=== PATIENT | female | born 1980 | race Caucasian/White ===

== ENCOUNTER 2017-02-02 10:42 | Emergency (ER) | payer MEDICAID ==
[~2017-02-02] VITALS: Ht 154.9 cm; Wt 56.7 kg
[2017-02-02 11:03] VITALS: BP 92/57
[2017-02-02] MEDS ORDERED: Bacitracin Oint UD TOPIC ONE (11:15)
[2017-02-02] MEDS ORDERED: Lidocaine 1% 10mg/ml/Epi 0.005mg/ml 30ml vial INJ ONE (11:15)
[2017-02-02 11:58] LABS: APPEARANCE,URINE SLIGHTLY CLOUDY; KETONES,URINE NEGATIVE (NEGATIVE); LEUKOCYTE ESTERASE ,URINE 1+ (NEGATIVE); NITRITE,URINE NEGATIVE (NEGATIVE); PH,URINE 6 (4.5-8.0); PROTEIN,URINE NEGATIVE (NEGATIVE); UROBILINOGEN,URINE NORMAL MG/DL (0.0-1.0)
[2017-02-02 12:03] LABS: BASOPHILS % (AUTO) 0.7 % (0.0-2.0); EOSINOPHILS % (AUTO) 1.2 % (0.0-3.0); LYMPHOCYTES % (AUTO) 9.6 % (20.0-45.0); MEAN CORPUSCULAR HGB CONC 34.1 G/DL (32.0-36.0); MEAN CORPUSCULAR VOLUME 100 FL (80-99); MEAN PLATELET VOLUME 8.2 FL (6.5-10.1); MONOCYTES % (AUTO) 3.7 % (1.0-10.0); NEUTROPHILS % (AUTO) 84.8 % (45.0-75.0); PLATELET COUNT 267 K/UL (150-450); RED CELL DISTRIBUTION WIDTH 11.5 % (11.6-14.8); WHITE BLOOD COUNT 11.5 K/UL (4.8-10.8)
[2017-02-02 12:04] LABS: SQUAMOUS EPITHELIAL CELL,UR MODERATE /LPF (NONE/OCC); WBC,URINE 0-2 /HPF (0 - 2)
--- NOTE | 2017-02-02 12:18 | Diagnostic Imaging Report ---
Indication: Dyspnea Comparison: None A single view chest radiograph was obtained. Findings: Cardiomediastinal appearance is within normal limits for age. There is a tracheostomy. Pulmonary vascularity is appropriate. The diaphragmatic contour is smooth and costophrenic angles are sharp. No pleural effusions are identified. The bones are unremarkable. Impression: No acute findings
[2017-02-02] MEDS ORDERED: Acetaminophen 650mg/20.3ml ONE (12:20)
[2017-02-02] MEDS ORDERED: Acetaminophen 650mg/20.3ml GT ONE (12:30)
[2017-02-02] MEDS ORDERED: DILANTIN-1125 MG/5 M GT (12:55)
[2017-02-02] MEDS ORDERED: ATORVASTATIN CA10 MG GT (12:55)
[2017-02-02] MEDS ORDERED: COLACE100 MG GT (12:55)
[2017-02-02] MEDS ORDERED: GUAIFENESIN AC473 ML GT (12:57)
[2017-02-02] MEDS ORDERED: FOLIC ACID1 MG GT (12:57)
[2017-02-02] MEDS ORDERED: KEPPRA1000 MG GT (12:57)
[2017-02-02] MEDS ORDERED: MULTI-DELYN237 ML GT (12:59)
[2017-02-02] MEDS ORDERED: NORCO 5-325 TA1 EACH GT (12:59)
[2017-02-02] MEDS ORDERED: LORATADINE10 M1 GT (12:59)
[2017-02-02] MEDS ORDERED: PREDNISONE10 MG GT (13:02)
[2017-02-02] MEDS ORDERED: UTI-STAT L3875 MG/31 GT (13:02)
[2017-02-02] MEDS ORDERED: PHENOBARBITAL30 MG GT (13:02)
[2017-02-02] MEDS ORDERED: VITAMIN D400 INTLU GT (13:02)
[2017-02-02] MEDS ORDERED: ACETAMINOPHEN325 M1 GT (13:02)
[2017-02-02 13:11] LABS: ALANINE AMINOTRANSFERASE 13 U/L (3-33); ANION GAP 8 (5-15); ASPARTATE AMINO TRANSFERASE 16 U/L (5-40); CALCIUM 8.7 mg/dL (8.6-10.2); CARBON DIOXIDE 28 mEQ/L (20-30); CHLORIDE 101 mEQ/L (98-107); CREATININE 0.5 mg/dL (0.5-0.9); GLOMERULAR FILTRATION RATE > 60 mL/min (>60); HEMOLYSIS 5; POTASSIUM 4.1 mEQ/L (3.4-4.9); SODIUM 137 mEQ/L (135-145); TOTAL PROTEIN 7.5 g/dL (6.6-8.7)
[2017-02-02 13:25] VITALS: BP 86/55
[2017-02-02] MEDS ORDERED: NS 250 ML IVPB ONE (13:30)
--- NOTE | 2017-02-02 14:40 | Emergency Room Report ---
History of Present Illness General Chief Complaint: Multiple Trauma/Fall Source: Patient, EMS Present Illness HPI Patient reportedly fell in the bathroom. She was unobserved at that time. It' s uncertain whether she had a seizure at that time. She has a laceration of her left eyebrow. She complains about some pain there. Pain according to RNs is 2/10 - poorly characterized. She nods her head yes and no questions - more "yes" with questionable comprehension.. She has a tracheostomy The patient is on Dilantin and Phenobarbital. She is fed through a G tube. There is no report of fever, vomiting, diarrhea, dysuria. Allergies: Coded Allergies: No Known Allergies (Unverified , 02/02/17) Patient History Limited by: medical condition Past Medical History: see triage record Past Surgical History: other - G tube and trach Social History Narrative SNF Reviewed Nursing Documentation: PMH: Agreed, PSxH: Agreed Nursing Documentation-PM Past Medical History: No History, Except For Hx Gastrointestinal Problems: Yes - Dysphagia Hx Seizures: Yes - Epilepsy Review of Systems All Other Systems: limited Physical Exam Vital Signs Date Time Temp Pulse Resp B/P Pulse Ox O2 Delivery O2 Flow Rate FiO2 02/02/17 10:27 98.4 92 14 89/58 99 Trach Collar 2.0 Sp02 EP Interpretation: reviewed, normal General Appearance: thin, Chronically Ill Head: normocephalic, other - eyebrow lac, contusion Eyes: bilateral eye PERRL, bilateral eye normal inspection ENT: moist mucus membranes - hypergnathia Neck: full range of motion, no bony tend Respiratory: lungs clear, normal breath sounds Cardiovascular #1: regular rate, rhythm Cardiovascular #2: 2+ radial (R) Gastrointestinal: normal inspection, normal bowel sounds, non tender, no mass, non-distended Musculoskeletal: back normal, gait/station normal, normal range of motion Neurologic: alert, sensory intact, motor weakness, oriented - unknown if knows date Psychiatric: mood/affect normal Skin: warm/dry, laceration - X2 - L eyebrow = 5 cm and 1 cm above Procedures Laceration/Wound Repair Laceration/Wound Repair : Consent: Verbal Wound Location: face Wound's Depth, Shape: into muscle, linear Wound Length (cm): 6 - 5 cm through eyebrow and 1 cm above on forehead Wound Explored: removed some hair Anesthesia: Lidocaine w/ Epi Wound Debrided: minimal Wound Repaired With: sutures Suture Size/Type: 6:0, proline Layer Closure?: Yes Deep Layer Suture Size/Type: 6:0, other - vicrly Sterile Dressing Applied?: Yes Progress betadiene, anesthesia. Irrigated 3 layer closure of eyebrow laceration with anatomic/cosmetic alignment of eyebrow (complex laceration repair) Forehead laceration repaired with 6-0 ethilon, no debridement necessary = simple closure 1 cm Medical Decision Making Diagnostic Impression: Primary Impression: Seizure Additional Impressions: Eyebrow laceration Qualified Codes: S01.112A - Laceration without foreign body of left eyelid and periocular area, initial encounter Seizure secondary to subtherapeutic anticonvulsant medication Head contusion Qualified Codes: S00.83XA - Contusion of other part of head, initial encounter ER Course Patient with unwitnessed fall in bathroom, with possible seizure. Eval needs to be for possible seizure. DDx: bleed, lac, contusion, subtherapeutic meds, syncope amongst others. No neck pain. Evaluation with CT, labs, CXR. Denies pain, but tylenol given. Needs lacs closure. Exam is non-focal and The patient was given a dose of phenobarbital IV. She had no more seizure activity here. Her blood pressure was slightly low. She is given a small bolus of saline and also burning with IV hydration. The laceration was repaired with a 3 layer closure, second lac simple repair. See procedure note. The patient is improved and stable for outpatient treatment. Laboratory Tests Test 02/02/17 11:25 02/02/17 11:43 02/02/17 12:33 Urine Color Pale yellow Urine Appearance Slightly cloudy Urine pH 6 (4.5-8.0) Urine Specific [place] 1.015 (1.005-1.035) Urine Protein Negative (NEGATIVE) Urine Glucose (UA) Negative (NEGATIVE) Urine Ketones Negative (NEGATIVE) Urine Occult Blood 5+ (NEGATIVE) H Urine Nitrite Negative (NEGATIVE) Urine Bilirubin Negative (NEGATIVE) Urine Urobilinogen Normal MG/DL (0.0-1.0) Urine Leukocyte Esterase 1+ (NEGATIVE) H Urine RBC 5-10 /HPF (0 - 2) H Urine WBC 0-2 /HPF (0 - 2) Urine Squamous Epithelial Cells Moderate /LPF (NONE/OCC) H Urine Bacteria None /HPF (NONE) White Blood Count 11.5 K/UL (4.8-10.8) H Red Blood Count 4.30 M/UL (4.20-5.40) Hemoglobin 14.6 G/DL (12.0-16.0) Hematocrit 42.9 % (37.0-47.0) Mean Corpuscular Volume 100 FL (80-99) H Mean Corpuscular Hemoglobin 34.0 PG (27.0-31.0) H Mean Corpuscular Hemoglobin Concent 34.1 G/DL (32.0-36.0) Red Cell Distribution Width 11.5 % (11.6-14.8) L Platelet Count 267 K/UL (150-450) Mean Platelet Volume 8.2 FL (6.5-10.1) Neutrophils (%) (Auto) 84.8 % (45.0-75.0) H Lymphocytes (%) (Auto) 9.6 % (20.0-45.0) L Monocytes (%) (Auto) 3.7 % (1.0-10.0) Eosinophils (%) (Auto) 1.2 % (0.0-3.0) Basophils (%) (Auto) 0.7 % (0.0-2.0) Sodium Level 137 mEQ/L (135-145) Potassium Level 4.1 mEQ/L (3.4-4.9) Chloride Level 101 mEQ/L (98-107) Carbon Dioxide Level 28 mEQ/L (20-30) Anion Gap 8 (5-15) Blood Urea Nitrogen 9 mg/dL (7-23) Creatinine 0.5 mg/dL (0.5-0.9) Estimate Glomerular Filtration Rate > 60 mL/min (>60) Glucose Level 104 mg/dL (74-106) Calcium Level 8.7 mg/dL (8.6-10.2) Total Bilirubin 0.2 mg/dL (0.0-1.2) Aspartate Amino Transferase (AST) 16 U/L (5-40) Alanine Aminotransferase (ALT) 13 U/L (3-33) Alkaline Phosphatase 116 U/L (35-104) H Total Creatine Kinase 65 U/L (26-140) Total Protein 7.5 g/dL (6.6-8.7) Albumin 3.8 g/dL (3.5-5.2) Globulin 3.7 g/dL Albumin/Globulin Ratio 1.0 (1.0-2.7) Phenytoin (Dilantin) Level 18.4 ug/mL (10-20) Phenobarbital Level 16.2 ug/mL (20.0-40.0) L EKG Diagnostic Results Rate: normal Rhythm: NSR ST Segments: no acute changes Rhythm Strip Diag. Results EP Interpretation: yes Rhythm: NSR, no PVC's, no ectopy Chest X-Ray Diagnostic Results Chest X-Ray Diagnostic Results : Chest X-Ray Ordered: Yes # of Views/Limited/Complete: 1 View Indication: Other EP Interpretation: Yes Interpretation: no consolidation, no effusion, no pneumothorax, other - trach Impression: No acute disease Interpreting ER Provider: Electronic signature Ousmane Delgado MD CT/MRI/US Diagnostic Results CT/MRI/US Diagnostic Results : Imaging Test Ordered: head Impression no bleed, fx, some chronic changes Last Vital Signs Date Time Temp Pulse Resp B/P Pulse Ox O2 Delivery O2 Flow Rate FiO2 02/02/17 15:30 74 17 95/66 100 Trach Collar 2.0 02/02/17 15:27 97.9 Status: improved Disposition: XFER SNF Condition: Improved Scripts Bacitracin (Bacitracin) 28.4 Gm Oint...g. 1 APPLIC TOPIC BID, #10 GM Prov: Ousmane Delgado M.D. 02/02/17 Referrals: BRYANT LINDA,REFERRING (PCP) Ousmane Delgado M.D. Feb 02, 2017 14:40
[2017-02-02] MEDS ORDERED: BACITRACIN15 GM TOPIC (14:48)
[2017-02-02 15:27] VITALS: BP 95/66
[2017-02-02 15:30] VITALS: BP 95/66
--- NOTE | 2017-02-05 09:13 | Diagnostic Imaging Report ---
Indication: Seizure Technique: Contiguous 5 mm thick transaxial imaging of the head obtained in a Siemens Sensation [address] scanner. Soft tissue and bone windows generated. Total Dose length Product (DLP): [address] Dose Index Volume (CTDIvol): 70.38 mGy Comparison: none Findings: There is moderate cerebellar atrophy present. The cerebrum is relatively normal volume. There is no mass effect or edema or evidence of acute hemorrhage. No midline shift is seen. There is a focus of calcification measuring 6 mm at the posterior margin of the anterior horn of the right lateral ventricle. This could represent an unusual distribution of choroid more anterior than expected with calcification, as choroid normally calcifies. Usually calcification is confined to the posterior aspects of both lateral ventricles. The possibility of a small calcified mass such as a subependymoma is not excluded. No other lesions are seen within the lateral ventricles. There is swelling of the scalp posteriorly slightly left of midline. Please correlate clinically. This may be scalp contusion. Impression: No mass effect, acute intracranial hemorrhage or edema. 6 mm densely calcified mass within the anterior horn of the right lateral ventricle. 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 If this is a mass, not certain whether this is associated with the patient's given history of seizure. Moderate cerebellar atrophy. This could be related to chronic phenytoin use as there is a seizure history. Please correlate clinically. The CT scanner at [facility] is accredited by the [employer] and the scans are performed using dose optimization techniques as appropriate to a performed exam including Automatic Exposure control.
== END 2017-02-02 15:30 ==
LOC: EDBD 10:42 → EMR 11:25
DX: S01.112A Laceration without foreign body of left eyelid and periocular area, initial encounter (principal); S00.93XA Contusion of unspecified part of head, initial encounter; G40.909 Epilepsy, unspecified, not intractable, without status epilepticus; W19.XXXA Unspecified fall, initial encounter; Y92.121 Bathroom in nursing home as the place of occurrence of the external cause; Z79.899 Other long term (current) drug therapy; Z93.1 Gastrostomy status; Z93.0 Tracheostomy status
CPT/HCPCS: 12053; 36415; 70450; 71010; 80053; 80184; 80185; 81003; 82550; 82962; 85025; 93005; 96374; 96375; 99284; J2560; J7050; Z7502

== ENCOUNTER 2017-05-19 19:05 | Emergency (ER) | payer MEDICAID ==
[~2017-05-19] VITALS: Ht 152.4 cm; Wt 54.4 kg
[~2017-05-19 19:05] MED LIST: ACETAMINOPHEN325 M1 GT; ATORVASTATIN CA10 MG GT; BACITRACIN15 GM TOPIC; COLACE100 MG GT; DILANTIN-1125 MG/5 M GT; FOLIC ACID1 MG GT; GUAIFENESIN AC473 ML GT; KEPPRA1000 MG GT; LORATADINE10 M1 GT; MULTI-DELYN237 ML GT; NORCO 5-325 TA1 EACH GT; PHENOBARBITAL30 MG GT; PREDNISONE10 MG GT; UTI-STAT L3875 MG/31 GT; VITAMIN D400 INTLU GT
[2017-05-19 19:15] VITALS: BP 103/67
[2017-05-19] MEDS ORDERED: levETIRAcetam 500 MG in D5W 110 ML IV ONE (19:30)
[2017-05-19] MEDS ORDERED: LORazepam Inj 2mg/ml 1ml IV ONE (19:30)
[2017-05-19] MEDS ORDERED: levETIRAcetam 500mg vial IV ONE (19:44)
[2017-05-19 19:50] LABS: BASOPHILS % (AUTO) 0.7 % (0.0-2.0); EOSINOPHILS % (AUTO) 3.1 % (0.0-3.0); HEMATOCRIT 44.9 % (37.0-47.0); HEMOGLOBIN 15.1 G/DL (12.0-16.0); LYMPHOCYTES % (AUTO) 16.3 % (20.0-45.0); MEAN CORPUSCULAR VOLUME 99 FL (80-99); MONOCYTES % (AUTO) 6.4 % (1.0-10.0); NEUTROPHILS % (AUTO) 73.6 % (45.0-75.0); PLATELET COUNT 258 K/UL (150-450); RED BLOOD COUNT 4.56 M/UL (4.20-5.40); RED CELL DISTRIBUTION WIDTH 11.2 % (11.6-14.8); WHITE BLOOD COUNT 7.6 K/UL (4.8-10.8)
[2017-05-19 20:29] LABS: ALANINE AMINOTRANSFERASE 29 U/L (12-78); ALBUMIN 3.8 G/DL (3.4-5.0); ALBUMIN/GLOBULIN RATIO 0.8 (1.0-2.7); ALKALINE PHOSPHATASE 130 U/L (46-116); ANION GAP 8 mmol/L (5-15); ASPARTATE AMINO TRANSFERASE 23 U/L (15-37); BILIRUBIN,TOTAL 0.1 MG/DL (0.2-1.0); BLOOD UREA NITROGEN 10 mg/dL (7-18); CALCIUM 9.2 MG/DL (8.5-10.1); CARBON DIOXIDE 28 MMOL/L (21-32); CHLORIDE 103 MMOL/L (98-107); CREATININE 0.7 MG/DL (0.55-1.30); POTASSIUM 3.3 MMOL/L (3.5-5.1); SODIUM 139 MMOL/L (136-145)
[2017-05-19 20:33] LABS: CREATINE KINASE 77 U/L (26-308)
[2017-05-19] MEDS ORDERED: DILANTIN100 MG ORAL (20:44)
[2017-05-19] MEDS ORDERED: DUONEB 0.5-3(2.53 ML HHN (20:44)
[2017-05-19] MEDS ORDERED: DOCUSATE SODIU100 MG GT (20:44)
[2017-05-19] MEDS ORDERED: DILANTIN-1125 MG/5 M GT (20:44)
[2017-05-19] MEDS ORDERED: FOLIC ACID1 MG GT (20:50)
[2017-05-19] MEDS ORDERED: NORCO 5-325 TA1 EAC1 ORAL (20:50)
[2017-05-19] MEDS ORDERED: MULTIVITAM9 MG/15 M1 GT (20:50)
[2017-05-19] MEDS ORDERED: TOPIRAMATE50 MG GT ×2 (20:50→20:53)
[2017-05-19] MEDS ORDERED: LORATADINE10 M3 GT (20:50)
[2017-05-19] MEDS ORDERED: LEVETIRACE100 MG/1 M GT (20:50)
[2017-05-19] MEDS ORDERED: ACETAMINOPHEN325 M1 ORAL (20:53)
[2017-05-19] MEDS ORDERED: UTI-STAT L3875 MG/31 GT (20:53)
[2017-05-19 21:15] VITALS: BP 90/52
[2017-05-19] MEDS ORDERED: Phenytoin 500 MG in NS 110 ML IVPB STA (22:29)
--- NOTE | 2017-05-19 22:33 | Emergency Room Report ---
History of Present Illness General Chief Complaint: Seizure Source: EMS Present Illness HPI The patient was found postictal. She has a history of seizures. The seizure was not observed however when she is postictal in this fashion the staff knows she's had a seizure. According to records she supposed to be on Keppra, phenobarbital and Dilantin. She is fed and her meds are delivered through a G tube. She was last seen here in January. At that time her medication levels were normal. She had sustained a laceration falling in the bathroom and again, it was presumed that she had a seizure precipitating the fall and laceration. The patient has a tracheostomy. There's been no fever stated. Patient is unable to give history. Usually she is able to nod yes and no. She suffers from encephalopathy, DM, angioneurotic edema. Allergies: Coded Allergies: No Known Allergies (Unverified , 02/02/17) Patient History Limited by: medical condition Past Medical History: see triage record, old chart reviewed Past Surgical History: other - trach, G tube Social History: Denies: smoking, alcohol use, drug use Social History Narrative in SNF Reviewed Nursing Documentation: PMH: Agreed, PSxH: Agreed Nursing Documentation-PMH Past Medical History: No History, Except For Hx Asthma: Yes - Attention to tracheostomy, Respiratory failure Hx Diabetes: Yes Hx Gastrointestinal Problems: Yes - G-tube, dysphagia History Of Psychiatric Problem: Yes - Schizophrenia Hx Seizures: Yes Review of Systems All Other Systems: limited Physical Exam Vital Signs Date Time Temp Pulse Resp B/P (MAP) Pulse Ox O2 Delivery O2 Flow Rate FiO2 05/19/17 18:54 97.3 116 18 118/77 97 Trach Collar Sp02 EP Interpretation: reviewed, normal General Appearance: well appearing, no apparent distress, other - GCS 14 - eyes closed, Chronically Ill Head: normocephalic Eyes: bilateral eye normal inspection, bilateral eye PERRL ENT: moist mucus membranes - no tongue macerations Neck: supple, tracheotomy Respiratory: lungs clear, normal breath sounds Cardiovascular #1: regular rate, rhythm Cardiovascular #2: 2+ radial (R) Gastrointestinal: normal inspection, normal bowel sounds, non tender, no mass, non-distended, other - G tube Musculoskeletal: back normal, normal range of motion Neurologic: alert, cardiology physician assistant III-XII nml as tested, motor strength/tone normal, DTRs symmetric, sensory intact, cerebellar normal, other - not speak due to trach - eyes closed Psychiatric: depressed affect Skin: normal inspection, warm/dry, other - facial nodularity Medical Decision Making Diagnostic Impression: Primary Impression: Seizure secondary to subtherapeutic anticonvulsant medication ER Course Patient presents with presumptive seizure. DDx: subtherapeutic medications, breakthrough seizures, electrolyte abnormalities amongst others. Emergent evaluation with labs including medication levels, CXR, EKG. Will treat presumtively with ativan and dose of keppra. Need to exclude aspiration. EKG NSR. CXR without infiltrates. Both dilantin and phenobarbital levels are low. Both are given IV. Patient with eyes closed, but denies pain. Discussed medical non-compliance with Lynn Gusman. If continued presentations, consider APS notification. Patient improved and stable for outpatient observation and treatment. Laboratory Tests Test 05/19/17 19:37 White Blood Count 7.6 K/UL (4.8-10.8) Red Blood Count 4.56 M/UL (4.20-5.40) Hemoglobin 15.1 G/DL (12.0-16.0) Hematocrit 44.9 % (37.0-47.0) Mean Corpuscular Volume 99 FL (80-99) Mean Corpuscular Hemoglobin 33.2 PG (27.0-31.0) H Mean Corpuscular Hemoglobin Concent 33.7 G/DL (32.0-36.0) Red Cell Distribution Width 11.2 % (11.6-14.8) L Platelet Count 258 K/UL (150-450) Mean Platelet Volume 8.7 FL (6.5-10.1) Neutrophils (%) (Auto) 73.6 % (45.0-75.0) Lymphocytes (%) (Auto) 16.3 % (20.0-45.0) L Monocytes (%) (Auto) 6.4 % (1.0-10.0) Eosinophils (%) (Auto) 3.1 % (0.0-3.0) H Basophils (%) (Auto) 0.7 % (0.0-2.0) Prothrombin Time 10.2 SEC (9.30-11.50) Prothrombin Time INR 1.0 (0.9-1.1) PTT 25 SEC (23-33) Sodium Level 139 MMOL/L (136-145) Potassium Level 3.3 MMOL/L (3.5-5.1) L Chloride Level 103 MMOL/L (98-107) Carbon Dioxide Level 28 MMOL/L (21-32) Anion Gap 8 mmol/L (5-15) Blood Urea Nitrogen 10 mg/dL (7-18) Creatinine 0.7 MG/DL (0.55-1.30) Estimate Glomerular Filtration Rate > 60 mL/min (>60) Glucose Level 135 MG/DL (74-106) H Calcium Level 9.2 MG/DL (8.5-10.1) Total Bilirubin 0.1 MG/DL (0.2-1.0) L Aspartate Amino Transferase (AST) 23 U/L (15-37) Alanine Aminotransferase (ALT) 29 U/L (12-78) Alkaline Phosphatase 130 U/L (46-116) H Total Creatine Kinase 77 U/L (26-308) Pro-B-Type Natriuretic Peptide 29 pg/mL (0-125) Total Protein 8.3 G/DL (6.4-8.2) H Albumin 3.8 G/DL (3.4-5.0) Globulin 4.5 g/dL Albumin/Globulin Ratio 0.8 (1.0-2.7) L Acetaminophen Level < 10 MCG/ML (10-30) L Phenytoin (Dilantin) Level 3.9 ug/mL (10-20) L Phenobarbital Level < 1.0 ug/mL (15-40) L Serum Alcohol < 3 mg/dL EKG Diagnostic Results Rate: normal Rhythm: NSR ST Segments: no acute changes Rhythm Strip Diag. Results EP Interpretation: yes Rhythm: NSR, no PVC's, no ectopy Chest X-Ray Diagnostic Results Chest X-Ray Diagnostic Results : Chest X-Ray Ordered: Yes # of Views/Limited/Complete: 1 View Indication: Other Interpretation: no consolidation, no effusion, no pneumothorax, other - trach Impression: No acute disease Electronically Signed by: Electronically signed by Ousmane Delgado MD Last Vital Signs Date Time Temp Pulse Resp B/P (MAP) Pulse Ox O2 Delivery O2 Flow Rate FiO2 05/20/17 00:08 98.0 92 22 95/74 98 Room Air Status: improved Disposition: XFER SNF Condition: Improved Referrals: NON PHYSICIAN (PCP) Ousmane Delgado M.D. May 19, 2017 22:33
[2017-05-19] MEDS ORDERED: Phenytoin 250mg/5ml vial ONE (22:38)
[2017-05-19 23:15] VITALS: BP 117/78
[2017-05-20 00:08] VITALS: BP 95/74
--- NOTE | 2017-05-20 11:09 | Diagnostic Imaging Report ---
Indication: Cough Technique: CHEST 1 VIEW. Comparison: 02/02/17 Findings: The cardiomediastinal silhouette is stable. There are no acute infiltrates. Tracheostomy remains in place. No pleural fluid. There is scarring in the right lower lung. Impression: No acute abnormality. .
--- NOTE | 2017-05-21 20:20 | Cardiology Report ---
APPROVED REPORT EKG Measurement Heart [id number] [place] [id number] Normal sinus rhythm Normal ECG
--- NOTE | 2017-05-21 20:20 | Cardiology Report ---
APPROVED REPORT EKG Measurement Heart [id number] [place] 132P75 [id number] Normal sinus rhythm Normal ECG
--- NOTE | 2017-05-21 20:20 | Cardiology Report ---
APPROVED REPORT EKG Measurement Heart [id number] [place] 132P75 [id number] Normal sinus rhythm Normal ECG
== END 2017-05-20 00:08 ==
LOC: EDBD 19:05 → EMR 20:58
DX: G40.909 Epilepsy, unspecified, not intractable, without status epilepticus (principal); Z79.899 Other long term (current) drug therapy; E11.9 Type 2 diabetes mellitus without complications; J45.909 Unspecified asthma, uncomplicated; Z93.1 Gastrostomy status; F20.9 Schizophrenia, unspecified
CPT/HCPCS: 36415; 71010; 80053; 80184; 80185; 80329; 82550; 83880; 85025; 85610; 85730; 93005; 96361; 96374; 96375; 99284; J1165; J1953; J2560

== ENCOUNTER → 2018-02-08 | Emergency (ER) | payer MEDICAID ==
[~2018-02-08] VITALS: Ht 134.6 cm; Wt 40.4 kg
[~2018-02-08] MED LIST changes: +ACETAMINOPHEN325 M1 ORAL; +ALBUTEROL2.5 MG/3 M INH; +DILANTIN100 MG ORAL; +DOCUSATE SODIU100 MG GT; +DUONEB 0.5-3(2.53 ML HHN; +HIBICLENS118 ML ORAL; +LEVETIRACE100 MG/1 M GT; +LORATADINE10 M3 GT; +MULTIVITAM9 MG/15 M1 GT; +NORCO 5-325 TA1 EAC1 ORAL; +Phenytoin 1,000 MG in NS 275 ML IVPB ONE; +TOPIRAMATE50 MG GT; +TRILEPTAL600 MG GT
--- NOTE | 2018-02-08 10:44 | Emergency Room Report ---
History of Present Illness General Chief Complaint: Seizure Source: Patient, EMS Present Illness HPI 37-year-old female with history of encephalopathy and seizure disorder, presents with witnessed seizure at [facility], duration 2-3 minutes, no obvious injuries as patient in the bed. There is no much history in terms of bowel bladder incontinence or tongue biting.. Patient now denies any complaints of chest pain fevers or any problems at all. She does not speak much, but she nods her head yes and no. Allergies: Coded Allergies: No Known Allergies (Unverified , 02/02/17) Patient History Past Medical History: see triage record Reviewed Nursing Documentation: PMH: Agreed; PSxH: Agreed Nursing Documentation-PMH Hx Cardiac Problems: No - ANEMIA PNA ENCEPHALOPATHY TYPE 2 DIABETIC Hx Asthma: Yes - Attention to tracheostomy, Respiratory failure Hx Diabetes: Yes Hx Gastrointestinal Problems: Yes - Dysphagia History Of Psychiatric Problem: Yes - SCHITZOPRENIA Hx Seizures: Yes - Epilepsy Review of Systems All Other Systems: limited - Patient not speaking, but is cooperative and answering yes or no questions Physical Exam Vital Signs Date Time Temp Pulse Resp B/P (MAP) Pulse Ox O2 Delivery O2 Flow Rate FiO2 02/08/18 09:50 98.6 96 18 93/59 97 Room Air 98.6 Sp02 EP Interpretation: reviewed, normal General Appearance: no apparent distress, alert, non-toxic Head: normocephalic, other - Patient with helmet on Eyes: bilateral eye normal inspection, bilateral eye PERRL, bilateral eye EOMI ENT: normal ENT inspection, hearing grossly normal, normal pharynx, no angioedema, normal voice, moist mucus membranes Neck: normal inspection, full range of motion, supple, supple/symm/no masses Respiratory: chest non-tender, lungs clear, normal breath sounds, chest symmetrical, palpation of chest normal Cardiovascular #1: normal peripheral pulses, regular rate, rhythm Cardiovascular #2: 2+ radial (R), 2+ radial (L) Gastrointestinal: normal inspection, non tender, soft, no mass, no guarding, no rebound, other - Left upper quadrant feeding tube site, clean dry and intact Rectal: deferred Genitourinary: normal inspection, no CVA tenderness Musculoskeletal: back normal, gait/station normal, normal range of motion, non- tender, no calf tenderness Neurologic: alert, responsive, radio rigger III-XII nml as tested, motor strength/tone normal, sensory intact Skin: normal color, no rash, warm/dry, normal turgor Lymphatic: no adenopathy Medical Decision Making Diagnostic Impression: Primary Impression: Seizure ER Course Patient with white count of 15,000, but normal head CT with no acute pathology, normal chest x-ray, normal urinalysis, I suspect this was secondary to seizure, she seems to be back to baseline and she was discharged back to her skilled facility.. According to the med rec on [facility] currently, patient is on multiple antiseizure meds including phenytoin, and her phenytoin level is subtherapeutic , so she was given IV Keppra as well as Phenytoin and discharged back EKG Diagnostic Results EKG Time: 10:16 EP Interpretation: No ST-T segment changes no tumors, rate 80, normal QTC 408 Rate: normal Rhythm: NSR ST Segments: no acute changes ASA given to the pt in ED: No Rhythm Strip Diag. Results Rhythm Strip Time: 10:43 EP Interpretation: yes Rate: 86 Rhythm: NSR, no PVC's, no ectopy Chest X-Ray Diagnostic Results Chest X-Ray Diagnostic Results : Chest X-Ray Ordered: Yes # of Views/Limited/Complete: 1 View Indication: Other - sz EP Interpretation: Yes Interpretation: no consolidation, no effusion, no pneumothorax, no acute cardiopulmonary disease Impression: No acute disease Electronically Signed by: Himanshu Hernandez MD CT/MRI/US Diagnostic Results CT/MRI/US Diagnostic Results : Imaging Test Ordered: ct head Impression no acute dz Last Vital Signs Date Time Temp Pulse Resp B/P (MAP) Pulse Ox O2 Delivery O2 Flow Rate FiO2 02/08/18 09:50 98.6 96 18 93/59 97 Room Air 98.6 Disposition: XFER SNF Condition: Stable HIMANSHU HERNANDEZ M.D Feb 08, 2018 10:43
[2018-02-08 11:03] LABS: HEMATOCRIT 41.7 % (37.0-47.0); HEMOGLOBIN 13.4 G/DL (12.0-16.0); MEAN CORPUSCULAR VOLUME 94 FL (80-99); PLATELET COUNT 281 K/UL (150-450); RED BLOOD COUNT 4.42 M/UL (4.20-5.40)
[2018-02-08 11:05] LABS: APPEARANCE,URINE SLIGHTLY CLOUDY; BILIRUBIN, URINE NEGATIVE (NEGATIVE); COLOR,URINE YELLOW; GLUCOSE, URINE (UA) NEGATIVE (NEGATIVE); KETONES,URINE NEGATIVE (NEGATIVE); LEUKOCYTE ESTERASE ,URINE NEGATIVE (NEGATIVE); NITRITE,URINE NEGATIVE (NEGATIVE); PH,URINE 7 (4.5-8.0); PROTEIN,URINE NEGATIVE (NEGATIVE); UROBILINOGEN,URINE NORMAL MG/DL (0.0-1.0)
[2018-02-08 11:16] LABS: ANION GAP 10 mmol/L (5-15); BLOOD UREA NITROGEN 13 mg/dL (7-18); CALCIUM 8.7 MG/DL (8.5-10.1); CARBON DIOXIDE 21 MMOL/L (21-32); CHLORIDE 109 MMOL/L (98-107); CREATININE 0.6 MG/DL (0.55-1.30); SODIUM 140 MMOL/L (136-145)
[2018-02-08 11:20] LABS: ALANINE AMINOTRANSFERASE 21 U/L (12-78); ALBUMIN 3.5 G/DL (3.4-5.0); ALBUMIN/GLOBULIN RATIO 0.7 (1.0-2.7); ALKALINE PHOSPHATASE 96 U/L (46-116); ASPARTATE AMINO TRANSFERASE 31 U/L (15-37); BILIRUBIN,TOTAL 0.3 MG/DL (0.2-1.0)
[2018-02-08 11:29] LABS: POTASSIUM 4.4 MMOL/L (3.5-5.1)
[2018-02-08 11:34] VITALS: BP 92/58
--- NOTE | 2018-02-08 11:36 | Diagnostic Imaging Report ---
Indications: History of encephalopathy and seizure disorder, recent witnessed seizure Technique: Spiral acquisitions obtained through the brain. Angled axial and coronal 5 x 5 mm slices were reconstructed. Total dose length product 1312.75 mGycm. CTDI vol(s) 70.38 mGy. Dose reduction achieved using automated exposure control Comparison: 02/02/2017 Findings: Unusual calcification at the anterior right thalamus or within the floor of the anterior right lateral ventricle is again demonstrated, unchanged. There is a small scalp hematoma in the distribution of the much larger scalp hematoma demonstrated previously. No acute intracranial hemorrhage or edema, mass effect, nor midline shift. Normal leigh-white differentiation. There is isolated cerebellar volume loss again demonstrated, may be slightly more striking than on the prior exam. The supratentorial ventricles and extra axial CSF spaces are normal in caliber. Impression: Negative for acute intracranial bleed or mass effect. Calcification in the anterior right thalamus versus floor of the lateral ventricle, of uncertain significance but unchanged from prior study of 02/02/2017. As previously, differential considerations include calcified subependymoma or ectopic choroid plexus Isolated cerebellar volume loss, also previously described Small scalp hematoma near the vertex, in similar distribution as the prior study but considerably smaller The CT scanner at [facility] is accredited by the [employer] and the scans are performed using protocols designed to limit radiation exposure to as low as reasonably achievable to attain images of sufficient resolution adequate for diagnostic evaluation.
--- NOTE | 2018-02-08 11:41 | Diagnostic Imaging Report ---
Indication: Shortness of breath Technique: One view of the chest Comparison: On 11/02/2016 Findings: Calcified granulomata are again demonstrated left lung base. The lungs and pleural spaces are otherwise clear. Previously demonstrated tracheostomy has been removed. Impression: No acute process
[2018-02-08 13:53] VITALS: BP 119/93
--- NOTE | 2018-02-10 14:53 | Cardiology Report ---
APPROVED REPORT EKG Measurement Heart [id number] [id number] Normal sinus rhythm Possible Left atrial enlargement Borderline ECG
== END ==
LOC: EDBD 09:50 → EDUNIT# 09:50 → EMR 10:40
DX: G40.909 Epilepsy, unspecified, not intractable, without status epilepticus (principal); E11.9 Type 2 diabetes mellitus without complications; J45.909 Unspecified asthma, uncomplicated
CPT/HCPCS: 36415; 70450; 71045; 80053; 80185; 80299; 81003; 81025; 85007; 85025; 93005; 96361; 96365; 99284

== ENCOUNTER 2019-07-25 23:05 | Inpatient (IN) | payer MEDICAID ==
[~2019-07-25] VITALS: Ht 162.6 cm; Wt 57.6 kg
[~2019-07-25 23:05] MED LIST changes: -ATORVASTATIN CA10 MG GT; +ATORVASTATIN CA10 MG PO; +NORCO 5-325 TA1 EACH PO; -Phenytoin 1,000 MG in NS 275 ML IVPB ONE; +UTI-STAT L3875 MG/31 PO; +VITAMIN D400 INTLU PO
--- NOTE | 2019-07-25 23:30 | NUR ---
ED Nurse Note: Patient was BIBA RA 69 from [facility] due to seizure. Seizure was witnessed by staff, duration of the seizure was 2 min. Patient presented calm, cooperative, AAO x1, VSS at this time.
[2019-07-25 23:47] LABS: BASOPHILS % (AUTO) 1.2 % (0.0-2.0); EOSINOPHILS % (AUTO) 3.3 % (0.0-3.0); HEMATOCRIT 38.7 % (37.0-47.0); HEMOGLOBIN 13.7 G/DL (12.0-16.0); LYMPHOCYTES % (AUTO) 29.3 % (20.0-45.0); MEAN CORPUSCULAR VOLUME 95 FL (80-99); MONOCYTES % (AUTO) 8.9 % (1.0-10.0); NEUTROPHILS % (AUTO) 57.3 % (45.0-75.0); PLATELET COUNT 192 K/UL (150-450); RED CELL DISTRIBUTION WIDTH 10.3 % (11.6-14.8); WHITE BLOOD COUNT 6.6 K/UL (4.8-10.8)
[2019-07-25 23:57] LABS: ANION GAP 10 mmol/L (5-15); BLOOD UREA NITROGEN 14 mg/dL (7-18); CALCIUM 8.4 MG/DL (8.5-10.1); CARBON DIOXIDE 23 MMOL/L (21-32); CHLORIDE 110 MMOL/L (98-107); CREATININE 0.7 MG/DL (0.55-1.30); POTASSIUM 3.9 MMOL/L (3.5-5.1); SODIUM 143 MMOL/L (136-145)
[2019-07-26 00:02] LABS: ALANINE AMINOTRANSFERASE 20 U/L (12-78); ALBUMIN 3.5 G/DL (3.4-5.0); ALBUMIN/GLOBULIN RATIO 0.8 (1.0-2.7); ALKALINE PHOSPHATASE 85 U/L (46-116); ASPARTATE AMINO TRANSFERASE 15 U/L (15-37); BILIRUBIN,TOTAL 0.3 MG/DL (0.2-1.0)
[2019-07-26 00:54] LABS: APPEARANCE,URINE CLEAR; BILIRUBIN, URINE NEGATIVE (NEGATIVE); COLOR,URINE PALE YELLOW; GLUCOSE, URINE (UA) NEGATIVE (NEGATIVE); KETONES,URINE NEGATIVE (NEGATIVE); LEUKOCYTE ESTERASE ,URINE NEGATIVE (NEGATIVE); NITRITE,URINE NEGATIVE (NEGATIVE); PH,URINE 6.5 (4.5-8.0); PROTEIN,URINE NEGATIVE (NEGATIVE); UROBILINOGEN,URINE NORMAL MG/DL (0.0-1.0)
--- NOTE | 2019-07-26 01:17 | Diagnostic Imaging Report ---
EXAM: CT Head Without Intravenous Contrast CLINICAL HISTORY: SZ TECHNIQUE: Axial computed tomography images of the head/brain without intravenous contrast. CTDI is 62.7 mGy and DLP is 1457.7 mGy-cm. One or more of the following dose reduction techniques were used: automated exposure control, adjustment of the mA and/or kV according to patient size, use of iterative reconstruction technique. COMPARISON: No relevant prior studies available. FINDINGS: Brain: No hemorrhage, extra-axial fluid collection, mass effect, or edema. No grossly evident acute ischemic infarct. Bones/joints: Unremarkable. No acute fracture. Soft tissues: Unremarkable. Sinuses: Unremarkable as visualized. Mastoid air cells: Unremarkable as visualized. No mastoid effusion. IMPRESSION: 1. No acute intracranial abnormality.
--- NOTE | 2019-07-26 01:42 | Emergency Room Report ---
History of Present Illness General Chief Complaint: Seizure Source: Patient Present Illness HPI 39-year-old female history of epilepsy, currently at [facility] takes her seizure medications every day had a breakthrough seizure prior to arrival, lasting 2 minutes, self resolved, no known aggravating relieving factors severity was mild, patient did not hit her head no trauma, patient is currently asymptomatic and is back to baseline. Allergies: Coded Allergies: No Known Allergies (Unverified , 02/02/17) Patient History Past Medical History: see triage record Last Menstrual Period: na Reviewed Nursing Documentation: PMH: Agreed; PSxH: Agreed Nursing Documentation-PMH Hx Cardiac Problems: No - ANEMIA PNA ENCEPHALOPATHY TYPE 2 DIABETIC Hx Asthma: Yes - Attention to tracheostomy, Respiratory failure Hx Diabetes: Yes Hx Gastrointestinal Problems: Yes - G-tube, dysphagia Hx Seizures: Yes Review of Systems All Other Systems: negative except mentioned in HPI Physical Exam Vital Signs Date Time Temp Pulse Resp B/P (MAP) Pulse Ox O2 Delivery O2 Flow Rate FiO2 07/25/19 23:13 97.7 88 16 97 Room Air Sp02 EP Interpretation: reviewed, normal General Appearance: well appearing, no apparent distress, alert Head: normocephalic, atraumatic Eyes: bilateral eye PERRL, bilateral eye EOMI ENT: uvula midline, moist mucus membranes Neck: supple, thyroid normal, supple/symm/no masses Respiratory: lungs clear, no respiratory distress, no retraction, no accessory muscle use Cardiovascular #1: normal peripheral pulses, regular rate, rhythm, no edema, no gallop, no murmur Gastrointestinal: non tender, soft, no guarding, no rebound Musculoskeletal: normal inspection Neurologic: alert, oriented x3 Psychiatric: mood/affect normal Skin: no rash, warm/dry Medical Decision Making Diagnostic Impression: Primary Impression: Epileptic seizure, generalized ER Course 39-year-old female presents with breakthrough seizure currently back to baseline , patient loaded with 1 g of Keppra patient given some fluid rehydration with electrolytes checked as well as UA, no evidence of infection, no evidence of electrolyte abnormality disposition back to [facility] Laboratory Tests Test 07/25/19 23:35 07/26/19 00:40 White Blood Count 6.6 K/UL (4.8-10.8) Red Blood Count 4.10 M/UL (4.20-5.40) L Hemoglobin 13.7 G/DL (12.0-16.0) Hematocrit 38.7 % (37.0-47.0) Mean Corpuscular Volume 95 FL (80-99) Mean Corpuscular Hemoglobin 33.3 PG (27.0-31.0) H Mean Corpuscular Hemoglobin Concent 35.2 G/DL (32.0-36.0) Red Cell Distribution Width 10.3 % (11.6-14.8) L Platelet Count 192 K/UL (150-450) Mean Platelet Volume 9.2 FL (6.5-10.1) Neutrophils (%) (Auto) 57.3 % (45.0-75.0) Lymphocytes (%) (Auto) 29.3 % (20.0-45.0) Monocytes (%) (Auto) 8.9 % (1.0-10.0) Eosinophils (%) (Auto) 3.3 % (0.0-3.0) H Basophils (%) (Auto) 1.2 % (0.0-2.0) Sodium Level 143 MMOL/L (136-145) Potassium Level 3.9 MMOL/L (3.5-5.1) Chloride Level 110 MMOL/L (98-107) H Carbon Dioxide Level 23 MMOL/L (21-32) Anion Gap 10 mmol/L (5-15) Blood Urea Nitrogen 14 mg/dL (7-18) Creatinine 0.7 MG/DL (0.55-1.30) Estimate Glomerular Filtration Rate > 60 mL/min (>60) Glucose Level 98 MG/DL (74-106) Calcium Level 8.4 MG/DL (8.5-10.1) L Total Bilirubin 0.3 MG/DL (0.2-1.0) Aspartate Amino Transferase (AST) 15 U/L (15-37) Alanine Aminotransferase (ALT) 20 U/L (12-78) Alkaline Phosphatase 85 U/L (46-116) Total Protein 7.8 G/DL (6.4-8.2) Albumin 3.5 G/DL (3.4-5.0) Globulin 4.3 g/dL Albumin/Globulin Ratio 0.8 (1.0-2.7) L Urine Color Pale yellow Urine Appearance Clear Urine pH 6.5 (4.5-8.0) Urine Specific Blanchard 1.010 (1.005-1.035) Urine Protein Negative (NEGATIVE) Urine Glucose (UA) Negative (NEGATIVE) Urine Ketones Negative (NEGATIVE) Urine Blood Negative (NEGATIVE) Urine Nitrite Negative (NEGATIVE) Urine Bilirubin Negative (NEGATIVE) Urine Urobilinogen Normal MG/DL (0.0-1.0) Urine Leukocyte Esterase Negative (NEGATIVE) Urine HCG, Qualitative Negative (NEGATIVE) CT/MRI/US Diagnostic Results CT/MRI/US Diagnostic Results : Impression Procedure: CT Head no Contrast EXAM: CT Head Without Intravenous Contrast CLINICAL HISTORY: SZ TECHNIQUE: Axial computed tomography images of the head/brain without intravenous contrast. CTDI is 62.7 mGy and DLP is 1457.7 mGy-cm. One or more of the following dose reduction techniques were used: automated exposure control, adjustment of the mA and/or kV according to patient size, use of iterative reconstruction technique. COMPARISON: No relevant prior studies available. FINDINGS: Brain: No hemorrhage, extra-axial fluid collection, mass effect, or edema. No grossly evident acute ischemic infarct. Bones/joints: Unremarkable. No acute fracture. Soft tissues: Unremarkable. Sinuses: Unremarkable as visualized. Mastoid air cells: Unremarkable as visualized. No mastoid effusion. IMPRESSION: 1. No acute intracranial abnormality. Dictated By: Harvey Solo M.D. Electronically Signed By: Harvey Solo M.D. Signed Date/Time 07/26/19116 CC: Emory Magdaleno MD Last Vital Signs Date Time Temp Pulse Resp B/P (MAP) Pulse Ox O2 Delivery O2 Flow Rate FiO2 07/25/19 23:55 97.7 16 97 Room Air 07/25/19 23:55 88 Disposition: ASSISTED LIVING Condition: Stable Referrals: Kennedy Shepherd MD (PCP) Patient Instructions: Seizure, Adult Additional Instructions: The patient was provided with discharge instructions, notified to follow-up with a primary care doctor and or specialist in the next 24-48 hours, and to return to the ED if they have worsening of their symptoms. Please note that this report is being documented using Service Seeking technology. This can lead to erroneous entry secondary to incorrect interpretation by the dictating instrument. Emory Magdaleno MD Jul 26, 2019 01:42
--- NOTE | 2019-07-26 01:50 | NUR ---
Spoke with Nataliia at [facility]-aware of patient going back. Spoke with Guilherme at [facility]- [phone]
--- NOTE | 2019-07-26 02:49 | NUR ---
While patient in ER , ready to be transported- had another seizure. aware, Lynn clinton (Nataliia) notified that patient will be admitted to [facility].
[2019-07-26 02:55] VITALS: BP 132/67
[2019-07-26] MEDS ORDERED: Depakote ER 500mg tab ORAL ONE (04:00)
[2019-07-26] MEDS ORDERED: Phenytoin 250mg/5ml vial IVP ONE ×2 (04:30)
--- NOTE | 2019-07-26 04:43 | NUR ---
ED Nurse Note: Patient is sleeping, VSS at this time, no acute disstress noticed.
[2019-07-26] MEDS ORDERED: Morphine Sulfate 4mg/ml Inj (IV USE ONLY) IVP PRN (06:00)
--- NOTE | 2019-07-26 07:08 | NUR ---
HAND-OFF: Report given to JOANN Hwang.
--- NOTE | 2019-07-26 07:15 | NUR ---
ED Nurse Note: Received pt on bed, awake and alert on stable condition. VSS, on RA. No signs of active seizure as of now. Helmet in placed.
--- NOTE | 2019-07-26 07:50 | NUR ---
TRANSFER TO FLOOR: Patient transferred to Telemetry as ordered, per Dr. Shepherd . Report given to JOANN Maradiaga. Belongings and medication list given to receiving nurse. Family and or S/O informed of transfer.
[2019-07-26 08:00] VITALS: BP 94/62
--- NOTE | 2019-07-26 08:00 | NUR ---
NURSE NOTES: Pt transferred from ED via gurney with mental health tech and ED RN. No c/o pain. Alert and orientedx1 and able to make needs known. Denied SOB. O2 saturating with 99% on room air. Side railsx2 up with padding for safety and seizure precautions. IV site in R wrist 22g sl patent and intact. Bed in lowest position and locked. Call light within easy reach. Will continue to plan of care.
[2019-07-26] MEDS ORDERED: MILK OF MA400 MG/51 ORAL (09:06)
[2019-07-26] MEDS ORDERED: SENNA8.6 M2 PO (09:06)
[2019-07-26] MEDS ORDERED: DEPAKOTE250 MG PO (09:06)
[2019-07-26] MEDS ORDERED: DULCOLAX10 MG RC (09:06)
[2019-07-26] MEDS ORDERED: FLEET ENEMA133 ML RECTAL (09:06)
[2019-07-26] MEDS ORDERED: Fleet's Enema 133ml RECTAL PRN (09:15)
[2019-07-26] MEDS ORDERED: Albuterol/Ipratropium 3ml neb HHN PRN (09:15)
[2019-07-26] MEDS ORDERED: HYDROcodone/Acetamin 5/325 tab ORAL PRN (09:15)
--- NOTE | 2019-07-26 10:28 | NUR ---
NURSE NOTES: RN called by [employer] tech to the patient's room due to episode of abnormal heart beats with 160's. Ran into the patient's room and found the patient in bed with unconsciousness. Small amount of bleeding from her tongue noted. The patient is not responsive to pain. Oxygen 2LPM via N/C applied. Vital signs are BP 134/60, P 134, R 28, O2 sat: 96% on 2LPM via N/C. No seizure activity or abnormal heart beats noted. Notified to Dr. Figueroa and charge nurse and changed the patient's room to closed to nursing station.
[2019-07-26] MEDS ORDERED: LORazepam Inj 2mg/ml 1ml IV PRN (11:45)
[2019-07-26 12:00] VITALS: BP 106/64
[2019-07-26 16:00] VITALS: BP 110/64
[2019-07-26] MEDS: levETIRAcetam 500mg/5ml Liquid GT SCH (17:06)
[2019-07-26] MEDS: Topiramate 100mg tab GT SCH (17:06)
--- NOTE | 2019-07-26 19:29 | NUR ---
HAND-OFF: Report given to Kylie DAVID. Pt remains stable.
[2019-07-26 20:00] VITALS: BP 106/70
--- NOTE | 2019-07-26 20:22 | NUR ---
NURSE NOTES: Received pt from JOANN Maradiaga. Pt awake, alert, and sitting at the edge of the bed. Bed in lowest position. Call light within reach. Will continue to monitor.
[2019-07-26] MEDS: Milk of Magnesia 30ml Ud ORAL SCH (21:00)
[2019-07-26] MEDS: Atorvastatin 20mg tab ORAL SCH (21:00)
[2019-07-26] MEDS: Sennosides 8.6mg tab ORAL SCH (21:00)
[2019-07-27] VITALS: BP 109/72
--- NOTE | 2019-07-27 02:30 | Consultation ---
DATE OF CONSULTATION: NOTE: POOR AUDIO CHIEF COMPLAINT: This is a 39-year-old white female with a previous history of epilepsy, diabetes, schizophrenia, anemia, PND, encephalopathy, asthma with respiratory failure, was admitted with a breakthrough seizure prior to arrival. This patient has a history of epilepsy for an unknown amount of time. She also has a history of schizophrenia, manner. The patient had a history of asthma with a previous tracheostomy for respiratory failure. She also has diabetes. She has had problems with dysphagia. She had a G-tube. She does not have early tracheostomy with G-tube at this time. The patient is on Depakote 250 mg b.i.d., Keppra 1500 mg through G-tube b.i.d., Trileptal 600 mg through G-tube b.i.d., and Topamax 50 mg. She is also on vitamin D, atorvastatin for hyperlipidemia, albuterol, and Senna. She also had been on Dilantin 300 mg through the G-tube. The patient was brought to this hospital. Her Dilantin level was less than 0.5. Valproic acid level was 5. Carbamazepine was less than 0.5. Chemistries reveal a normal sodium, slightly elevated chloride, normal BUN and creatinine. Her glucose was normal. Calcium was normal on admission, was 8.7. Liver function tests were normal. Urinalysis was unremarkable, essentially negative. The patient had a CT scan of the brain today, which was unremarkable. I am not sure if x-ray was done. The patient was given 2 mg of intravenous Ativan today . The patient was seen in the emergency room here on 02/02/2017, 05/19/2017 and 02/08/2018 for seizures. The 05/19/2017 seizure was subtherapeutic. She has had confusion and . PAST MEDICAL HISTORY/PAST MEDICAL ILLNESSES: 1. Respiratory failure with asthma. 2. Tracheostomy, see above. . 3. Dysphagia in the past with a G-tube. 4. Surgery as above. FAMILY HISTORY: Unavailable. REVIEW OF SYSTEMS: Unavailable. PHYSICAL EXAMINATION: GENERAL: She is a well-developed, well-nourished woman lying in bed, lethargic. HEENT: It is difficult to evaluate. Basically intact. NECK: No tenderness. There is a tracheostomy scar noted. Neck was basically supple. Carotids at least +1. No bruits could be appreciated. LUNGS: There are decreased breath sounds. CARDIOVASCULAR SYSTEM: Heart tones are distant. There is no S3, S4, murmurs, or rubs appreciated. ABDOMEN: Obese. Bowel sounds intact. There is a left upper quadrant scar noted. There did not appear to be tenderness. EXTREMITIES: Normal. NEUROLOGICAL EXAMINATION: MENTAL STATUS: The patient is lethargic with stupor. Could awaken to voice. She knew her name. She could do one-step commands such as stick out her tongue, touch my finger and her nose. CRANIAL NERVE EXAMINATION: CRANIAL NERVES II: Visual valera appeared to be intact to palpation. is 3.6. The eyes are in the midline. Pupils were about 6 mm, round, and light reactive. CRANIAL NERVE V: Corneal sensation is intact, bilaterally. CRANIAL NERVE VII: Facial smile was symmetrical, bilaterally. CRANIAL NERVE VIII: The auditory acuity was partially intact. CRANIAL NERVE IX AND X: Gag is decreased. CRANIAL NERVE XI: Could not be tested. CRANIAL NERVE XII: Tongue protrudes in the midline without fasciculations or atrophy. MUSCLE EXAMINATION: Muscle tone is decreased. Muscle bulk was normal. She can move all 4 extremities equally. Reflexes were trace to 0 in the upper and lower extremities with downgoing toes. The patient with withdrawal on testing for Babinski response. COORDINATION: Tichso-eo-dqgw is intact. Eruc-yj-vmwq testing could not be done. GAIT AND STATION: Could not be tested. SENSORY EXAMINATION: Intact. PAIN: Sensation in the extremities. IMPRESSION: This patient has a longstanding seizure disorder, etiology unclear, possibly related to hypoxic encephalopathy in the past, we need more history. Her breakthrough seizures are probably due to subtherapeutic anticonvulsants. She probably only needs 1 anticonvulsant given to her with good levels recorded. The patient has encephalopathy at this time as well related to the Ativan. We will discontinue the Ativan and then order 2 mg intravenous as needed for seizures. As far as her medications are concerned, she can continue her medications and . She will need an EEG, but at some point they have to go with 1 medication. PLAN: 1. EEG. 2. Continue her medications as above. 3. Intravenous Ativan 10 mg for breakthrough seizures. 4. about this case. Thank you for this interesting case. John Figueroa MD DR: Keiry JOB#: [id number] CC:
[2019-07-27 04:00] VITALS: BP 93/53
--- NOTE | 2019-07-27 04:15 | History and Physical Report ---
DATE OF ADMISSION: 07/26/2019 This is the first admission to [facility] of this 39-year-old lady because of recurrent seizure. HISTORY OF PRESENT ILLNESS: The patient is a resident of an extended care facility. The patient has been in relatively stable condition for the last several years. She is known to have medical syndrome, but has been stable on current medication. On the day prior to admission, she had cerebral seizure in the facility, while the patient taking three different anticonvulsants. She was transferred to [facility] ER and was admitted. 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 She underwent craniotomy, developed respiratory failure and had to be intubated and placed on mechanical ventilation. She was unable to be weaned. She underwent tracheostomy and gastrostomy and referred to subacute unit. In the subacute unit, the patient was nearly , she was successfully decannulated and her gastrostomy tube was removed and transferred to the SNF portion of the facility. During this period, she had several seizures and was treated by three anticonvulsants. Since she has been in the SNF portion of the [facility], she had several seizures for which she was admitted to other hospital. She ended up having Depakote, Trileptal, clonazepam, and levetiracetam as a basic treatment for seizure. Since her last visit, that was about six months, during which she did not have any seizure. In addition, the patient had a protective helmet because all the previous seizures that she had, she fell backwards and injured her head. The patient known to have COPD, hyperlipidemia, and chronic psychosis. ALLERGIES: No known drug allergies. MEDICATIONS: The patient is on hydrocodone 5/325 q.12 h. She was on Depakote 500 mg p.o. t.i.d., levetiracetam 1000 mg b.i.d., Trileptal 600 mg p.o. b.i.d. She has been on respiratory therapy with albuterol sulfate and ipratropium bromide on a p.r.n. basis. FAMILY HISTORY: Noncontributory. SOCIAL HISTORY: She is single. She was born in [place]. She has been on SSI for many years. Prior to the appearance of her total disability, she was unemployed as well. HABITS: The patient did smoke 1 pack a day for nearly 20 years. She denies drinking. Denies the use of illicit drugs. REVIEW OF SYSTEMS: CARDIOVASCULAR: The patient denied any chest pain, shortness of breath, palpitations, or dizziness. Patient denied any cough, wheezing, or expectoration. GASTROINTESTINAL: Appetite is moderate. Her weight is stable. She has no dysphagia or dyspepsia. No bowel movement disorder. She did, however, develop constipation since she has been using narcotic analgesic. GENITOURINARY: The patient denies any dysuria, frequency, incontinence, or nocturia. JOINTS: The patient denied any swelling, stiffness, cold extremities, photosensitivity, dry eyes, or alopecia. MANAGER LANGUAGE: Her sleep is of good quality. She has no numbness or tingling. She has seizure disorder as described above. She has no headache. PHYSICAL EXAMINATION: VITAL SIGNS: Blood pressure is 106/70, pulse is 94, respirations are 18, and temperature 95.9. HEENT: Eyes were normal. Pupils were round, equal, and reactive to light. Sclerae were white. Conjunctivae were pink. Extraocular movements are normal. Temporal arteries were palpable bilaterally. There was no bilateral temporal wasting. Visual valera to confrontation were normal and neglect sign was negative. ENT, mucous membranes were not dehydrated. Auditory canals were clear and tympanic membranes could not be visualized. Nasal cavity was not congested. Nasal septum was intact. Soft palate was free of ulcerations. Pharynx was clear from exudate or tonsillar hypertrophy. Uvula ismael to phonation. Tongue was moist, midline, and normally papillated. NECK: Supple. There was no goiter. No mass. No lymphadenopathy. There was no JVD. No bruits. Carotid upstroke was 2+. LUNGS: Clear. HEART: PMI was in fourth left intercostal space in midclavicular line. There was normal S1 and normal S2. There was no murmur. No arrhythmia. No S3. No S4. No pericardial rub. ABDOMEN: Soft and nontender without organomegaly. There were no masses palpable. Normal bowel sounds without bruits. There was no guarding. No rebound tenderness. No ascites. No hernia. No CVA tenderness. Liver span was 8 cm, smooth, and nontender. EXTREMITIES: No cyanosis, no clubbing, and no edema. Extremities were warm. NEUROLOGICAL: Reflexes in biceps, triceps, and brachioradialis were present. Patellar retinaculum were present. Plantars were in flexion on the left, indifferent on the right. Cranial nerves II through XII were symmetric and equal. Cerebellar function, there was no tremor. No nystagmus. No extrapyramidal rigidity. Sensory exam to pinprick, cotton touch, and position was grossly normal. Motor strength was 5/5 against resistance in the left upper extremity and left lower extremity. There was slight tenderness in the right upper extremity and was refused by the patient in the right lower extremity. LABORATORY DATA: Hemoglobin is 7.7, hematocrit 28.7, MCV of 95, WBC of 6.6, and platelets is 192. Her BUN and creatinine is 14 and 0.7 respectively. Sodium is 143, potassium 3.9, chloride 110, and CO2 is 93. Her urinalysis was clean. Dilantin level was undetected. Valproic level was 5. Carbamazepine was undetected. The level of oxcarbazepine was not tested. CT scan of the head showed no acute intracranial hemorrhage. There was evidence of intracerebral hemorrhage or acute ischemic hemorrhage. IMPRESSION AND PLAN: The patient with recurrent seizures in spite of the multiple anticonvulsants that she takes. Neurology independent marketing consultant was called to assist in the management of this case. Repeat laboratory tests will be done in the a.m. Kennedy Shepherd M.D. DR: BRITTANY JOB#: [id number] CC:
--- NOTE | 2019-07-27 07:40 | NUR ---
HAND-OFF: Report given to JOANN Lynn. Pt stable.
--- NOTE | 2019-07-27 07:53 | NUR ---
NURSE NOTES: pt is awake and alert eating breakfast. Pt is wearing a helmet to protect her head incase she starts having a seizures; no seizures at this time. Bed side rails are padded. Pt is on nurse's assistant, no signs of cardiac or respiratory distress at this time. Bed is locked and in lowest position. Call light is within reach. will continue to monitor pt.
[2019-07-27 08:29] LABS: BASOPHILS % (AUTO) 0.7 % (0.0-2.0); EOSINOPHILS % (AUTO) 3.3 % (0.0-3.0); HEMOGLOBIN 13.4 G/DL (12.0-16.0); LYMPHOCYTES % (AUTO) 21.6 % (20.0-45.0); MEAN CORPUSCULAR VOLUME 97 FL (80-99); MONOCYTES % (AUTO) 7.4 % (1.0-10.0); PLATELET COUNT 181 K/UL (150-450); RED BLOOD COUNT 4.03 M/UL (4.20-5.40); RED CELL DISTRIBUTION WIDTH 11.6 % (11.6-14.8); WHITE BLOOD COUNT 7.9 K/UL (4.8-10.8)
[2019-07-27 08:30] VITALS: BP 94/57
[2019-07-27 08:38] LABS: ANION GAP 8 mmol/L (5-15); BLOOD UREA NITROGEN 8 mg/dL (7-18); CARBON DIOXIDE 25 MMOL/L (21-32); CHLORIDE 111 MMOL/L (98-107); CREATININE 0.7 MG/DL (0.55-1.30); POTASSIUM 3.6 MMOL/L (3.5-5.1); SODIUM 143 MMOL/L (136-145)
[2019-07-27 08:42] LABS: AMMONIA 43 umol/L (11-32)
[2019-07-27 08:52] LABS: ALANINE AMINOTRANSFERASE 22 U/L (12-78); ALBUMIN 3.4 G/DL (3.4-5.0); ALKALINE PHOSPHATASE 86 U/L (46-116); ASPARTATE AMINO TRANSFERASE 17 U/L (15-37); BILIRUBIN,DIRECT 0.1 MG/DL (0.0-0.3); BILIRUBIN,TOTAL 0.4 MG/DL (0.2-1.0)
[2019-07-27] MEDS: Topiramate 100mg tab GT SCH ×2 (09:42→18:04)
[2019-07-27] MEDS: Vitamin D 1000 IU Tab ORAL SCH (09:42)
[2019-07-27] MEDS: levETIRAcetam 500mg/5ml Liquid GT SCH ×2 (09:43→18:03)
[2019-07-27] MEDS: Docusate 100mg cap ORAL SCH (09:43)
[2019-07-27 12:00] VITALS: BP 96/55
[2019-07-27 16:00] VITALS: BP 96/57
--- NOTE | 2019-07-27 16:48 | NUR ---
CASE MANAGEMENT: INITIAL REVIEW 39 YO F FREIDA FROM [facility] CC: SZ LASTING 2 MINS PMHx: ANEMIA. PNA. ENCEPHALOPATHY. GTUBE. TRACH. TBI. SI:STATUS EPILEPTICUS T 97.7 HR 88 RR 16 SATS 97% ON RA CL 110 CA 8.4 IS: KEPPRA IV X1 NS BOLUS X1 CT HEAD (-) PATIENT ADMITTED TO TELE 07/26/2019 @ 0256 DCP: PATIENT TO BE DISCHARGED TO SNF ONCE MEDICALLY CLEARED. PLAN OF CARE: NEURO EVAL Addendum: 07/27/19 at 1655 by Annabelle Ta CM 07/27/2019 SI:STATUS EPILEPTICUS T 97 HR 85 RR 18 B/P 96/57 SATS 97% ON RA LABS: CL 111 CA 8 AMMONIA 43 IS: TOPAMAX GT BID KEPPRA GT QHS TRILEPTAL GT BID DEPAKOTE GT TID TELE DCP: PATIENT TO BE DISCHARGED TO SNF ONCE MEDICALLY CLEARED. PLAN OF CARE: NEURO EVAL >>PENDING SZ PRECAUTIONS Addendum: 07/27/19 at 1657 by Annabelle Ta CM INTERQUAL MET
--- NOTE | 2019-07-27 17:59 | NUR ---
NURSE NOTES: per dr Shepherd, pt to be DC back to snf tomorrow with all 4 antiseizure meds.
--- NOTE | 2019-07-27 19:17 | NUR ---
HAND-OFF: Report given to report given to leela/tyrell, pt in stable condition no seizures, per PCP pt to be DC tomorrow with 4 antiseizure meds.
--- NOTE | 2019-07-27 19:43 | NUR ---
NURSE NOTES: Received pt from JOANN Lynn. Pt awake, alert, and talkative. Bed in lowest position. Call light within reach. Will continue to monitor.
[2019-07-27 20:00] VITALS: BP 101/66
[2019-07-27] MEDS: Atorvastatin 20mg tab ORAL SCH (20:43)
[2019-07-27] MEDS: Milk of Magnesia 30ml Ud ORAL SCH (20:47)
[2019-07-27] MEDS: Sennosides 8.6mg tab ORAL SCH (20:47)
--- NOTE | 2019-07-27 22:45 | Progress Note ---
DATE: 07/27/2019 SUBJECTIVE: The patient is awake, alert, afebrile, hemodynamically stable. She did not have seizure now for 76 hours. PHYSICAL EXAMINATION: VITAL SIGNS: Blood pressure 96/57, pulse 85, respirations 18, and temperature 97.0. HEENT: Eyes were normal. ENT, mucous membranes were moist and intact. NECK: Supple with no JVD without lymph nodes. LUNGS: Clear. HEART: Normal sounds with regular beats. ABDOMEN: Soft and nontender with normal bowel sounds. EXTREMITIES: Warm without cyanosis, clubbing, or edema. LABORATORY AND DIAGNOSTIC DATA: Hemoglobin is 13.4, hematocrit 39.0 with MCV of 97, WBC of 7.9, and platelets 181. BUN and creatinine are 8 and 0.7 respectively. Her sodium is 143, potassium 3.6, chloride 111, CO2 25. Other liver function tests are normal except ammonia which is 43. IMPRESSION: The patient has chronic seizure disorder, which now controlled by full anticonvulsant medications that include levetiracetam 1500 mg b.i.d., oxcarbazepine 600 mg b.i.d., topiramate 200 mg b.i.d., Depakote 250 mg t.i.d. The patient is awake alert, oriented, and able to perform all her activity of daily living. Review of Neurology assessment is now controlled, will require only Ativan IV in case of recurrence. The patient will be discharged with her current medication back to the extended care facility in a.m. Kennedy Shepherd M.D. DR: Agustin JOB#: [id number] CC:
[2019-07-28] VITALS (8 sets, daily range): BP systolic 76–109; BP diastolic 39–66
--- NOTE | 2019-07-28 04:09 | NUR ---
Spoke with Dr. Shepherd regarding pts low BP. He gave the following orders: - NS X1000 bolus Will input orders and will continue to monitor.
--- NOTE | 2019-07-28 07:51 | NUR ---
NURSE NOTES: Received report from Kylie/RN, Patient is awake, eating breakfast on bed. On 2L nasal canula, no acute distress/SOB noted. Denies pain at this time. IV on right wrist, patent, saline locked. Bed in low position and locked, Call light within reach, Encouraged to use call light when needed. Will continue plan of care.
--- NOTE | 2019-07-28 07:54 | NUR ---
HAND-OFF: Report given to JOANN Sandoval. Pt stable.
[2019-07-28] MEDS: levETIRAcetam 500mg/5ml Liquid GT SCH ×2 (10:14→17:33)
[2019-07-28] MEDS: Docusate 100mg cap ORAL SCH (10:15)
[2019-07-28] MEDS: Topiramate 100mg tab GT SCH ×2 (10:15→17:34)
[2019-07-28] MEDS: Vitamin D 1000 IU Tab ORAL SCH (10:15)
--- NOTE | 2019-07-28 15:27 | NUR ---
NIB INSPECTORSALES AND SERVICE OFFICER SI: SEIZURES T. 96.8 HR 118 RR 16 B/P 76/45 2L NC O2 SAT @ 98% IS: KEPPRA TRILEPTAL TOPAMAX DEPAKOTE ALB HHN TELE STATUS
--- NOTE | 2019-07-28 19:43 | NUR ---
HAND-OFF: Report given to Kylie/RN, Patient is in stable condition. Endorsed plan of care.
--- NOTE | 2019-07-28 19:50 | NUR ---
NURSE NOTES: Received pt from JOANN Sandoval. Pt awake, alert, and talkative. Bed in lowest position. Call light within reach. Will continue to monitor.
[2019-07-28] MEDS: Milk of Magnesia 30ml Ud ORAL SCH (21:00)
[2019-07-28] MEDS: Sennosides 8.6mg tab ORAL SCH (21:00)
[2019-07-28] MEDS: Atorvastatin 20mg tab ORAL SCH (21:23)
[2019-07-29] VITALS: BP 80/41
[2019-07-29 04:00] VITALS: BP 95/53
--- NOTE | 2019-07-29 07:05 | NUR ---
HAND-OFF: Report given to JOANN Sandoval. Pt stable.
--- NOTE | 2019-07-29 07:19 | NUR ---
NURSE NOTES: Received report from Kylie/RN, Patient is awake, eating breakfast on bed. On room air, no acute distress/SOB noted. Denies pain at this time. IV on left FA, patent, saline locked. Seizure precaution in place. Bed in low position, locked, and padded. Call light within reach, Encouraged to use call light when needed. Will continue plan of care.
[2019-07-29 08:00] VITALS: BP 95/60
--- NOTE | 2019-07-29 09:03 | NUR ---
DISCHARGE PLANNING DISCHARGE ORDER NOTED CLINICALS FAXED TO [facility] T: [phone] F: [phone] AWAIT ASSIGNED ROOM NUMBER
--- NOTE | 2019-07-29 09:53 | NUR ---
DISCHARGE PLANNED PATIENT IS RETURNING TO [facility] ROOM [address] SKILLED T: [phone] FOR NURSE TO NURSE REPORT [facility] HAS BEEN ARRANGED FOR 1100 PICKUP MESSAGE LEFT FOR BROTHER
[2019-07-29] MEDS: Vitamin D 1000 IU Tab ORAL SCH (09:59)
[2019-07-29] MEDS: Topiramate 100mg tab GT SCH (10:00)
[2019-07-29] MEDS: Docusate 100mg cap ORAL SCH (10:00)
[2019-07-29] MEDS: levETIRAcetam 500mg/5ml Liquid GT SCH (10:01)
--- NOTE | 2019-07-29 10:30 | NUR ---
NURSE NOTES: Report given to Zak guevara [facility]
--- NOTE | 2019-07-29 11:40 | NUR ---
NURSE NOTES: Patient discharged to [facility], in stable condition. monitoring and evaluation advisor and IV removed, no acute distress/SOB noted. Belonging check done and signed by patient. Vital signs are within normal limit. Patient left with ambulance personnel via [facility].
--- NOTE | 2019-07-30 03:15 | Electroencephalogram ---
DATE OF PROCEDURE: 07/26/2019 REQUESTING PHYSICIAN: John Figueroa M.D. READING PHYSICIAN: Fernando Maldonado M.D. PROCEDURE PERFORMED: Electroencephalogram. HISTORY: This EEG was performed on a 39-year-old lady with a history of multiple medical problems including a seizure disorder. The purpose of this EEG was to evaluate the patient for ongoing ictal or interictal phenomena. TECHNICAL NOTE: This EEG was performed on a [employer] with electrodes placed on the scalp according to the International 10-20 system. Ooxid-pe-mkgcw and fhcan-vw-iaj montages were used. The EEG was technically satisfactory and was performed while the patient was in a poorly responsive state. OBSERVATIONS: In the poorly responsive state, the background activity consisted of 4-5 Hz theta and 2-2.5 Hz delta activity. Sharp discharges emanating from the FP2, F4, P3, and T5 electrodes were seen from time to time. At times they were widespread discharges emanating from the right or left hemisphere. IMPRESSION: This is an abnormal EEG characterized by: 1. Slowing of the background in the 4-5 Hz theta and 2-2.5 Hz delta range. 2. The presence of sharp discharges emanating from Fp2, F4, P3, and T5. 3. Widespread sharp discharges emanating from the right and left hemispheres independently. COMMENT: This study is consistent with: 1. An encephalopathy of a severe degree. 2. Interspersed multifocal epileptiform discharges. 3. No clinical or electrographic seizures. Clinical correlation is recommended. Fernando Maldonado M.D., M.S.P.H. Clinical Neurophysiologist DR: CLOVER JOB#: [id number] CC: LEON
--- NOTE | 2019-07-30 16:45 | Discharge Summary ---
DATE OF ADMISSION: 07/26/2019 DATE OF DISCHARGE: 07/29/2019 This is a correction to discharge summary that was dictated a few minutes ago on this patient. Medical record number was erroneously dictated as [id number], but really medical record number of this patient is [id number]. Kennedy Shepherd M.D. DR: ELIUD JOB#: [id number] CC:
--- NOTE | 2019-07-30 16:51 | NUR ---
*-* INSURANCE *-* ALL CLINICALS AND REVIEWS HAVE BEEN FAXED TO: Ref#[id number] #[phone] fax#[phone]
--- NOTE | 2019-08-04 14:15 | Discharge Summary ---
DATE OF ADMISSION: 07/26/2019 DATE OF DISCHARGE: 07/29/2019 This is one of several admissions to [facility] of this 59-year-old patient because of intractable seizure. HISTORY OF PRESENT ILLNESS: can be found in the H and P. The patient is a resident of an extended care facility. The patient is in stable condition over the last 2 days. She is known to have several chronic medical syndromes, but has been stable on current medication. The patient is know to have seizure disorder that is controlled with the anticonvulsant medication. The last admission for seizure disorder was more than 6 months ago. She developed recurrent seizure in the extended care facility. She was brought by the clinic assistant to [facility] ER and was admitted. Upon admission, the patient underwent the patient was hemodynamically stable and had 2 seizures, 1 in the emergency room and [address] scan of the brain did not show any acute insult. Neurological consulted to assess the patient. The patient currently is on 4 antiseizure medications that include levetiracetam, Trileptal, Topamax, and clonazepam. the patient was stable. On the day prior to discharge developed hypotension with 88/60. She received 1 liters of normal saline and blood pressure became 98/70, which is normal for this patient. She is discharged today back to the extended care facility where she will be seen in 24 hours after discharge. Kennedy Shepherd M.D. DR: KD JOB#: [id number] CC: LEON
== END 2019-07-29 11:40 | disposition home or self-care (01) | DRG 101 ==
LOC: EDBD 23:05 → EDUNIT# 23:05 → EMR 23:19 → 2E 07-26 02:56 → EDBEDREQ 07-26 05:12 → 2E 07-26 11:50
DX: G40.909 Epilepsy, unspecified, not intractable, without status epilepticus (principal); J96.10 Chronic respiratory failure, unspecified whether with hypoxia or hypercapnia; Z43.1 Encounter for attention to gastrostomy; J44.9 Chronic obstructive pulmonary disease, unspecified; E78.5 Hyperlipidemia, unspecified; Z87.820 Personal history of traumatic brain injury; F29 Unspecified psychosis not due to a substance or known physiological condition; R13.10 Dysphagia, unspecified; J45.909 Unspecified asthma, uncomplicated; E11.9 Type 2 diabetes mellitus without complications; F20.9 Schizophrenia, unspecified
CPT/HCPCS: 36415; 70450; 80048; 80053; 80076; 80156; 80164; 80185; 80299; 81003; 81025; 82140; 85025; 87081; 93005; 94664; 95819; 96360; 99285; J1165; J7030

== ENCOUNTER 2019-08-21 11:37 | Inpatient (IN) | payer MEDICAID ==
[~2019-08-21] VITALS: Ht 160 cm; Wt 57.2 kg
[~2019-08-21 11:37] MED LIST changes: +DEPAKOTE250 MG PO; +DULCOLAX10 MG RC; +FLEET ENEMA133 ML RECTAL; +MILK OF MA400 MG/51 ORAL; +SENNA8.6 M2 PO
--- NOTE | 2019-08-21 11:50 | NUR ---
ED Nurse Note: atient brought into ED by RA Viktoria from [facility] for C/O 5 witnessed tonic clonic seizure since 0300 this morning. Pt has Hx of epilepsy. Ativan was given by RN at nursing prior to arrival per EMS around 1116. PT is nonverbal at this time.
[2019-08-21 11:51] VITALS: BP 110/65
--- NOTE | 2019-08-21 11:53 | NUR ---
ED Nurse Note: side rail padding applied.
[2019-08-21] MEDS ORDERED: LORAZEPAM2 MG/1 M1 IM (11:55)
[2019-08-21] MEDS ORDERED: VALPROATE500 MG/5 M PO (11:55)
--- NOTE | 2019-08-21 12:34 | NUR ---
ED Nurse Note: blood sample sent down to lab
--- NOTE | 2019-08-21 12:40 | Diagnostic Imaging Report ---
Indication: Dyspnea Comparison: 02/08/2018 A single view chest radiograph was obtained. Findings: Cardiomediastinal appearance is within normal limits for age. The lungs are clear. Pulmonary vascularity is appropriate. The diaphragmatic contour is smooth and costophrenic angles are sharp. No pleural effusions are identified. The bones are unremarkable. Impression: No acute findings
[2019-08-21 12:55] LABS: HEMATOCRIT 40.3 % (37.0-47.0); MEAN CORPUSCULAR VOLUME 94 FL (80-99); PLATELET COUNT 188 K/UL (150-450); RED BLOOD COUNT 4.29 M/UL (4.20-5.40); RED CELL DISTRIBUTION WIDTH 11.8 % (11.6-14.8)
[2019-08-21 13:00] LABS: ANION GAP 11 mmol/L (5-15); BLOOD UREA NITROGEN 14 mg/dL (7-18); CALCIUM 8.9 MG/DL (8.5-10.1); CARBON DIOXIDE 23 MMOL/L (21-32); CHLORIDE 107 MMOL/L (98-107); CREATININE 0.8 MG/DL (0.55-1.30); POTASSIUM 3.9 MMOL/L (3.5-5.1); SODIUM 141 MMOL/L (136-145)
--- NOTE | 2019-08-21 13:00 | NUR ---
ED Nurse Note: urine sample sent down to lab
[2019-08-21 13:22] LABS: ALANINE AMINOTRANSFERASE 19 U/L (12-78); ALBUMIN 3.9 G/DL (3.4-5.0); ALBUMIN/GLOBULIN RATIO 0.9 (1.0-2.7); ALKALINE PHOSPHATASE 86 U/L (46-116); ASPARTATE AMINO TRANSFERASE 20 U/L (15-37); BILIRUBIN,TOTAL 0.3 MG/DL (0.2-1.0); CKMB 0.9 NG/ML (0.0-3.6); CREATINE KINASE 194 U/L (26-308)
[2019-08-21 13:52] LABS: APPEARANCE,URINE VERY CLOUDY; BILIRUBIN, URINE NEGATIVE (NEGATIVE); COLOR,URINE PALE YELLOW; GLUCOSE, URINE (UA) NEGATIVE (NEGATIVE); KETONES,URINE 2+ (NEGATIVE); LEUKOCYTE ESTERASE ,URINE NEGATIVE (NEGATIVE); NITRITE,URINE NEGATIVE (NEGATIVE); PH,URINE 8 (4.5-8.0); PROTEIN,URINE NEGATIVE (NEGATIVE); UROBILINOGEN,URINE NORMAL MG/DL (0.0-1.0)
[2019-08-21 14:11] VITALS: BP 106/62
--- NOTE | 2019-08-21 14:13 | NUR ---
ED Nurse Note: pt in bed resting wit eyes closed. appears to be sleeping. No acute distress is noted.
[2019-08-21 16:00] VITALS: BP 103/70
--- NOTE | 2019-08-21 16:08 | Emergency Room Report ---
History of Present Illness General Chief Complaint: Seizure Source: Patient, Medical Record, EMS Present Illness HPI Patient has a history of seizures and presents with recurrent multiple seizures this morning. Allergies: Coded Allergies: No Known Allergies (Unverified , 02/02/17) Patient History Past Medical History: see triage record, DM, HTN, COPD, seizures, psych hx, renal disease Social History: Denies: smoking, alcohol use, drug use Now: No Reviewed Nursing Documentation: PMH: Agreed; PSxH: Agreed Nursing Documentation-PMH Past Medical History: No History, Except For Hx Cardiac Problems: No Hx Hypertension: Yes - aphonia Hx Asthma: Yes - Attention to tracheostomy, Respiratory failure Hx COPD: Yes - h/o Resp failure - h/o Trache, PNA Hx Diabetes: Yes Hx Gastrointestinal Problems: Yes - h/o G-tube, dysphagia Hx Seizures: Yes Hx Epilepsy: Yes Hx Dysphasia: Yes Review of Systems All Other Systems: negative except mentioned in HPI Physical Exam Vital Signs Date Time Temp Pulse Resp B/P (MAP) Pulse Ox O2 Delivery O2 Flow Rate FiO2 08/21/19 11:46 100.0 110 16 105/65 (78) 98 Room Air Sp02 EP Interpretation: reviewed, normal General Appearance: no apparent distress, GCS 15, non-toxic Head: normocephalic, atraumatic, other - Helmet Eyes: bilateral eye normal inspection, bilateral eye PERRL ENT: hearing grossly normal, normal pharynx, no angioedema, normal voice Neck: full range of motion Respiratory: chest non-tender, lungs clear, normal breath sounds, no respiratory distress, no retraction, no accessory muscle use, speaking full sentences Cardiovascular #1: no edema, tachycardia Gastrointestinal: normal bowel sounds, non tender, soft, non-distended, no guarding, no rebound Rectal: deferred Musculoskeletal: back normal, normal range of motion, non-tender Neurologic: alert, motor strength/tone normal, sensory intact, responsive Psychiatric: mood/affect normal, no suicidal/homicidal ideation Skin: other - See RN skin exam Medical Decision Making Diagnostic Impression: Primary Impression: Uncontrolled seizures ER Course This patient presents with uncontrolled seizures. I am unsure of the etiology of this. The nursing home facility is unable to manage the patient's uncontrolled seizures at this time. The patient will be admitted for seizure control. Laboratory Tests Test 08/21/19 12:30 08/21/19 13:12 08/21/19 13:45 White Blood Count 13.0 K/UL (4.8-10.8) H Red Blood Count 4.29 M/UL (4.20-5.40) Hemoglobin 14.0 G/DL (12.0-16.0) Hematocrit 40.3 % (37.0-47.0) Mean Corpuscular Volume 94 FL (80-99) Mean Corpuscular Hemoglobin 32.7 PG (27.0-31.0) H Mean Corpuscular Hemoglobin Concent 34.8 G/DL (32.0-36.0) Red Cell Distribution Width 11.8 % (11.6-14.8) Platelet Count 188 K/UL (150-450) Mean Platelet Volume 9.1 FL (6.5-10.1) Neutrophils (%) (Auto) % (45.0-75.0) Lymphocytes (%) (Auto) % (20.0-45.0) Monocytes (%) (Auto) % (1.0-10.0) Eosinophils (%) (Auto) % (0.0-3.0) Basophils (%) (Auto) % (0.0-2.0) Differential Total Cells Counted 100 Neutrophils % (Manual) 91 % (45-75) H Lymphocytes % (Manual) 7 % (20-45) L Monocytes % (Manual) 2 % (1-10) Eosinophils % (Manual) 0 % (0-3) Basophils % (Manual) 0 % (0-2) Band Neutrophils 0 % (0-8) Platelet Estimate Adequate Platelet Morphology Normal Anisocytosis 1+ Sodium Level 141 MMOL/L (136-145) Potassium Level 3.9 MMOL/L (3.5-5.1) Chloride Level 107 MMOL/L (98-107) Carbon Dioxide Level 23 MMOL/L (21-32) Anion Gap 11 mmol/L (5-15) Blood Urea Nitrogen 14 mg/dL (7-18) Creatinine 0.8 MG/DL (0.55-1.30) Estimate Glomerular Filtration Rate > 60 mL/min (>60) Glucose Level 124 MG/DL (74-106) H Lactic Acid Level 2.80 mmol/L (0.4-2.0) H 1.00 mmol/L (0.66-2.22) Calcium Level 8.9 MG/DL (8.5-10.1) Total Bilirubin 0.3 MG/DL (0.2-1.0) Aspartate Amino Transferase (AST) 20 U/L (15-37) Alanine Aminotransferase (ALT) 19 U/L (12-78) Alkaline Phosphatase 86 U/L (46-116) Total Creatine Kinase 194 U/L (26-308) Creatine Kinase MB 0.9 NG/ML (0.0-3.6) Creatine Kinase MB Relative Index 0.4 Troponin I 0.000 ng/mL (0.000-0.056) Total Protein 8.3 G/DL (6.4-8.2) H Albumin 3.9 G/DL (3.4-5.0) Globulin 4.4 g/dL Albumin/Globulin Ratio 0.9 (1.0-2.7) L Urine Color Pale yellow Urine Appearance Very cloudy Urine pH 8 (4.5-8.0) Urine Specific [place] 1.015 (1.005-1.035) Urine Protein Negative (NEGATIVE) Urine Glucose (UA) Negative (NEGATIVE) Urine Ketones 2+ (NEGATIVE) H Urine Blood Negative (NEGATIVE) Urine Nitrite Negative (NEGATIVE) Urine Bilirubin Negative (NEGATIVE) Urine Urobilinogen Normal MG/DL (0.0-1.0) Urine Leukocyte Esterase Negative (NEGATIVE) Urine RBC 0 /HPF (0 - 2) Urine WBC 0-2 /HPF (0 - 2) Urine Squamous Epithelial Cells Many /LPF (NONE/OCC) H Urine Amorphous Sediment Many /LPF (NONE) H Urine Bacteria Few /HPF (NONE) EKG Diagnostic Results Rate: tachycardiac Rhythm: other - S.tachycardia ST Segments: no acute changes Rhythm Strip Diag. Results EP Interpretation: yes Rate: 100's Rhythm: no PVC's, no ectopy, other - S.tachycardia Chest X-Ray Diagnostic Results Chest X-Ray Diagnostic Results : Chest X-Ray Ordered: Yes # of Views/Limited/Complete: 1 View Indication: Other EP Interpretation: Yes Interpretation: no consolidation, no effusion, no pneumothorax, no acute cardiopulmonary disease Impression: No acute disease Electronically Signed by: Lucy Castellanos DO Last Vital Signs Date Time Temp Pulse Resp B/P (MAP) Pulse Ox O2 Delivery O2 Flow Rate FiO2 2/6/20 14:11 99.8 106 17 106/62 98 Room Air Disposition: ADMITTED INPATIENT Condition: Serious Referrals: Kennedy Shepherd MD (PCP) Lucy Castellanos DO Aug 21, 2019 16:08
[2019-08-21] MEDS ORDERED: LORazepam Inj 2mg/ml 1ml IV ONE (17:30)
--- NOTE | 2019-08-21 17:32 | NUR ---
ED Nurse Note: Report given to JOANN Allen.
--- NOTE | 2019-08-21 18:10 | NUR ---
ED Nurse Note: PT brought up to Tele floor room 216 in stable condition via gurney accompanied by weed science research technician and RN. IB site to right wist is intact. Belonging list signed off.
[2019-08-21 18:31] VITALS: BP 103/58
--- NOTE | 2019-08-21 18:32 | NUR ---
NURSE NOTES: received pt in stable condition, no sob. nonverbal but no signs of distress/discomfort. call light within reach. will monitor. bed in lowest position, locked. cleaned patient, since residual bm still w the patient. paged Dr Shepherd for orders. awaiting call back.
[2019-08-21] MEDS ORDERED: LISPRO SQ (18:47)
--- NOTE | 2019-08-21 19:32 | NUR ---
HAND-OFF: Report given to LEVY DAVID.
--- NOTE | 2019-08-21 19:35 | NUR ---
NURSE NOTES: Received report from Alejandro Painter RN. Pt in stable condition, will continue to monitor.
[2019-08-21 20:00] VITALS: BP 129/65
[2019-08-21] MEDS ORDERED: LORazepam Inj 2mg/ml 1ml IV PRN (20:30)
[2019-08-21] MEDS: D5 1/2NS 1,000 ML IV SCH (23:44)
[2019-08-22] VITALS (8 sets, daily range): BP systolic 90–153; BP diastolic 51–71
[2019-08-22] MEDS: D5 1/2NS 1,000 ML IV SCH (05:10)
[2019-08-22 06:34] LABS: BASOPHILS % (AUTO) 0.6 % (0.0-2.0); HEMATOCRIT 41.6 % (37.0-47.0); HEMOGLOBIN 14.7 G/DL (12.0-16.0); LYMPHOCYTES % (AUTO) 20.6 % (20.0-45.0); MEAN CORPUSCULAR VOLUME 94 FL (80-99); MONOCYTES % (AUTO) 7.4 % (1.0-10.0); NEUTROPHILS % (AUTO) 70.4 % (45.0-75.0); PLATELET COUNT 206 K/UL (150-450); RED BLOOD COUNT 4.43 M/UL (4.20-5.40); RED CELL DISTRIBUTION WIDTH 11.5 % (11.6-14.8); WHITE BLOOD COUNT 9.5 K/UL (4.8-10.8)
[2019-08-22 07:09] LABS: ALANINE AMINOTRANSFERASE 22 U/L (12-78); ALBUMIN 3.7 G/DL (3.4-5.0); ALBUMIN/GLOBULIN RATIO 0.7 (1.0-2.7); ALKALINE PHOSPHATASE 83 U/L (46-116); ANION GAP 12 mmol/L (5-15); ASPARTATE AMINO TRANSFERASE 30 U/L (15-37); BILIRUBIN,TOTAL 0.5 MG/DL (0.2-1.0); BLOOD UREA NITROGEN 15 mg/dL (7-18); CALCIUM 8.9 MG/DL (8.5-10.1); CARBON DIOXIDE 23 MMOL/L (21-32); CHLORIDE 108 MMOL/L (98-107); CREATININE 0.6 MG/DL (0.55-1.30); POTASSIUM 3.8 MMOL/L (3.5-5.1); SODIUM 143 MMOL/L (136-145)
[2019-08-22 07:10] LABS: BILIRUBIN,DIRECT < 0.1 MG/DL (0.0-0.3)
--- NOTE | 2019-08-22 07:28 | NUR ---
HAND-OFF: Report given to Lula Rooney RN. Pt in stable condition, will continue to monitor.
--- NOTE | 2019-08-22 07:31 | NUR ---
NURSE NOTES: Nurse report given by JOANN Will. Patient's awake and sitting in bed, eyes open spontaneously, breathing unlabored and regular, nonverbal, aphasis, AO x1. Bed low and locked, high barrera position for aspiration precaution, call light within reach, side rails x 3 and padded for seizure precaution, bed alarm is armed, manager lan is on, patient's on 2L nasal cannula. Previous nurse reported that patient pulled out her NGT second time and no IV present. Will notify Dr. Shepherd regarding the patient's situation. Will continue to monitor closely.
--- NOTE | 2019-08-22 08:00 | NUR ---
RADIOLOGY:KUB FOR NGT ATTEMPTED, BUT NGT HAD BEEN PULLED OUT BY PATIENT. NURSE IS AWARE, AND WILL CALL IF/WHEN NGT IS REINSERTED. ([id number].) NF
--- NOTE | 2019-08-22 08:27 | NUR ---
NURSE NOTES: Spoke to Dr. Shepherd regarding patient removed IV and NGT. MD aware and said no need get restraint and she doesn't need IV, so no need IV fluid either and no need NGT. Orders acknowledge and carried out.
[2019-08-22] MEDS: Valproic Acid 250mg/5ml Liquid NG SCH ×3 (09:00→18:00)
[2019-08-22] MEDS ORDERED: Pantoprazole Inj IVP SCH (09:00)
[2019-08-22] MEDS ORDERED: Topiramate 100mg tab NG SCH (09:00)
[2019-08-22] MEDS ORDERED: Heparin 5000 units/ml inj SUBQ SCH (09:00)
--- NOTE | 2019-08-22 13:14 | NUR ---
NURSE NOTES: Patient has been NPO per MD order but still has PO medications, tried to assess patient's swallow ability but patient's unable to tolerate and coughed. Asked PT to do swallow evaluation on patient and patient could not tolerate either with nectar thick liquid. Will let MD know.
--- NOTE | 2019-08-22 13:34 | NUR ---
CASE MANAGEMENT:REVIEW 39YR OLD FEMALE BIBA FROM [facility] CC; 5 WITNESSED SEIZURE. SI: UNCONTROLLED SEIZURE 100.0 110 16 105/65 98% ON RA WBC+13.0 IS: 1L NS BOLUS IV ATIVAN BLOOD CX CHEST XRAY : TO TELEMETRY PLAN: NPO ~ SWALLOW EVAL
--- NOTE | 2019-08-22 15:43 | NUR ---
*-* INSURANCE *-* ALL CLINICALS AND REVIEWS HAVE BEEN FAXED TO: Ref# [id number] # [phone] fax# [phone]
--- NOTE | 2019-08-22 18:15 | NUR ---
BEDSIDE SWALLOW EVALUATION COMPLETED POST CHART REVIEW AND INTERVIEW WITH JOANN MO. DYSPHAGIA RISK FACTORS FOR THIS 39 YEAR OLD FEMALE: HX OF RECURRING SEIZURES, DECREASED MENTATION, COPD, HX OF ENCEPHALOATHY, APHONIA/ABSENCE OF AIRWAY PROTECTION?. PATIENT RESIDENT OF SNF. POLST: FULL CODE HX OF G/TUBE PLACEMENT INITIAL IMPRESSION: WHEN PRESENTED WITH 5ML BOLUS OF PUREE VIA SPOON THE PATIENT HELD THE BOLUS IN HER MOUTH...AND WHEN SHE ATTEMPTED TO SWALLOW THIS P.O. TRIAL SHE IMMEDIATELY RESPONDED WITH AN EXPLOSIVE/PROJECTILE COUGH WHICH SPEWED THE ENTIRE BOLUS FORWARD SPILLING ONTO HER CLOTHING/THE BEDDING/THE FLOOR. WITH A SECOND TRIAL, ORAL TRANSIT/ORAL PREPARATION WERE SEVERELY DELAYED, FOLLOWED BY SEVERELY DELAYED TRIGGER OF PHARYNGEAL PHASE OF SWALLOW. CLEARLY, THIS PATIENT IS HIGH RISK FOR ASPIRATION. NO FURTHER TRIALS WERE ATTEMPTED. ORAL CAVITY SUCTIONED POST P.O. TO CLEAR REMAINING RESIDUE. RECOMMENDED: NPO PENDING FINDINGS OF VIDEO SWALLOW STUDY NON/ORAL FEEDING MANAGEMENT FOR INTERIM NUTRITION/HYDRATION SUPPORT.
--- NOTE | 2019-08-22 19:19 | NUR ---
HAND-OFF: Report given to JOANN Espinoza. Patient's stable, plan of care endorsed.
--- NOTE | 2019-08-22 19:45 | NUR ---
NURSE NOTES: Received report from JOANN Cotton. Patient is in bed, awake, able to respond to name. Breathing regular and unlabored with no S/S of SOB noted. Per the morning RN and per MD the patient does not need any IV access. Per morning RN patient has been spitting up all of her morning medications. Patient is wearing a helmet for protective purposes. Currently patient is resting in bed, calm. Bed is in lowest position, breaks engaged, and call light is within reach. Will continue to monitor.
--- NOTE | 2019-08-22 19:45 | NUR ---
NURSE NOTES: Upon shift change, one of the RN's passing by, noted that the patient was having a seizure. Attended to the patient right away, patient had already stopped seizing. Per the RN, the patient's seizure lasted about 10-15 seconds. Turned the patient to the side, suctioned the patient, applied the Oxygen. Obtained IV access on the RFA, 22G, and administered PRN Ativan. Patient is currently stable. Informed CN that the patient's room is too far from the nurses station and requested that the patient be moved closer. Currently no room available, waiting to have one of the rooms cleaned so that the patient can be moved closer to the nurses station. Bed remains in lowest position, breaks engaged, side-rails padded. Will continue to monitor the patient.
--- NOTE | 2019-08-22 21:10 | NUR ---
NURSE NOTES: Contacted Dr. Shepherd at [phone] in regards to the patients condition and left a voicemail for a call back. Have not received any response from the doctor yet. Will await for response.
--- NOTE | 2019-08-22 21:15 | NUR ---
NURSE NOTES: The warehouse distribution associate contacted the doctor at home and left a voicemail for a call back. No response received. Will await for a call.
--- NOTE | 2019-08-22 21:32 | NUR ---
NURSE NOTES: CN contacted ER and one of the nurses was able to obtain the Doctor's cell phone number. Called the Doctor on his cell-phone, he did not answer, left a voicemail. About 10 minutes after, around 2132 Doctor called back and gave orders to transfer patient to ICU.
--- NOTE | 2019-08-22 21:55 | NUR ---
NURSE NOTES: Admitted 39 year old female patient from Telemetry. Endorsement received from JOANN Espinoza. Patient opens eyes, however does not make eye contact, nonverbal, withdraws to pain. On nasal cannula 2LPM. 99% saturation. Sinus tachy, HR 120s. Right forearm g22 heplock. On seizure precautions. Patient wearing helmet. Skin is intact. Noted with abscess at left posterior thigh. Head of bed elevated. Bed locked and in low position. Call light within reach.
[2019-08-22] MEDS ORDERED: LORazepam Inj 2mg/ml 1ml IV PRN (22:00)
[2019-08-22] MEDS: Topiramate 100mg tab NG SCH (22:00)
[2019-08-22] MEDS: Heparin 5000 units/ml inj SUBQ SCH (22:00)
--- NOTE | 2019-08-22 22:00 | NUR ---
NURSE NOTES: Patient was having seizures lasting about 10-15 seconds each time of the seizure. PRN Ativan was given, but it was not effective. Ativan was scheduled Q2 and it was not time to provide another dose. Due to the patient's condition, received orders to transfer patient to ICU per MD orders. Orders noted and carried out. Patient left the unit at 2154. Report given to receiving nurse, JOANN Martin. Patient's belongings list reviewed and signed with the receiving nurse. Patient was placed on ekg monitor tech in ICU, patient currently remains stable.
--- NOTE | 2019-08-22 22:30 | NUR ---
NURSE NOTES: NGT inserted. Patient noted with 100F temperature rectally. Called Dr. Shepherd for orders on his emergency exchange. Left a message. Awaiting for return call.
--- NOTE | 2019-08-22 22:47 | Diagnostic Imaging Report ---
EXAM: XR Abdomen, 2 Views CLINICAL HISTORY: NGT TECHNIQUE: Frontal view of the abdomen/pelvis with upright view of the abdomen. COMPARISON: None. FINDINGS: Lower thorax: Lung bases are clear. Intraperitoneal space: There is nonspecific gas pattern. No free air. Gastrointestinal tract: Unremarkable. No dilation. Bones/joints: Unremarkable. Soft tissues: Visualized visceral outlines and soft tissues are unremarkable. Tubes, lines and devices: There is a nasogastric tube in place with the tip within the gastric body. Other findings: There is sequela of left-sided tubal ligation procedure. IMPRESSION: 1. Nasogastric tube as described above and a normal location. 2. Nonspecific gas pattern.
--- NOTE | 2019-08-22 23:00 | NUR ---
NURSE NOTES: Called Dr. Shepherd for any further orders. Left a message.
[2019-08-22] MEDS ORDERED: Acetaminophen 650mg/20.3ml NG PRN (23:30)
--- NOTE | 2019-08-22 23:30 | NUR ---
NURSE NOTES: Received a return call from Dr. Shepherd. As per him to give Tylenol PRN Q4 for fever and mild pain, CBC, BMP and Echo in AM, Valium 5mg IV Q4 PRN for seizure and Ativan 2mg PRN if Valium is ineffective. Orders read back and verified by .
--- NOTE | 2019-08-22 23:35 | NUR ---
NURSE NOTES: Colin is in back order. Called Dr. Shepherd on his emergency exchange. Left a message. Awaiting for return call.
[2019-08-23] VITALS (24 sets, daily range): BP systolic 92–140; BP diastolic 56–95
--- NOTE | 2019-08-23 00:11 | NUR ---
NURSE NOTES: Dr. Shepherd returned the call. Informed him that Valium is in back order. As per him to give Vimpat 100mg Q12. Orders read back and verified by
--- NOTE | 2019-08-23 00:45 | History and Physical Report ---
DATE OF ADMISSION: 08/21/2019 This is one of several admissions to [facility] of this 39-year-old patient because of multiple recurrent seizures. HISTORY OF PRESENT ILLNESS: The patient was discharged from this institution several weeks ago after admission for multiple seizures . She was in stable condition without any seizure for anticonvulsant medication until day of admission. On the day of admission, she developed tonic-clonic seizure and fell on the floor. While on the floor, she had multiple short-lived seizures of 20 to 30 seconds by few minutes each one. She was transferred to [facility] ER and was admitted. PAST MEDICAL HISTORY: The patient had traumatic brain injury 3 years ago after which she had craniotomy, tracheostomy and gastrostomy and referred to subacute unit. She was in the subacute unit nearly a year and she was successfully weaned from the ventilator and later on she was decannulated and finally her gastrostomy tube was removed and she remained with her main clinical issue of recurrent seizure. Currently, she is on levetiracetam 1500 mg b.i.d. She is on Topamax 200 mg q.12 hours. She is on valproic acid 500 mg t.i.d. She is on oxcarbazepine 600 mg q.12 h. and she is on lorazepam 2 mg IV push q.2 hours as needed for seizures. ALLERGIES: No known drug allergies. FAMILY HISTORY: Noncontributory. SOCIAL HISTORY: She is single. She was born in [place]. She has been in [place] for many years. Prior to the appearance of her total disability, she was unemployed as well. HABITS: The patient did not smoke, drink, or use illicit drugs. REVIEW OF SYSTEMS: The patient is unable to give any information regarding her state of health. PHYSICAL EXAMINATION: VITAL SIGNS: Her blood pressure was 103/75, pulse is 98, respirations 16, and temperature 99.5. HEENT: Eyes were normal. Pupils were round, equal, and reactive to light. Sclerae were white. Conjunctivae were pink. Extraocular movement could not be assessed. Temporal arteries were palpable bilaterally. There was some bilateral temporal wasting. Visual valera to confrontation and neglect sign could not be assessed. The patient will open her eyes, but did not follow and did not respond to audio or verbal stimuli. NECK: Supple. There was no goiter. No mass. No lymphadenopathy. There was no JVD, no bruits. Carotid upstroke was 2+. LUNGS: Clear. HEART: PMI was in the fourth left intercostal space in midclavicular line. There was normal S1 and normal S2. There was no murmur. No arrhythmia. No S3. No S4. No pericardial rub. ABDOMEN: Soft, nontender without organomegaly. There were no masses palpable. Normal bowel sounds without bruits. There was no guarding. No rebound tenderness. No ascites. No hernia. No CVA tenderness. Liver span was 8 cm, smooth and nontender. EXTREMITIES: No cyanosis, no clubbing, and no edema. Extremities were warm. NEUROLOGICAL: Reflexes in biceps, triceps, and brachioradialis were present. Patellar retinaculum . Plantar was indifferent. Cranial nerves II through XII were symmetric and equal. Cerebellar function, there was no tremor, no nystagmus, no extrapyramidal rigidity. Sensory exam to pinprick, cotton touch, and position difficult to assess because of the patient's clinical condition as well as motor strength. LABORATORY AND DIAGNOSTIC DATA: Hemoglobin is , hematocrit was 40.3 with MCV of 94, WBC of 13.0, and platelets 188. Her BUN and creatinine is 14 and 0.8 respectively. Her sodium is 141, potassium 3.9, chloride 107, CO2 is 23, her calcium is 8.9. Her total albumin is 3.9 and total protein is 8.3. Her lactic acid was 2.8 on admission and dropped to 1.0 one hour later. The patient had several imaging studies. Her chest x-ray shows no pleural effusion, no pulmonary infiltrates, normal diaphragm, and normal heart size. IMPRESSION: The patient with recurrent seizures in spite of multiple medications. She might be a candidate for electronic device as antiseizure. She also might be a candidate for lacosamide 400 mg b.i.d. Neurological communications consultant was called to assist in the management of this case. Kennedy Shepherd M.D. DR: ANTHONY JOB#: [id number] CC:
--- NOTE | 2019-08-23 01:00 | NUR ---
NURSE NOTES: Patient has no urine output since admitted to ICU (2205H). Bladder scanner done, 54ml urine in the bladder. Informed the patient that if she has the urge to void that she has Purwick, explained to her that it will catch her urine. patient nodded.
--- NOTE | 2019-08-23 02:00 | NUR ---
NURSE NOTES: Patient awake. Patient attempting to pull out tubings. Reoriented, not effective. Bilateral wrists applied. Skin normal and dry, peripheral pulses present
--- NOTE | 2019-08-23 04:00 | NUR ---
NURSE NOTES: Patient asleep at this time. No seizure episode.
[2019-08-23 05:44] LABS: BASOPHILS % (AUTO) 0.6 % (0.0-2.0); EOSINOPHILS % (AUTO) 0.4 % (0.0-3.0); HEMATOCRIT 42.7 % (37.0-47.0); HEMOGLOBIN 15.1 G/DL (12.0-16.0); MEAN CORPUSCULAR VOLUME 95 FL (80-99); PLATELET COUNT 206 K/UL (150-450); RED BLOOD COUNT 4.49 M/UL (4.20-5.40); RED CELL DISTRIBUTION WIDTH 11.6 % (11.6-14.8); WHITE BLOOD COUNT 11.3 K/UL (4.8-10.8)
--- NOTE | 2019-08-23 06:20 | NUR ---
NURSE NOTES: Patient pulled out her NGT. Reinserted. For KUB for placement confirmation.
[2019-08-23 06:33] LABS: ANION GAP 15 mmol/L (5-15); BLOOD UREA NITROGEN 15 mg/dL (7-18); CALCIUM 9.2 MG/DL (8.5-10.1); CARBON DIOXIDE 21 MMOL/L (21-32); CHLORIDE 108 MMOL/L (98-107); CREATININE 0.6 MG/DL (0.55-1.30); POTASSIUM 3.2 MMOL/L (3.5-5.1); SODIUM 144 MMOL/L (136-145)
--- NOTE | 2019-08-23 07:07 | NUR ---
NURSE NOTES: technical sales manager at bedside for stat KUB.
--- NOTE | 2019-08-23 07:08 | NUR ---
HAND-OFF: Report given to JOANN Hendricks.
--- NOTE | 2019-08-23 07:23 | Diagnostic Imaging Report ---
EXAM: XR Abdomen, 2 Views CLINICAL HISTORY: NGT TECHNIQUE: Frontal view of the abdomen/pelvis with upright view of the abdomen. COMPARISON: 08/22/19 FINDINGS: Intraperitoneal space: No free air. Gastrointestinal tract: Unremarkable. No dilation. Bones/joints: Unremarkable. Tubes, lines and devices: There is an NG tube in good position with its tip in the distal stomach. IMPRESSION: No acute findings in the abdomen or pelvis.
--- NOTE | 2019-08-23 07:40 | NUR ---
NURSE NOTES: Received report from JOANN Simpson. Patient awake and able to follow commands. Patient denies any pain/discomfort at this time. ST 100s on the monitor. No seizure activities reported during last night. Right FA 22G IV intact with TKO. Right NGT intact and clamped. Bilateral soft wrist bands restraints on. Both hands are warm to touch. Kept dry, clean, comfortable and HOB>30. Initiated seizure precaution. Call light placed in easy reach. Will continue plan of care.
[2019-08-23] MEDS: Valproic Acid 250mg/5ml Liquid NG SCH ×3 (08:56→17:27)
[2019-08-23] MEDS: Topiramate 100mg tab NG SCH ×2 (08:57→20:23)
[2019-08-23] MEDS: Lacosamide 50mg tablet ORAL SCH ×2 (08:57→20:23)
[2019-08-23] MEDS: Heparin 5000 units/ml inj SUBQ SCH ×2 (08:58→20:25)
--- NOTE | 2019-08-23 09:05 | NUR ---
NURSE NOTES: All due meds given as ordered.
--- NOTE | 2019-08-23 09:12 | NUR ---
RADIOLOGY DEPT., ABDOMEN X-RAY DONE BY NICOLE AYALA EARLY THIS MORNING.JACLYN
--- NOTE | 2019-08-23 09:20 | NUR ---
NURSE NOTES: Bed bath given.
--- NOTE | 2019-08-23 10:18 | NUR ---
RD ASSESSMENT & RECOMMENDATIONS SEE CARE ACTIVITY FOR COMPLETE ASSESSMENT DAILY ESTIMATED NEEDS: Needs based on General/ 56kg 25-30 kcals/kg 3517-0832 total kcals 1-1.2 g protein/kg 56-67 g total protein 25-30 mL/kg 8954-5750 total fluid mLs NUTRITION DIAGNOSIS: Swallowing difficulty R/T dysphagia, h/o trach + GT as evidenced by TRACTOR MECHANIC HELPER recommends nonoral feeds at this time, s/p NGT insertion. CURRENT TF: NPO PO DIET RECOMMENDATIONS: When safe for oral diet -> Regular/ texture per TRACTOR MECHANIC HELPER ENTERAL NUTRITION RECOMMENDATIONS: Jevity 1.2 @ 50ml/hr x 24 hrs to provide 1200ml, 1440kcal, 66g prot, 968ml free water * Initiate Jevity 1.2 @ 20ml/hr x 6 hrs * Advance 10ml q 4-6 hrs as tolerated to goal rate * HOB over 30 degrees * Without IVF, water flush of 120ml q 6 hrs ADDITIONAL RECOMMENDATIONS: * Calibrated bedscale wt * Monitor lytes closely w/ TF, replete as needed
--- NOTE | 2019-08-23 11:05 | NUR ---
NURSE NOTES: Patient is trying to get out of bed and confused. Educated patient and patient verbalized understanding.
--- NOTE | 2019-08-23 11:20 | NUR ---
NURSE NOTES: Patient still keeps trying to get out of bed. Repositioned patient and reoriented patient. Still confused. Patient said "Amen". Will continue plan of care.
--- NOTE | 2019-08-23 12:25 | NUR ---
NURSE NOTES: Informed Dr. Shepherd that patient keeps trying to get out of bed and confused, also K level today. New orders read back and confirmed. Will continue plan of care.
[2019-08-23] MEDS ORDERED: Sterile Water Irrig 1000ml IRRIG ONE (13:00)
[2019-08-23] MEDS ORDERED: NS 275ml ONE (13:00)
--- NOTE | 2019-08-23 14:02 | NUR ---
NURSE NOTES: Patient is calm. Repositioned patient. Kept dry, clean and comfortable.
--- NOTE | 2019-08-23 15:04 | NUR ---
NURSE NOTES: Seen by Dr. Shepherd and assessed patient.
--- NOTE | 2019-08-23 16:44 | NUR ---
NURSE NOTES: Bed bath given. Bed alarm on.
--- NOTE | 2019-08-23 19:10 | NUR ---
HAND-OFF: Report given to JOANN Martin. Endorsed plan of care.
--- NOTE | 2019-08-23 19:12 | NUR ---
NURSE NOTES: Endorsement received from JOANN Stubbs. Patient asleep. On nasal cannula 2LPM. 99% saturation. Sinus tachy. 99% saturation. Right forearm g22. Right nare NGT. NPO. Bilateral wrists restraints present for attempting to pull out tubings. On seizure precautions. Patient wearing helmet. Padded siderails. Head of bed elevated. Bed locked and in low position. Bed alarm on. Call light within reach.
--- NOTE | 2019-08-23 20:00 | NUR ---
NURSE NOTES: Blood sugar checked: 91mg/dl
--- NOTE | 2019-08-23 21:00 | NUR ---
NURSE NOTES: Patient awake. Able to communicate needs. No seizure activity.
--- NOTE | 2019-08-23 23:30 | Progress Note ---
DATE: 08/23/2019 SUBJECTIVE: The patient was seen yesterday in [facility] unit where she was awake, alert, afebrile and requested to be discharged. Over the night, she developed again feelings of short seizure interval . She was transferred to the intensive care unit and was given 100 mg b.i.d. Since then for the next 12 hours, no seizure has occurred. PHYSICAL EXAMINATION: VITAL SIGNS: Blood pressure 111/63, pulse is 108, respirations are 21, and temperature 99.6. HEENT: Eyes were normal. ENT, mucous membranes were moist and intact. NECK: Supple with no JVD without lymph nodes. The patient is wearing her protective helmet. LUNGS: Clear. HEART: Normal sounds with regular beat. There is tachycardia at rest. Sinus tachycardia on monitor. ABDOMEN: Soft and nontender with normal bowel sounds. Gastrostomy site is clean. EXTREMITIES: Warm without cyanosis, clubbing, or edema. LABORATORY AND DIAGNOSTIC DATA: Hemoglobin is 15.1, hematocrit 42.7 with MCV of 85, WBC of 11.3, and platelets are 206,000. Her WBC was 13.0 on 08/21/2019 and 9.5 on 08/22/2019. Her BUN and creatinine are 15 and 0.6 respectively. Sodium is 144, potassium 3.2, chloride 108, CO2 is 21, and calcium is 9.2. Abdominal x-ray revealed no free air. Gastrointestinal unremarkable. Impression, no acute findings. IMPRESSION AND PLAN: The patient is now in ICU. She is on full anticonvulsant medication. For the time being, her seizure has stopped. We are still waiting for the neurology consult. Repeat laboratory tests will be done in the a.m. KCl 40 milliequivalent has been given. Kennedy Shepherd M.D. DR: MARTY JOB#: [id number] CC:
[2019-08-24] VITALS (15 sets, daily range): BP systolic 53–115; BP diastolic 27–83
--- NOTE | 2019-08-24 | NUR ---
NURSE NOTES: Patient asleep. Vital signs stable.
--- NOTE | 2019-08-24 02:00 | NUR ---
NURSE NOTES: No seizure activity. Afebrile.
--- NOTE | 2019-08-24 05:00 | NUR ---
NURSE NOTES: Complete bed bath and change of linens done.
[2019-08-24 06:16] LABS: BASOPHILS % (AUTO) 0.8 % (0.0-2.0); EOSINOPHILS % (AUTO) 2.3 % (0.0-3.0); HEMATOCRIT 37.8 % (37.0-47.0); HEMOGLOBIN 13.2 G/DL (12.0-16.0); LYMPHOCYTES % (AUTO) 16.6 % (20.0-45.0); MEAN CORPUSCULAR VOLUME 95 FL (80-99); NEUTROPHILS % (AUTO) 72.4 % (45.0-75.0); PLATELET COUNT 198 K/UL (150-450); RED BLOOD COUNT 3.99 M/UL (4.20-5.40); RED CELL DISTRIBUTION WIDTH 11.6 % (11.6-14.8)
[2019-08-24 06:52] LABS: ALANINE AMINOTRANSFERASE 24 U/L (12-78); ALBUMIN 3.2 G/DL (3.4-5.0); ALBUMIN/GLOBULIN RATIO 0.8 (1.0-2.7); ALKALINE PHOSPHATASE 75 U/L (46-116); ANION GAP 13 mmol/L (5-15); ASPARTATE AMINO TRANSFERASE 20 U/L (15-37); BILIRUBIN,TOTAL 0.5 MG/DL (0.2-1.0); BLOOD UREA NITROGEN 15 mg/dL (7-18); CALCIUM 8.3 MG/DL (8.5-10.1); CARBON DIOXIDE 21 MMOL/L (21-32); CHLORIDE 114 MMOL/L (98-107); CREATININE 0.7 MG/DL (0.55-1.30); POTASSIUM 3.8 MMOL/L (3.5-5.1); SODIUM 148 MMOL/L (136-145)
--- NOTE | 2019-08-24 07:28 | NUR ---
HAND-OFF: Report given to JOANN Patel.
--- NOTE | 2019-08-24 07:29 | NUR ---
NURSE NOTES: RECEIVED PATIENT FROM Chantel VELASQUEZ RN. PATIENT IS LYING IN BED, AWAKE AND CONFUSED. TRYING TO GET OUT OF THE BED. HOOKED TO ELECTRIC ARC WELDER. ON ROOM AIR. SATING AT 100%. STILL ON RESTRAINTS. NOTED R NGT. STILL NPO. NOTED NANCYCK. PIV ON R FA G22, SL. CALL LIGHT WITHIN REACH. BED AT LOWEST POSITION. WILL CONTINUE TO [facility].
--- NOTE | 2019-08-24 09:00 | NUR ---
NURSE NOTES: SPOKE WITH DR SCALES FOR NEW ORDER. WILL CONTINUE TO MONITOR.
[2019-08-24] MEDS: Topiramate 100mg tab NG SCH ×2 (09:57→20:15)
[2019-08-24] MEDS: Heparin 5000 units/ml inj SUBQ SCH ×2 (09:58→20:18)
[2019-08-24] MEDS: Lacosamide 50mg tablet ORAL SCH ×2 (09:58→20:16)
[2019-08-24] MEDS ORDERED: D5NS 1,000 ML IV SCH (10:00)
[2019-08-24] MEDS: Valproic Acid 250mg/5ml Liquid NG SCH ×3 (10:02→17:17)
--- NOTE | 2019-08-24 11:35 | NUR ---
TRANSFER TO FLOOR: Patient transferred to [facility]-1, per hospital bed. Report given to Rosio Howard RN. Belongings stayed with the pt. Pt is stable. VSS.
--- NOTE | 2019-08-24 11:40 | NUR ---
NURSE NOTES: Received report from JOANN Patel @ ICU. The patient is being transferred from ICU to [facility] in a safe manner. The patient is resting on the bed without acute distress or shortness of breath. The patient's bed in the lowest position, call light in reach, and fall, aspiration, and seizure precaution reinforced. IV site intact and patent and running IVF per order. NGT in correct place and no residual noted as the patient is NPO. No seizure noted at this time. Will continue plan of care.
[2019-08-24] MEDS ORDERED: LORazepam Inj 2mg/ml 1ml IV PRN (12:00)
[2019-08-24] MEDS: D5NS 1,000 ML IV SCH ×2 (12:32→22:11)
--- NOTE | 2019-08-24 14:30 | NUR ---
NURSE NOTES: The patient is stable without acute distress or shortness of breath. Will continue plan of care.
--- NOTE | 2019-08-24 18:00 | NUR ---
NURSE NOTES: The patient is stable without acute distress or shortness of breath. Will continue plan of care.
--- NOTE | 2019-08-24 19:15 | NUR ---
HAND-OFF: Report given to JOANN Beckman. The patient is resting on the bed without acute distress or shortness of breath. The patient's bed in the lowest position, call light in reach, and fall, aspiration, and seizure precaution reinforced. IV site intact and patent. Seizure padding and precaution completed. The patient has right nare NGT intact and placement confirmed. Endorsed plan of care. Addendum: 08/24/19 at 1927 by Gilles Delgado RN Bilateral soft wrist restraints on per order and circulation and skin is intact.
--- NOTE | 2019-08-24 19:30 | NUR ---
NURSE NOTES: Report received from JOANN Delgado. Observed pt lying in the bed, awake, A/O x1, no signs of pain noted. ST on monitoring tech with HR of 120 noted. On room air with no SOB. No SZ activity noted at this time. NGT on R Nares, intact and patent. Purewick in place. IV on R FA 22G, SL. L FA 20G, running D5 NS at 100ml/hr. Bed in the lowest position. Side rails up x3. Will continue to monitor.
[2019-08-24] MEDS: Acetaminophen 650mg/20.3ml NG PRN (20:25)
[2019-08-25] VITALS: BP 110/71
--- NOTE | 2019-08-25 00:18 | NUR ---
NURSE NOTES: Noted pt appears discomfort. Reposition done. Bed bath will be given. at the bedside and continue to monitor for SZ activity. No seizure activity noted. Will continue to monitor.
--- NOTE | 2019-08-25 03:15 | Progress Note ---
DATE: 08/24/2019 SUBJECTIVE: The patient is awake, alert, afebrile, and hemodynamically stable. She is now more than 18 hours and she did not have any seizure. PHYSICAL EXAMINATION: VITAL SIGNS: Blood pressure 101/67, pulse is 115, respirations are 18, and temperature 98. HEENT: Eyes were normal. ENT, mucous membranes were moist and intact. NECK: Supple with no JVD without lymph nodes. LUNGS: Clear. HEART: Normal sounds with irregular beats. There is tachycardia at rest. Sinus tachycardia on monitor. ABDOMEN: Soft and nontender with normal bowel sounds. EXTREMITIES: Warm without cyanosis, clubbing, or edema. LABORATORY AND DIAGNOSTIC DATA: Hemoglobin is 13.2, hematocrit 37.8 with MCV of 95, WBC of 11.0, and platelets are 198,000. Her BUN and creatinine are 15 and 0.7 respectively. Her sodium is 148, potassium 3.6, chloride 114, CO2 is 21, and calcium is 8.3. SGOT, SGPT, and alkaline phosphatase are normal. Her albumin is 3.2 with total protein is 7.4. IMPRESSION AND PLAN: 1. The patient failed swallowing eval done at bedside and video swallow was ordered what was not done as yet. The patient currently is fed by NG tube. 2. The patient's seizure has stopped after two episodes the patient has four to five seizure episodes, each by seizure episode; however, those episodes have been now controlled by the addition of lacosamide 100 mg b.i.d. This will be increased in four days to 200 mg b.i.d. We will wait for the laboratory test for this following evaluation. If the patient can resume oral feedings, she can be discharged back to the extended care facility. Kennedy Shepherd M.D. DR: MARCY JOB#: [id number] CC:
[2019-08-25] MEDS: Acetaminophen 650mg/20.3ml NG PRN (03:52)
[2019-08-25 04:00] VITALS: BP 112/72
[2019-08-25 04:56] LABS: BASOPHILS % (AUTO) 0.5 % (0.0-2.0); HEMATOCRIT 38.3 % (37.0-47.0); HEMOGLOBIN 13.8 G/DL (12.0-16.0); MEAN CORPUSCULAR VOLUME 94 FL (80-99); MONOCYTES % (AUTO) 6.2 % (1.0-10.0); NEUTROPHILS % (AUTO) 81.2 % (45.0-75.0); PLATELET COUNT 189 K/UL (150-450); RED BLOOD COUNT 4.08 M/UL (4.20-5.40); RED CELL DISTRIBUTION WIDTH 11.5 % (11.6-14.8); WHITE BLOOD COUNT 11.7 K/UL (4.8-10.8)
[2019-08-25 05:12] LABS: ANION GAP 11 mmol/L (5-15); BLOOD UREA NITROGEN 6 mg/dL (7-18); CALCIUM 8.7 MG/DL (8.5-10.1); CARBON DIOXIDE 20 MMOL/L (21-32); CHLORIDE 113 MMOL/L (98-107); CREATININE 0.6 MG/DL (0.55-1.30); POTASSIUM 3.5 MMOL/L (3.5-5.1); SODIUM 144 MMOL/L (136-145)
--- NOTE | 2019-08-25 07:35 | NUR ---
HAND-OFF: Report given to JOANN Mora.
--- NOTE | 2019-08-25 07:36 | NUR ---
NURSE NOTES: Received patient in bed. With bilateral soft wrist restraints. With right NGT. Patient appears confused at this time. Bed in lowest position. Bed alarm on. Will continue plan of care.
[2019-08-25 08:00] VITALS: BP 121/80
[2019-08-25] MEDS: D5NS 1,000 ML IV SCH ×3 (08:10→21:05)
[2019-08-25] MEDS: Valproic Acid 250mg/5ml Liquid NG SCH ×3 (09:40→17:14)
[2019-08-25] MEDS: Lacosamide 50mg tablet ORAL SCH ×2 (09:40→20:59)
[2019-08-25] MEDS: Heparin 5000 units/ml inj SUBQ SCH ×2 (09:50→21:08)
[2019-08-25] MEDS: Topiramate 100mg tab NG SCH ×2 (10:07→20:58)
--- NOTE | 2019-08-25 10:18 | NUR ---
RADIOLOGY DEPT., CHEST X-RAY DONE.-P.DYE
[2019-08-25 12:00] VITALS: BP 118/78
--- NOTE | 2019-08-25 12:07 | NUR ---
NURSE NOTES: Removed bilateral soft wrist restraints. Patient is cooperative with care at this time. Will continue to monitor.
--- NOTE | 2019-08-25 13:36 | NUR ---
ST NOTES: SWALLOW STATUS: ADDITIONAL ACUTE ISSUES: LUNGS CLEAR, NOT ALERT FOR PO TRIALS NOR MOD BARIUM SWALLOW STUDY. PER RN, GETS SEROQUEL AND WHEN AWAKE VERY AGITATED. H/O TBI, CRANIOTOMY, TRACH AND VENT DEPENDENT FOR RESPIRATORY FAILURE 3 YEARS AGO. OROPHARYNGEAL DYSPHAGIA (GT 3 YEARS AGO). BIT TONGUE 08/06/19 DURING AD[place] [facility] [place] [facility] SOFT FINELY CHOPPED AND THIN LIQUIDS. H/O DM (INSULIN DEP) AND SCHIZOPHRENIA. MULTIPLE H/O [facility] [place] FROM [place] TO 2019 FOR SEIZURES. CURRENTLY HAS NGT (MOD LARGE BORE 16 FR) BUT NO FEEDINGS. SPOKE TO RN, ANAYELI, TO START NONORAL FEEDINGS UNTIL PATIENT IS ALERT FOR MODIFIED BARIUM SWALLOW STUDY. PLAN: CONTINUE WITH ORAL CARE AND INITIATE NGT FEEDINGS MOD BARIUM SWALLOW STUDY WHEN READY
--- NOTE | 2019-08-25 14:47 | NUR ---
MAINFRAME CONSULTANTCIRCULAR KNIFE MACHINE CUTTER SI: UNCONTROLLED SEIZURES T. 98.9 HR 122 RR 23 B/P 112/72 RA 98% WBC 11.7 IS: IVF D5NS @ 100ML/HR KEPPRA NGT VIMPAT NGT HEPARIN SUBC TOPAMAX NGT SEIZURE PRECAUTIONS STEP DOWN STATUS
--- NOTE | 2019-08-25 15:30 | Diagnostic Imaging Report ---
Indication: Dyspnea Comparison: 08/21/2019 A single view chest radiograph was obtained. Findings: Pulmonary vascularity is mildly prominent without overt CHF. Heart size is normal. Lung volumes are low. Bones are unremarkable. NG tube is in good position. IMPRESSION: No acute disease
[2019-08-25 16:00] VITALS: BP 113/77
--- NOTE | 2019-08-25 19:14 | NUR ---
HAND-OFF: Report given to JOANN Graham.
--- NOTE | 2019-08-25 19:15 | NUR ---
NURSE NOTES: Received report from Abby DAVID. Patient resting in bed. Awake, alert. No signs of distress. R FA 22g, patent, intact, running D5 NS running at 100cc. L FA heplock patent, intact. Seizure precautions in place. Safety precaution in place. HOB elevated, bed locked and lowest position. Call light within reach. Will continue to monitor patient.
[2019-08-25 20:00] VITALS: BP 122/84
--- NOTE | 2019-08-25 20:20 | NUR ---
TRANSFER TO FLOOR: Patient transferred to Telemetry, per [facility]. Report given to Pete DAVID. Pt remains stable upon transfer.
--- NOTE | 2019-08-25 20:30 | NUR ---
NURSE NOTES: Received patient from [facility]. Patient on room air, no signs of respiratory distress. NGtube intact, no residual. Will start Jevity 1.2 at 10ml/hr with a goal of 50ml/hr. Bed in low position, locked, bed alarm on, call light within reach.
[2019-08-25] MEDS ORDERED: LORazepam Inj 2mg/ml 1ml IV PRN (21:00)
[2019-08-25] MEDS ORDERED: Acetaminophen 650mg/20.3ml NG PRN (21:00)
[2019-08-26] VITALS: BP 103/49
[2019-08-26 04:00] VITALS: BP 102/64
--- NOTE | 2019-08-26 04:30 | Progress Note ---
DATE: 08/25/2019 SUBJECTIVE: The patient is awake, alert, afebrile, bal, and refused to answer questions. PHYSICAL EXAMINATION: VITAL SIGNS: Blood pressure 113/77, her pulse is 118, respirations are 22, and temperature 98.9. HEENT: Eyes were normal. ENT, mucous membranes were moist and intact. NECK: Supple with no JVD without lymph nodes. Tracheostomy site is clean. LUNGS: Clear without rhonchi, rales, or wheezing. HEART: Normal sounds with ____ beats. ABDOMEN: Soft and nontender with normal bowel sounds. EXTREMITIES: Warm without cyanosis, clubbing, or edema. LABORATORY AND DIAGNOSTIC DATA: Hemoglobin is 13.8, hematocrit 38.3 with MCV of 94, WBC 11.7, and platelets are 189,000. BUN and creatinine are 6 and 0.6 respectively. Her sodium 144, potassium 3.5, chloride 114, and CO2 is 20. Chest x-ray taken today revealed pulmonary vascular congestion without evidence of congestive heart failure. IMPRESSION: The patient underwent today swallowing evaluation. She failed the swallowing evaluation, now scheduled to video swallowing evaluation. study, the patient has NG tube inserted 5 o'clock hour. Insecticide Expert was called to assist in the management of this case. Kennedy Shepherd M.D. DR: MARCY JOB#: [id number] CC:
[2019-08-26] MEDS: D5NS 1,000 ML IV SCH ×2 (05:13→17:13)
--- NOTE | 2019-08-26 07:15 | NUR ---
NURSE NOTES: Received report from Pete DAVID. Patient in bed awake and oriented x0, non-verbal. No s/s of pain noted. No SOB. No s/s of acute distress noted, on room air. IV site in Left FA 24G intact, patent and asymptomatic running D5 NS [id number]. geological aide on. Patient is on NG-Tube running Jevity1.2, the goal is 50cc/hr. Patient is on bilateral soft restraint for pulling items, tubes. Bed in lowest position with bedside rails up x3 and brakes engaged for safety. Call light within easy reach. Will continue with the plan of care.
[2019-08-26 07:26] LABS: BASOPHILS % (AUTO) 0.3 % (0.0-2.0); EOSINOPHILS % (AUTO) 0.6 % (0.0-3.0); HEMATOCRIT 41.9 % (37.0-47.0); HEMOGLOBIN 14.7 G/DL (12.0-16.0); LYMPHOCYTES % (AUTO) 8.7 % (20.0-45.0); MEAN CORPUSCULAR VOLUME 95 FL (80-99); MONOCYTES % (AUTO) 6.9 % (1.0-10.0); NEUTROPHILS % (AUTO) 83.5 % (45.0-75.0); PLATELET COUNT 178 K/UL (150-450); RED BLOOD COUNT 4.43 M/UL (4.20-5.40); RED CELL DISTRIBUTION WIDTH 11.8 % (11.6-14.8); WHITE BLOOD COUNT 12.1 K/UL (4.8-10.8)
[2019-08-26 07:47] LABS: ANION GAP 13 mmol/L (5-15); BLOOD UREA NITROGEN 3 mg/dL (7-18); CALCIUM 8.7 MG/DL (8.5-10.1); CARBON DIOXIDE 20 MMOL/L (21-32); CHLORIDE 113 MMOL/L (98-107); CREATININE 0.6 MG/DL (0.55-1.30); POTASSIUM 2.9 MMOL/L (3.5-5.1); SODIUM 145 MMOL/L (136-145)
--- NOTE | 2019-08-26 07:57 | General Progress Note ---
Assessment/Plan Problem List: (1) Dysphagia ICD Codes: R13.10 - Dysphagia, unspecified SNOMED: 65196957, 351274087 (2) G tube feedings ICD Codes: Z93.1 - Gastrostomy status SNOMED: 497767086, 298471832, 341550400 (3) Respiratory failure ICD Codes: J96.90 - Respiratory failure, unspecified, unspecified whether with hypoxia or hypercapnia SNOMED: 935517045 (4) Uncontrolled seizures ICD Codes: R56.9 - Unspecified convulsions SNOMED: 11903322 Assessment/Plan: GTF increase as tolerated GT flush respiratory care fu neurology repeat labs DVT prophylaxis Subjective ROS Limited/Unobtainable: No Allergies: Coded Allergies: No Known Allergies (Unverified , 02/02/17) Objective Last 24 Hour Vital Signs Date Time Temp Pulse Resp B/P (MAP) Pulse Ox O2 Delivery O2 Flow Rate FiO2 08/26/19 04:00 97 08/26/19 04:00 99.0 107 16 102/64 (77) 98 08/26/19 00:15 99.0 08/26/19 00:00 99.0 109 16 103/49 (67) 96 08/26/19 00:00 101 08/25/19 21:00 Room Air 08/25/19 20:00 100.2 115 18 122/84 (97) 96 08/25/19 16:00 99.6 119 22 113/77 (89) 100 08/25/19 15:29 115 08/25/19 12:00 99.1 107 22 118/78 (91) 100 08/25/19 11:32 106 08/25/19 09:00 Room Air 08/25/19 08:00 98.3 105 23 121/80 (94) 96 Intake and Output 08/25/19 08/26/19 19:00 07:00 Intake Total 1058.333 ml Balance 1058.333 ml IV Total 1058.333 ml # Voids 2 1 # Bowel Movements 4 2 Laboratory Tests 08/26/19 04:40: Urine Color [Pending], Urine Appearance [Pending], Urine pH [Pending], Urine Specific Valentine [Pending], Urine Protein [Pending], Urine Glucose (UA) [Pending ], Urine Ketones [Pending], Urine Blood [Pending], Urine Nitrite [Pending], Urine Bilirubin [Pending], Urine Urobilinogen [Pending], Urine Leukocyte Esterase [Pending], Urine RBC [Pending], Urine WBC [Pending], Urine Squamous Epithelial Cells [Pending], Urine Bacteria [Pending] 08/26/19 06:05: White Blood Count 12.1H, Red Blood Count 4.43, Hemoglobin 14.7, Hematocrit 41.9 , Mean Corpuscular Volume 95, Mean Corpuscular Hemoglobin 33.2H, Mean Corpuscular Hemoglobin Concent 35.1, Red Cell Distribution Width 11.8, Platelet Count 178, Mean Platelet Volume 8.9, Neutrophils (%) (Auto) 83.5H, Lymphocytes ( %) (Auto) 8.7L, Monocytes (%) (Auto) 6.9, Eosinophils (%) (Auto) 0.6, Basophils (%) (Auto) 0.3, Sodium Level 145, Potassium Level 2.9L, Chloride Level 113H, Carbon Dioxide Level 20L, Anion Gap 13, Blood Urea Nitrogen 3L, Creatinine 0.6, Estimat Glomerular Filtration Rate > 60, Glucose Level 126H, Calcium Level 8.7 Height (Feet): 5 Height (Inches): 4.00 Weight (Pounds): 132 General Appearance: lethargic EENT: normal ENT inspection Neck: supple Cardiovascular: normal rate Respiratory/Chest: decreased breath sounds Abdomen: normal bowel sounds, non tender, soft Extremities: non-tender Emanuel Trujillo MD Aug 26, 2019 07:57
[2019-08-26 08:00] VITALS: BP 108/74
--- NOTE | 2019-08-26 08:36 | NUR ---
RADIOLOGY: PCXR COMPLETED 0800 HRS. NF
[2019-08-26] MEDS: Topiramate 100mg tab NG SCH (09:20)
[2019-08-26] MEDS: Lacosamide 50mg tablet ORAL SCH (09:21)
[2019-08-26] MEDS: Valproic Acid 250mg/5ml Liquid NG SCH ×3 (09:22→17:39)
[2019-08-26] MEDS: Heparin 5000 units/ml inj SUBQ SCH ×2 (09:23→21:56)
[2019-08-26 09:40] LABS: BILIRUBIN, URINE 1+ (NEGATIVE); GLUCOSE, URINE (UA) NEGATIVE (NEGATIVE); KETONES,URINE 1+ (NEGATIVE); LEUKOCYTE ESTERASE ,URINE 3+ (NEGATIVE); NITRITE,URINE NEGATIVE (NEGATIVE); PH,URINE 7 (4.5-8.0); PROTEIN,URINE 2+ (NEGATIVE); UROBILINOGEN,URINE 8 MG/DL (0.0-1.0)
[2019-08-26 09:43] LABS: APPEARANCE,URINE CLOUDY; COLOR,URINE AMBER
--- NOTE | 2019-08-26 10:08 | NUR ---
CASE MANAGEMENT:REVIEW 08/26/19 SI: UNCONTROLLED SEIZURES. DYSPHAGIA 99.0 107 16 102/64 98% ON RA WBC+12.1 K-2.9 IS: IVF@100/HR VALPROIC ACID NG TID VIMPAT NG Q12 KEPPRA NG Q12 HEPARIN SQ Q12 TRILEPTAL NG Q12 SEROQUEL NG Q12 TOPAMAX NG Q12 IV ATIVAN Q2HRS PRN ; NOW [facility]RY [facility]
--- NOTE | 2019-08-26 11:18 | NUR ---
RD ASSESSMENT & RECOMMENDATIONS SEE CARE ACTIVITY FOR COMPLETE ASSESSMENT DAILY ESTIMATED NEEDS: Needs based on General/ 56kg 25-30 kcals/kg 5569-4022 total kcals 1-1.2 g protein/kg 56-67 g total protein 25-30 mL/kg 1151-4674 total fluid mLs NUTRITION DIAGNOSIS: Swallowing difficulty R/T dysphagia, h/o trach + GT as evidenced by TOBACCO ROLLER recommends nonoral feeds at this time, s/p NGT insertion, on NGT feeds. CURRENT TF:Jevity 1.2 @ 50ml/hr x 24 hrs PO DIET RECOMMENDATIONS: When safe for oral diet -> Regular/ texture per TOBACCO ROLLER ENTERAL NUTRITION RECOMMENDATIONS: Jevity 1.2 @ 50ml/hr x 24 hrs to provide 1200ml, 1440kcal, 66g prot, 968ml free water * Cont to advance 10ml q 4-6 hrs as tolerated to goal rate. * Without IVF, water flush of 120ml q 6 hrs ADDITIONAL RECOMMENDATIONS: * Calibrated bedscale wt * Monitor lytes closely w/ TF, replete as needed (Low K, mag) * Monitor BGs w/ TF * Monitor TOBAC[employer] ROLLER eval, ability for PO diet.
[2019-08-26 12:00] VITALS: BP 108/70
--- NOTE | 2019-08-26 13:16 | Diagnostic Imaging Report ---
Indication: Shortness of breath Technique: One view of the chest Comparison: 08/25/2019 Findings: Bands of atelectasis or scarring are seen in the bilateral lower lungs. Lungs and pleural spaces are otherwise clear. The heart size is normal. Again demonstrated is a nasogastric tube in good position. Findings are unchanged Impression: No acute process
[2019-08-26 16:00] VITALS: BP 121/69
--- NOTE | 2019-08-26 16:20 | NUR ---
*-* INSURANCE *-* ALL CLINICALS AND REVIEWS HAVE BEEN FAXED TO: Ref# [id number] # [phone] fax# [phone]
--- NOTE | 2019-08-26 19:36 | NUR ---
HAND-OFF: Report given to CHASE RN's.ENDORSED PLAN OF CARE. PATIENT IS IN STABLE CONDITION.
--- NOTE | 2019-08-26 19:40 | NUR ---
NURSE NOTES: Received patient from JOANN Zaldivar. Pateint was awake, laying in bed. There were no signs of distress or pain noted. AO x 1. Patient is bedrest and abler to position herself. Cheked IV site patent and flushed with no signs of erythema, bleeding, of infiltration. Patient with NG tube noted on the right nare. Jevity 1.2 tube feeding on holf until abdominal x-ray confirm tube placement in stomach. Bed in lowest position with brakes on and side rails x3, side rails padded following seizure precautions. Call light within reach. Will continue plan of care.
--- NOTE | 2019-08-26 19:57 | Diagnostic Imaging Report ---
Indication: Post nasogastric tube placement Technique: Supine view of the abdomen Comparison: To 03/04/2020 Findings: Again demonstrated is a nasogastric tube, tip this time projecting at the level of the gastric fundus, proximal port just beyond the expected level of the gastroesophageal junction. Bowel gas pattern is unremarkable, demonstrates considerable gas in nondilated large and small bowel. Impression: Borderline high position of nasogastric tube. Consider advancement. This agrees with the preliminary interpretation provided overnight by [facility] teleradiology service.
[2019-08-26 20:00] VITALS: BP 124/87
--- NOTE | 2019-08-26 21:28 | NUR ---
NURSE NOTES: Called Radiology to follow up with abdominal x-ray results. Per result recommendations, NG tube should be advanced a little more.
--- NOTE | 2019-08-26 21:40 | NUR ---
NURSE NOTES: Per Zen, morning shift RN, K-Elma 40 mEq PO ONCE already administered.
--- NOTE | 2019-08-26 21:57 | NUR ---
NURSE NOTES: Advanced NG tube to 60 cm. Abdominal x-ray ordered. Awaiting results.
--- NOTE | 2019-08-26 23:20 | Diagnostic Imaging Report ---
Indication: Post readjustment of nasogastric tube Technique: Supine view of the abdomen Comparison: 08/26/2019 Findings: Nasogastric tube has advanced, tip now projected at the level gastric body, proximal port well beyond the gastroesophageal junction. There is overall decreased bowel gas Impression: Improved and satisfactory position of nasogastric tube This agrees with the preliminary interpretation provided overnight by [facility] teleradiology service.
[2019-08-27] VITALS (7 sets, daily range): BP systolic 114–121; BP diastolic 64–84
--- NOTE | 2019-08-27 00:57 | Diagnostic Imaging Report ---
Indication: Post nasogastric tube placement Technique: Supine view of the abdomen Comparison: 2 hours earlier Findings: Stable satisfactory position of nasogastric tube, tip projected at the level of the gastric body. Again demonstrated are metallic devices in the pelvis, likely tubal occlusion devices Impression: Stable satisfactory position of nasogastric tube
--- NOTE | 2019-08-27 01:09 | NUR ---
NURSE NOTES: Per abdominal x-ray results, NG tube is in the stomach and ready for use.
[2019-08-27] MEDS: Topiramate 100mg tab NG SCH ×3 (01:19→21:42)
[2019-08-27] MEDS: Lacosamide 50mg tablet ORAL SCH ×3 (01:21→21:41)
[2019-08-27] MEDS: D5NS 1,000 ML IV SCH ×2 (01:43→12:32)
--- NOTE | 2019-08-27 04:25 | NUR ---
NURSE NOTES: Patient noted to be having mild tremors. Will continue to monitor.
--- NOTE | 2019-08-27 06:45 | Progress Note ---
DATE: 08/26/2019 HISTORY OF PRESENT ILLNESS: The patient is more alert, more awake, and more responding than yesterday, she is hungry. She responds and as mentioned would like to eat as well. She thinks today, better than previously. PHYSICAL EXAMINATION: VITAL SIGNS: Her blood pressure is 124/87, pulse is 113, respirations are 24, and temperature is 99.3. HEENT: Eyes were normal. ENT, mucous membranes were moist and intact. NECK: Supple with no JVD. LUNGS: Clear. HEART: Normal sounds with regular heartbeat. There is tachycardia at rest. ABDOMEN: Soft and nontender with normal bowel sounds. EXTREMITIES: Warm without cyanosis, clubbing, or edema. The NG tube is inserted. LABORATORY AND DIAGNOSTIC DATA: Hemoglobin is 14.7, hematocrit 41.9 with MCV of 95. WBC of 12.1 and platelets 178,000. Her BUN and creatinine are 3 and 0.6 respectively. Her sodium is 145, potassium 2.9, chloride 113, CO2 is 20. IMPRESSION: The patient had hypokalemia. She will get 40 mEq via NG tube. BMP will be done in the a.m. In addition, swallowing evaluation will be done in the a.m. as well. Kennedy Shepherd M.D. DR: SATURNINO JOB#: [id number] CC:
--- NOTE | 2019-08-27 07:10 | NUR ---
HAND-OFF: Report given to JOANN Zaldivar. Patient is asleep lying semi-barrera's; resting comfortably. Jevity running at 20 mls/hr. In stable condition.
--- NOTE | 2019-08-27 07:15 | NUR ---
NURSE NOTES: Received report from Brooke RN's. Patient in bed resting, oriented x0, non-verbal. No s/s of pain noted. No SOB. No s/s of acute distress noted, on room air. IV site in right hand 22G intact, patent and asymptomatic running D5 NS xe165BS/HR. monitoring and evaluation advisor on. Patient is on NG-Tube running Jevity1.2,at 20cc/hr, the goal is 50cc/hr. Patient is on bilateral soft restraint for pulling items, tubes. Bed in lowest position with bedside rails up x3 and brakes engaged for safety. Call light within easy reach. Will continue with the plan of care.
[2019-08-27 07:51] LABS: BASOPHILS % (AUTO) 0.3 % (0.0-2.0); EOSINOPHILS % (AUTO) 0.9 % (0.0-3.0); HEMATOCRIT 40.1 % (37.0-47.0); HEMOGLOBIN 14.2 G/DL (12.0-16.0); LYMPHOCYTES % (AUTO) 9.6 % (20.0-45.0); MEAN CORPUSCULAR VOLUME 95 FL (80-99); MONOCYTES % (AUTO) 7.7 % (1.0-10.0); NEUTROPHILS % (AUTO) 81.4 % (45.0-75.0); PLATELET COUNT 149 K/UL (150-450); RED BLOOD COUNT 4.23 M/UL (4.20-5.40); RED CELL DISTRIBUTION WIDTH 12.1 % (11.6-14.8); WHITE BLOOD COUNT 12.1 K/UL (4.8-10.8)
[2019-08-27 08:29] LABS: ANION GAP 11 mmol/L (5-15); BLOOD UREA NITROGEN 3 mg/dL (7-18); CALCIUM 8.6 MG/DL (8.5-10.1); CARBON DIOXIDE 18 MMOL/L (21-32); CHLORIDE 114 MMOL/L (98-107); CREATININE 0.3 MG/DL (0.55-1.30); POTASSIUM 4.2 MMOL/L (3.5-5.1); SODIUM 143 MMOL/L (136-145)
[2019-08-27] MEDS: OXcarbazepine 150mg tab GT SCH ×2 (08:57→21:42)
[2019-08-27] MEDS: Valproic Acid 250mg/5ml Liquid NG SCH ×3 (08:58→17:27)
[2019-08-27] MEDS: Heparin 5000 units/ml inj SUBQ SCH ×2 (09:01→21:37)
--- NOTE | 2019-08-27 10:53 | NUR ---
CASE MANAGEMENT:REVIEW 08/27/19 SI: UNCONTROLLED SEIZURES. DYSPHAGIA 97.7 91 18 121/79 98% ON RA WBC+12.1 IS: IVF@100/HR VALPROIC ACID NG TID VIMPAT NG Q12 KEPPRA NG Q12 HEPARIN SQ Q12 TRILEPTAL NG Q12 SEROQUEL NG Q12 TOPAMAX NG Q12 IV ATIVAN Q2HRS PRN ; NOW ON TELEMETRY DCP: FROM KAYLEE GRIER Addendum: 08/27/19 at 1056 by VERONIKA LUCIANON PLAN: GI CONSULT CONTINUE NG TUBE FEEDS FOR NOW REPEAT SWALLOW EVAL.....IF FAILS AGAIN MAY NEED GTUBE
--- NOTE | 2019-08-27 11:00 | GI Progress Note ---
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 Trujillo. Assessment/Plan History of GT placement, s/p removal NGTFs not tolerated, follow up RD recs for change will need video swallow study, PEG if needed respiratory care fu neurology repeat labs DVT prophylaxis The patient was seen and examined at bedside and all new and available data was reviewed in the patients chart. I agree with the above findings, impression and plan. (Patient seen earlier today. Signature stamp does not reflect patient encounter time.). - Emanuel Trujillo MD Subjective Subjective limited Objective Last 24 Hour Vital Signs Date Time Temp Pulse Resp B/P (MAP) Pulse Ox O2 Delivery O2 Flow Rate FiO2 08/27/19 09:00 Room Air 08/27/19 08:00 97.7 91 18 121/79 (93) 98 08/27/19 08:00 91 08/27/19 04:00 100 08/27/19 04:00 98.1 102 24 116/77 (90) 99 08/27/19 00:00 98.7 105 20 118/71 (87) 97 08/27/19 00:00 113 08/26/19 21:00 Room Air 08/26/19 20:00 113 08/26/19 20:00 99.3 126 24 124/87 (99) 96 08/26/19 16:00 98.4 116 20 121/69 (86) 96 08/26/19 16:00 130 08/26/19 12:00 101 08/26/19 12:00 97.8 101 20 108/70 (83) 97 Intake and Output 08/26/19 08/27/19 19:00 07:00 Intake Total 100 ml 1308 ml Output Total 900 ml Balance -800 ml 1308 ml Intake Free Water 100 ml IV Total 100 ml 1128 ml Tube Feeding 80 ml Output Urine Total 900 ml # Voids 4 3 # Bowel Movements 2 Laboratory Tests Test 08/27/19 06:29 White Blood Count 12.1 K/UL (4.8-10.8) H Red Blood Count 4.23 M/UL (4.20-5.40) Hemoglobin 14.2 G/DL (12.0-16.0) Hematocrit 40.1 % (37.0-47.0) Mean Corpuscular Volume 95 FL (80-99) Mean Corpuscular Hemoglobin 33.6 PG (27.0-31.0) H Mean Corpuscular Hemoglobin Concent 35.4 G/DL (32.0-36.0) Red Cell Distribution Width 12.1 % (11.6-14.8) Platelet Count 149 K/UL (150-450) L Mean Platelet Volume 7.8 FL (6.5-10.1) Neutrophils (%) (Auto) 81.4 % (45.0-75.0) H Lymphocytes (%) (Auto) 9.6 % (20.0-45.0) L Monocytes (%) (Auto) 7.7 % (1.0-10.0) Eosinophils (%) (Auto) 0.9 % (0.0-3.0) Basophils (%) (Auto) 0.3 % (0.0-2.0) Sodium Level 143 MMOL/L (136-145) Potassium Level 4.2 MMOL/L (3.5-5.1) Chloride Level 114 MMOL/L (98-107) H Carbon Dioxide Level 18 MMOL/L (21-32) L Anion Gap 11 mmol/L (5-15) Blood Urea Nitrogen 3 mg/dL (7-18) L Creatinine 0.3 MG/DL (0.55-1.30) L Estimat Glomerular Filtration Rate > 60 mL/min (>60) Glucose Level 128 MG/DL (74-106) H Calcium Level 8.6 MG/DL (8.5-10.1) Height (Feet): 5 Height (Inches): 4.00 Weight (Pounds): 130 General Appearance: no apparent distress Cardiovascular: normal rate Respiratory/Chest: normal breath sounds, no respiratory distress Abdominal Exam: normal bowel sounds, non tender, soft, other - NGT Extremities: non-tender Cecy Wen SUPPLY TEACHER Aug 27, 2019 11:00
--- NOTE | 2019-08-27 14:58 | NUR ---
RD ASSESSMENT & RECOMMENDATIONS SEE CARE ACTIVITY FOR COMPLETE ASSESSMENT DAILY ESTIMATED NEEDS: Needs based on General/ 56kg 25-30 kcals/kg 8665-4213 total kcals 1-1.2 g protein/kg 56-67 g total protein 25-30 mL/kg 5488-9892 total fluid mLs Referred from GI AIR ANALYST regarding possible TF change as pt not tolerating TF. Per EMR, TF running @ low rate of 20ml/hr, no residuals. Discussed w/ RN who reported pt w/ an episode of emesis x 1 yesterday, could be r/t pt being anxious, constantly attempting to remove NGT and pull lines. No further episode of emesis and pt without residuals today. Pt calmer today per RN. Rec to monitor TF tolerance for another day. TF running @ 20ml/hr, discussed w/ RN regarding increasing TF slowly, 5ml/hr q 4-6 hrs. Per GI AIR ANALYST, okay to monitor for now. NUTRITION DIAGNOSIS: Swallowing difficulty R/T dysphagia, h/o trach + GT as evidenced by [facility]MER NANNY recommends nonoral feeds at this time, s/p NGT insertion, on NGT feeds. CURRENT TF:Jevity 1.2 @ 50ml/hr x 24 hrs PO DIET RECOMMENDATIONS: When safe for oral diet -> Regular/ texture per SUMMER NANNY ENTERAL NUTRITION RECOMMENDATIONS: Jevity 1.2 @ 50ml/hr x 24 hrs to provide 1200ml, 1440kcal, 66g prot, 968ml free water * Advance 5ml q 4-6 hrs as tolerated to goal rate. * Without IVF, water flush of 120ml q 6 hrs ADDITIONAL RECOMMENDATIONS: * Calibrated bedscale wt * Monitor lytes closely w/ TF, replete as needed * Monitor BGs w/ TF * Monitor SUMMER NANNY eval, ability for PO diet. * Monitor TF tolerance, need to change TF
--- NOTE | 2019-08-27 16:31 | NUR ---
ST NOTES: SWALLOW STATUS: PER THE PATIENT'S BROTHER, HE MAKES DECISIONS, AND SHE IS [place]-SPEAKING ONLY FROM [place]. PATIENT ALERT WITH MAX CUES, WILL FALL ASLEEP IF NOT STIMULATED. SHE DID NOT FOLLOW ANY ORAL COMMANDS AND HER TONGUE IS STICKING OUT SLIGHTLY PAST HER LOWER LIPS. SHE APPEARS TO HAVE DYSPHAGIA WITH ORAL SECRETIONS (VOICE WET AND IS CLEARING HER THROAT) IN THE BACK OF HER THROAT (NEEDS SUCTION). HAD NGT. NOT READY FOR PO TRIALS TO SEE IF SHE IS READY FOR MODIFIED BARIUM SWALLOW STUDY. IRRELEVANT OF ASPIRATION RISK, NOT ALERT FOR 75% OF 3 MEALS. COULD NOT LOCATE POLST REGARDING TUBE FEEDING PREFERENCES. D/W HER BROTHER BRIGIDA, IN [place] ONLY, THAT SHE NEEDED POSSIBLE CORRECTION FEEDING METHODS. HE AGREED TO PEG FOR NOW AND LATER MOD BARIUM SWALLOW STUDY INPATIENT OR OUTPT IF SHE IS NOT READY. D/W GI AUTOMATIC DEVELOPER SADIE REGARDING ABOVE. PLAN: CONTINUE WITH NGT FEEDINGS FOR NOW BUT PLAN FOR PEG PER GI CONTINUE WITH ORAL CARE AND SUCTION D/W JOANN GREEN
--- NOTE | 2019-08-27 19:33 | NUR ---
HAND-OFF: Report given to Brooke. Patient is in stable condition.
--- NOTE | 2019-08-27 19:51 | NUR ---
NURSE NOTES: Received patient from JOANN Zaldivar. Pateint was awake, laying in bed. There were no signs of distress or pain noted. AO x 1. Patient is bedrest and able to position herself. Checked IV site patent and flushed with no signs of erythema, bleeding, of infiltration. Patient with NG tube noted on the right nare. Jevity 1.2 tube feeding on half until feeding running at 25mL/hr. Bed in lowest position with brakes on and side rails x3, side rails padded following seizure precautions. Call light within reach. Awaiting transfer to [facility]. Will continue plan of care.
--- NOTE | 2019-08-27 22:30 | NUR ---
TRANSFER TO FLOOR: Report given to JOANN Anguiano. Patient was transferred to Med-Surg floor from Telemetry unit without incident. No signs of acute distress or pain noted at this time. AOx1; unable to make needs known, but can respond to commands. Primarily Setswana speaking. Patient already taken off Tele box during morning shift. NG tube on right nare still in place. Belongings list checked with receiving RN. Bed at lowest position, brakes on, siderails up x3. Siderails padded following seizure precautions. Suction set up at bedside. Call light within reach.
--- NOTE | 2019-08-27 22:40 | NUR ---
NURSE NOTES: Received patient via hospital bed.A &o X1. with ngt in placed. feeding of jevity 1.2 @ 25 mls/hr was on hold. bilateral soft wrist restraints noted. NPO. incontinent x2. with iv line on the right hand 22 g running [id number] ml @100 ml/hr. seizure precautions. padded side rails. per joy from telemetry, she will have st eval tomorrow and peg placement with consent signed by the brother. bed locked and in lowest position. call light and light button within easy reach. will continue plan of care. vital signs of 119/84mmhg, 116bpm, 98%,20 cpm, 99.5F.
[2019-08-27] MEDS ORDERED: LORazepam Inj 2mg/ml 1ml IV PRN (23:00)
[2019-08-27] MEDS ORDERED: D5NS 1,000 ML IV SCH (23:00)
--- NOTE | 2019-08-28 00:30 | NUR ---
NURSE NOTES: at 12:10 am , patient was congested suctioned as ordered. head of bed elevated. co rn-sangeeta helped out to suctioned pt. with noted a lot feeding solution upon suctioning plus saliva. patient vomited with feeding solution. vital signs checked with 119/76 mmhg, 96% 98.1, 20cpm, 125 cpm. suctioned again still with feeding formula solution. charge nurse made aware. called erasto the RT. erasto suctioned the pt. charge nurse called dr. villalpando and ordered to transfer to [facility] with stat chest xray and abg.
[2019-08-28 00:40] VITALS: BP 107/72
--- NOTE | 2019-08-28 00:40 | NUR ---
NURSE NOTES: Received report from JOANN Anguiano- pt. transferred from - pt. in bed awake- opens eyes spontaneously- non-verbal, appears to be confused- trying to remove devices- bilateral soft restraints removed- skin intact and pulses palpable, side rails padded for seizure precautions- no seizure activity noted upon assessment, youth nutritional monitor placed, full body assessment done- skin appears to be dry but intact- sacral area appears to be dry, pt. appears to be sating well on room- no distress noted, per endorsement- pt. is NPO - for peg placement in am, RT. NGT intact and in place, RT. hand thumb 22G IV intact and patent running D5NS @100cc/hr, pt. oriented to room and pt. teaching done, safety measures continued, will continue with plan of care.
--- NOTE | 2019-08-28 00:40 | NUR ---
NURSE NOTES: Patient was transferred via hospital bed as ordered. with iv line on the right hand(thumb) running d5Ns @100 ml/hr. ngt in placed. NPO. on hold tube feeding of jevity 1.2 .with bilateral soft wrist restraints. endorsed that the patient has order for swall eval and peg placement later today as endorsed by joy (maite). consent for peg was signed by the brother. Addendum: 08/28/19 at 0139 by Jessica Garza RN endorsed that was here to check on the patient and ordered no peg if pass swallowing eval. called brother and left a message regarding the transfer. charge nurse made aware. endorsed.
[2019-08-28] MEDS ORDERED: LORazepam Inj 2mg/ml 1ml IV PRN (01:00)
[2019-08-28] MEDS ORDERED: Acetaminophen 650mg/20.3ml NG PRN ×2 (01:00)
[2019-08-28] MEDS: D5NS 1,000 ML IV SCH ×3 (01:20→20:33)
--- NOTE | 2019-08-28 02:11 | NUR ---
NURSE NOTES: left message for regarding abnormal ABG results- awaiting for call back from doctor.
--- NOTE | 2019-08-28 02:20 | NUR ---
NURSE NOTES: Orders received from DR. Shepherd- made him aware of ABG results- per doctor to start pt. on BIPAP 05/22 Fio2 @80%, Order ABG 1-2 hours after starting BIPAP, to start antibiotics therapy Flagyl 500mg IVPB Q8hrs, Zosyn 3.375 IVPB Q6hrs, and DuoNeb Q4hrs PRN SOB- orders read back and carried out. Notified doctor I will call when I receive chest x-ray results.
--- NOTE | 2019-08-28 03:09 | NUR ---
NURSE NOTES: Called Garrett at radiology- x-ray results still pending- will call SDU when ready.
--- NOTE | 2019-08-28 03:11 | Diagnostic Imaging Report ---
Indication: Shortness of breath Technique: One view of the chest Comparison: To 06/04/2020 Findings: Stable satisfactory position of nasogastric tube. Triangular opacity at the right lung base is new since prior study, likely represents a small area of atelectasis; patchy infiltrate also possible. The remainder of the lungs and pleural spaces are clear. The heart size is normal. Impression: Developing right basilar patchy atelectasis or infiltrate. Otherwise little warp changer 2 days This agrees with the preliminary interpretation provided overnight by [facility] teleradiology service.
--- NOTE | 2019-08-28 03:39 | NUR ---
NURSE NOTES: left message for DR. Shepherd regarding chest x-ray results- and that BIPAP was not placed on patient as she has been aspirating- awaiting for call back from doctor.
[2019-08-28] MEDS: Albuterol/Ipratropium 3ml neb HHN PRN ×2 (03:49→08:53)
--- NOTE | 2019-08-28 03:53 | NUR ---
NURSE NOTES: Made DR. Shepherd aware of chest x-ray results- and that pt. was not put on BIPAP as pt. has been aspirating- also that patients breathing has improved since pt. was administered DuoNeb treatment. Per doctor to continue to monitor patient. No new orders given.
[2019-08-28 04:00] VITALS: BP 123/81
[2019-08-28 05:28] LABS: BASOPHILS % (AUTO) 0.4 % (0.0-2.0); EOSINOPHILS % (AUTO) 0.7 % (0.0-3.0); HEMATOCRIT 37.6 % (37.0-47.0); HEMOGLOBIN 13.3 G/DL (12.0-16.0); LYMPHOCYTES % (AUTO) 13.9 % (20.0-45.0); MEAN CORPUSCULAR VOLUME 93 FL (80-99); MONOCYTES % (AUTO) 5.7 % (1.0-10.0); NEUTROPHILS % (AUTO) 79.3 % (45.0-75.0); PLATELET COUNT 198 K/UL (150-450); RED BLOOD COUNT 4.03 M/UL (4.20-5.40); RED CELL DISTRIBUTION WIDTH 11.9 % (11.6-14.8); WHITE BLOOD COUNT 12.9 K/UL (4.8-10.8)
[2019-08-28 05:45] LABS: ANION GAP 11 mmol/L (5-15); BLOOD UREA NITROGEN 3 mg/dL (7-18); CALCIUM 8.7 MG/DL (8.5-10.1); CARBON DIOXIDE 18 MMOL/L (21-32); CHLORIDE 113 MMOL/L (98-107); CREATININE 0.5 MG/DL (0.55-1.30); PHOSPHORUS 2.4 MG/DL (2.5-4.9); POTASSIUM 3.7 MMOL/L (3.5-5.1); SODIUM 142 MMOL/L (136-145)
[2019-08-28 06:43] LABS: INR 2.6 (0.9-1.1)
[2019-08-28 06:45] LABS: PARTIAL THROMBOPLASTIN TIME > 150 SEC (23-33)
--- NOTE | 2019-08-28 06:55 | NUR ---
HAND-OFF: Report given to Carl RN, pt. remains stable and no signs of distress noted. Aware to f/u on PTT >150.
--- NOTE | 2019-08-28 07:00 | NUR ---
NURSE NOTES: Received report from JOANN Alegria. Patient is resting in stable condition. No s/sx of SOB, breathing is even and unlabored, on 2LNC with SpO2 100%. Pt with right nare NGT in place, kept secured. HOB kept up at 45 degrees for aspiration precaution. Pt noted NPO at this time for pending PEG placement. Observed no presence of pain or discomfort at this time. Bed is in lowest position, brakes engaged. Will continue to monitor patient.
--- NOTE | 2019-08-28 07:10 | NUR ---
NURSE NOTES: Matias called station and spoke with this nurse, informed this nurse that Dr. Trujillo ordered 2 unites of FFP to be administered, Dr. Trujillo aware of PTT > 150. Noted.
--- NOTE | 2019-08-28 07:15 | Progress Note ---
DATE: 08/27/2019 SUBJECTIVE: The patient is afebrile. Hemodynamically stable. Until now 72 hours, the patient did not have any seizure. PHYSICAL EXAMINATION: VITAL SIGNS: Blood pressure 119/71, pulse is 99, respirations 18, and temperature is 98.1. HEENT: Eyes were normal. ENT, mucous membranes were moist and intact. NECK: Supple with no JVD without lymph nodes. LUNGS: Clear. HEART: Normal sounds with regular beat. ABDOMEN: Soft and nontender with normal bowel sounds. EXTREMITIES: Warm without cyanosis, clubbing, or edema. LABORATORY AND DIAGNOSTIC DATA: Hemoglobin is 14.2, hematocrit 40.1 with MCV of 95, WBC of 12.1 and platelets 149,000. Her BUN and creatinine are 3 and 0.3 respectively. Sodium is 143, potassium 4.2, chloride 114, CO2 is 18. done today. position of nasogastric tube. The patient was assessed today by speech therapist, but did not find any and the plan was to get . The patient was not ready for aspiration risk. Therefore, recommendation to continue with NG-tube feeding. Plan for PEG per GI. Vice Admiral was called to assist in the management of this case. Kennedy Shepherd M.D. DR: Rebeka JOB#: [id number] CC:
--- NOTE | 2019-08-28 07:30 | NUR ---
NURSE NOTES: Obtained telephone consent for blood transfusion from patient's brother Janes. Second nurse witness JOANN Garcia. Consent placed in chart.
--- NOTE | 2019-08-28 07:35 | NUR ---
NURSE NOTES: Dr. Shepherd called nurse station regarding PTT > 150. Informed Dr[address] Shepherd that per Dr. Trujillo to administer 2 FFPs and will do PEG placement today. Dr. Shepherd ordered to hold PEG placement and placed Dr. Jaimes for Hematology consult. Dr. Shepherd also made aware of latest ABG results, Dr. Shepherd acknowledged and ordered to place Dr. Thurman for consult. Per Dr. Shepherd patient must have clearance from Dr. Jaimes and Dr. Thurman before proceeding with PEG placement. Noted.
--- NOTE | 2019-08-28 07:40 | NUR ---
NURSE NOTES: This nurse called GI lab and spoke with JOANN Salcedo relayed Dr. Shepherd's orders to hold PEG placement at this time. JOANN Salcedo acknowledged and will inform Dr. Trujillo.
[2019-08-28 08:00] VITALS: BP 117/77
--- NOTE | 2019-08-28 08:00 | NUR ---
NURSE NOTES: Dr. Jaimes at nurse station and made aware of situation with PTT > [address] Jaimes acknowledged and ordered STAT PT and PTT labs, ordered x 1 Vitamin K 10 mg SQ, hold administering FFP until PT and PTT resulted. Order entered, noted, and carried out. Will continue to monitor patient.
[2019-08-28] MEDS ORDERED: Phytonadione 10 mg/mL 1ml amp SUBQ SCH (08:15)
[2019-08-28] MEDS: Valproic Acid 250mg/5ml Liquid NG SCH ×3 (08:24→17:07)
[2019-08-28] MEDS: Lacosamide 50mg tablet ORAL SCH ×2 (08:25→20:34)
[2019-08-28] MEDS: OXcarbazepine 150mg tab GT SCH ×2 (08:25→20:38)
[2019-08-28] MEDS: Topiramate 100mg tab NG SCH ×2 (08:26→20:35)
--- NOTE | 2019-08-28 08:39 | Consultation ---
History of Present Illness General Chief Complaint: Seizure Present Illness Allergies: Coded Allergies: No Known Allergies (Unverified , 02/02/17) Medication History Scheduled Atorvastatin Calcium* (Lipitor*), 40 MG PO BEDTIME, (Reported) Cran/Vitc/Mannose/Inulin/Brom (Uti-Stat Liquid), 3,875 MG PO BID, (Reported) Divalproex Sodium* (Depakote*), 250 MG PO TID, (Reported) Docusate Sodium* (Docusate Sodium*), 100 MG GT DAILY, (Reported) Levetiracetam* (Levetiracetam*), 1,500 MG GT BID, (Reported) Lorazepam* (Lorazepam*), 1 MG IM Q4H, (Reported) Magnesium Hydroxide* (Milk Of Magnesia*), 30 ML ORAL QHS, (Reported) Oxcarbazepine* (Trileptal*), 600 MG GT BID, (Reported) Sennosides (Senna), 17.2 MG PO QHS, (Reported) Topiramate (Topiramate), 200 MG GT TWICE A DAY, (Reported) Vitamin D (Vitamin D3), 5,000 INTLU PO DAILY, (Reported) [Lispro], 100 UNITS SQ AC+HS, (Reported) Scheduled PRN Acetaminophen* (Acetaminophen 325MG Tablet*), 325 MG ORAL Q4H PRN for MILD PAIN, (Reported) Acetaminophen* (Acetaminophen 325MG Tablet*), 325 MG ORAL Q4H PRN for TEMP > 101F, (Reported) Bisacodyl (Dulcolax), 10 MG RC DAILY PRN for Constipation, (Reported) Hydrocodone Bit/Acetaminophen 5-325* ([place] 5-325*), 1 TAB PO Q8HR PRN for Severe Pain (Pain Scale 7-10), (Reported) Ipratropium/Albuterol Sulfate (DuoNeb 0.5-3(2.5)mg/3ml), 3 ML HHN Q4HR PRN for SOB/WHEEZING, (Reported) Na Phos,M-B/Na Phos,Di-Ba* (Fleet Enema*), 133 ML RECTAL QOD PRN for Constipation, (Reported) Miscellaneous Medications Valproate Sodium (Valproate Sodium), 250 MG PO, (Reported) Patient History Healthcare decision maker Resuscitation status Advanced Directive on File Physical Exam Last 24 Hour Vital Signs Date Time Temp Pulse Resp B/P (MAP) Pulse Ox O2 Delivery O2 Flow Rate FiO2 08/28/19 04:00 Room Air 08/28/19 04:00 98.6 111 24 123/81 (95) 100 08/28/19 03:59 114 20 99 Room Air 21 08/28/19 03:49 101 22 97 Room Air 21 08/28/19 03:49 101 22 97 Room Air 21 08/28/19 03:35 103 08/28/19 01:53 110 08/28/19 00:40 99.0 112 26 107/72 (84) 98 08/28/19 00:40 Room Air 08/27/19 23:45 99.5 116 23 119/84 (96) 98 08/27/19 21:00 Room Air 08/27/19 20:30 97 Room Air 21 08/27/19 20:00 98.6 113 24 119/71 (87) 97 08/27/19 16:00 98.1 99 18 114/64 (81) 99 08/27/19 12:00 97.7 91 18 121/79 (93) 98 08/27/19 12:00 101 08/27/19 12:00 97.3 99 20 120/70 (87) 97 08/27/19 09:00 Room Air Intake and Output 08/27/19 08/28/19 19:00 07:00 Intake Total 125 ml 866 ml Output Total 500 ml Balance -375 ml 866 ml Intake Free Water 50 ml IV Total 100 ml 766 ml Tube Feeding 25 ml 50 ml Output Urine Total 500 ml # Voids 2 Laboratory Tests Test 08/28/19 01:35 08/28/19 03:45 Arterial Blood pH 7.416 (7.350-7.450) Arterial Blood Partial Pressure CO2 22.1 mmHg (35.0-45.0) *L Arterial Blood Partial Pressure O2 78.7 mmHg (75.0-100.0) Arterial Blood HCO3 13.9 mmol/L (22.0-26.0) *L Arterial Blood Oxygen Saturation 95.0 % (95-100) Arterial Blood Base Excess -8.5 (-2-2) L Maynor Test Positive White Blood Count 12.9 K/UL (4.8-10.8) H Red Blood Count 4.03 M/UL (4.20-5.40) L Hemoglobin 13.3 G/DL (12.0-16.0) Hematocrit 37.6 % (37.0-47.0) Mean Corpuscular Volume 93 FL (80-99) Mean Corpuscular Hemoglobin 32.9 PG (27.0-31.0) H Mean Corpuscular Hemoglobin Concent 35.2 G/DL (32.0-36.0) Red Cell Distribution Width 11.9 % (11.6-14.8) Platelet Count 198 K/UL (150-450) Mean Platelet Volume 7.9 FL (6.5-10.1) Neutrophils (%) (Auto) 79.3 % (45.0-75.0) H Lymphocytes (%) (Auto) 13.9 % (20.0-45.0) L Monocytes (%) (Auto) 5.7 % (1.0-10.0) Eosinophils (%) (Auto) 0.7 % (0.0-3.0) Basophils (%) (Auto) 0.4 % (0.0-2.0) Prothrombin Time 26.7 SEC (9.30-11.50) H Prothromb Time International Ratio 2.6 (0.9-1.1) H Activated Partial Thromboplast Time > 150 SEC (23-33) *H Sodium Level 142 MMOL/L (136-145) Potassium Level 3.7 MMOL/L (3.5-5.1) Chloride Level 113 MMOL/L (98-107) H Carbon Dioxide Level 18 MMOL/L (21-32) L Anion Gap 11 mmol/L (5-15) Blood Urea Nitrogen 3 mg/dL (7-18) L Creatinine 0.5 MG/DL (0.55-1.30) #L Estimat Glomerular Filtration Rate > 60 mL/min (>60) Glucose Level 129 MG/DL (74-106) H Calcium Level 8.7 MG/DL (8.5-10.1) Phosphorus Level 2.4 MG/DL (2.5-4.9) L Magnesium Level 2.0 MG/DL (1.8-2.4) Height (Feet): 5 Height (Inches): 3.00 Weight (Pounds): 130 Medications Current Medications Medications (Trade) Dose Ordered Sig/Laurita Route PRN Reason Start Time Stop Time Status Last Admin Dose Admin Acetaminophen (Tylenol) 650 mg Q4H PRN NG Mild Pain/Temp > 100.5 08/28/19 01:00 09/21/19 20:59 Albuterol/ Ipratropium (Albuterol/ Ipratropium) 3 ml Q4HRT PRN HHN Shortness of Breath 08/28/19 02:30 09/02/19 02:29 08/28/19 03:49 Dextrose/Sodium Chloride 1,000 ml @ 100 mls/hr Q10H IV 08/28/19 01:00 09/23/19 11:59 08/28/19 01:20 Heparin Sodium (Porcine) (Heparin 5000 units/ml) 5,000 units EVERY 12 HOURS SUBQ 08/28/19 09:00 09/21/19 21:59 UNV Lacosamide (Vimpat) 100 mg Q12HR ORAL 08/28/19 09:00 09/22/19 08:59 08/28/19 08:25 Lansoprazole (Prevacid) 30 mg Q12HR GT 08/28/19 09:00 09/21/19 22:59 Levetiracetam (Keppra) 1,500 mg Q12HR NG 08/28/19 09:00 09/21/19 21:59 08/28/19 08:26 Lorazepam (Ativan 2mg/ml 1ml) 2 mg Q2H PRN IV For Seizures 08/28/19 01:00 08/28/19 20:59 Metronidazole 100 ml @ 100 mls/hr Q8H IVPB 08/28/19 07:30 09/04/19 07:29 08/28/19 08:24 Oxcarbazepine (Trileptal) 600 mg EVERY 12 HOURS GT 08/28/19 09:00 09/26/19 08:59 08/28/19 08:25 Phytonadione (Vitamin K) 10 mg ONCE SUBQ 08/28/19 08:15 08/28/19 09:30 Piperacillin Sod/ Tazobactam Sod 3.375 gm/Sodium Chloride 110 ml @ 27.5 mls/hr Q8H IVPB 2/13/20 08:00 09/04/19 07:59 Quetiapine Fumarate (SEROqueL) 25 mg Q12HR GT 08/28/19 09:00 09/22/19 13:59 08/28/19 08:25 Topiramate (Topamax) 200 mg EVERY 12 HOURS NG 08/28/19 09:00 09/21/19 21:59 08/28/19 08:26 Valproic Acid (Depakene) 500 mg THREE TIMES A DAY NG 08/28/19 09:00 09/21/19 08:59 08/28/19 08:24 Assessment/Plan Assessment/Plan: Hematology Consultation REQ MD: Kennedy Shepherd RFC: coagulopathy DOS: 08/28/19 HPI 39y old female, has a history of seizures and presents with recurrent multiple seizures before admission which was 5 days ago, since that time peg tube dislodged and needs to be replaced currently, has been seen by Gi and further recs to follow. Labs Noted with a high ptt/pt, inr. Allergies: No Known Allergies (Unverified , 02/02/17) Patient History Past Medical History: see triage record, DM, HTN, COPD, seizures, psych hx, renal disease Social History: Denies: smoking, alcohol use, drug use Now: No Reviewed Nursing Documentation: PMH: Agreed; PSxH: Agreed Nursing Documentation-PMH Past Medical History: No History, Except For Hx Cardiac Problems: No Hx Hypertension: Yes - aphonia Hx Asthma: Yes - Attention to tracheostomy, Respiratory failure Hx COPD: Yes - h/o Resp failure - h/o Trache, PNA Hx Diabetes: Yes Hx Gastrointestinal Problems: Yes - h/o G-tube, dysphagia Hx Seizures: Yes Hx Epilepsy: Yes Hx Dysphasia: Yes Review of Systems All Other Systems: negative except mentioned in HPI Physical Exam General Appearance: no apparent distress, GCS 15 Head: normocephalic, atraumatic, other - Helmet Respiratory: chest non-tender, lungs clear, normal breath sounds ++ trach Cardiovascular: no edema, tachycardia Gastrointestinal: normal bowel sounds, non tender, soft, + peg tube site Musculoskeletal: back normal, normal range of motion, non-tender Neurologic: alert, motor strength/tone normal, sensory intact, responsive Psychiatric: mood/affect normal Skin: other - See RN skin exam Labs: noted Imaging: reviewed Assessment and Recs: # Coagulopathy is likely related to either contaminant / heparin from line v from other source, meds noted --> given vit K at this time and ffp, will improve patient's ptt/inr --> inr is 2.6, ptt 150 --> have judy Rn to first check coags from different line # Leukocytosis is likely due to pna RLL --> on abx, has been started by pcp --> smear has been reviewed --> meds noted # FTT - dysphagia s/p peg --> since dislodged, requires replacement --> vit k and ffp required --> peg to be replaced by Dr. Trujillo # Uncontrolled seizures --> started on meds, keppra/vimpat # SNF resident # Dvt ppx heparin sq Appreciate consultation and Vlad Garza RN, MD Aug 28, 2019 08:39
--- NOTE | 2019-08-28 08:45 | NUR ---
NURSE NOTES: Called and spoke with Dr. Jaimes and made aware of new PT and PTT values, PT 10.3, INR 1.0, PTT 28. Dr. Jaimes acknowledged and ordered to cancel FFP transfusion and cleared patient for PEG placement. Order entered, noted, and carried out. Will continue to monitor patient.
[2019-08-28] MEDS ORDERED: Lacosamide 50mg tablet ORAL SCH (09:00)
[2019-08-28] MEDS ORDERED: Heparin 5000 units/ml inj SUBQ SCH (09:00)
[2019-08-28] MEDS ORDERED: Topiramate 100mg tab NG SCH (09:00)
[2019-08-28] MEDS ORDERED: OXcarbazepine 150mg tab GT SCH (09:00)
[2019-08-28] MEDS ORDERED: Valproic Acid 250mg/5ml Liquid NG SCH (09:00)
[2019-08-28] MEDS: Piperacillin/Tazobactam 3.375 GM in NS 110 ML IVPB SCH ×3 (10:31→23:37)
[2019-08-28 11:47] VITALS: BP 102/80
--- NOTE | 2019-08-28 12:16 | GI Progress Note ---
Assessment/Plan Problems: (1) G tube feedings ICD Codes: Z93.1 - Gastrostomy status SNOMED: 268136010, 012159558, 966716059 (2) Dysphagia ICD Codes: R13.10 - Dysphagia, unspecified SNOMED: 13497657, 266362833 (3) Dilantin level too low ICD Codes: R78.89 - Finding of other specified substances, not normally found in blood SNOMED: 942898189 (4) Seizure secondary to subtherapeutic anticonvulsant medication ICD Codes: R56.9 - Unspecified convulsions; Z79.899 - Other senior care (current ) drug therapy SNOMED: 09476855 Status: unchanged Status Narrative Discussed with Dr. Trujillo. Assessment/Plan History of GT placement, s/p removal PEG cancelled due to hypercoagulation, FFP and Vit K ordered will reschedule for tomorrow. f/u pulmonary recs fu neurology ok to restart TFs, NPO @ [facility]. repeat labs DVT prophylaxis will follow with additional recs post procedure The patient was seen and examined at bedside and all new and available data was reviewed in the patients chart. I agree with the above findings, impression and plan. (Patient seen earlier today. Signature stamp does not reflect patient encounter time.). - Emanuel Trujillo MD Subjective Subjective limited Objective Last 24 Hour Vital Signs Date Time Temp Pulse Resp B/P (MAP) Pulse Ox O2 Delivery O2 Flow Rate FiO2 08/28/19 11:47 98.1 110 21 102/80 (87) 99 08/28/19 09:03 135 24 100 Room Air 21 112 24 100 08/28/19 09:00 Room Air 08/28/19 08:53 112 24 100 Room Air 21 08/28/19 08:53 100 Room Air 21 08/28/19 08:00 98.2 105 24 117/77 (90) 99 08/28/19 07:50 100 08/28/19 04:00 Room Air 08/28/19 04:00 98.6 111 24 123/81 (95) 100 08/28/19 03:59 114 20 99 Room Air 21 08/28/19 03:49 101 22 97 Room Air 21 08/28/19 03:49 101 22 97 Room Air 21 08/28/19 03:35 103 08/28/19 01:53 110 08/28/19 00:40 99.0 112 26 107/72 (84) 98 08/28/19 00:40 Room Air 08/27/19 23:45 99.5 116 23 119/84 (96) 98 08/27/19 21:00 Room Air 08/27/19 20:30 97 Room Air 21 08/27/19 20:00 98.6 113 24 119/71 (87) 97 08/27/19 16:00 98.1 99 18 114/64 (81) 99 Intake and Output 08/27/19 08/28/19 19:00 07:00 Intake Total 125 ml 866 ml Output Total 500 ml Balance -375 ml 866 ml Intake Free Water 50 ml IV Total 100 ml 766 ml Tube Feeding 25 ml 50 ml Output Urine Total 500 ml # Voids 2 Laboratory Tests Test 08/28/19 01:35 08/28/19 03:45 08/28/19 08:35 08/28/19 09:35 Arterial Blood pH 7.416 (7.350-7.450) 7.413 (7.350-7.450) Arterial Blood Partial Pressure CO2 22.1 mmHg (35.0-45.0) *L 27.0 mmHg (35.0-45.0) L Arterial Blood Partial Pressure O2 78.7 mmHg (75.0-100.0) 78.0 mmHg (75.0-100.0) Arterial Blood HCO3 13.9 mmol/L (22.0-26.0) *L 16.8 mmol/L (22.0-26.0) *L Arterial Blood Oxygen Saturation 95.0 % (95-100) 96.0 % (95-100) Arterial Blood Base Excess -8.5 (-2-2) L -6.1 (-2-2) L Maynor Test Positive Positive White Blood Count 12.9 K/UL (4.8-10.8) H Red Blood Count 4.03 M/UL (4.20-5.40) L Hemoglobin 13.3 G/DL (12.0-16.0) Hematocrit 37.6 % (37.0-47.0) Mean Corpuscular Volume 93 FL (80-99) Mean Corpuscular Hemoglobin 32.9 PG (27.0-31.0) H Mean Corpuscular Hemoglobin Concent 35.2 G/DL (32.0-36.0) Red Cell Distribution Width 11.9 % (11.6-14.8) Platelet Count 198 K/UL (150-450) Mean Platelet Volume 7.9 FL (6.5-10.1) Neutrophils (%) (Auto) 79.3 % (45.0-75.0) H Lymphocytes (%) (Auto) 13.9 % (20.0-45.0) L Monocytes (%) (Auto) 5.7 % (1.0-10.0) Eosinophils (%) (Auto) 0.7 % (0.0-3.0) Basophils (%) (Auto) 0.4 % (0.0-2.0) Prothrombin Time 26.7 SEC (9.30-11.50) H 10.3 SEC (9.30-11.50) Prothromb Time International Ratio 2.6 (0.9-1.1) H 1.0 (0.9-1.1) Activated Partial Thromboplast Time > 150 SEC (23-33) *H 28 SEC (23-33) Sodium Level 142 MMOL/L (136-145) Potassium Level 3.7 MMOL/L (3.5-5.1) Chloride Level 113 MMOL/L (98-107) H Carbon Dioxide Level 18 MMOL/L (21-32) L Anion Gap 11 mmol/L (5-15) Blood Urea Nitrogen 3 mg/dL (7-18) L Creatinine 0.5 MG/DL (0.55-1.30) #L Estimat Glomerular Filtration Rate > 60 mL/min (>60) Glucose Level 129 MG/DL (74-106) H Calcium Level 8.7 MG/DL (8.5-10.1) Phosphorus Level 2.4 MG/DL (2.5-4.9) L Magnesium Level 2.0 MG/DL (1.8-2.4) Height (Feet): 5 Height (Inches): 3.00 Weight (Pounds): 130 General Appearance: no apparent distress, alert Cardiovascular: normal rate Respiratory/Chest: normal breath sounds, no respiratory distress Abdominal Exam: soft, other - NGT Cecy Wen [employer] Aug 28, 2019 12:16
--- NOTE | 2019-08-28 12:46 | Consultation ---
History of Present Illness General Date patient seen: Aug 28, 2019 Chief Complaint: Seizure Present Illness HPI 39 year old female with hx of brain injury, requiring craniotomy, PEG, Trach. eventually she was weaned from the vent/trach and PEG. She was brought in b/o intractable seizures. She failed swallow studies and needs a Peg feeding tube. Her most recent CXR showed RLL infiltrate. Allergies: Coded Allergies: No Known Allergies (Unverified , 02/02/17) Medication History Scheduled Atorvastatin Calcium* (Lipitor*), 40 MG PO BEDTIME, (Reported) Cran/Vitc/Mannose/Inulin/Brom (Uti-Stat Liquid), 3,875 MG PO BID, (Reported) Divalproex Sodium* (Depakote*), 250 MG PO TID, (Reported) Docusate Sodium* (Docusate Sodium*), 100 MG GT DAILY, (Reported) Levetiracetam* (Levetiracetam*), 1,500 MG GT BID, (Reported) Lorazepam* (Lorazepam*), 1 MG IM Q4H, (Reported) Magnesium Hydroxide* (Milk Of Magnesia*), 30 ML ORAL QHS, (Reported) Oxcarbazepine* (Trileptal*), 600 MG GT BID, (Reported) Sennosides (Senna), 17.2 MG PO QHS, (Reported) Topiramate (Topiramate), 200 MG GT TWICE A DAY, (Reported) Vitamin D (Vitamin D3), 5,000 INTLU PO DAILY, (Reported) [Lispro], 100 UNITS SQ AC+HS, (Reported) Scheduled PRN Acetaminophen* (Acetaminophen 325MG Tablet*), 325 MG ORAL Q4H PRN for MILD PAIN, (Reported) Acetaminophen* (Acetaminophen 325MG Tablet*), 325 MG ORAL Q4H PRN for TEMP > 101F, (Reported) Bisacodyl (Dulcolax), 10 MG RC DAILY PRN for Constipation, (Reported) Hydrocodone Bit/Acetaminophen 5-325* ([place] 5-325*), 1 TAB PO Q8HR PRN for Severe Pain (Pain Scale 7-10), (Reported) Ipratropium/Albuterol Sulfate (DuoNeb 0.5-3(2.5)mg/3ml), 3 ML HHN Q4HR PRN for SOB/WHEEZING, (Reported) Na Phos,M-B/Na Phos,Di-Ba* (Fleet Enema*), 133 ML RECTAL QOD PRN for Constipation, (Reported) Miscellaneous Medications Valproate Sodium (Valproate Sodium), 250 MG PO, (Reported) Patient History Healthcare decision maker Resuscitation status Advanced Directive on File Past Medical/Surgical History Past Medical/Surgical History: (1) Organic brain syndrome (chronic) (2) History of craniotomy (3) At high risk for aspiration Review of Systems All Other Systems: negative except mentioned in HPI Physical Exam General Appearance: WD/WN Lines, tubes and drains: peripheral, central line HEENT: status post trach Neck: non-tender, normal alignment Respiratory/Chest: chest wall non-tender, rhonchi - left, rhonchi - right Cardiovascular/Chest: normal peripheral pulses, normal rate Genitourinary/Rectal: normal genital exam Extremities: normal range of motion Last 24 Hour Vital Signs Date Time Temp Pulse Resp B/P (MAP) Pulse Ox O2 Delivery O2 Flow Rate FiO2 08/28/19 11:47 98.1 110 21 102/80 (87) 99 08/28/19 09:03 135 24 100 Room Air 21 112 24 100 08/28/19 09:00 Room Air 08/28/19 08:53 112 24 100 Room Air 21 08/28/19 08:53 100 Room Air 21 08/28/19 08:00 98.2 105 24 117/77 (90) 99 08/28/19 07:50 100 08/28/19 04:00 Room Air 08/28/19 04:00 98.6 111 24 123/81 (95) 100 08/28/19 03:59 114 20 99 Room Air 21 08/28/19 03:49 101 22 97 Room Air 21 08/28/19 03:49 101 22 97 Room Air 21 08/28/19 03:35 103 08/28/19 01:53 110 08/28/19 00:40 99.0 112 26 107/72 (84) 98 08/28/19 00:40 Room Air 08/27/19 23:45 99.5 116 23 119/84 (96) 98 08/27/19 21:00 Room Air 08/27/19 20:30 97 Room Air 21 08/27/19 20:00 98.6 113 24 119/71 (87) 97 08/27/19 16:00 98.1 99 18 114/64 (81) 99 Intake and Output 08/27/19 08/28/19 19:00 07:00 Intake Total 125 ml 866 ml Output Total 500 ml Balance -375 ml 866 ml Intake Free Water 50 ml IV Total 100 ml 766 ml Tube Feeding 25 ml 50 ml Output Urine Total 500 ml # Voids 2 Laboratory Tests Test 08/28/19 01:35 08/28/19 03:45 08/28/19 08:35 08/28/19 09:35 Arterial Blood pH 7.416 (7.350-7.450) 7.413 (7.350-7.450) Arterial Blood Partial Pressure CO2 22.1 mmHg (35.0-45.0) *L 27.0 mmHg (35.0-45.0) L Arterial Blood Partial Pressure O2 78.7 mmHg (75.0-100.0) 78.0 mmHg (75.0-100.0) Arterial Blood HCO3 13.9 mmol/L (22.0-26.0) *L 16.8 mmol/L (22.0-26.0) *L Arterial Blood Oxygen Saturation 95.0 % (95-100) 96.0 % (95-100) Arterial Blood Base Excess -8.5 (-2-2) L -6.1 (-2-2) L Maynor Test Positive Positive White Blood Count 12.9 K/UL (4.8-10.8) H Red Blood Count 4.03 M/UL (4.20-5.40) L Hemoglobin 13.3 G/DL (12.0-16.0) Hematocrit 37.6 % (37.0-47.0) Mean Corpuscular Volume 93 FL (80-99) Mean Corpuscular Hemoglobin 32.9 PG (27.0-31.0) H Mean Corpuscular Hemoglobin Concent 35.2 G/DL (32.0-36.0) Red Cell Distribution Width 11.9 % (11.6-14.8) Platelet Count 198 K/UL (150-450) Mean Platelet Volume 7.9 FL (6.5-10.1) Neutrophils (%) (Auto) 79.3 % (45.0-75.0) H Lymphocytes (%) (Auto) 13.9 % (20.0-45.0) L Monocytes (%) (Auto) 5.7 % (1.0-10.0) Eosinophils (%) (Auto) 0.7 % (0.0-3.0) Basophils (%) (Auto) 0.4 % (0.0-2.0) Prothrombin Time 26.7 SEC (9.30-11.50) H 10.3 SEC (9.30-11.50) Prothromb Time International Ratio 2.6 (0.9-1.1) H 1.0 (0.9-1.1) Activated Partial Thromboplast Time > 150 SEC (23-33) *H 28 SEC (23-33) Sodium Level 142 MMOL/L (136-145) Potassium Level 3.7 MMOL/L (3.5-5.1) Chloride Level 113 MMOL/L (98-107) H Carbon Dioxide Level 18 MMOL/L (21-32) L Anion Gap 11 mmol/L (5-15) Blood Urea Nitrogen 3 mg/dL (7-18) L Creatinine 0.5 MG/DL (0.55-1.30) #L Estimat Glomerular Filtration Rate > 60 mL/min (>60) Glucose Level 129 MG/DL (74-106) H Calcium Level 8.7 MG/DL (8.5-10.1) Phosphorus Level 2.4 MG/DL (2.5-4.9) L Magnesium Level 2.0 MG/DL (1.8-2.4) Height (Feet): 5 Height (Inches): 3.00 Weight (Pounds): 130 Medications Current Medications Medications (Trade) Dose Ordered Sig/Laurita Route PRN Reason Start Time Stop Time Status Last Admin Dose Admin Acetaminophen (Tylenol) 650 mg Q4H PRN NG Mild Pain/Temp > 100.5 08/28/19 01:00 09/21/19 20:59 Albuterol/ Ipratropium (Albuterol/ Ipratropium) 3 ml Q4HRT PRN HHN Shortness of Breath 08/28/19 02:30 09/02/19 02:29 08/28/19 08:53 Dextrose/Sodium Chloride 1,000 ml @ 100 mls/hr Q10H IV 08/28/19 01:00 09/23/19 11:59 08/28/19 12:00 Heparin Sodium (Porcine) (Heparin 5000 units/ml) 5,000 units EVERY 12 HOURS SUBQ 08/28/19 21:00 09/27/19 20:59 Lacosamide (Vimpat) 100 mg Q12HR ORAL 08/28/19 09:00 09/22/19 08:59 08/28/19 08:25 Lansoprazole (Prevacid) 30 mg Q12HR GT 08/28/19 09:00 09/21/19 22:59 08/28/19 08:33 Levetiracetam (Keppra) 1,500 mg Q12HR NG 08/28/19 09:00 09/21/19 21:59 08/28/19 08:26 Lorazepam (Ativan 2mg/ml 1ml) 2 mg Q2H PRN IV For Seizures 08/28/19 01:00 08/28/19 20:59 Metronidazole 100 ml @ 100 mls/hr Q8H IVPB 08/28/19 07:30 09/04/19 07:29 08/28/19 08:24 Oxcarbazepine (Trileptal) 600 mg EVERY 12 HOURS GT 08/28/19 09:00 09/26/19 08:59 08/28/19 08:25 Piperacillin Sod/ Tazobactam Sod 3.375 gm/Sodium Chloride 110 ml @ 27.5 mls/hr Q8H IVPB 08/28/19 08:00 09/04/19 07:59 08/28/19 10:31 Quetiapine Fumarate (SEROqueL) 25 mg Q12HR GT 08/28/19 09:00 09/22/19 13:59 08/28/19 08:25 Topiramate (Topamax) 200 mg EVERY 12 HOURS NG 08/28/19 09:00 09/21/19 21:59 08/28/19 08:26 Valproic Acid (Depakene) 500 mg THREE TIMES A DAY NG 08/28/19 09:00 09/21/19 08:59 08/28/19 08:24 Assessment/Plan Problem List: (1) Nosocomial pneumonia ICD Codes: J18.9 - Pneumonia, unspecified organism; Y95 - Nosocomial condition SNOMED: 801813721 (2) At high risk for aspiration ICD Codes: Z91.89 - Other specified personal risk factors, not elsewhere classified SNOMED: 196953326 (3) Uncontrolled seizures ICD Codes: R56.9 - Unspecified convulsions SNOMED: 84866603 (4) Organic brain syndrome (chronic) ICD Codes: F09 - Unspecified mental disorder due to known physiological condition SNOMED: 931869696 (5) History of craniotomy ICD Codes: Z98.890 - Other specified postprocedural states SNOMED: 41431548, 554666083 Assessment/Plan: check sputum iv abx f/u wbc aspiration precaution I would rather wait for a few days until the new infiltrate on CXR is better to put a PEG. Juancarlos Thurman MD Aug 28, 2019 12:46
--- NOTE | 2019-08-28 12:59 | NUR ---
NURSE NOTES: Dr. Thurman at nurse station, made aware of Dr. Shepherd's instructions and latest ABG results. Dr. Thurman acknowledged. No new orders given at this time. Will continue to monitor patient.
--- NOTE | 2019-08-28 13:04 | NUR ---
NURSE NOTES: Per Dr. Thurman, not cleared from pulmonology perspective for PEG placement at this time. Called and informed ANITA Avila to Dr. Trujillo regarding information. ANITA Avila acknowledged and ordered to place patient back on tube feeding at this time and ANITA Avila will notify Dr. Trujillo of information. Noted. Will continue to monitor patient.
--- NOTE | 2019-08-28 14:49 | NUR ---
CASE MANAGEMENT:REVIEW 08/28/19 SI: UNCONTROLLED SEIZURES. DYSPHAGIA T 98.1 HR 110 RR 21 B/P 102/80 SATS 99% ON RA LABS: WBC 12.9 CL 113 CO2 18 BUN 3 CR 0.5 GLU 129 ABGs PCO2 27 HCO3 16.8 BE -6.1 IS: IVF@100/HR VALPROIC ACID NG TID VIMPAT NG Q12 KEPPRA NG Q12 HEPARIN SQ Q12 TRILEPTAL NG Q12 SEROQUEL NG Q12 TOPAMAX NG Q12 IV ATIVAN Q2HRS PRN TELEMETRY DCP: FROM [facility]: PEG cancelled due to hypercoagulation, FFP and Vit K ordered
--- NOTE | 2019-08-28 14:54 | NUR ---
INSURANCE REVIEW FAXED TO # [phone] FAX# [phone] REVIEWS/CLINICALS
--- NOTE | 2019-08-28 14:57 | Diagnostic Imaging Report ---
Indication: Evaluation of nasogastric tube placement Technique: Supine view of the upper abdomen Comparison: none Findings: Again demonstrated is a nasogastric tube, appearing advanced from the prior study, tip now projected at the level gastric antrum, in good position. Considerable gas is seen in nondilated large and small bowel. Vascular coils or tubal occlusion coils are seen in the left pelvis. Impression: Satisfactory nasogastric intubation No acute process
[2019-08-28 16:00] VITALS: BP 106/60
--- NOTE | 2019-08-28 16:28 | NUR ---
ST NOTES: SWALLOW STATUS: PATIENT MORE ALERT BUT STILL NOT ABLE TO MOVE TONGUE WELL. ONLY PROTRUDES SLIGHTLY PAST HER LOWER LIP BUT CANNOT ELEVATE/DEPRESS/LATERALIZE. DID NOT RETRACT/PROTRUDE LIPS TO COMMAND IN [place]. NEEDS SUCTION FOR OROPHARYNGEAL SECRETIONS. PEG POSTPONED DUE TO PNA DX AND CLEARANCE BY DR SINGH. EDUCATED/TRAINED RN CLAUDETTE IN POSTED PRECAUTIONS/ORAL CARE/SUCTION NEEDS. PLAN: CONTINUE WITH ORAL CARE/SUCTION AND ASPIRATION PRECAUATIONS WITH NGT FEEDINGS WHEN RUNNING. MOD BARIUM SWALLOW STUDY WHEN READY IP OR OP IF DC (DO NOT HOLD UP DC FOR THIS STUDY)
--- NOTE | 2019-08-28 19:30 | NUR ---
HAND-OFF: Report given to JOANN Alegria.
[2019-08-28 20:00] VITALS: BP 113/58
--- NOTE | 2019-08-28 20:01 | NUR ---
NURSE NOTES: Received report from JOANN Henry- pt. in bed awake- opens eyes spontaneously- non-verbal, appears to be confused-but alert to name, pt. 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 appears to be sating well on room- no distress noted, per endorsement- pt. can resume feeding Jevity 1.2- no residuals noted- RT. NGT intact and in place, RT. hand thumb 22G IV intact and patent running D5NS @100cc/hr, pt. oriented to room and pt. teaching done, safety measures continued, will continue with plan of care.
[2019-08-28] MEDS: Heparin 5000 units/ml inj SUBQ SCH (20:36)
[2019-08-29] VITALS: BP 106/57
--- NOTE | 2019-08-29 01:45 | Progress Note ---
DATE: 08/28/2019 SUBJECTIVE: The patient is awake, alert, afebrile, hemodynamically stable with persistent tachycardia. PHYSICAL EXAMINATION: VITAL SIGNS: Blood pressure is 106/60, her pulse is 105, respirations were 21, temperature 97.5. HEENT: Eyes were normal. ENT, mucous membranes were moist and intact. NECK: Supple with no JVD without lymph nodes. LUNGS: There is bilateral rhonchi at both bases. HEART: Normal sounds with regular beats. There is tachycardia at rest. Sinus tachycardia on monitor. ABDOMEN: Soft and nontender with normal bowel sounds. EXTREMITIES: Warm without cyanosis, clubbing, or edema. LABORATORY AND DIAGNOSTIC DATA: Chest x-ray today revealed the appearance of the new right lower lobe infiltrate, which is new as compared to previous x-ray. KUB revealed that the NG tube was in satisfactory condition. Her hemoglobin was 13.3, hematocrit 37.6, MCV of 93, WBC of 12.9, and platelets 198. Her BUN and creatinine were 3 and respectively. Her sodium is 142, potassium 3.7, chloride 113, CO2 is 18. The patient was scheduled to undergo percutaneous gastrostomy insertion and this morning was found to have a PTT of 150 with an INR of 2.6. Procedure was aborted. Hematology instructional systems design consultant was called to assist in the management of this case. Repeat PT and PTT revealed that the INR was 1.0 and PTT was 28. However, because of the patient's metabolic acidosis, Pulmonary instructional systems design consultant was called to assist in the management of this case. An ABG was taken and the pH was 7.4; however, bicarb was obtained after respiratory therapy and bicarb increased to 16. IMPRESSION: The patient developed aspiration pneumonia during vomiting. Previously, the gastrostomy tube procedure was delayed. The patient is currently on multiple anticonvulsants that include lacosamide, levetiracetam, oxcarbazepine, Topamax, and valproic acid. She is on piperacillin/tazobactam 3.375 g IV piggyback q.6 h. so she has been on respiratory therapy. Her metronidazole has been discontinued, 500 mg IV piggyback q.8 h. Repeat laboratory tests will be done in the a.m. Kennedy Shepherd M.D. DR: ANTHONY JOB#: [id number] CC:
[2019-08-29 04:00] VITALS: BP 112/72
[2019-08-29] MEDS: D5NS 1,000 ML IV SCH ×2 (04:40→17:07)
[2019-08-29 05:41] LABS: BASOPHILS % (AUTO) 0.7 % (0.0-2.0); EOSINOPHILS % (AUTO) 3.9 % (0.0-3.0); HEMATOCRIT 36.6 % (37.0-47.0); HEMOGLOBIN 12.8 G/DL (12.0-16.0); LYMPHOCYTES % (AUTO) 21.5 % (20.0-45.0); MEAN CORPUSCULAR VOLUME 93 FL (80-99); MONOCYTES % (AUTO) 9.9 % (1.0-10.0); PLATELET COUNT 209 K/UL (150-450); RED BLOOD COUNT 3.91 M/UL (4.20-5.40); RED CELL DISTRIBUTION WIDTH 11.6 % (11.6-14.8); WHITE BLOOD COUNT 8.4 K/UL (4.8-10.8)
[2019-08-29 05:46] LABS: INR 0.9 (0.9-1.1)
[2019-08-29 06:43] LABS: ALANINE AMINOTRANSFERASE 76 U/L (12-78); ALBUMIN 2.7 G/DL (3.4-5.0); ALBUMIN/GLOBULIN RATIO 0.6 (1.0-2.7); ALKALINE PHOSPHATASE 68 U/L (46-116); ANION GAP 12 mmol/L (5-15); ASPARTATE AMINO TRANSFERASE 43 U/L (15-37); BILIRUBIN,TOTAL 0.6 MG/DL (0.2-1.0); BLOOD UREA NITROGEN 7 mg/dL (7-18); CALCIUM 8.6 MG/DL (8.5-10.1); CARBON DIOXIDE 19 MMOL/L (21-32); CHLORIDE 114 MMOL/L (98-107); CREATININE 0.6 MG/DL (0.55-1.30); PHOSPHORUS 3.2 MG/DL (2.5-4.9); POTASSIUM 3.1 MMOL/L (3.5-5.1); SODIUM 144 MMOL/L (136-145)
--- NOTE | 2019-08-29 06:59 | NUR ---
HAND-OFF: Report given to Elke RN, pt. remains stable and no signs or symptoms of acute distress noted- aware to f/u on abnormal labs.
--- NOTE | 2019-08-29 07:00 | NUR ---
NURSE NOTES: Received patient in bed. Awake, restless, with bilateral soft wrist restraints. With right nare NGT, on continuous TF. Bed alarm on, bed in lowest position. On nasal cannula at 2LPM. Will continue plan of care.
[2019-08-29 08:00] VITALS: BP 115/78
[2019-08-29] MEDS: Heparin 5000 units/ml inj SUBQ SCH ×2 (09:00→21:05)
--- NOTE | 2019-08-29 10:05 | General Progress Note ---
Assessment/Plan Problem List: (1) Dysphagia ICD Codes: R13.10 - Dysphagia, unspecified SNOMED: 21583273, 689225164 (2) G tube feedings ICD Codes: Z93.1 - Gastrostomy status SNOMED: 858226810, 750134368, 010911978 (3) Respiratory failure ICD Codes: J96.90 - Respiratory failure, unspecified, unspecified whether with hypoxia or hypercapnia SNOMED: 591263595 (4) Uncontrolled seizures ICD Codes: R56.9 - Unspecified convulsions SNOMED: 81460733 Status: unchanged Assessment/Plan: (1) G tube feedings ICD Codes: Z93.1 - Gastrostomy status SNOMED: 031061495, 244766031, 676876179 (2) Dysphagia ICD Codes: R13.10 - Dysphagia, unspecified SNOMED: 74232285, 605295171 (3) Dilantin level too low ICD Codes: R78.89 - Finding of other specified substances, not normally found in blood SNOMED: 365633382 (4) Seizure secondary to subtherapeutic anticonvulsant medication Assessment/Plan History of GT placement, s/p removal PEG cancelled due to hypoxemia and pNA will reschedule for next week f/u pulmonary recs fu neurology ok to restart TFs, repeat labs DVT prophylaxis will follow with additional recs post procedure Subjective ROS Limited/Unobtainable: No Allergies: Coded Allergies: No Known Allergies (Unverified , 02/02/17) Objective Last 24 Hour Vital Signs Date Time Temp Pulse Resp B/P (MAP) Pulse Ox O2 Delivery O2 Flow Rate FiO2 08/29/19 09:00 Room Air 08/29/19 08:00 98.2 106 21 115/78 (90) 99 08/29/19 07:11 100 Nasal Cannula 2.0 28 08/29/19 07:11 104 20 100 Nasal Cannula 2.0 28 08/29/19 04:00 98.2 97 24 112/72 (85) 100 08/29/19 04:00 Room Air 08/29/19 03:43 93 08/29/19 00:00 98.8 89 24 106/57 (73) 98 08/29/19 00:00 Room Air 08/28/19 23:27 93 08/28/19 21:03 99.0 08/28/19 21:03 99.0 08/28/19 21:00 Room Air 08/28/19 20:00 100.3 103 20 113/58 (76) 100 08/28/19 20:00 Room Air 08/28/19 19:19 98 Nasal Cannula 2.0 28 08/28/19 19:18 108 22 98 Nasal Cannula 2.0 28 08/28/19 19:09 101 08/28/19 16:00 97.5 105 21 106/60 (75) 100 08/28/19 11:47 98.1 110 21 102/80 (87) 99 Intake and Output 08/28/19 08/29/19 19:00 07:00 Intake Total 100 ml 1446.0 ml Balance 100 ml 1446.0 ml Intake Free Water 50 ml IV Total 100 ml 1196.0 ml Tube Feeding 200 ml # Voids 4 3 # Bowel Movements 1 Laboratory Tests 08/29/19 03:20: White Blood Count 8.4, Red Blood Count 3.91L, Hemoglobin 12.8, Hematocrit 36.6L , Mean Corpuscular Volume 93, Mean Corpuscular Hemoglobin 32.6H, Mean Corpuscular Hemoglobin Concent 34.9, Red Cell Distribution Width 11.6, Platelet Count 209, Mean Platelet Volume 7.6, Neutrophils (%) (Auto) 64.0, Lymphocytes (% ) (Auto) 21.5, Monocytes (%) (Auto) 9.9, Eosinophils (%) (Auto) 3.9H, Basophils (%) (Auto) 0.7, Erythrocyte Sedimentation Rate 65H, Prothrombin Time 10.1, Prothromb Time International Ratio 0.9, Activated Partial Thromboplast Time 29, Sodium Level 144, Potassium Level 3.1L, Chloride Level 114H, Carbon Dioxide Level 19L, Anion Gap 12, Blood Urea Nitrogen 7, Creatinine 0.6, Estimat Glomerular Filtration Rate > 60, Glucose Level 105, Calcium Level 8.6, Phosphorus Level 3.2, Magnesium Level 1.9, Total Bilirubin 0.6, Aspartate Amino Transf (AST/SGOT) 43H, Alanine Aminotransferase (ALT/SGPT) 76, Alkaline Phosphatase 68, C-Reactive Protein, Quantitative 7.6H, Total Protein 7.1, Albumin 2.7L, Globulin 4.4, Albumin/Globulin Ratio 0.6L Height (Feet): 5 Height (Inches): 3.00 Weight (Pounds): 130 General Appearance: lethargic EENT: normal ENT inspection Neck: supple Cardiovascular: normal rate Respiratory/Chest: decreased breath sounds Abdomen: normal bowel sounds, non tender, soft Extremities: non-tender Emanuel Trujillo MD Aug 29, 2019 10:05
--- NOTE | 2019-08-29 10:15 | Pulmonology Progress Note ---
Assessment/Plan Problems: (1) Nosocomial pneumonia (2) At high risk for aspiration (3) Uncontrolled seizures (4) Organic brain syndrome (chronic) (5) History of craniotomy Assessment/Plan wbc lower, afebrile CXR better check sputum iv abx f/u wbc aspiration precaution Subjective ROS Limited/Unobtainable: Yes Allergies: Coded Allergies: No Known Allergies (Unverified , 02/02/17) Objective Last 24 Hour Vital Signs Date Time Temp Pulse Resp B/P (MAP) Pulse Ox O2 Delivery O2 Flow Rate FiO2 08/29/19 09:00 Room Air 08/29/19 08:00 98.2 106 21 115/78 (90) 99 08/29/19 07:11 100 Nasal Cannula 2.0 28 08/29/19 07:11 104 20 100 Nasal Cannula 2.0 28 08/29/19 04:00 98.2 97 24 112/72 (85) 100 08/29/19 04:00 Room Air 08/29/19 03:43 93 08/29/19 00:00 98.8 89 24 106/57 (73) 98 08/29/19 00:00 Room Air 08/28/19 23:27 93 08/28/19 21:03 99.0 08/28/19 21:03 99.0 08/28/19 21:00 Room Air 08/28/19 20:00 100.3 103 20 113/58 (76) 100 08/28/19 20:00 Room Air 08/28/19 19:19 98 Nasal Cannula 2.0 28 08/28/19 19:18 108 22 98 Nasal Cannula 2.0 28 08/28/19 19:09 101 08/28/19 16:00 97.5 105 21 106/60 (75) 100 08/28/19 11:47 98.1 110 21 102/80 (87) 99 Intake and Output 08/28/19 08/29/19 19:00 07:00 Intake Total 100 ml 1446.0 ml Balance 100 ml 1446.0 ml Intake Free Water 50 ml IV Total 100 ml 1196.0 ml Tube Feeding 200 ml # Voids 4 3 # Bowel Movements 1 General Appearance: WD/WN HEENT: normocephalic Respiratory/Chest: chest wall non-tender, lungs clear Cardiovascular: normal rate Abdomen: normal bowel sounds, soft, non tender Genitourinary: normal external genitalia Skin: no lesions Microbiology Date/Time Source Procedure Growth Status 08/28/19 21:00 Sputum Induced Gram Stain - Final Resulted 08/28/19 21:00 Sputum Induced Sputum Culture Pending Resulted Laboratory Tests 08/29/19 03:20: White Blood Count 8.4, Red Blood Count 3.91L, Hemoglobin 12.8, Hematocrit 36.6L , Mean Corpuscular Volume 93, Mean Corpuscular Hemoglobin 32.6H, Mean Corpuscular Hemoglobin Concent 34.9, Red Cell Distribution Width 11.6, Platelet Count 209, Mean Platelet Volume 7.6, Neutrophils (%) (Auto) 64.0, Lymphocytes (% ) (Auto) 21.5, Monocytes (%) (Auto) 9.9, Eosinophils (%) (Auto) 3.9H, Basophils (%) (Auto) 0.7, Erythrocyte Sedimentation Rate 65H, Prothrombin Time 10.1, Prothromb Time International Ratio 0.9, Activated Partial Thromboplast Time 29, Sodium Level 144, Potassium Level 3.1L, Chloride Level 114H, Carbon Dioxide Level 19L, Anion Gap 12, Blood Urea Nitrogen 7, Creatinine 0.6, Estimat Glomerular Filtration Rate > 60, Glucose Level 105, Calcium Level 8.6, Phosphorus Level 3.2, Magnesium Level 1.9, Total Bilirubin 0.6, Aspartate Amino Transf (AST/SGOT) 43H, Alanine Aminotransferase (ALT/SGPT) 76, Alkaline Phosphatase 68, C-Reactive Protein, Quantitative 7.6H, Total Protein 7.1, Albumin 2.7L, Globulin 4.4, Albumin/Globulin Ratio 0.6L Current Medications Medications (Trade) Dose Ordered Sig/Laurita Route PRN Reason Start Time Stop Time Status Last Admin Dose Admin Acetaminophen (Tylenol) 650 mg Q4H PRN NG Mild Pain/Temp > 100.5 08/28/19 01:00 09/21/19 20:59 08/28/19 20:33 Albuterol/ Ipratropium (Albuterol/ Ipratropium) 3 ml Q4HRT PRN HHN Shortness of Breath 08/28/19 02:30 09/02/19 02:29 08/28/19 08:53 Dextrose/Sodium Chloride 1,000 ml @ 100 mls/hr Q10H IV 08/28/19 01:00 09/23/19 11:59 08/29/19 04:40 Heparin Sodium (Porcine) (Heparin 5000 units/ml) 5,000 units EVERY 12 HOURS SUBQ 08/28/19 21:00 09/27/19 20:59 08/28/19 20:36 Lacosamide (Vimpat) 100 mg Q12HR ORAL 08/28/19 09:00 09/22/19 08:59 08/28/19 20:34 Lansoprazole (Prevacid) 30 mg Q12HR GT 08/28/19 09:00 09/21/19 22:59 08/28/19 20:34 Levetiracetam (Keppra) 1,500 mg Q12HR NG 08/28/19 09:00 09/21/19 21:59 08/28/19 20:35 Metronidazole 100 ml @ 100 mls/hr Q8H IVPB 08/28/19 07:30 09/04/19 07:29 08/29/19 08:03 Oxcarbazepine (Trileptal) 600 mg EVERY 12 HOURS GT 08/28/19 09:00 09/26/19 08:59 08/28/19 20:38 Piperacillin Sod/ Tazobactam Sod 3.375 gm/Sodium Chloride 110 ml @ 27.5 mls/hr Q8H IVPB 08/28/19 08:00 09/04/19 07:59 08/28/19 23:37 Quetiapine Fumarate (SEROqueL) 25 mg Q12HR GT 08/28/19 09:00 09/22/19 13:59 08/28/19 20:37 Topiramate (Topamax) 200 mg EVERY 12 HOURS NG 08/28/19 09:00 09/21/19 21:59 08/28/19 20:35 Valproic Acid (Depakene) 500 mg THREE TIMES A DAY NG 08/28/19 09:00 09/21/19 08:59 08/28/19 17:07 Juancarlos Thurman MD Aug 29, 2019 10:15
[2019-08-29] MEDS: Lacosamide 50mg tablet ORAL SCH ×2 (10:18→21:02)
[2019-08-29] MEDS: Valproic Acid 250mg/5ml Liquid NG SCH ×3 (10:18→17:17)
[2019-08-29] MEDS: Topiramate 100mg tab NG SCH ×2 (10:19→21:02)
[2019-08-29] MEDS: OXcarbazepine 150mg tab GT SCH ×2 (11:03→21:01)
[2019-08-29] MEDS: Piperacillin/Tazobactam 3.375 GM in NS 110 ML IVPB SCH ×2 (11:04→17:02)
--- NOTE | 2019-08-29 11:07 | NUR ---
RADIOLOGY DEPT., CHEST X-RAY DONE.-P.DYE
--- NOTE | 2019-08-29 11:17 | NUR ---
RD ASSESSMENT & RECOMMENDATIONS SEE CARE ACTIVITY FOR COMPLETE ASSESSMENT DAILY ESTIMATED NEEDS: Needs based on General/ 56kg 25-30 kcals/kg 8796-2717 total kcals 1-1.2 g protein/kg 56-67 g total protein 25-30 mL/kg 3282-0661 total fluid mLs NUTRITION DIAGNOSIS: Swallowing difficulty R/T dysphagia, h/o trach + GT as evidenced by MISSION ASSESSMENT SPECIALIST recommends nonoral feeds at this time, s/p NGT insertion, on NGT feeds. CURRENT TF:HELD -> Jevity 1.2 @ 50ml/hr x 24 hrs PO DIET RECOMMENDATIONS: When safe for oral diet -> Regular/ texture per MISSION ASSESSMENT SPECIALIST ENTERAL NUTRITION RECOMMENDATIONS: Osmolite 1.2 @ 50ml/hr x 24 hrs to provide 1200ml, 1440kcal, 66g prot, 984ml free water * Rec TF change to Osmolite 1.2 for possible improved TF tolerance * Initiate Osmolite 1.2 @ 10ml/hr x 6 hrs, advance 10ml q 4-6 hrs as tolerated to goal rate. * Without IVF, water flush of 120ml q 6 hrs ADDITIONAL RECOMMENDATIONS: * Calibrated bedscale wt * Monitor lytes closely w/ TF, replete as needed (low K) * Monitor BGs w/ TF * Monitor MISSION ASSESSMENT SPECIALIST eval, ability for PO diet. * Monitor TF tolerance: rec TF change as above
[2019-08-29 12:00] VITALS: BP 109/73
--- NOTE | 2019-08-29 12:24 | Consultation ---
History of Present Illness General Date patient seen: Aug 29, 2019 Chief Complaint: Seizure Present Illness HPI 39 y/o F with hx of Dm2, HTN, COPD, psychiatric disease, CKD, tramautic brain injury s/p craniotomy 3 yrs ago, dysphagia s/p PEG, seizure disorder, chronic resp failure s/p trach/vent dependent was brought to ED on 08/21 with intractable seizures. She had tonic-clonic seizure and fell on the floor. While on the floor , patient had multiple short-live seizures of 20-30 seconds. Allergies: Coded Allergies: No Known Allergies (Unverified , 02/02/17) Medication History Scheduled Atorvastatin Calcium* (Lipitor*), 40 MG PO BEDTIME, (Reported) Cran/Vitc/Mannose/Inulin/Brom (Uti-Stat Liquid), 3,875 MG PO BID, (Reported) Divalproex Sodium* (Depakote*), 250 MG PO TID, (Reported) Docusate Sodium* (Docusate Sodium*), 100 MG GT DAILY, (Reported) Levetiracetam* (Levetiracetam*), 1,500 MG GT BID, (Reported) Lorazepam* (Lorazepam*), 1 MG IM Q4H, (Reported) Magnesium Hydroxide* (Milk Of Magnesia*), 30 ML ORAL QHS, (Reported) Oxcarbazepine* (Trileptal*), 600 MG GT BID, (Reported) Sennosides (Senna), 17.2 MG PO QHS, (Reported) Topiramate (Topiramate), 200 MG GT TWICE A DAY, (Reported) Vitamin D (Vitamin D3), 5,000 INTLU PO DAILY, (Reported) [Lispro], 100 UNITS SQ AC+HS, (Reported) Scheduled PRN Acetaminophen* (Acetaminophen 325MG Tablet*), 325 MG ORAL Q4H PRN for MILD PAIN, (Reported) Acetaminophen* (Acetaminophen 325MG Tablet*), 325 MG ORAL Q4H PRN for TEMP > 101F, (Reported) Bisacodyl (Dulcolax), 10 MG RC DAILY PRN for Constipation, (Reported) Hydrocodone Bit/Acetaminophen 5-325* (Alpine 5-325*), 1 TAB PO Q8HR PRN for Severe Pain (Pain Scale 7-10), (Reported) Ipratropium/Albuterol Sulfate (DuoNeb 0.5-3(2.5)mg/3ml), 3 ML HHN Q4HR PRN for SOB/WHEEZING, (Reported) Na Phos,M-B/Na Phos,Di-Ba* (Fleet Enema*), 133 ML RECTAL QOD PRN for Constipation, (Reported) Miscellaneous Medications Valproate Sodium (Valproate Sodium), 250 MG PO, (Reported) Patient History Healthcare decision maker Resuscitation status Advanced Directive on File Patient History Narrative Pmhx: as above Shx: Denies: smoking, alcohol use, drug use She is single. She was born in [place]. She has been in [place] for many years. Prior to the appearance of her total disability, she was unemployed as well. Fhx: non contributory Review of Systems All Other Systems: negative except mentioned in HPI Physical Exam Physical Exam Narrative HEENT: Eyes were normal. . Conjunctivae were pink. Extraocular movement could not be assessed. NECK: Supple. There was no goiter. No mass. No lymphadenopathy. There was no JVD, no bruits. Carotid upstroke was 2+. LUNGS: Clear. HEART: There was normal S1 and normal S2. There was no murmur. No arrhythmia. No S3. No S4. No pericardial rub. ABDOMEN: Soft, nontender without organomegaly. There were no masses palpable. Normal bowel sounds without bruits. There was no guarding. No rebound tenderness. No ascites. No hernia. No CVA tenderness. EXTREMITIES: No cyanosis, no clubbing, and no edema. Extremities were warm. Last 24 Hour Vital Signs Date Time Temp Pulse Resp B/P (MAP) Pulse Ox O2 Delivery O2 Flow Rate FiO2 08/29/19 09:00 Room Air 08/29/19 08:00 98.2 106 21 115/78 (90) 99 08/29/19 07:43 99 08/29/19 07:11 100 Nasal Cannula 2.0 28 08/29/19 07:11 104 20 100 Nasal Cannula 2.0 28 08/29/19 04:00 98.2 97 24 112/72 (85) 100 08/29/19 04:00 Room Air 08/29/19 03:43 93 08/29/19 00:00 98.8 89 24 106/57 (73) 98 2/14/20 00:00 Room Air 08/28/19 23:27 93 08/28/19 21:03 99.0 08/28/19 21:03 99.0 08/28/19 21:00 Room Air 08/28/19 20:00 100.3 103 20 113/58 (76) 100 08/28/19 20:00 Room Air 08/28/19 19:19 98 Nasal Cannula 2.0 28 08/28/19 19:18 108 22 98 Nasal Cannula 2.0 28 08/28/19 19:09 101 08/28/19 16:00 97.5 105 21 106/60 (75) 100 Intake and Output 08/28/19 08/29/19 19:00 07:00 Intake Total 100 ml 1446.0 ml Balance 100 ml 1446.0 ml Intake Free Water 50 ml IV Total 100 ml 1196.0 ml Tube Feeding 200 ml # Voids 4 3 # Bowel Movements 1 Laboratory Tests Test 08/29/19 03:20 White Blood Count 8.4 K/UL (4.8-10.8) Red Blood Count 3.91 M/UL (4.20-5.40) L Hemoglobin 12.8 G/DL (12.0-16.0) Hematocrit 36.6 % (37.0-47.0) L Mean Corpuscular Volume 93 FL (80-99) Mean Corpuscular Hemoglobin 32.6 PG (27.0-31.0) H Mean Corpuscular Hemoglobin Concent 34.9 G/DL (32.0-36.0) Red Cell Distribution Width 11.6 % (11.6-14.8) Platelet Count 209 K/UL (150-450) Mean Platelet Volume 7.6 FL (6.5-10.1) Neutrophils (%) (Auto) 64.0 % (45.0-75.0) Lymphocytes (%) (Auto) 21.5 % (20.0-45.0) Monocytes (%) (Auto) 9.9 % (1.0-10.0) Eosinophils (%) (Auto) 3.9 % (0.0-3.0) H Basophils (%) (Auto) 0.7 % (0.0-2.0) Erythrocyte Sedimentation Rate 65 MM/HR (0-20) H Prothrombin Time 10.1 SEC (9.30-11.50) Prothromb Time International Ratio 0.9 (0.9-1.1) Activated Partial Thromboplast Time 29 SEC (23-33) Sodium Level 144 MMOL/L (136-145) Potassium Level 3.1 MMOL/L (3.5-5.1) L Chloride Level 114 MMOL/L (98-107) H Carbon Dioxide Level 19 MMOL/L (21-32) L Anion Gap 12 mmol/L (5-15) Blood Urea Nitrogen 7 mg/dL (7-18) Creatinine 0.6 MG/DL (0.55-1.30) Estimat Glomerular Filtration Rate > 60 mL/min (>60) Glucose Level 105 MG/DL (74-106) Calcium Level 8.6 MG/DL (8.5-10.1) Phosphorus Level 3.2 MG/DL (2.5-4.9) Magnesium Level 1.9 MG/DL (1.8-2.4) Total Bilirubin 0.6 MG/DL (0.2-1.0) Aspartate Amino Transf (AST/SGOT) 43 U/L (15-37) H Alanine Aminotransferase (ALT/SGPT) 76 U/L (12-78) Alkaline Phosphatase 68 U/L (46-116) C-Reactive Protein, Quantitative 7.6 mg/dL (0.00-0.90) H Total Protein 7.1 G/DL (6.4-8.2) Albumin 2.7 G/DL (3.4-5.0) L Globulin 4.4 g/dL Albumin/Globulin Ratio 0.6 (1.0-2.7) L Microbiology Date/Time Source Procedure Growth Status 08/28/19 21:00 Sputum Induced Gram Stain - Final Resulted 08/28/19 21:00 Sputum Induced Sputum Culture Pending Resulted Height (Feet): 5 Height (Inches): 3.00 Weight (Pounds): 130 Medications Current Medications Medications (Trade) Dose Ordered Sig/Laurita Route PRN Reason Start Time Stop Time Status Last Admin Dose Admin Acetaminophen (Tylenol) 650 mg Q4H PRN NG Mild Pain/Temp > 100.5 08/28/19 01:00 09/21/19 20:59 08/28/19 20:33 Albuterol/ Ipratropium (Albuterol/ Ipratropium) 3 ml Q4HRT PRN HHN Shortness of Breath 08/28/19 02:30 09/02/19 02:29 08/28/19 08:53 Dextrose/Sodium Chloride 1,000 ml @ 100 mls/hr Q10H IV 08/28/19 01:00 09/23/19 11:59 08/29/19 04:40 Heparin Sodium (Porcine) (Heparin 5000 units/ml) 5,000 units EVERY 12 HOURS SUBQ 08/28/19 21:00 09/27/19 20:59 08/28/19 20:36 Lacosamide (Vimpat) 100 mg Q12HR ORAL 08/28/19 09:00 09/22/19 08:59 08/29/19 10:18 Lansoprazole (Prevacid) 30 mg Q12HR GT 08/28/19 09:00 09/21/19 22:59 08/29/19 10:19 Levetiracetam (Keppra) 1,500 mg Q12HR NG 08/28/19 09:00 09/21/19 21:59 08/29/19 10:19 Metronidazole 100 ml @ 100 mls/hr Q8H IVPB 08/28/19 07:30 09/04/19 07:29 08/29/19 08:03 Oxcarbazepine (Trileptal) 600 mg EVERY 12 HOURS GT 08/28/19 09:00 09/26/19 08:59 08/29/19 11:03 Piperacillin Sod/ Tazobactam Sod 3.375 gm/Sodium Chloride 110 ml @ 27.5 mls/hr Q8H IVPB 08/28/19 08:00 09/04/19 07:59 08/29/19 11:04 Quetiapine Fumarate (SEROqueL) 25 mg Q12HR GT 08/28/19 09:00 09/22/19 13:59 08/29/19 10:19 Topiramate (Topamax) 200 mg EVERY 12 HOURS NG 08/28/19 09:00 09/21/19 21:59 08/29/19 10:19 Valproic Acid (Depakene) 500 mg THREE TIMES A DAY NG 08/28/19 09:00 09/21/19 08:59 08/29/19 10:18 Assessment/Plan Assessment/Plan: Abx: Zosyn 08/28- Flagyl 08/28- Assessment: Sepsis vs SIRS Aspiration PNA Probable UTI -08/28 sp cx p CXR: Developing right basilar patchy atelectasis or infiltrate. -08/26 u/a wbc 60-80, nit neg, leuk +3; ucx >100k P. mirabilis (isabel S) -08/21 Bcx neg x4 Intermittent low grade fevers Leukocytosis, SP Intractable seizures Dm2 HTN COPD psychiatric disease CKD traumatic brain injury s/p craniotomy 3 yrs ago hx of dysphagia s/p PEG; sp removal PEG seizure disorder hx of chronic resp failure s/p trach/vent- now decanulated Plan: -Continue empiric ZOsyn #2 for aspiration pneumonia -d/c Flagyl #2 -f/u cx -Monitor CBC/CMP, temperatures -f/u sp cx -aspiration precautions -GI, pulm f/u Thank you for this consultation. Will continue to follow along with you. Discussed with Stephania Rashid M.D. Aug 29, 2019 12:24
--- NOTE | 2019-08-29 13:13 | Diagnostic Imaging Report ---
Indication: Dyspnea Comparison: 08/28/2019 A single view chest radiograph was obtained. Findings: Cardiomediastinal appearance is within normal limits for age. There is an NG tube present which appears to be in good position. The lungs are clear. Pulmonary vascularity is appropriate. The diaphragmatic contour is smooth and costophrenic angles are sharp. No pleural effusions are identified. The bones are unremarkable. Impression: No acute findings
[2019-08-29] MEDS ORDERED: D5NS 1000ml IV ONE (13:40)
--- NOTE | 2019-08-29 15:30 | NUR ---
PITCHING COACHMIXING TANK OPERATOR SI: UNCONTROLLED SEIZURES T. 98.2 HR 106 RR 21 B/P 115/78 2L NC ESR 65 K 3.1 IS: ZOSYN IV IVF D5NS @ 100ML/HR HEPARIN SUBC STEP DOWN STATUS
--- NOTE | 2019-08-29 15:40 | NUR ---
HANDLE ROUNDER OPERATORMORTGAGE BANKER CLINICALS REVIEWED AND FAXED TO [phone].
--- NOTE | 2019-08-29 15:42 | NUR ---
SWALLOW STATUS/WEEKLY SUMMARY: S: PATIENT CLEARED FOR ST INTERVENTION BY JOANN QUINN PATIENT ALERT/AWAKE O: DYSPHAGIA FOLLOWUP RE: ORAL CARE AND DYSPHAGIA STATUS A: PATIENT CONTINUES TO PRESENT WITH SEVERE OROPHARYNGEAL DYSPHAGIA CHARACTERIZED BY LACK OF VOLITIONAL CONTROL OVER ORAL MUSCULATURE S/P TBI AND RECURRING SEIZURES LIMIT PATIENTS ABILITY TO RETAIN INFORMATION AND PARTICIPATE IN COMPENSATORY SWALLOW STRATEGIES. S/P PEG PLACEMENT AND SHE IS BEING CONSIDERED FOR RE/INSERTION OF PEG FOR DETENTION NUTRITION/HYDRATION SUPPORT FULLY SUPPORTED ORAL CARE BEING PROVIDED BY STAFF. CONTINUE PER POC.
[2019-08-29 16:00] VITALS: BP 108/78
--- NOTE | 2019-08-29 19:25 | NUR ---
HAND-OFF: Report given to Carl Dangelo RN.
--- NOTE | 2019-08-29 19:30 | NUR ---
NURSE NOTES: Pt report received from kassie DAVID. pt is alert and oriented times 1. pt is on monitoring tech able to show SR, no acute signs symptoms of acute cardiac distress noted. pt is on room air, able to sat at 99% O2, no acute signs symptoms resp distress noted. pt bed is low, locked, armed, bed rails up times 3, call light within reach will follow plan of care.
--- NOTE | 2019-08-29 19:53 | Hematology/Onc Progress Note ---
Assessment/Plan Assessment/Plan Assessment and Recs: # Coagulopathy is likely related to either contaminant / heparin from line v from other source, meds noted now rapidly corrected --> given vit K at this time and ffp, will improve patient's ptt/inr --> inr is 2.6, ptt 150 --> have dw Rn to first check coags from different line --> inr trend: 2.6-->0.9 # Leukocytosis is likely due to pna RLL --> on abx, has been started by pcp --> smear has been reviewed --> meds noted --> abx: zosyn --> 08/29 cxr negative # FTT - dysphagia s/p peg --> since dislodged, requires replacement --> vit k and ffp required --> peg to be replaced by Dr. Trujillo # Uncontrolled seizures --> started on meds, keppra/vimpat # [facility] resident # Dvt ppx heparin sq Appreciate consultation and judy RN Subjective Allergies: Coded Allergies: No Known Allergies (Unverified , 02/02/17) Subjective 08/29: sdu, restless, restraints, no acute distress Objective Objective Current Medications Medications (Trade) Dose Ordered Sig/Laurita Route PRN Reason Start Time Stop Time Status Last Admin Dose Admin Acetaminophen (Tylenol) 650 mg Q4H PRN NG Mild Pain/Temp > 100.5 08/28/19 01:00 09/21/19 20:59 08/28/19 20:33 Albuterol/ Ipratropium (Albuterol/ Ipratropium) 3 ml Q4HRT PRN HHN Shortness of Breath 08/28/19 02:30 09/02/19 02:29 08/28/19 08:53 Dextrose/Sodium Chloride 1,000 ml @ 100 mls/hr Q10H IV 08/28/19 01:00 09/23/19 11:59 08/29/19 17:07 Heparin Sodium (Porcine) (Heparin 5000 units/ml) 5,000 units EVERY 12 HOURS SUBQ 08/28/19 21:00 09/27/19 20:59 08/28/19 20:36 Lacosamide (Vimpat) 100 mg Q12HR ORAL 08/28/19 09:00 09/22/19 08:59 08/29/19 10:18 Lansoprazole (Prevacid) 30 mg Q12HR GT 08/28/19 09:00 09/21/19 22:59 08/29/19 10:19 Levetiracetam (Keppra) 1,500 mg Q12HR NG 08/28/19 09:00 09/21/19 21:59 08/29/19 10:19 Oxcarbazepine (Trileptal) 600 mg EVERY 12 HOURS GT 08/28/19 09:00 09/26/19 08:59 08/29/19 11:03 Piperacillin Sod/ Tazobactam Sod 3.375 gm/Sodium Chloride 110 ml @ 27.5 mls/hr Q8H IVPB 08/28/19 08:00 09/04/19 07:59 08/29/19 17:02 Potassium Chloride 100 ml @ 110 mls/hr Q1H IVPB 08/29/19 21:00 08/29/19 22:55 Quetiapine Fumarate (SEROqueL) 25 mg Q12HR GT 08/28/19 09:00 09/22/19 13:59 08/29/19 10:19 Topiramate (Topamax) 200 mg EVERY 12 HOURS NG 08/28/19 09:00 09/21/19 21:59 08/29/19 10:19 Valproic Acid (Depakene) 500 mg THREE TIMES A DAY NG 08/28/19 09:00 09/21/19 08:59 08/29/19 17:17 Last 24 Hour Vital Signs Date Time Temp Pulse Resp B/P (MAP) Pulse Ox O2 Delivery O2 Flow Rate FiO2 08/29/19 19:04 100 Nasal Cannula 2.0 28 08/29/19 19:03 105 18 100 Nasal Cannula 2.0 28 08/29/19 16:00 Room Air 08/29/19 16:00 101.8 98 20 108/78 (88) 99 08/29/19 12:00 Room Air 08/29/19 12:00 99.1 100 20 109/73 (85) 99 08/29/19 11:46 103 08/29/19 09:00 Room Air 08/29/19 08:00 98.2 106 21 115/78 (90) 99 08/29/19 07:43 99 08/29/19 07:11 100 Nasal Cannula 2.0 28 08/29/19 07:11 104 20 100 Nasal Cannula 2.0 28 08/29/19 04:00 98.2 97 24 112/72 (85) 100 08/29/19 04:00 Room Air 08/29/19 03:43 93 08/29/19 00:00 98.8 89 24 106/57 (73) 98 08/29/19 00:00 Room Air 08/28/19 23:27 93 08/28/19 21:03 99.0 08/28/19 21:03 99.0 08/28/19 21:00 Room Air 08/28/19 20:00 100.3 103 20 113/58 (76) 100 08/28/19 20:00 Room Air 08/28/19 19:19 98 Nasal Cannula 2.0 28 08/28/19 19:18 108 22 98 Nasal Cannula 2.0 28 08/28/19 19:09 101 08/28/19 16:00 97.5 105 21 106/60 (75) 100 08/28/19 11:47 98.1 110 21 102/80 (87) 99 08/28/19 09:03 135 24 100 Room Air 21 112 24 100 08/28/19 09:00 Room Air 08/28/19 08:53 112 24 100 Room Air 21 08/28/19 08:53 100 Room Air 21 08/28/19 08:00 98.2 105 24 117/77 (90) 99 08/28/19 07:50 100 08/28/19 04:00 Room Air 08/28/19 04:00 98.6 111 24 123/81 (95) 100 08/28/19 03:59 114 20 99 Room Air 21 08/28/19 03:49 101 22 97 Room Air 21 08/28/19 03:49 101 22 97 Room Air 21 08/28/19 03:35 103 08/28/19 01:53 110 08/28/19 00:40 99.0 112 26 107/72 (84) 98 08/28/19 00:40 Room Air 08/27/19 23:45 99.5 116 23 119/84 (96) 98 08/27/19 21:00 Room Air 08/27/19 20:30 97 Room Air 21 2/12/20 20:00 98.6 113 24 119/71 (87) 97 Intake and Output 08/28/19 08/29/19 19:00 07:00 Intake Total 100 ml 1446.0 ml Balance 100 ml 1446.0 ml Intake Free Water 50 ml IV Total 100 ml 1196.0 ml Tube Feeding 200 ml # Voids 4 3 # Bowel Movements 1 Labs Test 08/27/19 06:29 08/28/19 01:35 08/28/19 03:45 08/28/19 08:35 White Blood Count 12.1 K/UL (4.8-10.8) 12.9 K/UL (4.8-10.8) Red Blood Count 4.23 M/UL (4.20-5.40) 4.03 M/UL (4.20-5.40) Hemoglobin 14.2 G/DL (12.0-16.0) 13.3 G/DL (12.0-16.0) Hematocrit 40.1 % (37.0-47.0) 37.6 % (37.0-47.0) Mean Corpuscular Volume 95 FL (80-99) 93 FL (80-99) Mean Corpuscular Hemoglobin 33.6 PG (27.0-31.0) 32.9 PG (27.0-31.0) Mean Corpuscular Hemoglobin Concent 35.4 G/DL (32.0-36.0) 35.2 G/DL (32.0-36.0) Red Cell Distribution Width 12.1 % (11.6-14.8) 11.9 % (11.6-14.8) Platelet Count 149 K/UL (150-450) 198 K/UL (150-450) Mean Platelet Volume 7.8 FL (6.5-10.1) 7.9 FL (6.5-10.1) Neutrophils (%) (Auto) 81.4 % (45.0-75.0) 79.3 % (45.0-75.0) Lymphocytes (%) (Auto) 9.6 % (20.0-45.0) 13.9 % (20.0-45.0) Monocytes (%) (Auto) 7.7 % (1.0-10.0) 5.7 % (1.0-10.0) Eosinophils (%) (Auto) 0.9 % (0.0-3.0) 0.7 % (0.0-3.0) Basophils (%) (Auto) 0.3 % (0.0-2.0) 0.4 % (0.0-2.0) Sodium Level 143 MMOL/L (136-145) 142 MMOL/L (136-145) Potassium Level 4.2 MMOL/L (3.5-5.1) 3.7 MMOL/L (3.5-5.1) Chloride Level 114 MMOL/L (98-107) 113 MMOL/L (98-107) Carbon Dioxide Level 18 MMOL/L (21-32) 18 MMOL/L (21-32) Anion Gap 11 mmol/L (5-15) 11 mmol/L (5-15) Blood Urea Nitrogen 3 mg/dL (7-18) 3 mg/dL (7-18) Creatinine 0.3 MG/DL (0.55-1.30) 0.5 MG/DL (0.55-1.30) Estimat Glomerular Filtration Rate > 60 mL/min (>60) > 60 mL/min (>60) Glucose Level 128 MG/DL (74-106) 129 MG/DL (74-106) Calcium Level 8.6 MG/DL (8.5-10.1) 8.7 MG/DL (8.5-10.1) Arterial Blood pH 7.416 (7.350-7.450) Arterial Blood Partial Pressure CO2 22.1 mmHg (35.0-45.0) Arterial Blood Partial Pressure O2 78.7 mmHg (75.0-100.0) Arterial Blood HCO3 13.9 mmol/L (22.0-26.0) Arterial Blood Oxygen Saturation 95.0 % (95-100) Arterial Blood Base Excess -8.5 (-2-2) Maynor Test Positive Prothrombin Time 26.7 SEC (9.30-11.50) 10.3 SEC (9.30-11.50) Prothromb Time International Ratio 2.6 (0.9-1.1) 1.0 (0.9-1.1) Activated Partial Thromboplast Time > 150 SEC (23-33) 28 SEC (23-33) Phosphorus Level 2.4 MG/DL (2.5-4.9) Magnesium Level 2.0 MG/DL (1.8-2.4) Test 08/28/19 09:35 08/29/19 03:20 Arterial Blood pH 7.413 (7.350-7.450) Arterial Blood Partial Pressure CO2 27.0 mmHg (35.0-45.0) Arterial Blood Partial Pressure O2 78.0 mmHg (75.0-100.0) Arterial Blood HCO3 16.8 mmol/L (22.0-26.0) Arterial Blood Oxygen Saturation 96.0 % (95-100) Arterial Blood Base Excess -6.1 (-2-2) Maynor Test Positive White Blood Count 8.4 K/UL (4.8-10.8) Red Blood Count 3.91 M/UL (4.20-5.40) Hemoglobin 12.8 G/DL (12.0-16.0) Hematocrit 36.6 % (37.0-47.0) Mean Corpuscular Volume 93 FL (80-99) Mean Corpuscular Hemoglobin 32.6 PG (27.0-31.0) Mean Corpuscular Hemoglobin Concent 34.9 G/DL (32.0-36.0) Red Cell Distribution Width 11.6 % (11.6-14.8) Platelet Count 209 K/UL (150-450) Mean Platelet Volume 7.6 FL (6.5-10.1) Neutrophils (%) (Auto) 64.0 % (45.0-75.0) Lymphocytes (%) (Auto) 21.5 % (20.0-45.0) Monocytes (%) (Auto) 9.9 % (1.0-10.0) Eosinophils (%) (Auto) 3.9 % (0.0-3.0) Basophils (%) (Auto) 0.7 % (0.0-2.0) Erythrocyte Sedimentation Rate 65 MM/HR (0-20) Prothrombin Time 10.1 SEC (9.30-11.50) Prothromb Time International Ratio 0.9 (0.9-1.1) Activated Partial Thromboplast Time 29 SEC (23-33) Sodium Level 144 MMOL/L (136-145) Potassium Level 3.1 MMOL/L (3.5-5.1) Chloride Level 114 MMOL/L (98-107) Carbon Dioxide Level 19 MMOL/L (21-32) Anion Gap 12 mmol/L (5-15) Blood Urea Nitrogen 7 mg/dL (7-18) Creatinine 0.6 MG/DL (0.55-1.30) Estimat Glomerular Filtration Rate > 60 mL/min (>60) Glucose Level 105 MG/DL (74-106) Calcium Level 8.6 MG/DL (8.5-10.1) Phosphorus Level 3.2 MG/DL (2.5-4.9) Magnesium Level 1.9 MG/DL (1.8-2.4) Total Bilirubin 0.6 MG/DL (0.2-1.0) Aspartate Amino Transf (AST/SGOT) 43 U/L (15-37) Alanine Aminotransferase (ALT/SGPT) 76 U/L (12-78) Alkaline Phosphatase 68 U/L (46-116) C-Reactive Protein, Quantitative 7.6 mg/dL (0.00-0.90) Total Protein 7.1 G/DL (6.4-8.2) Albumin 2.7 G/DL (3.4-5.0) Globulin 4.4 g/dL Albumin/Globulin Ratio 0.6 (1.0-2.7) Micro Microbiology Date/Time Source Procedure Growth Status 08/28/19 21:00 Sputum Induced Gram Stain - Final Resulted 08/28/19 21:00 Sputum Induced Sputum Culture Pending Resulted Height (Feet): 5 Height (Inches): 3.00 Weight (Pounds): 130 Objective Physical Exam General Appearance: no apparent distress, GCS 15 Head: normocephalic, atraumatic, other - Helmet Respiratory: chest non-tender, lungs clear, normal breath sounds ++ trach Cardiovascular: no edema, tachycardia Gastrointestinal: normal bowel sounds, non tender, soft, + peg tube site Musculoskeletal: back normal, normal range of motion, non-tender Neurologic: alert, motor strength/tone normal, sensory intact, responsive Psychiatric: mood/affect normal Skin: other - See RN skin exam Vlad Jaimes MD Aug 29, 2019 19:53
[2019-08-29 20:00] VITALS: BP 128/70
--- NOTE | 2019-08-29 20:54 | NUR ---
NURSE NOTES: Spoke to [place] pharmacist. verified all 2100 meds, with an emphasis on anti seizure Meds. she stated is is ok to give all meds especially all anti seizure meds.
--- NOTE | 2019-08-29 21:15 | Progress Note ---
DATE: 08/29/2019 SUBJECTIVE: The patient is more awake, more alert, afebrile, hemodynamically stable. She is still tachycardic at rest. PHYSICAL EXAMINATION: VITAL SIGNS: Blood pressure 115/78, pulse is 106, respirations of 20, temperature 98.2. HEENT: Eyes were normal. ENT, mucous membranes are moist and intact. NECK: Supple with no JVD without lymph nodes. LUNGS: Clear. HEART: Normal sounds with regular beats. There is tachycardia at rest. Sinus tachycardia on monitor. ABDOMEN: Soft and nontender with normal bowel sounds. EXTREMITIES: Warm without cyanosis, clubbing, or edema. LABORATORY AND DIAGNOSTIC DATA: Hemoglobin is 12.8, hematocrit 36.6 with MCV of 93, WBC 8.4, and platelets 209. Her BUN and creatinine is 7 and 0.6 respectively. Sodium 144, potassium 3.1, chloride 113, CO2 is 19. Calcium is 8.6. Phosphorus is 3.2. Magnesium is 1.9. CRP is 7.6. Albumin is 2.7. Total protein is 7.1. IMPRESSION: Over the last several days, the patient's metabolic acidosis is progressively improving. 48 hours ago, her bicarb on ABG was 13. At the present time, bicarb on venous blood was 16, it is now 19. This is also associated with marked improvement in the mental status and ability to , to concentrate, to focus which might be that in a day or two, she will be able to swallow without difficulty and will not need the G-tube. The case has been discussed with the bowstring maker . In addition, the patient has pneumonia and need to be resolved prior to the G-tube insertion. PLAN: Repeat laboratory tests will be done in the a.m. Kennedy Shepherd M.D. DR: KD JOB#: [id number] CC:
[2019-08-30] VITALS: BP 144/62
[2019-08-30] MEDS: Piperacillin/Tazobactam 3.375 GM in NS 110 ML IVPB SCH ×4 (00:04→23:54)
--- NOTE | 2019-08-30 02:50 | NUR ---
NURSE NOTES: Pt D5NS at 100cc/hr IV continued at this time. unable to scan due to medi- tech down time.
[2019-08-30 04:00] VITALS: BP 140/70
[2019-08-30] MEDS: D5NS 1,000 ML IV SCH ×3 (06:03→22:12)
[2019-08-30 06:42] LABS: BASOPHILS % (AUTO) 0.8 % (0.0-2.0); EOSINOPHILS % (AUTO) 3.1 % (0.0-3.0); HEMATOCRIT 37.5 % (37.0-47.0); HEMOGLOBIN 13.2 G/DL (12.0-16.0); LYMPHOCYTES % (AUTO) 18.3 % (20.0-45.0); MEAN CORPUSCULAR VOLUME 93 FL (80-99); MONOCYTES % (AUTO) 8.8 % (1.0-10.0); NEUTROPHILS % (AUTO) 69.1 % (45.0-75.0); PLATELET COUNT 233 K/UL (150-450); RED BLOOD COUNT 4.03 M/UL (4.20-5.40); RED CELL DISTRIBUTION WIDTH 11.8 % (11.6-14.8); WHITE BLOOD COUNT 9.7 K/UL (4.8-10.8)
[2019-08-30 06:57] LABS: ANION GAP 12 mmol/L (5-15); BLOOD UREA NITROGEN 7 mg/dL (7-18); CARBON DIOXIDE 20 MMOL/L (21-32); CHLORIDE 110 MMOL/L (98-107); CREATININE 0.6 MG/DL (0.55-1.30); POTASSIUM 3.2 MMOL/L (3.5-5.1); SODIUM 142 MMOL/L (136-145)
--- NOTE | 2019-08-30 07:25 | NUR ---
NURSE NOTES: Received bedside report from Carl Dangelo RN. Pt. in bed, awake, non-verbal. No sign of distress. No grimacing noted. NGT in placed patent/intact running Osmolite 1.2 @ 20cc/hr. HOB elevated at all times. Bilateral soft wrist restraints in placed. (+) CMS. IV at left FA #18g. in placed patent/intact running D5NS at 100cc/hr. Padded side rails in placed. Bed in low position, locked. Call light within reach. Will cont. to monitor.
--- NOTE | 2019-08-30 07:30 | NUR ---
HAND-OFF: Report given to CHIP DAVID SDU. PT REMAINS STABLE
--- NOTE | 2019-08-30 07:34 | Pulmonology Progress Note ---
Assessment/Plan Assessment/Plan ASSESSMENT possible sepsis pneumonia , probably aspiration PNA Proteus UTI aspiration risk dysphagia history of craniotomy uncontrolled seizure hypokalemia PLAN OF CARE CARO O2 HHN prn initial CXR - evidence of probable pneumonia fup CXR no acute findings SCX negative; UCX + proteus abx as per ID; aspiration precaution tube feeding formula with goal rate and protein supplement as per registered art therapist recommendation seizure precautions; continue Vimpat ,Keppra, Trileptal , Topamax and Depakote consider neuro eval - per primary team DVT and GI prophylaxis GI on board G-tube placement canceled due to hypoxemia and pneumonia to be rescheduled next week BSSE and VSSE pending K replaced, check K and Mg in am case discussed and evaluated by supervising physician Subjective Allergies: Coded Allergies: No Known Allergies (Unverified , 02/02/17) Subjective leuk resolved, K-3.2 no further seizures Objective Last 24 Hour Vital Signs Date Time Temp Pulse Resp B/P (MAP) Pulse Ox O2 Delivery O2 Flow Rate FiO2 08/30/19 00:00 98.2 115 20 144/62 (89) 98 08/30/19 00:00 Room Air 08/29/19 20:00 97.4 96 20 128/70 (89) 99 08/29/19 20:00 Room Air 08/29/19 19:04 100 Nasal Cannula 2.0 28 08/29/19 19:03 105 18 100 Nasal Cannula 2.0 28 08/29/19 16:00 Room Air 08/29/19 16:00 101.8 98 20 108/78 (88) 99 08/29/19 12:00 Room Air 08/29/19 12:00 99.1 100 20 109/73 (85) 99 08/29/19 11:46 103 08/29/19 09:00 Room Air 08/29/19 08:00 98.2 106 21 115/78 (90) 99 08/29/19 07:43 99 Intake and Output 08/29/19 08/30/19 19:00 07:00 Intake Total 257.5 ml 127.5 ml Balance 257.5 ml 127.5 ml IV Total 237.5 ml 127.5 ml Tube Feeding 20 ml # Voids 5 # Bowel Movements 5 General Appearance: no acute distress, other - awake, responsive, weak female, looking older than her biological age HEENT: normocephalic, atraumatic, anicteric, mucous membranes moist Respiratory/Chest: lungs clear, no respiratory distress, no accessory muscle use Cardiovascular: normal peripheral pulses, normal rate Abdomen: soft, non tender Extremities: no edema, pedal pulses normal Neurologic/Psychiatric: no motor/sensory deficits, alert, responsive Musculoskeletal: normal muscle bulk Microbiology Date/Time Source Procedure Growth Status 08/28/19 21:00 Sputum Induced Gram Stain - Final Resulted 08/28/19 21:00 Sputum Induced Sputum Culture Pending Resulted Laboratory Tests 08/30/19 05:36: White Blood Count 9.7, Red Blood Count 4.03L, Hemoglobin 13.2, Hematocrit 37.5, Mean Corpuscular Volume 93, Mean Corpuscular Hemoglobin 32.8H, Mean Corpuscular Hemoglobin Concent 35.3, Red Cell Distribution Width 11.8, Platelet Count 233, Mean Platelet Volume 7.3, Neutrophils (%) (Auto) 69.1, Lymphocytes (%) (Auto) 18.3L, Monocytes (%) (Auto) 8.8, Eosinophils (%) (Auto) 3.1H, Basophils (%) ( Auto) 0.8, Sodium Level 142, Potassium Level 3.2L, Chloride Level 110H, Carbon Dioxide Level 20L, Anion Gap 12, Blood Urea Nitrogen 7, Creatinine 0.6, Estimat Glomerular Filtration Rate > 60, Glucose Level 118H, Calcium Level 9.0 Current Medications Medications (Trade) Dose Ordered Sig/Laurita Route PRN Reason Start Time Stop Time Status Last Admin Dose Admin Acetaminophen (Tylenol) 650 mg Q4H PRN NG Mild Pain/Temp > 100.5 08/28/19 01:00 09/21/19 20:59 08/28/19 20:33 Albuterol/ Ipratropium (Albuterol/ Ipratropium) 3 ml Q4HRT PRN HHN Shortness of Breath 08/28/19 02:30 09/02/19 02:29 08/28/19 08:53 Dextrose/Sodium Chloride 1,000 ml @ 100 mls/hr Q10H IV 08/28/19 01:00 09/23/19 11:59 08/30/19 06:03 Heparin Sodium (Porcine) (Heparin 5000 units/ml) 5,000 units EVERY 12 HOURS SUBQ 08/28/19 21:00 09/27/19 20:59 08/29/19 21:05 Lacosamide (Vimpat) 100 mg Q12HR ORAL 08/28/19 09:00 09/22/19 08:59 08/29/19 21:02 Lansoprazole (Prevacid) 30 mg Q12HR GT 08/28/19 09:00 09/21/19 22:59 08/29/19 21:01 Levetiracetam (Keppra) 1,500 mg Q12HR NG 08/28/19 09:00 09/21/19 21:59 08/29/19 21:02 Oxcarbazepine (Trileptal) 600 mg EVERY 12 HOURS GT 08/28/19 09:00 09/26/19 08:59 08/29/19 21:01 Piperacillin Sod/ Tazobactam Sod 3.375 gm/Sodium Chloride 110 ml @ 27.5 mls/hr Q8H IVPB 08/28/19 08:00 09/04/19 07:59 08/30/19 00:04 Quetiapine Fumarate (SEROqueL) 25 mg Q12HR GT 08/28/19 09:00 09/22/19 13:59 08/29/19 21:03 Topiramate (Topamax) 200 mg EVERY 12 HOURS NG 08/28/19 09:00 09/21/19 21:59 08/29/19 21:02 Valproic Acid (Depakene) 500 mg THREE TIMES A DAY NG 08/28/19 09:00 09/21/19 08:59 08/29/19 17:17 Aye Gonsalez NP Aug 30, 2019 07:34
[2019-08-30 08:00] VITALS: BP 123/68
--- NOTE | 2019-08-30 08:22 | Infectious Diseases Prog Note ---
Assessment/Plan Assessment/Plan Zosyn 08/28- Flagyl 08/28-08/29 Assessment: Sepsis vs SIRS Aspiration PNA Probable UTI -08/28 sp cx p CXR: Developing right basilar patchy atelectasis or infiltrate. -08/26 u/a wbc 60-80, nit neg, leuk +3; ucx >100k P. mirabilis (isabel S) -08/21 Bcx neg x4 Intermittent low grade fevers Leukocytosis, SP Intractable seizures Dm2 HTN COPD psychiatric disease CKD traumatic brain injury s/p craniotomy 3 yrs ago hx of dysphagia s/p PEG; sp removal PEG seizure disorder hx of chronic resp failure s/p trach/vent- now decanulated Plan: -Continue empiric Zosyn #2 for aspiration pneumonia -08/29 d/c Flagyl #2 -f/u cx -Monitor CBC/CMP, temperatures -f/u sp cx -aspiration precautions -GI, pulm f/u -repeat ua ucx bcx flu swab discussed with RN Thank you for this consultation. Will continue to follow along with you. Subjective Allergies: Coded Allergies: No Known Allergies (Unverified , 02/02/17) Subjective tmax 101.8 No leukocytosis on RA denies chills, sob, abdominal pain excessive head bobbing Objective Vital Signs Last 24 Hour Vital Signs Date Time Temp Pulse Resp B/P (MAP) Pulse Ox O2 Delivery O2 Flow Rate FiO2 08/30/19 00:00 98.2 115 20 144/62 (89) 98 08/30/19 00:00 Room Air 08/29/19 20:00 97.4 96 20 128/70 (89) 99 08/29/19 20:00 Room Air 08/29/19 19:04 100 Nasal Cannula 2.0 28 08/29/19 19:03 105 18 100 Nasal Cannula 2.0 28 08/29/19 16:00 Room Air 08/29/19 16:00 101.8 98 20 108/78 (88) 99 08/29/19 12:00 Room Air 08/29/19 12:00 99.1 100 20 109/73 (85) 99 08/29/19 11:46 103 08/29/19 09:00 Room Air Height (Feet): 5 Height (Inches): 3.00 Weight (Pounds): 130 Objective LUNGS: Clear. HEART: There was normal S1 and normal S2. There was no murmur. No arrhythmia. No S3. No S4. No pericardial rub. ABDOMEN: Soft, nontender without organomegaly. There were no masses palpable. Normal bowel sounds without bruits. There was no guarding. No rebound tenderness. No ascites. No hernia. No CVA tenderness. Microbiology Date/Time Source Procedure Growth Status 08/28/19 21:00 Sputum Induced Gram Stain - Final Resulted 08/28/19 21:00 Sputum Induced Sputum Culture - Preliminary NORMAL UPPER RESPIRATORY JULIEAT AT 24 ... Resulted Laboratory Tests Test 08/30/19 05:36 White Blood Count 9.7 K/UL (4.8-10.8) Red Blood Count 4.03 M/UL (4.20-5.40) L Hemoglobin 13.2 G/DL (12.0-16.0) Hematocrit 37.5 % (37.0-47.0) Mean Corpuscular Volume 93 FL (80-99) Mean Corpuscular Hemoglobin 32.8 PG (27.0-31.0) H Mean Corpuscular Hemoglobin Concent 35.3 G/DL (32.0-36.0) Red Cell Distribution Width 11.8 % (11.6-14.8) Platelet Count 233 K/UL (150-450) Mean Platelet Volume 7.3 FL (6.5-10.1) Neutrophils (%) (Auto) 69.1 % (45.0-75.0) Lymphocytes (%) (Auto) 18.3 % (20.0-45.0) L Monocytes (%) (Auto) 8.8 % (1.0-10.0) Eosinophils (%) (Auto) 3.1 % (0.0-3.0) H Basophils (%) (Auto) 0.8 % (0.0-2.0) Sodium Level 142 MMOL/L (136-145) Potassium Level 3.2 MMOL/L (3.5-5.1) L Chloride Level 110 MMOL/L (98-107) H Carbon Dioxide Level 20 MMOL/L (21-32) L Anion Gap 12 mmol/L (5-15) Blood Urea Nitrogen 7 mg/dL (7-18) Creatinine 0.6 MG/DL (0.55-1.30) Estimat Glomerular Filtration Rate > 60 mL/min (>60) Glucose Level 118 MG/DL (74-106) H Calcium Level 9.0 MG/DL (8.5-10.1) Current Medications Medications (Trade) Dose Ordered Sig/Laurita Route PRN Reason Start Time Stop Time Status Last Admin Dose Admin Acetaminophen (Tylenol) 650 mg Q4H PRN NG Mild Pain/Temp > 100.5 08/28/19 01:00 09/21/19 20:59 08/28/19 20:33 Albuterol/ Ipratropium (Albuterol/ Ipratropium) 3 ml Q4HRT PRN HHN Shortness of Breath 08/28/19 02:30 09/02/19 02:29 08/28/19 08:53 Dextrose/Sodium Chloride 1,000 ml @ 100 mls/hr Q10H IV 08/28/19 01:00 09/23/19 11:59 08/30/19 06:03 Heparin Sodium (Porcine) (Heparin 5000 units/ml) 5,000 units EVERY 12 HOURS SUBQ 08/28/19 21:00 09/27/19 20:59 08/29/19 21:05 Lacosamide (Vimpat) 100 mg Q12HR ORAL 08/28/19 09:00 09/22/19 08:59 08/29/19 21:02 Lansoprazole (Prevacid) 30 mg Q12HR GT 08/28/19 09:00 09/21/19 22:59 08/29/19 21:01 Levetiracetam (Keppra) 1,500 mg Q12HR NG 08/28/19 09:00 09/21/19 21:59 08/29/19 21:02 Oxcarbazepine (Trileptal) 600 mg EVERY 12 HOURS GT 08/28/19 09:00 09/26/19 08:59 08/29/19 21:01 Piperacillin Sod/ Tazobactam Sod 3.375 gm/Sodium Chloride 110 ml @ 27.5 mls/hr Q8H IVPB 08/28/19 08:00 09/04/19 07:59 08/30/19 00:04 Quetiapine Fumarate (SEROqueL) 25 mg Q12HR GT 08/28/19 09:00 09/22/19 13:59 08/29/19 21:03 Topiramate (Topamax) 200 mg EVERY 12 HOURS NG 08/28/19 09:00 09/21/19 21:59 08/29/19 21:02 Valproic Acid (Depakene) 500 mg THREE TIMES A DAY NG 08/28/19 09:00 09/21/19 08:59 08/29/19 17:17 Kailash Rodriguez MD Aug 30, 2019 08:22
[2019-08-30] MEDS: OXcarbazepine 150mg tab GT SCH ×2 (08:59→21:10)
[2019-08-30] MEDS: Topiramate 100mg tab NG SCH ×2 (08:59→21:19)
[2019-08-30] MEDS: Lacosamide 50mg tablet ORAL SCH ×2 (08:59→21:10)
[2019-08-30] MEDS: Heparin 5000 units/ml inj SUBQ SCH ×2 (09:01→21:13)
[2019-08-30] MEDS: Valproic Acid 250mg/5ml Liquid NG SCH ×3 (09:47→18:59)
[2019-08-30 12:00] VITALS: BP 98/63
--- NOTE | 2019-08-30 13:41 | NUR ---
NURSE NOTES: Pt. seen by Dr. Shepherd informed him regarding pt. K+ 3.2 and told RN he will review chart first. No new order at this time.
--- NOTE | 2019-08-30 14:48 | General Progress Note ---
Assessment/Plan Status: unchanged Assessment/Plan: Assessment/Plan Problem List: (1) Dysphagia ICD Codes: R13.10 - Dysphagia, unspecified SNOMED: 92304989, 534343123 (2) G tube feedings ICD Codes: Z93.1 - Gastrostomy status SNOMED: 941304123, 965538369, 539822978 (3) Respiratory failure ICD Codes: J96.90 - Respiratory failure, unspecified, unspecified whether with hypoxia or hypercapnia SNOMED: 654152524 (4) Uncontrolled seizures ICD Codes: R56.9 - Unspecified convulsions SNOMED: 92800615 Status: unchanged Assessment/Plan: (1) G tube feedings ICD Codes: Z93.1 - Gastrostomy status SNOMED: 620551812, 333202660, 552761083 (2) Dysphagia ICD Codes: R13.10 - Dysphagia, unspecified SNOMED: 70430716, 730908617 (3) Dilantin level too low ICD Codes: R78.89 - Finding of other specified substances, not normally found in blood SNOMED: 340360913 (4) Seizure secondary to subtherapeutic anticonvulsant medication Assessment/Plan History of GT placement, s/p removal PEG cancelled due to hypoxemia and pNA will reschedule for next week f/u pulmonary recs fu neurology ok to restart TFs, repeat labs DVT prophylaxis will follow with additional recs post procedure Subjective Allergies: Coded Allergies: No Known Allergies (Unverified , 02/02/17) Subjective Awake on NGT feeds Objective Last 24 Hour Vital Signs Date Time Temp Pulse Resp B/P (MAP) Pulse Ox O2 Delivery O2 Flow Rate FiO2 08/30/19 12:00 Room Air 08/30/19 12:00 98.6 89 19 98/63 (75) 100 89 08/30/19 11:45 93 08/30/19 08:00 98.3 84 20 123/68 (86) 100 84 08/30/19 08:00 Room Air 08/30/19 07:53 89 08/30/19 04:00 98.6 110 21 140/70 (93) 99 08/30/19 04:00 Room Air 08/30/19 00:00 98.2 115 20 144/62 (89) 98 08/30/19 00:00 Room Air 08/29/19 20:00 97.4 96 20 128/70 (89) 99 08/29/19 20:00 Room Air 08/29/19 19:04 100 Nasal Cannula 2.0 28 08/29/19 19:03 105 18 100 Nasal Cannula 2.0 28 08/29/19 16:00 Room Air 08/29/19 16:00 101.8 98 20 108/78 (88) 99 Intake and Output 08/29/19 08/30/19 19:00 07:00 Intake Total 337.5 ml 1617.5 ml Output Total 300 ml Balance 337.5 ml 1317.5 ml Intake Free Water 50 ml 50 ml IV Total 237.5 ml 1237.5 ml Tube Feeding 50 ml 330 ml Output Urine Total 300 ml # Voids 5 # Bowel Movements 5 Laboratory Tests 08/30/19 05:36: White Blood Count 9.7, Red Blood Count 4.03L, Hemoglobin 13.2, Hematocrit 37.5, Mean Corpuscular Volume 93, Mean Corpuscular Hemoglobin 32.8H, Mean Corpuscular Hemoglobin Concent 35.3, Red Cell Distribution Width 11.8, Platelet Count 233, Mean Platelet Volume 7.3, Neutrophils (%) (Auto) 69.1, Lymphocytes (%) (Auto) 18.3L, Monocytes (%) (Auto) 8.8, Eosinophils (%) (Auto) 3.1H, Basophils (%) ( Auto) 0.8, Sodium Level 142, Potassium Level 3.2L, Chloride Level 110H, Carbon Dioxide Level 20L, Anion Gap 12, Blood Urea Nitrogen 7, Creatinine 0.6, Estimat Glomerular Filtration Rate > 60, Glucose Level 118H, Calcium Level 9.0 Height (Feet): 5 Height (Inches): 3.00 Weight (Pounds): 132 Objective Debilitated woman (+) NGT Coarse BS RR Jaime Nelson MD Aug 30, 2019 14:48
[2019-08-30 16:00] VITALS: BP 106/62
--- NOTE | 2019-08-30 19:27 | NUR ---
HAND-OFF: Report given to Carl Dangelo RN. Pt. remain stable.
--- NOTE | 2019-08-30 19:30 | NUR ---
NURSE NOTES: Pt report received from fela DAVID SDU. pt remains stable. pt is alert and oriented times 1. pt is on Room air able to sat at 99%, acute sings symptoms of resp distress noted. pt is on car deliverer showing Sinus tach, no acute signs symptoms of cardiac distress noted. pt bed is low, locked, armed, bed rails up times 3, call light within reach. will follow plan of care.
[2019-08-30 20:00] VITALS: BP 131/97
--- NOTE | 2019-08-30 22:45 | Progress Note ---
DATE: 08/30/2019 SUBJECTIVE: The patient is awake, alert, afebrile, and hemodynamically stable. PHYSICAL EXAMINATION: VITAL SIGNS: Blood pressure is 123/68, her pulse was 84, respirations of 20, and temperature of 98.3 degrees. HEENT: Eyes were normal. ENT, mucous membranes were moist and intact. NECK: Supple with no JVD without lymph nodes. LUNGS: Clear. HEART: Normal sounds with regular beats. ABDOMEN: Soft and nontender with normal bowel sounds. EXTREMITIES: Warm without cyanosis, clubbing, or edema. LABORATORY AND DIAGNOSTIC DATA: Hemoglobin is 13.2, hematocrit 27.5 with MCV of 93, WBC of 9.7, and platelets are 233,000. Her BUN and creatinine are 7 and 0.6 respectively. Her sodium is 142, potassium is 3.2, chloride 110, CO2 is 20, and glucose is 118. Her calcium is 9.0. Her chest x-ray showed no active disease and resolution to normal study. IMPRESSION: The patient is still a candidate for G-tube; however, her metastasis was markedly improved. She answered appropriately different question, therefore a repeat swallowing study will be done on Sunday09/01/2019. Kennedy Shepherd M.D. DR: Rebeka JOB#: [id number] CC:
[2019-08-31] VITALS: BP 124/46
[2019-08-31 04:00] VITALS: BP 125/51
[2019-08-31 04:52] LABS: BASOPHILS % (AUTO) 0.7 % (0.0-2.0); HEMATOCRIT 36.6 % (37.0-47.0); HEMOGLOBIN 13.1 G/DL (12.0-16.0); LYMPHOCYTES % (AUTO) 25.2 % (20.0-45.0); MEAN CORPUSCULAR VOLUME 93 FL (80-99); MONOCYTES % (AUTO) 10.8 % (1.0-10.0); NEUTROPHILS % (AUTO) 59.3 % (45.0-75.0); PLATELET COUNT 251 K/UL (150-450); RED BLOOD COUNT 3.93 M/UL (4.20-5.40); RED CELL DISTRIBUTION WIDTH 11.7 % (11.6-14.8); WHITE BLOOD COUNT 8.6 K/UL (4.8-10.8)
[2019-08-31 05:24] LABS: ANION GAP 11 mmol/L (5-15); BLOOD UREA NITROGEN 6 mg/dL (7-18); CALCIUM 8.8 MG/DL (8.5-10.1); CARBON DIOXIDE 22 MMOL/L (21-32); CHLORIDE 110 MMOL/L (98-107); CREATININE 0.6 MG/DL (0.55-1.30); POTASSIUM 3.2 MMOL/L (3.5-5.1); SODIUM 143 MMOL/L (136-145)
--- NOTE | 2019-08-31 07:20 | NUR ---
HAND-OFF: Report given to CHIP DAVID. Pt remains stable.
--- NOTE | 2019-08-31 07:25 | NUR ---
NURSE NOTES: Received bedside report from Carl Dangelo RN. Pt. in bed, awake, non-verbal, follow command though. No sign of distress. No grimacing noted. NGT in placed patent/intact running Osmolite 1.2 @ 30cc/hr. HOB elevated at all times. Bilateral soft wrist restraints in placed. (+) CMS. IV at left FA #18g. in placed patent/intact running D5NS at 100cc/hr. Padded side rails in placed. Bed in low position, locked. Call light within reach. Will cont. to monitor.
[2019-08-31 08:00] VITALS: BP 102/57
--- NOTE | 2019-08-31 08:19 | Pulmonology Progress Note ---
Assessment/Plan Assessment/Plan ASSESSMENT possible sepsis pneumonia , probably aspiration PNA Proteus UTI aspiration risk dysphagia history of craniotomy uncontrolled seizure hypokalemia PLAN OF CARE CARO O2 HHN prn initial CXR - evidence of probable pneumonia fup CXR no acute findings SCX negative; UCX + proteus abx as per ID; aspiration precaution tube feeding formula with goal rate and protein supplement as per registered associate recommendation seizure precautions; continue Vimpat ,Keppra, Trileptal , Topamax and Depakote consider neuro eval - per primary team DVT and GI prophylaxis GI on board G-tube placement canceled due to hypoxemia and pneumonia to be rescheduled next week BSSE and VSSE pending replace K ; check K and Mg in am case discussed and evaluated by supervising physician Subjective Allergies: Coded Allergies: No Known Allergies (Unverified , 02/02/17) Subjective leuk resolved, K-3.2 no further seizures Objective Last 24 Hour Vital Signs Date Time Temp Pulse Resp B/P (MAP) Pulse Ox O2 Delivery O2 Flow Rate FiO2 08/31/19 04:00 91 08/31/19 04:00 Room Air 08/31/19 04:00 98.0 83 19 125/51 (75) 100 83 08/31/19 00:00 Room Air 08/31/19 00:00 97.8 81 19 124/46 (72) 99 81 08/31/19 00:00 93 08/30/19 20:11 99 18 98 Nasal Cannula 2.0 28 08/30/19 20:11 98 Nasal Cannula 2.0 28 08/30/19 20:00 Room Air 08/30/19 20:00 105 08/30/19 20:00 97.8 94 18 131/97 (108) 99 94 08/30/19 16:00 Room Air 08/30/19 16:00 97.7 94 18 106/62 (77) 100 94 08/30/19 15:32 100 08/30/19 12:00 Room Air 08/30/19 12:00 98.6 89 19 98/63 (75) 100 89 08/30/19 11:45 93 Intake and Output 08/30/19 08/31/19 19:00 07:00 Intake Total 710 ml 1440.0 ml Balance 710 ml 1440.0 ml Intake Free Water 150 ml 100 ml IV Total 200 ml 1010.0 ml Tube Feeding 360 ml 330 ml # Bowel Movements 1 Objective General Appearance: no acute distress, other - awake, responsive, weak female, looking older than her biological age HEENT: normocephalic, atraumatic, anicteric, mucous membranes moist Respiratory/Chest: lungs clear, no respiratory distress, no accessory muscle use Cardiovascular: normal peripheral pulses, normal rate Abdomen: soft, non tender Extremities: no edema, pedal pulses normal Neurologic/Psychiatric: no motor/sensory deficits, alert, responsive Musculoskeletal: normal muscle bulk Microbiology Date/Time Source Procedure Growth Status 08/28/19 21:00 Sputum Induced Gram Stain - Final Complete 08/28/19 21:00 Sputum Induced Sputum Culture - Final NORMAL UPPER RESPIRATORY JULIETA PRESENT Complete Laboratory Tests 08/31/19 03:16: White Blood Count 8.6, Red Blood Count 3.93L, Hemoglobin 13.1, Hematocrit 36.6L , Mean Corpuscular Volume 93, Mean Corpuscular Hemoglobin 33.3H, Mean Corpuscular Hemoglobin Concent 35.7, Red Cell Distribution Width 11.7, Platelet Count 251, Mean Platelet Volume 7.0, Neutrophils (%) (Auto) 59.3, Lymphocytes (% ) (Auto) 25.2, Monocytes (%) (Auto) 10.8H, Eosinophils (%) (Auto) 4.0H, Basophils (%) (Auto) 0.7, Sodium Level 143, Potassium Level 3.2L, Chloride Level 110H, Carbon Dioxide Level 22, Anion Gap 11, Blood Urea Nitrogen 6L, Creatinine 0.6, Estimat Glomerular Filtration Rate > 60, Glucose Level 93, Calcium Level 8.8, Magnesium Level 1.8 Current Medications Medications (Trade) Dose Ordered Sig/Laurita Route PRN Reason Start Time Stop Time Status Last Admin Dose Admin Acetaminophen (Tylenol) 650 mg Q4H PRN NG Mild Pain/Temp > 100.5 08/28/19 01:00 09/21/19 20:59 08/28/19 20:33 Albuterol/ Ipratropium (Albuterol/ Ipratropium) 3 ml Q4HRT PRN HHN Shortness of Breath 08/28/19 02:30 09/02/19 02:29 08/28/19 08:53 Dextrose/Sodium Chloride 1,000 ml @ 100 mls/hr Q10H IV 08/28/19 01:00 09/23/19 11:59 08/30/19 22:12 Heparin Sodium (Porcine) (Heparin 5000 units/ml) 5,000 units EVERY 12 HOURS SUBQ 08/28/19 21:00 09/27/19 20:59 08/30/19 21:13 Lacosamide (Vimpat) 100 mg Q12HR ORAL 08/28/19 09:00 09/22/19 08:59 08/30/19 21:10 Lansoprazole (Prevacid) 30 mg Q12HR GT 08/28/19 09:00 09/21/19 22:59 08/30/19 21:10 Levetiracetam (Keppra) 1,500 mg Q12HR NG 08/28/19 09:00 09/21/19 21:59 08/30/19 21:10 Oxcarbazepine (Trileptal) 600 mg EVERY 12 HOURS GT 08/28/19 09:00 09/26/19 08:59 08/30/19 21:10 Piperacillin Sod/ Tazobactam Sod 3.375 gm/Sodium Chloride 110 ml @ 27.5 mls/hr Q8H IVPB 08/28/19 08:00 09/04/19 07:59 08/30/19 23:54 Quetiapine Fumarate (SEROqueL) 25 mg Q12HR GT 08/28/19 09:00 09/22/19 13:59 08/30/19 21:10 Topiramate (Topamax) 200 mg EVERY 12 HOURS NG 08/28/19 09:00 09/21/19 21:59 08/30/19 21:19 Valproic Acid (Depakene) 500 mg THREE TIMES A DAY NG 08/28/19 09:00 09/21/19 08:59 08/30/19 18:59 Aye Gonsalez SCALE INSTALLER Aug 31, 2019 08:19
[2019-08-31] MEDS: Piperacillin/Tazobactam 3.375 GM in NS 110 ML IVPB SCH ×3 (09:08→23:08)
[2019-08-31] MEDS: Valproic Acid 250mg/5ml Liquid NG SCH ×3 (09:09→18:48)
[2019-08-31] MEDS: D5NS 1,000 ML IV SCH ×2 (09:09→20:24)
[2019-08-31] MEDS: OXcarbazepine 150mg tab GT SCH ×2 (09:10→20:25)
[2019-08-31] MEDS: Lacosamide 50mg tablet ORAL SCH ×2 (09:10→20:26)
[2019-08-31] MEDS: Topiramate 100mg tab NG SCH ×2 (09:11→20:25)
[2019-08-31] MEDS: Heparin 5000 units/ml inj SUBQ SCH ×2 (09:13→20:27)
[2019-08-31] MEDS ORDERED: Tubing IV Secondary IV ONE ×2 (10:26→15:16)
[2019-08-31] MEDS ORDERED: D5NS 1000ml IV ONE ×2 (10:26→11:04)
--- NOTE | 2019-08-31 10:49 | General Progress Note ---
Assessment/Plan Status: unchanged Assessment/Plan: Assessment/Plan Problem List: (1) Dysphagia ICD Codes: R13.10 - Dysphagia, unspecified SNOMED: 56701849, 451776611 (2) G tube feedings ICD Codes: Z93.1 - Gastrostomy status SNOMED: 133909130, 020948895, 636881206 (3) Respiratory failure ICD Codes: J96.90 - Respiratory failure, unspecified, unspecified whether with hypoxia or hypercapnia SNOMED: 085765028 (4) Uncontrolled seizures ICD Codes: R56.9 - Unspecified convulsions SNOMED: 49174565 Status: unchanged Assessment/Plan: (1) G tube feedings ICD Codes: Z93.1 - Gastrostomy status SNOMED: 912568160, 369380494, 254635049 (2) Dysphagia ICD Codes: R13.10 - Dysphagia, unspecified SNOMED: 05825926, 356646086 (3) Dilantin level too low ICD Codes: R78.89 - Finding of other specified substances, not normally found in blood SNOMED: 091089803 (4) Seizure secondary to subtherapeutic anticonvulsant medication Assessment/Plan History of GT placement, s/p removal PEG cancelled due to hypoxemia and PNA will reschedule for next week f/u pulmonary recs fu neurology repeat labs DVT prophylaxis Subjective Allergies: Coded Allergies: No Known Allergies (Unverified , 02/02/17) Subjective Awake on NGT feeds Objective Last 24 Hour Vital Signs Date Time Temp Pulse Resp B/P (MAP) Pulse Ox O2 Delivery O2 Flow Rate FiO2 08/31/19 08:00 97.9 102 20 102/57 (72) 100 102 08/31/19 04:00 91 08/31/19 04:00 Room Air 08/31/19 04:00 98.0 83 19 125/51 (75) 100 83 08/31/19 00:00 Room Air 08/31/19 00:00 97.8 81 19 124/46 (72) 99 81 08/31/19 00:00 93 08/30/19 20:11 99 18 98 Nasal Cannula 2.0 28 08/30/19 20:11 98 Nasal Cannula 2.0 28 08/30/19 20:00 Room Air 08/30/19 20:00 105 08/30/19 20:00 97.8 94 18 131/97 (108) 99 94 08/30/19 16:00 Room Air 08/30/19 16:00 97.7 94 18 106/62 (77) 100 94 08/30/19 15:32 100 08/30/19 12:00 Room Air 08/30/19 12:00 98.6 89 19 98/63 (75) 100 89 08/30/19 11:45 93 Intake and Output 08/30/19 08/31/19 19:00 07:00 Intake Total 710 ml 1440.0 ml Balance 710 ml 1440.0 ml Intake Free Water 150 ml 100 ml IV Total 200 ml 1010.0 ml Tube Feeding 360 ml 330 ml # Bowel Movements 1 Laboratory Tests 08/31/19 03:16: White Blood Count 8.6, Red Blood Count 3.93L, Hemoglobin 13.1, Hematocrit 36.6L , Mean Corpuscular Volume 93, Mean Corpuscular Hemoglobin 33.3H, Mean Corpuscular Hemoglobin Concent 35.7, Red Cell Distribution Width 11.7, Platelet Count 251, Mean Platelet Volume 7.0, Neutrophils (%) (Auto) 59.3, Lymphocytes (% ) (Auto) 25.2, Monocytes (%) (Auto) 10.8H, Eosinophils (%) (Auto) 4.0H, Basophils (%) (Auto) 0.7, Sodium Level 143, Potassium Level 3.2L, Chloride Level 110H, Carbon Dioxide Level 22, Anion Gap 11, Blood Urea Nitrogen 6L, Creatinine 0.6, Estimat Glomerular Filtration Rate > 60, Glucose Level 93, Calcium Level 8.8, Magnesium Level 1.8 Height (Feet): 5 Height (Inches): 3.00 Weight (Pounds): 134 Objective Debilitated woman (+) NGT Coarse BS RR Jaime Nelson MD Aug 31, 2019 10:48
--- NOTE | 2019-08-31 11:46 | Hematology/Onc Progress Note ---
Assessment/Plan Assessment/Plan Assessment and Recs: # Coagulopathy is likely related to either contaminant / heparin from line v from other source, meds noted now rapidly corrected --> given vit K at this time and ffp, will improve patient's ptt/inr --> inr is 2.6, ptt 150 --> have judy Rn to first check coags from different line --> inr trend: 2.6-->0.9 # Leukocytosis is likely due to pna RLL --> currently improved --> on abx, has been started by pcp --> smear has been reviewed --> wbc trend: 8.6 --> abx: zosyn --> 08/29 cxr negative # FTT - dysphagia s/p peg --> since dislodged, requires replacement --> vit k and ffp required --> peg to be replaced by Dr. Trujillo # Uncontrolled seizures --> started on meds, keppra/vimpat --> no recent seizures # SNF resident # Dvt ppx heparin sq Appreciate consultation and judy RN Subjective Allergies: Coded Allergies: No Known Allergies (Unverified , 02/02/17) Subjective 08/29: sdu, restless, restraints, no acute distress 08/31: no acute events, remains on restraints, no leukocytosis Objective Objective Current Medications Medications (Trade) Dose Ordered Sig/Laurita Route PRN Reason Start Time Stop Time Status Last Admin Dose Admin Acetaminophen (Tylenol) 650 mg Q4H PRN NG Mild Pain/Temp > 100.5 08/28/19 01:00 09/21/19 20:59 08/28/19 20:33 Albuterol/ Ipratropium (Albuterol/ Ipratropium) 3 ml Q4HRT PRN HHN Shortness of Breath 08/28/19 02:30 09/02/19 02:29 08/28/19 08:53 Dextrose/Sodium Chloride 1,000 ml @ 100 mls/hr Q10H IV 08/28/19 01:00 09/23/19 11:59 08/31/19 09:09 Heparin Sodium (Porcine) (Heparin 5000 units/ml) 5,000 units EVERY 12 HOURS SUBQ 08/28/19 21:00 09/27/19 20:59 08/31/19 09:13 Lacosamide (Vimpat) 100 mg Q12HR ORAL 08/28/19 09:00 09/22/19 08:59 08/31/19 09:10 Lansoprazole (Prevacid) 30 mg Q12HR GT 08/28/19 09:00 09/21/19 22:59 08/31/19 09:11 Levetiracetam (Keppra) 1,500 mg Q12HR NG 08/28/19 09:00 09/21/19 21:59 08/31/19 09:11 Oxcarbazepine (Trileptal) 600 mg EVERY 12 HOURS GT 08/28/19 09:00 09/26/19 08:59 08/31/19 09:10 Piperacillin Sod/ Tazobactam Sod 3.375 gm/Sodium Chloride 110 ml @ 27.5 mls/hr Q8H IVPB 08/28/19 08:00 09/04/19 07:59 08/31/19 09:08 Quetiapine Fumarate (SEROqueL) 25 mg Q12HR GT 08/28/19 09:00 09/22/19 13:59 08/31/19 09:10 Topiramate (Topamax) 200 mg EVERY 12 HOURS NG 08/28/19 09:00 09/21/19 21:59 08/31/19 09:11 Valproic Acid (Depakene) 500 mg THREE TIMES A DAY NG 08/28/19 09:00 09/21/19 08:59 08/31/19 09:09 Last 24 Hour Vital Signs Date Time Temp Pulse Resp B/P (MAP) Pulse Ox O2 Delivery O2 Flow Rate FiO2 08/31/19 08:00 97.9 102 20 102/57 (72) 100 102 08/31/19 04:00 91 08/31/19 04:00 Room Air 08/31/19 04:00 98.0 83 19 125/51 (75) 100 83 08/31/19 00:00 Room Air 08/31/19 00:00 97.8 81 19 124/46 (72) 99 81 08/31/19 00:00 93 08/30/19 20:11 99 18 98 Nasal Cannula 2.0 28 08/30/19 20:11 98 Nasal Cannula 2.0 28 08/30/19 20:00 Room Air 08/30/19 20:00 105 08/30/19 20:00 97.8 94 18 131/97 (108) 99 94 08/30/19 16:00 Room Air 08/30/19 16:00 97.7 94 18 106/62 (77) 100 94 08/30/19 15:32 100 08/30/19 12:00 Room Air 08/30/19 12:00 98.6 89 19 98/63 (75) 100 89 08/30/19 11:45 93 08/30/19 08:00 98.3 84 20 123/68 (86) 100 84 08/30/19 08:00 Room Air 08/30/19 07:53 89 08/30/19 04:00 100 08/30/19 04:00 98.6 110 21 140/70 (93) 99 08/30/19 04:00 Room Air 08/30/19 00:00 93 08/30/19 00:00 98.2 115 20 144/62 (89) 98 08/30/19 00:00 Room Air 08/29/19 20:00 97.4 96 20 128/70 (89) 99 08/29/19 20:00 Room Air 08/29/19 20:00 106 08/29/19 19:04 100 Nasal Cannula 2.0 28 08/29/19 19:03 105 18 100 Nasal Cannula 2.0 28 08/29/19 16:00 Room Air 08/29/19 16:00 101.8 98 20 108/78 (88) 99 08/29/19 12:00 Room Air 08/29/19 12:00 99.1 100 20 109/73 (85) 99 08/29/19 11:46 103 Intake and Output 08/30/19 08/31/19 19:00 07:00 Intake Total 710 ml 1440.0 ml Balance 710 ml 1440.0 ml Intake Free Water 150 ml 100 ml IV Total 200 ml 1010.0 ml Tube Feeding 360 ml 330 ml # Bowel Movements 1 Labs Test 08/29/19 03:20 08/30/19 05:36 08/31/19 03:16 White Blood Count 8.4 K/UL (4.8-10.8) 9.7 K/UL (4.8-10.8) 8.6 K/UL (4.8-10.8) Red Blood Count 3.91 M/UL (4.20-5.40) 4.03 M/UL (4.20-5.40) 3.93 M/UL (4.20-5.40) Hemoglobin 12.8 G/DL (12.0-16.0) 13.2 G/DL (12.0-16.0) 13.1 G/DL (12.0-16.0) Hematocrit 36.6 % (37.0-47.0) 37.5 % (37.0-47.0) 36.6 % (37.0-47.0) Mean Corpuscular Volume 93 FL (80-99) 93 FL (80-99) 93 FL (80-99) Mean Corpuscular Hemoglobin 32.6 PG (27.0-31.0) 32.8 PG (27.0-31.0) 33.3 PG (27.0-31.0) Mean Corpuscular Hemoglobin Concent 34.9 G/DL (32.0-36.0) 35.3 G/DL (32.0-36.0) 35.7 G/DL (32.0-36.0) Red Cell Distribution Width 11.6 % (11.6-14.8) 11.8 % (11.6-14.8) 11.7 % (11.6-14.8) Platelet Count 209 K/UL (150-450) 233 K/UL (150-450) 251 K/UL (150-450) Mean Platelet Volume 7.6 FL (6.5-10.1) 7.3 FL (6.5-10.1) 7.0 FL (6.5-10.1) Neutrophils (%) (Auto) 64.0 % (45.0-75.0) 69.1 % (45.0-75.0) 59.3 % (45.0-75.0) Lymphocytes (%) (Auto) 21.5 % (20.0-45.0) 18.3 % (20.0-45.0) 25.2 % (20.0-45.0) Monocytes (%) (Auto) 9.9 % (1.0-10.0) 8.8 % (1.0-10.0) 10.8 % (1.0-10.0) Eosinophils (%) (Auto) 3.9 % (0.0-3.0) 3.1 % (0.0-3.0) 4.0 % (0.0-3.0) Basophils (%) (Auto) 0.7 % (0.0-2.0) 0.8 % (0.0-2.0) 0.7 % (0.0-2.0) Erythrocyte Sedimentation Rate 65 MM/HR (0-20) Prothrombin Time 10.1 SEC (9.30-11.50) Prothromb Time International Ratio 0.9 (0.9-1.1) Activated Partial Thromboplast Time 29 SEC (23-33) Sodium Level 144 MMOL/L (136-145) 142 MMOL/L (136-145) 143 MMOL/L (136-145) Potassium Level 3.1 MMOL/L (3.5-5.1) 3.2 MMOL/L (3.5-5.1) 3.2 MMOL/L (3.5-5.1) Chloride Level 114 MMOL/L (98-107) 110 MMOL/L (98-107) 110 MMOL/L (98-107) Carbon Dioxide Level 19 MMOL/L (21-32) 20 MMOL/L (21-32) 22 MMOL/L (21-32) Anion Gap 12 mmol/L (5-15) 12 mmol/L (5-15) 11 mmol/L (5-15) Blood Urea Nitrogen 7 mg/dL (7-18) 7 mg/dL (7-18) 6 mg/dL (7-18) Creatinine 0.6 MG/DL (0.55-1.30) 0.6 MG/DL (0.55-1.30) 0.6 MG/DL (0.55-1.30) Estimat Glomerular Filtration Rate > 60 mL/min (>60) > 60 mL/min (>60) > 60 mL/min (>60) Glucose Level 105 MG/DL (74-106) 118 MG/DL (74-106) 93 MG/DL (74-106) Calcium Level 8.6 MG/DL (8.5-10.1) 9.0 MG/DL (8.5-10.1) 8.8 MG/DL (8.5-10.1) Phosphorus Level 3.2 MG/DL (2.5-4.9) Magnesium Level 1.9 MG/DL (1.8-2.4) 1.8 MG/DL (1.8-2.4) Total Bilirubin 0.6 MG/DL (0.2-1.0) Aspartate Amino Transf (AST/SGOT) 43 U/L (15-37) Alanine Aminotransferase (ALT/SGPT) 76 U/L (12-78) Alkaline Phosphatase 68 U/L (46-116) C-Reactive Protein, Quantitative 7.6 mg/dL (0.00-0.90) Total Protein 7.1 G/DL (6.4-8.2) Albumin 2.7 G/DL (3.4-5.0) Globulin 4.4 g/dL Albumin/Globulin Ratio 0.6 (1.0-2.7) Height (Feet): 5 Height (Inches): 3.00 Weight (Pounds): 134 Objective Physical Exam General Appearance: no apparent distress, GCS 15 Head: normocephalic, atraumatic, other - Helmet Respiratory: chest non-tender, lungs clear, normal breath sounds ++ trach Cardiovascular: no edema, tachycardia Gastrointestinal: normal bowel sounds, non tender, soft, + peg tube site Musculoskeletal: back normal, normal range of motion, non-tender Neurologic: alert, motor strength/tone normal, sensory intact, responsive Psychiatric: mood/affect normal Skin: other - See RN skin exam Vlad Jaimes MD Aug 31, 2019 11:46
[2019-08-31 12:00] VITALS: BP 105/78
[2019-08-31 16:00] VITALS: BP 101/67
--- NOTE | 2019-08-31 19:14 | NUR ---
HAND-OFF: Report given to Airam DAVID. Pt. remain stable.
--- NOTE | 2019-08-31 19:23 | NUR ---
NURSE NOTES: Received report from JOANN John- pt. in bed awake- opens eyes spontaneously- non-verbal, appears to be confused-but alert to name, pt. appears to be trying to remove devices- bilateral soft restraints removed- skin intact and bilateral pulses palpable, side rails padded for seizure precautions- no seizure activity noted upon assessment, mainframe architect on, pt. appears to be sating well on room- no distress noted, Osmolite 1.2 running at 50cc/hr- no residuals noted- RT. NGT intact and in place, HOB elevated, LFA 18G IV intact and patent running D5NS @100cc/hr, pt. oriented to room and pt. teaching done, safety measures continued, will continue with plan of care.
[2019-08-31 20:00] VITALS: BP 107/64
[2019-09-01] VITALS: BP 107/50
--- NOTE | 2019-09-01 03:00 | Progress Note ---
DATE: 08/31/2019 SUBJECTIVE: The patient is awake, alert, afebrile, hemodynamically stable. She answered appropriately and with normal attention span. The patient is scheduled to undergo upper gastrointestinal endoscopy and insertion, however, the patient swallow appropriately, therefore we will repeat a swallowing evaluation in the a.m. If the patient fails this time, we will proceed with gastrostomy. PHYSICAL EXAMINATION: VITAL SIGNS: Blood pressure is 101/67, pulse is 88, respirations of 23, and temperature 99. HEENT: Eyes were normal. ENT, mucous membranes were moist and intact. NECK: Supple with no JVD without lymph nodes. Tracheostomy site is clean. LUNGS: Clear without rhonchi, rales, or wheezing HEART: Normal sounds with regular beats. ABDOMEN: Soft and nontender with normal bowel sounds. EXTREMITIES: Warm without cyanosis, clubbing, or edema. LABORATORY AND DIAGNOSTIC DATA: Hemoglobin is 13.1, hematocrit 36.3 with MCV of 93, WBC of 8.6, and platelets are 251,000. BUN and creatinine of 6 and 0.6 respectively. Her sodium is 143, potassium 3.2, chloride 110, CO2 is 22. The patient will receive 40 mEq of KCl via NG tube. Repeat laboratory tests will be done in the a.m. Swallowing evaluation will be done in the a.m. Kennedy Shepherd M.D. DR: ABRAN JOB#: [id number] CC:
[2019-09-01 04:00] VITALS: BP 100/55
[2019-09-01] MEDS: D5NS 1,000 ML IV SCH ×3 (04:24→22:25)
[2019-09-01 05:22] LABS: BASOPHILS % (AUTO) 1.1 % (0.0-2.0); EOSINOPHILS % (AUTO) 5.7 % (0.0-3.0); HEMATOCRIT 36.1 % (37.0-47.0); HEMOGLOBIN 12.7 G/DL (12.0-16.0); LYMPHOCYTES % (AUTO) 25.7 % (20.0-45.0); MEAN CORPUSCULAR VOLUME 94 FL (80-99); MONOCYTES % (AUTO) 10.2 % (1.0-10.0); NEUTROPHILS % (AUTO) 57.3 % (45.0-75.0); PLATELET COUNT 243 K/UL (150-450); RED BLOOD COUNT 3.85 M/UL (4.20-5.40); RED CELL DISTRIBUTION WIDTH 12.1 % (11.6-14.8); WHITE BLOOD COUNT 6.5 K/UL (4.8-10.8)
[2019-09-01 05:47] LABS: ANION GAP 11 mmol/L (5-15); BLOOD UREA NITROGEN 9 mg/dL (7-18); CALCIUM 8.4 MG/DL (8.5-10.1); CARBON DIOXIDE 21 MMOL/L (21-32); CHLORIDE 113 MMOL/L (98-107); CREATININE 0.4 MG/DL (0.55-1.30); POTASSIUM 3.9 MMOL/L (3.5-5.1); SODIUM 145 MMOL/L (136-145)
--- NOTE | 2019-09-01 06:58 | NUR ---
HAND-OFF: Report given to Osman Escobedo RN, pt. remains stable and no signs of distress noted- aware to f/u on abnormal am labs.
--- NOTE | 2019-09-01 07:45 | NUR ---
NURSE NOTES: received pt in the bed, confused, on soft wrist restrains for safety, vital signs stable, no co pain, no SOB, NGT in place, tolerate feeding well, skin warm and dry to touch, intact, incontinent, bed in low position, call light within reach, HOB elevated.
[2019-09-01 08:00] VITALS: BP 102/63
[2019-09-01] MEDS: Valproic Acid 250mg/5ml Liquid NG SCH ×3 (08:28→18:16)
[2019-09-01] MEDS: Piperacillin/Tazobactam 3.375 GM in NS 110 ML IVPB SCH ×4 (08:29→23:09)
[2019-09-01] MEDS: Topiramate 100mg tab NG SCH ×2 (08:30→21:49)
[2019-09-01] MEDS: Heparin 5000 units/ml inj SUBQ SCH ×2 (08:33→21:47)
--- NOTE | 2019-09-01 08:57 | Pulmonology Progress Note ---
Assessment/Plan Assessment/Plan ASSESSMENT possible sepsis pneumonia , probably aspiration PNA Proteus UTI aspiration risk dysphagia history of craniotomy uncontrolled seizure hypokalemia PLAN OF CARE CARO O2 HHN prn initial CXR - evidence of probable pneumonia fup CXR no acute findings CXR for this am pending SCX negative; UCX + proteus abx as per ID; aspiration precaution tube feeding formula with goal rate and protein supplement as per telemetry registered nurse recommendation seizure precautions; continue Vimpat ,Keppra, Trileptal , Topamax and Depakote consider neuro eval - per primary team DVT and GI prophylaxis GI on board G-tube placement canceled due to hypoxemia and pneumonia to be rescheduled next week BSSE and VSSE pending stable lytes after replacement transfer to [facility] floor case discussed and evaluated by supervising physician Subjective Allergies: Coded Allergies: No Known Allergies (Unverified , 02/02/17) Subjective leuk resolved, no further seizures Objective Last 24 Hour Vital Signs Date Time Temp Pulse Resp B/P (MAP) Pulse Ox O2 Delivery O2 Flow Rate FiO2 09/01/19 08:00 2.0 09/01/19 08:00 Room Air 09/01/19 04:00 98.7 89 20 100/55 (70) 100 09/01/19 04:00 Room Air 09/01/19 04:00 2.0 09/01/19 03:38 88 09/01/19 00:00 Room Air 09/01/19 00:00 2.0 09/01/19 00:00 97.7 85 18 107/50 (69) 99 08/31/19 23:32 95 08/31/19 20:00 2.0 08/31/19 20:00 97.8 88 20 107/64 (78) 98 08/31/19 20:00 Room Air 08/31/19 19:38 90 08/31/19 16:00 99.5 88 23 101/67 (78) 99 08/31/19 16:00 Room Air 08/31/19 15:24 99 08/31/19 12:00 99.0 94 21 105/78 (87) 98 08/31/19 12:00 Room Air 08/31/19 11:49 103 Intake and Output 08/31/19 09/01/19 19:00 07:00 Intake Total 1680 ml 1623.0 ml Balance 1680 ml 1623.0 ml Intake Free Water 200 ml 50 ml IV Total 1100 ml 1023.0 ml Tube Feeding 380 ml 550 ml # Voids 3 # Bowel Movements 4 Objective General Appearance: no acute distress, other - awake, responsive, weak female, looking older than her biological age HEENT: normocephalic, atraumatic, anicteric, mucous membranes moist Respiratory/Chest: lungs clear, no respiratory distress, no accessory muscle use Cardiovascular: normal peripheral pulses, normal rate Abdomen: soft, non tender Extremities: no edema, pedal pulses normal Neurologic/Psychiatric: no motor/sensory deficits, alert, responsive Musculoskeletal: normal muscle bulk Microbiology Date/Time Source Procedure Growth Status 08/30/19 10:10 Blood Blood Culture - Preliminary NO GROWTH AFTER 24 HOURS Resulted 08/30/19 10:00 Blood Blood Culture - Preliminary NO GROWTH AFTER 24 HOURS Resulted 08/31/19 23:00 Nasal Nares - Final Complete 08/31/19 23:00 Nasal Nares - Final Complete Laboratory Tests 09/01/19 04:20: White Blood Count 6.5, Red Blood Count 3.85L, Hemoglobin 12.7, Hematocrit 36.1L , Mean Corpuscular Volume 94, Mean Corpuscular Hemoglobin 33.0H, Mean Corpuscular Hemoglobin Concent 35.2, Red Cell Distribution Width 12.1, Platelet Count 243, Mean Platelet Volume 6.3L, Neutrophils (%) (Auto) 57.3, Lymphocytes ( %) (Auto) 25.7, Monocytes (%) (Auto) 10.2H, Eosinophils (%) (Auto) 5.7H, Basophils (%) (Auto) 1.1, Sodium Level 145, Potassium Level 3.9, Chloride Level 113H, Carbon Dioxide Level 21, Anion Gap 11, Blood Urea Nitrogen 9, Creatinine 0.4L, Estimat Glomerular Filtration Rate > 60, Glucose Level 118H, Calcium Level 8.4L Current Medications Medications (Trade) Dose Ordered Sig/Laurita Route PRN Reason Start Time Stop Time Status Last Admin Dose Admin Acetaminophen (Tylenol) 650 mg Q4H PRN NG Mild Pain/Temp > 100.5 08/28/19 01:00 09/21/19 20:59 08/28/19 20:33 Albuterol/ Ipratropium (Albuterol/ Ipratropium) 3 ml Q4HRT PRN HHN Shortness of Breath 08/28/19 02:30 09/02/19 02:29 08/28/19 08:53 Dextrose/Sodium Chloride 1,000 ml @ 100 mls/hr Q10H IV 08/28/19 01:00 09/23/19 11:59 09/01/19 04:24 Heparin Sodium (Porcine) (Heparin 5000 units/ml) 5,000 units EVERY 12 HOURS SUBQ 08/28/19 21:00 09/27/19 20:59 09/01/19 08:33 Lacosamide (Vimpat) 100 mg Q12HR ORAL 09/01/19 09:00 09/22/19 08:59 09/01/19 08:31 Lansoprazole (Prevacid) 30 mg Q12HR NG 09/01/19 09:00 09/21/19 22:59 09/01/19 08:30 Levetiracetam (Keppra) 1,500 mg Q12HR NG 09/01/19 09:00 10/01/19 08:59 09/01/19 08:29 Oxcarbazepine (Trileptal) 600 mg EVERY 12 HOURS NG 09/01/19 09:00 09/26/19 08:59 09/01/19 08:30 Piperacillin Sod/ Tazobactam Sod 3.375 gm/Sodium Chloride 110 ml @ 27.5 mls/hr Q8H IVPB 08/28/19 08:00 09/04/19 07:59 09/01/19 08:29 Quetiapine Fumarate (SEROqueL) 25 mg Q12HR NG 09/01/19 09:00 09/22/19 13:59 09/01/19 08:31 Topiramate (Topamax) 200 mg EVERY 12 HOURS NG 08/28/19 09:00 09/21/19 21:59 09/01/19 08:30 Valproic Acid (Depakene) 500 mg THREE TIMES A DAY NG 08/28/19 09:00 09/21/19 08:59 09/01/19 08:28 Aye Gonsalez [employer] Sep 01, 2019 08:57
--- NOTE | 2019-09-01 08:59 | General Progress Note ---
Assessment/Plan Problem List: (1) Dysphagia ICD Codes: R13.10 - Dysphagia, unspecified SNOMED: 72331068, 986278968 (2) G tube feedings ICD Codes: Z93.1 - Gastrostomy status SNOMED: 930580608, 412340346, 450803974 (3) Respiratory failure ICD Codes: J96.90 - Respiratory failure, unspecified, unspecified whether with hypoxia or hypercapnia SNOMED: 854372212 (4) Uncontrolled seizures ICD Codes: R56.9 - Unspecified convulsions SNOMED: 92708551 Status: unchanged Assessment/Plan: Assessment/Plan Problem List: (1) Dysphagia ICD Codes: R13.10 - Dysphagia, unspecified SNOMED: 61645670, 093995732 (2) G tube feedings ICD Codes: Z93.1 - Gastrostomy status SNOMED: 161499369, 362088462, 460675044 (3) Respiratory failure ICD Codes: J96.90 - Respiratory failure, unspecified, unspecified whether with hypoxia or hypercapnia SNOMED: 620332684 (4) Uncontrolled seizures ICD Codes: R56.9 - Unspecified convulsions SNOMED: 57559089 Status: unchanged Assessment/Plan: (1) G tube feedings ICD Codes: Z93.1 - Gastrostomy status SNOMED: 798693743, 961343776, 806731673 (2) Dysphagia ICD Codes: R13.10 - Dysphagia, unspecified SNOMED: 25945974, 063256863 (3) Dilantin level too low ICD Codes: R78.89 - Finding of other specified substances, not normally found in blood SNOMED: 130194558 (4) Seizure secondary to subtherapeutic anticonvulsant medication Assessment/Plan History of GT placement, s/p removal PEG cancelled due to hypoxemia and PNA will reschedule for this week if needed pending repeat swallow evaluation for today f/u pulmonary recs fu neurology repeat labs DVT prophylaxis Subjective ROS Limited/Unobtainable: No Allergies: Coded Allergies: No Known Allergies (Unverified , 02/02/17) Objective Last 24 Hour Vital Signs Date Time Temp Pulse Resp B/P (MAP) Pulse Ox O2 Delivery O2 Flow Rate FiO2 09/01/19 08:00 2.0 09/01/19 08:00 Room Air 09/01/19 04:00 98.7 89 20 100/55 (70) 100 09/01/19 04:00 Room Air 09/01/19 04:00 2.0 09/01/19 03:38 88 09/01/19 00:00 Room Air 09/01/19 00:00 2.0 09/01/19 00:00 97.7 85 18 107/50 (69) 99 08/31/19 23:32 95 08/31/19 20:00 2.0 08/31/19 20:00 97.8 88 20 107/64 (78) 98 08/31/19 20:00 Room Air 08/31/19 19:38 90 08/31/19 16:00 99.5 88 23 101/67 (78) 99 08/31/19 16:00 Room Air 08/31/19 15:24 99 08/31/19 12:00 99.0 94 21 105/78 (87) 98 08/31/19 12:00 Room Air 08/31/19 11:49 103 Intake and Output 08/31/19 09/01/19 19:00 07:00 Intake Total 1680 ml 1623.0 ml Balance 1680 ml 1623.0 ml Intake Free Water 200 ml 50 ml IV Total 1100 ml 1023.0 ml Tube Feeding 380 ml 550 ml # Voids 3 # Bowel Movements 4 Laboratory Tests 09/01/19 04:20: White Blood Count 6.5, Red Blood Count 3.85L, Hemoglobin 12.7, Hematocrit 36.1L , Mean Corpuscular Volume 94, Mean Corpuscular Hemoglobin 33.0H, Mean Corpuscular Hemoglobin Concent 35.2, Red Cell Distribution Width 12.1, Platelet Count 243, Mean Platelet Volume 6.3L, Neutrophils (%) (Auto) 57.3, Lymphocytes ( %) (Auto) 25.7, Monocytes (%) (Auto) 10.2H, Eosinophils (%) (Auto) 5.7H, Basophils (%) (Auto) 1.1, Sodium Level 145, Potassium Level 3.9, Chloride Level 113H, Carbon Dioxide Level 21, Anion Gap 11, Blood Urea Nitrogen 9, Creatinine 0.4L, Estimat Glomerular Filtration Rate > 60, Glucose Level 118H, Calcium Level 8.4L Height (Feet): 5 Height (Inches): 3.00 Weight (Pounds): 131 General Appearance: lethargic EENT: normal ENT inspection Neck: normal alignment Cardiovascular: normal rate Respiratory/Chest: decreased breath sounds Abdomen: normal bowel sounds, non tender, soft Extremities: non-tender Emanuel Trujillo MD Sep 01, 2019 08:59
[2019-09-01] MEDS ORDERED: Lacosamide 50mg tablet ORAL SCH (09:00)
[2019-09-01] MEDS ORDERED: OXcarbazepine 150mg tab NG SCH (09:00)
[2019-09-01] MEDS ORDERED: Albuterol/Ipratropium 3ml neb HHN PRN ×2 (09:00→12:36)
[2019-09-01] MEDS ORDERED: levETIRAcetam 500mg/5ml Liquid NG SCH (09:00)
--- NOTE | 2019-09-01 10:13 | NUR ---
RD ASSESSMENT & RECOMMENDATIONS SEE CARE ACTIVITY FOR COMPLETE ASSESSMENT DAILY ESTIMATED NEEDS: Needs based on General/ 56kg 25-30 kcals/kg 6400-3019 total kcals 1-1.2 g protein/kg 56-67 g total protein 25-30 mL/kg 5888-0751 total fluid mLs NUTRITION DIAGNOSIS: Swallowing difficulty R/T dysphagia, h/o trach + GT as evidenced by PERCHER recommends nonoral feeds at this time, s/p NGT insertion, on NGT feeds. CURRENT TF:Osm 1.2 @ 50ml/hr x 24 hrs PO DIET RECOMMENDATIONS: When safe for oral diet -> Regular/ texture per PERCHER ENTERAL NUTRITION RECOMMENDATIONS: Osmolite 1.2 @ 50ml/hr x 24 hrs to provide 1200ml, 1440kcal, 66g prot, 984ml free water * Rec TF change to Osmolite 1.2 for possible improved TF tolerance * Initiate Osmolite 1.2 @ 10ml/hr x 6 hrs, advance 10ml q 4-6 hrs as tolerated to goal rate. * Without IVF, water flush of 120ml q 6 hrs ADDITIONAL RECOMMENDATIONS: * Calibrated bedscale wt * Monitor lytes closely w/ TF, replete as needed (low K) * Monitor BGs w/ TF * Monitor PERCHER eval, ability for PO diet. .
--- NOTE | 2019-09-01 10:41 | Hematology/Onc Progress Note ---
Assessment/Plan Assessment/Plan Assessment and Recs: # Coagulopathy is likely related to either contaminant / heparin from line v from other source, meds noted now rapidly corrected --> given vit K at this time and ffp, will improve patient's ptt/inr --> inr is 2.6, ptt 150 --> have judy Rn to first check coags from different line --> inr trend: 2.6-->0.9 # Leukocytosis is likely due to pna RLL --> currently improved --> on abx, has been started by pcp --> smear has been reviewed --> wbc trend: 8.6 --> abx: zosyn --> 08/29 cxr negative # FTT - dysphagia s/p peg --> since dislodged, requires replacement --> vit k and ffp required --> peg to be replaced by Dr. Trujillo # Uncontrolled seizures --> started on meds, keppra/vimpat --> no recent seizures # SNF resident # Dvt ppx heparin sq Appreciate consultation and judy RN Subjective HEENT: Denies: no symptoms, eye pain, blurred vision, tearing, double vision, ear pain, ear discharge, nose pain, nose congestion, throat pain, throat swelling, mouth pain, mouth swelling, other Cardiovascular: Denies: no symptoms, chest pain, edema, irregular heart rate, lightheadedness, palpitations, syncope, other Respiratory: Denies: no symptoms, cough, shortness of breath, SOB with excertion, SOB at rest, sputum, wheezing, other Gastrointestinal/Abdominal: Denies: no symptoms, abdomen distended, abdominal pain, black stools, tarry stools, blood in stool, constipated, diarrhea, difficulty swallowing, nausea, poor appetite, poor fluid intake, rectal bleeding , vomiting, other Neurologic/Psychiatric: Denies: no symptoms, anxiety, depressed, emotional problems, headache, numbness, paresthesia, pre-existing deficit, seizure, tingling, tremors, weakness, other Endocrine: Denies: no symptoms, excessive sweating, flushing, intolerance to cold, intolerance to heat, increased hunger, increased thirst, increased urine, unexplained weight gain, unexplained weight loss, other Hematologic/Lymphatic: Denies: no symptoms, anemia, easy bleeding, easy bruising, adenopathy, other Allergies: Coded Allergies: No Known Allergies (Unverified , 02/02/17) Subjective 08/29: sdu, restless, restraints, no acute distress 08/31: no acute events, remains on restraints, no leukocytosis 09/01: labs noted, no bleeding, no major changes, swallow eval per gi Objective Objective Current Medications Medications (Trade) Dose Ordered Sig/Laurita Route PRN Reason Start Time Stop Time Status Last Admin Dose Admin Acetaminophen (Tylenol) 650 mg Q4H PRN NG Mild Pain/Temp > 100.5 08/28/19 01:00 09/21/19 20:59 08/28/19 20:33 Albuterol/ Ipratropium (Albuterol/ Ipratropium) 3 ml Q4HRT PRN HHN Shortness of Breath 09/01/19 09:00 09/06/19 08:59 Dextrose/Sodium Chloride 1,000 ml @ 100 mls/hr Q10H IV 08/28/19 01:00 09/23/19 11:59 09/01/19 04:24 Heparin Sodium (Porcine) (Heparin 5000 units/ml) 5,000 units EVERY 12 HOURS SUBQ 08/28/19 21:00 09/27/19 20:59 09/01/19 08:33 Lacosamide (Vimpat) 100 mg Q12HR ORAL 09/01/19 09:00 09/22/19 08:59 09/01/19 08:31 Lansoprazole (Prevacid) 30 mg Q12HR NG 09/01/19 09:00 09/21/19 22:59 09/01/19 08:30 Levetiracetam (Keppra) 1,500 mg Q12HR NG 09/01/19 09:00 10/01/19 08:59 09/01/19 08:29 Oxcarbazepine (Trileptal) 600 mg EVERY 12 HOURS NG 09/01/19 09:00 09/26/19 08:59 09/01/19 08:30 Piperacillin Sod/ Tazobactam Sod 3.375 gm/Sodium Chloride 110 ml @ 27.5 mls/hr Q8H IVPB 08/28/19 08:00 09/04/19 07:59 09/01/19 08:29 Quetiapine Fumarate (SEROqueL) 25 mg Q12HR NG 09/01/19 09:00 09/22/19 13:59 09/01/19 08:31 Topiramate (Topamax) 200 mg EVERY 12 HOURS NG 08/28/19 09:00 09/21/19 21:59 09/01/19 08:30 Valproic Acid (Depakene) 500 mg THREE TIMES A DAY NG 08/28/19 09:00 09/21/19 08:59 09/01/19 08:28 Last 24 Hour Vital Signs Date Time Temp Pulse Resp B/P (MAP) Pulse Ox O2 Delivery O2 Flow Rate FiO2 09/01/19 08:00 97.2 83 16 102/63 (76) 99 09/01/19 08:00 2.0 09/01/19 08:00 82 09/01/19 08:00 Room Air 09/01/19 04:00 98.7 89 20 100/55 (70) 100 09/01/19 04:00 Room Air 09/01/19 04:00 2.0 09/01/19 03:38 88 09/01/19 00:00 Room Air 09/01/19 00:00 2.0 09/01/19 00:00 97.7 85 18 107/50 (69) 99 08/31/19 23:32 95 08/31/19 20:00 2.0 08/31/19 20:00 97.8 88 20 107/64 (78) 98 08/31/19 20:00 Room Air 08/31/19 19:38 90 08/31/19 16:00 99.5 88 23 101/67 (78) 99 08/31/19 16:00 Room Air 08/31/19 15:24 99 08/31/19 12:00 99.0 94 21 105/78 (87) 98 08/31/19 12:00 Room Air 08/31/19 11:49 103 08/31/19 08:00 Room Air 08/31/19 08:00 97.9 102 20 102/57 (72) 100 102 08/31/19 07:44 102 08/31/19 04:00 91 08/31/19 04:00 Room Air 08/31/19 04:00 98.0 83 19 125/51 (75) 100 83 08/31/19 00:00 Room Air 08/31/19 00:00 97.8 81 19 124/46 (72) 99 81 08/31/19 00:00 93 08/30/19 20:11 99 18 98 Nasal Cannula 2.0 28 08/30/19 20:11 98 Nasal Cannula 2.0 28 08/30/19 20:00 Room Air 08/30/19 20:00 105 08/30/19 20:00 97.8 94 18 131/97 (108) 99 94 08/30/19 16:00 Room Air 08/30/19 16:00 97.7 94 18 106/62 (77) 100 94 08/30/19 15:32 100 08/30/19 12:00 Room Air 08/30/19 12:00 98.6 89 19 98/63 (75) 100 89 08/30/19 11:45 93 Intake and Output 08/31/19 09/01/19 19:00 07:00 Intake Total 1680 ml 1623.0 ml Balance 1680 ml 1623.0 ml Intake Free Water 200 ml 50 ml IV Total 1100 ml 1023.0 ml Tube Feeding 380 ml 550 ml # Voids 3 # Bowel Movements 4 Labs Test 08/30/19 05:36 08/31/19 03:16 09/01/19 04:20 White Blood Count 9.7 K/UL (4.8-10.8) 8.6 K/UL (4.8-10.8) 6.5 K/UL (4.8-10.8) Red Blood Count 4.03 M/UL (4.20-5.40) 3.93 M/UL (4.20-5.40) 3.85 M/UL (4.20-5.40) Hemoglobin 13.2 G/DL (12.0-16.0) 13.1 G/DL (12.0-16.0) 12.7 G/DL (12.0-16.0) Hematocrit 37.5 % (37.0-47.0) 36.6 % (37.0-47.0) 36.1 % (37.0-47.0) Mean Corpuscular Volume 93 FL (80-99) 93 FL (80-99) 94 FL (80-99) Mean Corpuscular Hemoglobin 32.8 PG (27.0-31.0) 33.3 PG (27.0-31.0) 33.0 PG (27.0-31.0) Mean Corpuscular Hemoglobin Concent 35.3 G/DL (32.0-36.0) 35.7 G/DL (32.0-36.0) 35.2 G/DL (32.0-36.0) Red Cell Distribution Width 11.8 % (11.6-14.8) 11.7 % (11.6-14.8) 12.1 % (11.6-14.8) Platelet Count 233 K/UL (150-450) 251 K/UL (150-450) 243 K/UL (150-450) Mean Platelet Volume 7.3 FL (6.5-10.1) 7.0 FL (6.5-10.1) 6.3 FL (6.5-10.1) Neutrophils (%) (Auto) 69.1 % (45.0-75.0) 59.3 % (45.0-75.0) 57.3 % (45.0-75.0) Lymphocytes (%) (Auto) 18.3 % (20.0-45.0) 25.2 % (20.0-45.0) 25.7 % (20.0-45.0) Monocytes (%) (Auto) 8.8 % (1.0-10.0) 10.8 % (1.0-10.0) 10.2 % (1.0-10.0) Eosinophils (%) (Auto) 3.1 % (0.0-3.0) 4.0 % (0.0-3.0) 5.7 % (0.0-3.0) Basophils (%) (Auto) 0.8 % (0.0-2.0) 0.7 % (0.0-2.0) 1.1 % (0.0-2.0) Sodium Level 142 MMOL/L (136-145) 143 MMOL/L (136-145) 145 MMOL/L (136-145) Potassium Level 3.2 MMOL/L (3.5-5.1) 3.2 MMOL/L (3.5-5.1) 3.9 MMOL/L (3.5-5.1) Chloride Level 110 MMOL/L (98-107) 110 MMOL/L (98-107) 113 MMOL/L (98-107) Carbon Dioxide Level 20 MMOL/L (21-32) 22 MMOL/L (21-32) 21 MMOL/L (21-32) Anion Gap 12 mmol/L (5-15) 11 mmol/L (5-15) 11 mmol/L (5-15) Blood Urea Nitrogen 7 mg/dL (7-18) 6 mg/dL (7-18) 9 mg/dL (7-18) Creatinine 0.6 MG/DL (0.55-1.30) 0.6 MG/DL (0.55-1.30) 0.4 MG/DL (0.55-1.30) Estimat Glomerular Filtration Rate > 60 mL/min (>60) > 60 mL/min (>60) > 60 mL/min (>60) Glucose Level 118 MG/DL (74-106) 93 MG/DL (74-106) 118 MG/DL (74-106) Calcium Level 9.0 MG/DL (8.5-10.1) 8.8 MG/DL (8.5-10.1) 8.4 MG/DL (8.5-10.1) Magnesium Level 1.8 MG/DL (1.8-2.4) Micro Microbiology Date/Time Source Procedure Growth Status 08/31/19 23:00 Nasal Nares - Final Complete 08/31/19 23:00 Nasal Nares - Final Complete Height (Feet): 5 Height (Inches): 3.00 Weight (Pounds): 131 Objective Physical Exam General Appearance: no apparent distress, GCS 15 Head: normocephalic, atraumatic, other - Helmet Respiratory: chest non-tender, lungs clear, normal breath sounds ++ trach Cardiovascular: no edema, tachycardia Gastrointestinal: normal bowel sounds, non tender, soft, + peg tube site Musculoskeletal: back normal, normal range of motion, non-tender Neurologic: alert, motor strength/tone normal, sensory intact, responsive Psychiatric: mood/affect normal Skin: other - See RN skin exam Vlad Jaimes MD Sep 01, 2019 10:41
--- NOTE | 2019-09-01 11:29 | Diagnostic Imaging Report ---
Indication: Shortness of breath Technique: One view of the chest Comparison: 08/29/2019 Findings: Stable satisfactory position of nasogastric tube. Lungs and pleural spaces remain clear. The heart size is normal. No significant change Impression: No acute process
--- NOTE | 2019-09-01 11:49 | Infectious Diseases Prog Note ---
Assessment/Plan Assessment/Plan Assessment: Sepsis vs SIRS Aspiration PNA Probable UTI -08/31 Influenza sc neg -08/30 Bcx NTD -08/28 sp cx normal resp mayela CXR: Developing right basilar patchy atelectasis or infiltrate. -08/26 u/a wbc 60-80, nit neg, leuk +3; ucx >100k P. mirabilis (isabel S) -08/21 Bcx neg x4 Intermittent low grade fevers; improving Leukocytosis, SP Intractable seizures Dm2 HTN COPD psychiatric disease CKD traumatic brain injury s/p craniotomy 3 yrs ago hx of dysphagia s/p PEG; sp removal PEG seizure disorder hx of chronic resp failure s/p trach/vent- now decanulated Plan: -Continue empiric Zosyn #4/5-7 for aspiration pneumonia -08/29 SP Flagyl #2 -f/u cx -Monitor CBC/CMP, temperatures -f/u sp cx -aspiration precautions -GI, pulm f/u discussed with RN Thank you for this consultation. Will continue to follow along with you. Subjective Allergies: Coded Allergies: No Known Allergies (Unverified , 02/02/17) Subjective afebrile >48hrs no leukocytosis Objective Vital Signs Last 24 Hour Vital Signs Date Time Temp Pulse Resp B/P (MAP) Pulse Ox O2 Delivery O2 Flow Rate FiO2 09/01/19 08:00 97.2 83 16 102/63 (76) 99 09/01/19 08:00 2.0 09/01/19 08:00 82 09/01/19 08:00 Room Air 09/01/19 04:00 98.7 89 20 100/55 (70) 100 09/01/19 04:00 Room Air 09/01/19 04:00 2.0 09/01/19 03:38 88 09/01/19 00:00 Room Air 09/01/19 00:00 2.0 09/01/19 00:00 97.7 85 18 107/50 (69) 99 08/31/19 23:32 95 08/31/19 20:00 2.0 08/31/19 20:00 97.8 88 20 107/64 (78) 98 08/31/19 20:00 Room Air 08/31/19 19:38 90 08/31/19 16:00 99.5 88 23 101/67 (78) 99 08/31/19 16:00 Room Air 08/31/19 15:24 99 08/31/19 12:00 99.0 94 21 105/78 (87) 98 08/31/19 12:00 Room Air 08/31/19 11:49 103 Height (Feet): 5 Height (Inches): 3.00 Weight (Pounds): 131 Objective General Appearance: no apparent distress Head: normocephalic, atraumatic, other - Helmet Respiratory: chest non-tender, lungs clear, normal breath sounds ++ trach Cardiovascular: no edema, tachycardia Gastrointestinal: normal bowel sounds, non tender, soft, + peg tube site Musculoskeletal: back normal, normal range of motion, non-tender Neurologic: alert, motor strength/tone normal, sensory intact, responsive Skin: other - See RN skin exam Microbiology Date/Time Source Procedure Growth Status 08/30/19 10:10 Blood Blood Culture - Preliminary NO GROWTH AFTER 24 HOURS Resulted 08/30/19 10:00 Blood Blood Culture - Preliminary NO GROWTH AFTER 24 HOURS Resulted 08/31/19 23:00 Nasal Nares - Final Complete 08/31/19 23:00 Nasal Nares - Final Complete Laboratory Tests Test 09/01/19 04:20 White Blood Count 6.5 K/UL (4.8-10.8) Red Blood Count 3.85 M/UL (4.20-5.40) L Hemoglobin 12.7 G/DL (12.0-16.0) Hematocrit 36.1 % (37.0-47.0) L Mean Corpuscular Volume 94 FL (80-99) Mean Corpuscular Hemoglobin 33.0 PG (27.0-31.0) H Mean Corpuscular Hemoglobin Concent 35.2 G/DL (32.0-36.0) Red Cell Distribution Width 12.1 % (11.6-14.8) Platelet Count 243 K/UL (150-450) Mean Platelet Volume 6.3 FL (6.5-10.1) L Neutrophils (%) (Auto) 57.3 % (45.0-75.0) Lymphocytes (%) (Auto) 25.7 % (20.0-45.0) Monocytes (%) (Auto) 10.2 % (1.0-10.0) H Eosinophils (%) (Auto) 5.7 % (0.0-3.0) H Basophils (%) (Auto) 1.1 % (0.0-2.0) Sodium Level 145 MMOL/L (136-145) Potassium Level 3.9 MMOL/L (3.5-5.1) Chloride Level 113 MMOL/L (98-107) H Carbon Dioxide Level 21 MMOL/L (21-32) Anion Gap 11 mmol/L (5-15) Blood Urea Nitrogen 9 mg/dL (7-18) Creatinine 0.4 MG/DL (0.55-1.30) L Estimat Glomerular Filtration Rate > 60 mL/min (>60) Glucose Level 118 MG/DL (74-106) H Calcium Level 8.4 MG/DL (8.5-10.1) L Current Medications Medications (Trade) Dose Ordered Sig/Laurita Route PRN Reason Start Time Stop Time Status Last Admin Dose Admin Acetaminophen (Tylenol) 650 mg Q4H PRN NG Mild Pain/Temp > 100.5 08/28/19 01:00 09/21/19 20:59 08/28/19 20:33 Albuterol/ Ipratropium (Albuterol/ Ipratropium) 3 ml Q4HRT PRN HHN Shortness of Breath 09/01/19 09:00 09/06/19 08:59 Dextrose/Sodium Chloride 1,000 ml @ 100 mls/hr Q10H IV 08/28/19 01:00 09/23/19 11:59 09/01/19 04:24 Heparin Sodium (Porcine) (Heparin 5000 units/ml) 5,000 units EVERY 12 HOURS SUBQ 08/28/19 21:00 09/27/19 20:59 09/01/19 08:33 Lacosamide (Vimpat) 100 mg Q12HR ORAL 09/01/19 09:00 09/22/19 08:59 09/01/19 08:31 Lansoprazole (Prevacid) 30 mg Q12HR NG 09/01/19 09:00 09/21/19 22:59 09/01/19 08:30 Levetiracetam (Keppra) 1,500 mg Q12HR NG 09/01/19 09:00 10/01/19 08:59 09/01/19 08:29 Oxcarbazepine (Trileptal) 600 mg EVERY 12 HOURS NG 09/01/19 09:00 09/26/19 08:59 09/01/19 08:30 Piperacillin Sod/ Tazobactam Sod 3.375 gm/Sodium Chloride 110 ml @ 27.5 mls/hr Q8H IVPB 08/28/19 08:00 09/04/19 07:59 09/01/19 08:29 Quetiapine Fumarate (SEROqueL) 25 mg Q12HR NG 09/01/19 09:00 09/22/19 13:59 09/01/19 08:31 Topiramate (Topamax) 200 mg EVERY 12 HOURS NG 08/28/19 09:00 09/21/19 21:59 09/01/19 08:30 Valproic Acid (Depakene) 500 mg THREE TIMES A DAY NG 08/28/19 09:00 09/21/19 08:59 09/01/19 08:28 Stephania Pastrana M.D. Sep 01, 2019 11:49
[2019-09-01 12:00] VITALS: BP 101/67
--- NOTE | 2019-09-01 12:46 | NUR ---
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 97.2 HR 83 RR 16 B/P 102/63 2L NC O2 SAT @ 98% IS: ZOSYN IV IVF D5NS @ 100ML/HR KEPPRA NGT VIMPAT NGT ALB HHN SWALLOW EVAL MED/SURG STATUS
[2019-09-01] MEDS ORDERED: Acetaminophen 650mg/20.3ml NG PRN (13:00)
--- NOTE | 2019-09-01 13:05 | NUR ---
NURSE NOTES: pt transferred to 4E, room 414, as ordered, condition stable, report given to NICOLE RN.
--- NOTE | 2019-09-01 13:06 | NUR ---
NURSE NOTES: Received patient in bed. IV line intact and patent. With bilateral soft wrist restrains in place, pulses palpable, skin warm to touch, no skin issues noted on site. With NGT, on continuous feeding of osmolite 1.2 at 50ml/hr. Skin check done. Belongings checked. Side rails padded and raised. Connected to [facility], for collection of urine sample for culture. For swallow evaluation and to inform Dr garcia of result. HOB elevated. Bed locked in lowest position, alarm on high sensitivity setting. Will continue frequent rounding and plan of care.
[2019-09-01 16:00] VITALS: BP 103/69
--- NOTE | 2019-09-01 16:33 | NUR ---
ST NOTES: SWALLOW STATUS: PATIENT SEEN TODAY. ALERT WHEN STIMULATED. TENDS TO STICK OUT HER TONGUE JUST PAST HER LOWER LIP SPONTANEOUSLY. NOT ABLE TO MOVE IT IN DIFFERENT DIRECTIONS EVEN WITH VISUAL CUES. PER DR SCHMITT (GI): History of GT placement, s/p removal PEG cancelled due to hypoxemia and PNA will reschedule for this week if needed pending repeat swallow evaluation for today D/W DR SCHMITT NEED FOR LONGER TERM NONORAL FEEDINGS FOR NOW. WILL RE-ASSESS POST PEG IF READY FOR MODIFIED BARIUM SWALLOW STUDY. EDUCATED/TRAINED RN NICOLE IN POSTED ORAL CARE AND NEED FOR ASPIRATION PRECAUTIONS WHEN NGT FEEDINGS RUNNING. PLAN: CONTINUE WITH NONORAL (NGT) FEEDINGS FOR NOW AND ORAL CARE NO PO AT THIS TIME. RE-ASSESS AFTER PEG PLACEMENT ONLY IF READY COMPLETE MOD BARIUM SWALLOW STUDY WHEN READY IP OR OP IF DC (DO NOT HOLD UP D/C FOR THIS STUDY)
--- NOTE | 2019-09-01 19:45 | NUR ---
HAND-OFF: Report given to luz. Addendum: 09/01/19 at 2001 by Loly Valencia RN Endorsed high fall risk status to oncoming shift, side rails kept up and padded. Bed locked in lowest position, alarm on high sensitivity setting. Frequent rounding continues for patient safety.
--- NOTE | 2019-09-01 19:48 | NUR ---
NURSE NOTES: Received pt in the bed, confused and nonverbal. No acute distress noted at this time. On bilateral soft wrist restrains for safety, restraint site is asymptomatic. NGT in place, Flushed, no residual noted, tolerate feeding well. Bed in low and locked position, call light within reach, HOB elevated at all times. Fall precaution, seizure precaution and aspiration precautions are in place. Side rails padded. Will continue to monitor the pt.
[2019-09-01 20:01] VITALS: BP 108/74
[2019-09-01] MEDS: levETIRAcetam 500mg/5ml Liquid NG SCH (21:48)
[2019-09-01] MEDS: OXcarbazepine 150mg tab NG SCH (21:50)
[2019-09-01] MEDS: Lacosamide 50mg tablet ORAL SCH (21:50)
--- NOTE | 2019-09-01 23:45 | Progress Note ---
DATE: 09/01/2019 SUBJECTIVE: The patient is awake, alert, afebrile, and hemodynamically stable. She failed today again a swallowing evaluation. PHYSICAL EXAMINATION: VITAL SIGNS: Blood pressure 108/74, pulse is 95, respirations 17, temperature 98.9. HEENT: Eyes were normal. ENT, mucous membranes were moist and intact. NECK: Supple with no JVD without lymph nodes. LUNGS: Clear. HEART: Normal sounds with regular beats. ABDOMEN: Soft and nontender with normal bowel sounds. EXTREMITIES: Warm without cyanosis, clubbing, or edema. LABORATORY AND DIAGNOSTIC DATA: Her hemoglobin is 12.7, hematocrit 36.1 with MCV of 94, WBC of 6.5, and platelets are 243. Her BUN and creatinine is 9 and 0.4 respectively. Her sodium is 145, potassium 3.9, chloride 113, CO2 is 21, and calcium is 8.4. Her glucose is 118. Chest x-ray today revealed no acute disease. IMPRESSION: The patient now failed 3 times swallowing evaluation and in spite of improved cognitive function, her swallowing function did not improve. PLAN: The patient will undergo upper GI endoscopy with PEG insertion. Dr. Trujillo is aware. We will wait for the procedure by him for the PEG insertion. Kennedy Shepherd M.D. DR: KD JOB#: [id number] CC:
[2019-09-02] VITALS: BP 139/91
[2019-09-02 04:00] VITALS: BP 141/76
--- NOTE | 2019-09-02 06:40 | Hematology/Onc Progress Note ---
Assessment/Plan Assessment/Plan Assessment and Recs: # Coagulopathy is likely related to either contaminant / heparin from line v from other source, meds noted now rapidly corrected --> given vit K at this time and ffp, will improve patient's ptt/inr --> inr is 2.6, ptt 150 --> have judy Rn to first check coags from different line --> inr trend: 2.6-->0.9 # Leukocytosis is likely due to pna RLL --> currently improved --> on abx, has been started by pcp --> smear has been reviewed --> wbc trend: 8.6-->6.5 --> abx: zosyn --> 08/29 cxr negative # FTT - dysphagia s/p peg --> since dislodged, requires replacement --> vit k and ffp required --> peg to be replaced by Dr. Trujillo # Uncontrolled seizures --> started on meds, keppra/vimpat --> no recent seizures # SN[facility] resident # Dvt ppx heparin sq Appreciate consultation and judy RN Subjective Constitutional: Denies: no symptoms, chills, fever, malaise, weakness, other HEENT: Denies: no symptoms, eye pain, blurred vision, tearing, double vision, ear pain, ear discharge, nose pain, nose congestion, throat pain, throat swelling, mouth pain, mouth swelling, other Cardiovascular: Denies: no symptoms, chest pain, edema, irregular heart rate, lightheadedness, palpitations, syncope, other Respiratory: Denies: no symptoms, cough, shortness of breath, SOB with excertion, SOB at rest, sputum, wheezing, other Neurologic/Psychiatric: Denies: no symptoms, anxiety, depressed, emotional problems, headache, numbness, paresthesia, pre-existing deficit, seizure, tingling, tremors, weakness, other Endocrine: Denies: no symptoms, excessive sweating, flushing, intolerance to cold, intolerance to heat, increased hunger, increased thirst, increased urine, unexplained weight gain, unexplained weight loss, other Hematologic/Lymphatic: Denies: no symptoms, anemia, easy bleeding, easy bruising, adenopathy, other Allergies: Coded Allergies: No Known Allergies (Unverified , 02/02/17) Subjective 2/14: sdu, restless, restraints, no acute distress 08/31: no acute events, remains on restraints, no leukocytosis 09/01: labs noted, no bleeding, no major changes, swallow eval per gi 09/02: remains confused, nonverbal [facility] Objective Objective Current Medications Medications (Trade) Dose Ordered Sig/Laurita Route PRN Reason Start Time Stop Time Status Last Admin Dose Admin Acetaminophen (Tylenol) 650 mg Q4H PRN NG Mild Pain/Temp > 100.5 09/01/19 13:00 09/21/19 20:59 Albuterol/ Ipratropium (Albuterol/ Ipratropium) 3 ml Q4H PRN HHN Shortness of Breath 09/01/19 12:36 09/06/19 12:35 Dextrose/Sodium Chloride 1,000 ml @ 100 mls/hr Q10H IV 09/01/19 12:30 09/23/19 11:59 09/01/19 22:25 Heparin Sodium (Porcine) (Heparin 5000 units/ml) 5,000 units EVERY 12 HOURS SUBQ 09/01/19 21:00 09/27/19 20:59 09/01/19 21:47 Lacosamide (Vimpat) 100 mg Q12HR ORAL 09/01/19 21:00 09/22/19 08:59 09/01/19 21:50 Lansoprazole (Prevacid) 30 mg Q12HR NG 09/01/19 21:00 09/21/19 22:59 09/01/19 21:49 Levetiracetam (Keppra) 1,500 mg Q12HR NG 09/01/19 21:00 10/01/19 08:59 09/01/19 21:48 Oxcarbazepine (Trileptal) 600 mg EVERY 12 HOURS NG 09/01/19 21:00 09/26/19 08:59 09/01/19 21:50 Piperacillin Sod/ Tazobactam Sod 3.375 gm/Sodium Chloride 110 ml @ 27.5 mls/hr Q8H IVPB 09/01/19 16:00 09/04/19 07:59 09/01/19 23:09 Quetiapine Fumarate (SEROqueL) 25 mg Q12HR NG 09/01/19 21:00 09/22/19 13:59 09/01/19 21:49 Topiramate (Topamax) 200 mg EVERY 12 HOURS NG 09/01/19 21:00 09/21/19 21:59 09/01/19 21:49 Valproic Acid (Depakene) 500 mg THREE TIMES A DAY NG 09/01/19 13:00 09/21/19 08:59 09/01/19 18:16 Last 24 Hour Vital Signs Date Time Temp Pulse Resp B/P (MAP) Pulse Ox O2 Delivery O2 Flow Rate FiO2 09/02/19 04:00 98.6 79 20 141/76 (97) 100 09/02/19 00:00 98.1 95 20 139/91 (107) 98 09/01/19 21:00 Room Air 09/01/19 20:38 95 18 97 Nasal Cannula 2.0 28 09/01/19 20:38 97 Nasal Cannula 2.0 28 09/01/19 20:01 98.9 95 17 108/74 (85) 97 09/01/19 16:00 97.8 85 20 103/69 (80) 97 09/01/19 16:00 Room Air 09/01/19 12:01 2.0 09/01/19 12:00 80 09/01/19 12:00 97.7 83 16 101/67 (78) 100 09/01/19 12:00 Room Air 09/01/19 08:00 97.2 83 16 102/63 (76) 99 09/01/19 08:00 2.0 09/01/19 08:00 82 09/01/19 08:00 Room Air 09/01/19 04:00 98.7 89 20 100/55 (70) 100 09/01/19 04:00 Room Air 09/01/19 04:00 2.0 09/01/19 03:38 88 09/01/19 00:00 Room Air 09/01/19 00:00 2.0 09/01/19 00:00 97.7 85 18 107/50 (69) 99 08/31/19 23:32 95 08/31/19 20:00 2.0 08/31/19 20:00 97.8 88 20 107/64 (78) 98 08/31/19 20:00 Room Air 08/31/19 19:38 90 08/31/19 16:00 99.5 88 23 101/67 (78) 99 08/31/19 16:00 Room Air 08/31/19 15:24 99 08/31/19 12:00 99.0 94 21 105/78 (87) 98 08/31/19 12:00 Room Air 08/31/19 11:49 103 08/31/19 08:00 Room Air 08/31/19 08:00 97.9 102 20 102/57 (72) 100 102 08/31/19 07:44 102 Intake and Output 09/01/19 09/02/19 19:00 07:00 Intake Total 482.5 ml 1640.0 ml Balance 482.5 ml 1640.0 ml Intake Free Water 50 ml 180 ml IV Total 232.5 ml 910.0 ml Tube Feeding 200 ml 550 ml # Voids 1 # Bowel Movements 1 Labs Test 08/31/19 03:16 09/01/19 04:20 White Blood Count 8.6 K/UL (4.8-10.8) 6.5 K/UL (4.8-10.8) Red Blood Count 3.93 M/UL (4.20-5.40) 3.85 M/UL (4.20-5.40) Hemoglobin 13.1 G/DL (12.0-16.0) 12.7 G/DL (12.0-16.0) Hematocrit 36.6 % (37.0-47.0) 36.1 % (37.0-47.0) Mean Corpuscular Volume 93 FL (80-99) 94 FL (80-99) Mean Corpuscular Hemoglobin 33.3 PG (27.0-31.0) 33.0 PG (27.0-31.0) Mean Corpuscular Hemoglobin Concent 35.7 G/DL (32.0-36.0) 35.2 G/DL (32.0-36.0) Red Cell Distribution Width 11.7 % (11.6-14.8) 12.1 % (11.6-14.8) Platelet Count 251 K/UL (150-450) 243 K/UL (150-450) Mean Platelet Volume 7.0 FL (6.5-10.1) 6.3 FL (6.5-10.1) Neutrophils (%) (Auto) 59.3 % (45.0-75.0) 57.3 % (45.0-75.0) Lymphocytes (%) (Auto) 25.2 % (20.0-45.0) 25.7 % (20.0-45.0) Monocytes (%) (Auto) 10.8 % (1.0-10.0) 10.2 % (1.0-10.0) Eosinophils (%) (Auto) 4.0 % (0.0-3.0) 5.7 % (0.0-3.0) Basophils (%) (Auto) 0.7 % (0.0-2.0) 1.1 % (0.0-2.0) Sodium Level 143 MMOL/L (136-145) 145 MMOL/L (136-145) Potassium Level 3.2 MMOL/L (3.5-5.1) 3.9 MMOL/L (3.5-5.1) Chloride Level 110 MMOL/L (98-107) 113 MMOL/L (98-107) Carbon Dioxide Level 22 MMOL/L (21-32) 21 MMOL/L (21-32) Anion Gap 11 mmol/L (5-15) 11 mmol/L (5-15) Blood Urea Nitrogen 6 mg/dL (7-18) 9 mg/dL (7-18) Creatinine 0.6 MG/DL (0.55-1.30) 0.4 MG/DL (0.55-1.30) Estimat Glomerular Filtration Rate > 60 mL/min (>60) > 60 mL/min (>60) Glucose Level 93 MG/DL (74-106) 118 MG/DL (74-106) Calcium Level 8.8 MG/DL (8.5-10.1) 8.4 MG/DL (8.5-10.1) Magnesium Level 1.8 MG/DL (1.8-2.4) Height (Feet): 5 Height (Inches): 3.00 Weight (Pounds): 132 Objective Physical Exam General Appearance: no apparent distress, GCS 15 Head: normocephalic, atraumatic, other - Helmet Respiratory: chest non-tender, lungs clear, normal breath sounds ++ trach Cardiovascular: no edema, tachycardia Gastrointestinal: normal bowel sounds, non tender, soft, + peg tube site Musculoskeletal: back normal, normal range of motion, non-tender Neurologic: alert, motor strength/tone normal, sensory intact, responsive Psychiatric: mood/affect normal Skin: other - See RN skin exam Vlad Jaimes MD Sep 02, 2019 06:40
--- NOTE | 2019-09-02 07:16 | NUR ---
HAND-OFF: Report given to JOANN Salcido. Endorsed about fall risk status to oncoming shift. Fall precaution is in place. Sign at the door, bed alarm is on, bed in low and locked position.
--- NOTE | 2019-09-02 07:35 | NUR ---
NURSE NOTES: Received patient in bed awake. No SOB or acute distress. IV line intact and patent. Bilateral wrist restraints in place, pulses palpable, no skin issues noted on site, skin warm to touch. NGT intact, feeding ongoing. Purewick in place, suction on. HOB elevated. Bed locked in lowest position, alarm on high sensitivity setting. Side rails up. Will continue frequent rounding and plan of care.
[2019-09-02 08:00] VITALS: BP 108/74
--- NOTE | 2019-09-02 09:59 | General Progress Note ---
Assessment/Plan Problem List: (1) Dysphagia ICD Codes: R13.10 - Dysphagia, unspecified SNOMED: 96051370, 031429903 (2) G tube feedings ICD Codes: Z93.1 - Gastrostomy status SNOMED: 490893905, 966988134, 045636771 (3) Respiratory failure ICD Codes: J96.90 - Respiratory failure, unspecified, unspecified whether with hypoxia or hypercapnia SNOMED: 557759662 (4) Uncontrolled seizures ICD Codes: R56.9 - Unspecified convulsions SNOMED: 64708406 Status: unchanged Assessment/Plan: Assessment/Plan Problem List: (1) Dysphagia ICD Codes: R13.10 - Dysphagia, unspecified SNOMED: 43760888, 728155718 (2) G tube feedings ICD Codes: Z93.1 - Gastrostomy status SNOMED: 800671689, 978398609, 105915631 (3) Respiratory failure ICD Codes: J96.90 - Respiratory failure, unspecified, unspecified whether with hypoxia or hypercapnia SNOMED: 770240646 (4) Uncontrolled seizures ICD Codes: R56.9 - Unspecified convulsions SNOMED: 68851612 Status: unchanged Assessment/Plan: (1) G tube feedings ICD Codes: Z93.1 - Gastrostomy status SNOMED: 962165136, 800234229, 982269753 (2) Dysphagia ICD Codes: R13.10 - Dysphagia, unspecified SNOMED: 31630493, 464434039 (3) Dilantin level too low ICD Codes: R78.89 - Finding of other specified substances, not normally found in blood SNOMED: 137608570 (4) Seizure secondary to subtherapeutic anticonvulsant medication Assessment/Plan History of GT placement, s/p removal PEG cancelled due to hypoxemia and PNA will reschedule for tomorrow failed swallow eval f/u pulmonary recs fu neurology repeat labs DVT prophylaxis Subjective ROS Limited/Unobtainable: No Allergies: Coded Allergies: No Known Allergies (Unverified , 02/02/17) Objective Last 24 Hour Vital Signs Date Time Temp Pulse Resp B/P (MAP) Pulse Ox O2 Delivery O2 Flow Rate FiO2 09/02/19 08:05 83 18 98 Nasal Cannula 2.0 28 09/02/19 08:05 98 Nasal Cannula 2.0 28 09/02/19 08:00 98.9 95 16 108/74 (85) 96 09/02/19 04:00 98.6 79 20 141/76 (97) 100 09/02/19 00:00 98.1 95 20 139/91 (107) 98 09/01/19 21:00 Room Air 09/01/19 20:38 95 18 97 Nasal Cannula 2.0 28 09/01/19 20:38 97 Nasal Cannula 2.0 28 09/01/19 20:01 98.9 95 17 108/74 (85) 97 09/01/19 16:00 97.8 85 20 103/69 (80) 97 09/01/19 16:00 Room Air 09/01/19 12:01 2.0 09/01/19 12:00 80 09/01/19 12:00 97.7 83 16 101/67 (78) 100 09/01/19 12:00 Room Air Intake and Output 09/01/19 09/02/19 19:00 07:00 Intake Total 482.5 ml 1640.0 ml Balance 482.5 ml 1640.0 ml Intake Free Water 50 ml 180 ml IV Total 232.5 ml 910.0 ml Tube Feeding 200 ml 550 ml # Voids 1 # Bowel Movements 1 Height (Feet): 5 Height (Inches): 3.00 Weight (Pounds): 132 General Appearance: lethargic EENT: normal ENT inspection Neck: supple Cardiovascular: normal rate Respiratory/Chest: decreased breath sounds Abdomen: normal bowel sounds, non tender, soft Extremities: non-tender Emanuel Trujillo MD Sep 02, 2019 09:58
[2019-09-02] MEDS: Valproic Acid 250mg/5ml Liquid NG SCH ×3 (10:29→17:33)
[2019-09-02] MEDS: levETIRAcetam 500mg/5ml Liquid NG SCH ×2 (10:29→21:46)
[2019-09-02] MEDS: OXcarbazepine 150mg tab NG SCH ×2 (10:30→21:45)
[2019-09-02] MEDS: Lacosamide 50mg tablet ORAL SCH ×2 (10:30→21:45)
[2019-09-02] MEDS: Topiramate 100mg tab NG SCH ×2 (10:30→21:45)
[2019-09-02] MEDS: Heparin 5000 units/ml inj SUBQ SCH ×2 (10:31→21:38)
[2019-09-02] MEDS: D5NS 1,000 ML IV SCH ×2 (10:42→17:41)
--- NOTE | 2019-09-02 11:19 | Infectious Diseases Prog Note ---
Assessment/Plan Assessment/Plan Assessment: Sepsis vs SIRS Aspiration PNA Probable UTI -09/01 CXR: No acute process -08/31 Influenza sc neg -08/30 Bcx NTD -08/28 sp cx normal resp mayela CXR: Developing right basilar patchy atelectasis or infiltrate. -08/26 u/a wbc 60-80, nit neg, leuk +3; ucx >100k P. mirabilis (isabel S) -08/21 Bcx neg x4 Intermittent low grade fevers; SP Leukocytosis, SP Intractable seizures Dm2 HTN COPD psychiatric disease CKD traumatic brain injury s/p craniotomy 3 yrs ago hx of dysphagia s/p PEG; sp removal PEG seizure disorder hx of chronic resp failure s/p trach/vent- now decanulated Plan: -Continue empiric Zosyn #5/5 for aspiration pneumonia and UTI -08/29 SP Flagyl #2 -f/u cx -Monitor CBC/CMP, temperatures -f/u sp cx -aspiration precautions -GI, pulm f/u discussed with RN Thank you for this consultation. Will continue to follow along with you. Subjective Allergies: Coded Allergies: No Known Allergies (Unverified , 02/02/17) Subjective afebrile >72hrs no leukocytosis Objective Vital Signs Last 24 Hour Vital Signs Date Time Temp Pulse Resp B/P (MAP) Pulse Ox O2 Delivery O2 Flow Rate FiO2 09/02/19 08:05 83 18 98 Nasal Cannula 2.0 28 09/02/19 08:05 98 Nasal Cannula 2.0 28 09/02/19 08:00 98.9 95 16 108/74 (85) 96 09/02/19 04:00 98.6 79 20 141/76 (97) 100 09/02/19 00:00 98.1 95 20 139/91 (107) 98 09/01/19 21:00 Room Air 09/01/19 20:38 95 18 97 Nasal Cannula 2.0 28 09/01/19 20:38 97 Nasal Cannula 2.0 28 09/01/19 20:01 98.9 95 17 108/74 (85) 97 09/01/19 16:00 97.8 85 20 103/69 (80) 97 09/01/19 16:00 Room Air 09/01/19 12:01 2.0 09/01/19 12:00 80 09/01/19 12:00 97.7 83 16 101/67 (78) 100 09/01/19 12:00 Room Air Height (Feet): 5 Height (Inches): 3.00 Weight (Pounds): 132 Objective General Appearance: no apparent distress Head: normocephalic, atraumatic, other - Helmet Respiratory: chest non-tender, lungs clear, normal breath sounds ++ trach Cardiovascular: no edema, no murmurs Gastrointestinal: normal bowel sounds, non tender, soft, + peg tube site Microbiology Date/Time Source Procedure Growth Status 08/31/19 23:00 Nasal Nares - Final Complete 08/31/19 23:00 Nasal Nares - Final Complete Current Medications Medications (Trade) Dose Ordered Sig/Laurita Route PRN Reason Start Time Stop Time Status Last Admin Dose Admin Acetaminophen (Tylenol) 650 mg Q4H PRN NG Mild Pain/Temp > 100.5 09/01/19 13:00 09/21/19 20:59 Albuterol/ Ipratropium (Albuterol/ Ipratropium) 3 ml Q4H PRN HHN Shortness of Breath 09/01/19 12:36 09/06/19 12:35 Dextrose/Sodium Chloride 1,000 ml @ 100 mls/hr Q10H IV 09/01/19 12:30 09/23/19 11:59 09/02/19 10:42 Heparin Sodium (Porcine) (Heparin 5000 units/ml) 5,000 units EVERY 12 HOURS SUBQ 09/01/19 21:00 09/27/19 20:59 09/02/19 10:31 Lacosamide (Vimpat) 100 mg Q12HR ORAL 09/01/19 21:00 09/22/19 08:59 09/02/19 10:30 Lansoprazole (Prevacid) 30 mg Q12HR NG 09/01/19 21:00 09/21/19 22:59 09/02/19 10:29 Levetiracetam (Keppra) 1,500 mg Q12HR NG 09/01/19 21:00 10/01/19 08:59 09/02/19 10:29 Oxcarbazepine (Trileptal) 600 mg EVERY 12 HOURS NG 09/01/19 21:00 09/26/19 08:59 09/02/19 10:30 Piperacillin Sod/ Tazobactam Sod 3.375 gm/Sodium Chloride 110 ml @ 27.5 mls/hr Q8H IVPB 09/01/19 16:00 09/04/19 07:59 09/01/19 23:09 Quetiapine Fumarate (SEROqueL) 25 mg Q12HR NG 09/01/19 21:00 09/22/19 13:59 09/02/19 10:29 Topiramate (Topamax) 200 mg EVERY 12 HOURS NG 09/01/19 21:00 09/21/19 21:59 09/02/19 10:30 Valproic Acid (Depakene) 500 mg THREE TIMES A DAY NG 09/01/19 13:00 09/21/19 08:59 09/02/19 10:29 Stephania Pastrana M.D. Sep 02, 2019 11:19
[2019-09-02 12:00] VITALS: BP 99/64
--- NOTE | 2019-09-02 13:28 | Pulmonology Progress Note ---
Assessment/Plan Problems: (1) Nosocomial pneumonia (2) At high risk for aspiration (3) Uncontrolled seizures (4) Organic brain syndrome (chronic) (5) History of craniotomy Assessment/Plan for PEG tomorrow wbc lower, afebrile check sputum iv abx f/u wbc aspiration precaution Subjective ROS Limited/Unobtainable: No Constitutional: Reports: no symptoms HEENT: Repors: no symptoms Respiratory: Reports: no symptoms Allergies: Coded Allergies: No Known Allergies (Unverified , 02/02/17) Objective Last 24 Hour Vital Signs Date Time Temp Pulse Resp B/P (MAP) Pulse Ox O2 Delivery O2 Flow Rate FiO2 09/02/19 12:00 98.0 85 18 99/64 (76) 100 09/02/19 09:00 Room Air 09/02/19 08:05 83 18 98 Nasal Cannula 2.0 28 09/02/19 08:05 98 Nasal Cannula 2.0 28 09/02/19 08:00 98.9 95 16 108/74 (85) 96 09/02/19 04:00 98.6 79 20 141/76 (97) 100 09/02/19 00:00 98.1 95 20 139/91 (107) 98 09/01/19 21:00 Room Air 09/01/19 20:38 95 18 97 Nasal Cannula 2.0 28 09/01/19 20:38 97 Nasal Cannula 2.0 28 09/01/19 20:01 98.9 95 17 108/74 (85) 97 09/01/19 16:00 97.8 85 20 103/69 (80) 97 09/01/19 16:00 Room Air Intake and Output 09/01/19 09/02/19 19:00 07:00 Intake Total 482.5 ml 1640.0 ml Balance 482.5 ml 1640.0 ml Intake Free Water 50 ml 180 ml IV Total 232.5 ml 910.0 ml Tube Feeding 200 ml 550 ml # Voids 1 # Bowel Movements 1 General Appearance: WD/WN HEENT: atraumatic, PERRL Respiratory/Chest: lungs clear Cardiovascular: regular rhythm Abdomen: normal bowel sounds, soft, non tender Extremities: no cyanosis Skin: no rash Neurologic/Psychiatric: passenger conductor II-XII grossly normal Microbiology Date/Time Source Procedure Growth Status 08/31/19 23:00 Nasal Nares - Final Complete 08/31/19 23:00 Nasal Nares - Final Complete Current Medications Medications (Trade) Dose Ordered Sig/Laurita Route PRN Reason Start Time Stop Time Status Last Admin Dose Admin Acetaminophen (Tylenol) 650 mg Q4H PRN NG Mild Pain/Temp > 100.5 09/01/19 13:00 09/21/19 20:59 Albuterol/ Ipratropium (Albuterol/ Ipratropium) 3 ml Q4H PRN HHN Shortness of Breath 09/01/19 12:36 09/06/19 12:35 Dextrose/Sodium Chloride 1,000 ml @ 100 mls/hr Q10H IV 09/01/19 12:30 09/23/19 11:59 09/02/19 10:42 Heparin Sodium (Porcine) (Heparin 5000 units/ml) 5,000 units EVERY 12 HOURS SUBQ 09/01/19 21:00 09/27/19 20:59 09/02/19 10:31 Lacosamide (Vimpat) 100 mg Q12HR ORAL 09/01/19 21:00 09/22/19 08:59 09/02/19 10:30 Lansoprazole (Prevacid) 30 mg Q12HR NG 09/01/19 21:00 09/21/19 22:59 09/02/19 10:29 Levetiracetam (Keppra) 1,500 mg Q12HR NG 09/01/19 21:00 10/01/19 08:59 09/02/19 10:29 Oxcarbazepine (Trileptal) 600 mg EVERY 12 HOURS NG 09/01/19 21:00 09/26/19 08:59 09/02/19 10:30 Piperacillin Sod/ Tazobactam Sod 3.375 gm/Sodium Chloride 110 ml @ 27.5 mls/hr Q8H IVPB 09/01/19 16:00 09/04/19 07:59 09/01/19 23:09 Quetiapine Fumarate (SEROqueL) 25 mg Q12HR NG 09/01/19 21:00 09/22/19 13:59 09/02/19 10:29 Topiramate (Topamax) 200 mg EVERY 12 HOURS NG 09/01/19 21:00 09/21/19 21:59 09/02/19 10:30 Valproic Acid (Depakene) 500 mg THREE TIMES A DAY NG 09/01/19 13:00 09/21/19 08:59 09/02/19 13:01 Juancarlos Thurman MD Sep 02, 2019 13:28
--- NOTE | 2019-09-02 13:44 | NUR ---
CASE MANAGEMENT:REVIEW SI;ASPIRATION PNA. SEIZURES. 98.9 95 20 99/64 96% 2L NC NO LABS AVAILABLE IS;ZOSYN IV Q8 HRS DEPAKENE NGT TID D5NS IV @ 100 ML/HR DUO NEB HHN Q4HRS PRN SEROQUEL NGT Q12 HRS KEPPRA NGT Q12 HRS VIMPAT NGT Q12 HRS MED SURG STATUS PLAN;PEG PLACEMENT DCP;FROM [facility]
[2019-09-02] MEDS: Piperacillin/Tazobactam 3.375 GM in NS 110 ML IVPB SCH ×2 (15:53→23:15)
[2019-09-02 16:00] VITALS: BP 103/63
--- NOTE | 2019-09-02 19:39 | NUR ---
NURSE NOTES: Received is awake,confused and nonverbal. No acute distress noted at this time. On bilateral soft wrist restrains for safety, restraint site is asymptomatic. Pulses present and palpable.NGT in place, Flushed, no residual noted, tolerate feeding well. Bed in low and locked position, Bed alarm is on. Call light within reach, HOB elevated at all times. Fall precaution, seizure precaution and aspiration precautions are in place. Side rails padded. Will continue to monitor the pt.
--- NOTE | 2019-09-02 19:49 | NUR ---
HAND-OFF: Report given to luz. Addendum: 09/02/19 at 2004 by Loly Valencia RN Endorsed high fall risk status to oncoming shift, with side rails up, Bed locked in lowest position, alarm on high sensitivity setting. Frequent rounding continues for patient safety.
[2019-09-02 20:00] VITALS: BP 99/59
--- NOTE | 2019-09-02 20:30 | Progress Note ---
DATE: 09/02/2019 SUBJECTIVE: The patient is awake, alert, afebrile, and hemodynamically stable. She answered appropriately yes or no but does not engage in sentence. PHYSICAL EXAMINATION: VITAL SIGNS: Blood pressure 103/63, pulse 91, respirations 18, temperature 97.3. HEENT: Eyes were normal. ENT, mucous membranes were moist and intact. NECK: Supple with no JVD without lymph nodes. LUNGS: Clear. HEART: Normal sounds with regular beats. ABDOMEN: Soft and nontender with normal bowel sounds. EXTREMITIES: Warm without cyanosis, clubbing, or edema. LABORATORY AND DIAGNOSTIC DATA: Hemoglobin is 12.7, hematocrit 36.1 with MCV of 94, WBC of 6.5, and platelets are 243. Her BUN and creatinine is 9 and 0.4 respectively. Her sodium is 145, potassium 3.9, chloride 114, CO2 21. Latest chest x-ray from yesterday showed no active disease. IMPRESSION: The patient failed series of swallow evaluation and decision to resume the patient's gastric tube feeding was achieved. Today we will receive consent from family member to perform the procedure. The procedure was scheduled for the morning. CBC and BMP will be done in the morning as well. Kennedy Shepherd M.D. DR: Agustin JOB#: [id number] CC:
[2019-09-03] VITALS (10 sets, daily range): BP systolic 97–142; BP diastolic 40–79
[2019-09-03] MEDS: D5NS 1,000 ML IV SCH ×3 (04:10→23:26)
[2019-09-03 07:24] LABS: BASOPHILS % (AUTO) 0.8 % (0.0-2.0); EOSINOPHILS % (AUTO) 5.8 % (0.0-3.0); HEMATOCRIT 39.1 % (37.0-47.0); HEMOGLOBIN 13.8 G/DL (12.0-16.0); LYMPHOCYTES % (AUTO) 28.1 % (20.0-45.0); MEAN CORPUSCULAR VOLUME 94 FL (80-99); MONOCYTES % (AUTO) 10.5 % (1.0-10.0); NEUTROPHILS % (AUTO) 54.8 % (45.0-75.0); PLATELET COUNT 326 K/UL (150-450); RED BLOOD COUNT 4.15 M/UL (4.20-5.40); RED CELL DISTRIBUTION WIDTH 12.1 % (11.6-14.8); WHITE BLOOD COUNT 6.2 K/UL (4.8-10.8)
[2019-09-03 07:27] LABS: ANION GAP 14 mmol/L (5-15); BLOOD UREA NITROGEN 9 mg/dL (7-18); CALCIUM 8.8 MG/DL (8.5-10.1); CARBON DIOXIDE 20 MMOL/L (21-32); CHLORIDE 108 MMOL/L (98-107); CREATININE 0.7 MG/DL (0.55-1.30); POTASSIUM 3.7 MMOL/L (3.5-5.1); SODIUM 141 MMOL/L (136-145)
--- NOTE | 2019-09-03 07:31 | NUR ---
HAND-OFF: Report given to JOANN Peña. Endorsed fall risk status to on coming shift. Fall precaution is in place.
[2019-09-03] MEDS: Piperacillin/Tazobactam 3.375 GM in NS 110 ML IVPB SCH (08:23)
[2019-09-03] MEDS: Heparin 5000 units/ml inj SUBQ SCH ×2 (08:28→21:10)
--- NOTE | 2019-09-03 08:28 | NUR ---
NURSE NOTES: Patient eyes open nonverbal, respirations unlabored.02 on at 2L n/C.IV fluids infusing as ordered.Patient has on bilateral soft wrist restraints,will provide ROM and skin care.Patient has purwick with sukhdev color urine noted.N/g tube noted to right nares.Patient NPO for procedure today.Bed alarm is on,nurse aide aware for fall risk.
[2019-09-03] MEDS: Lacosamide 50mg tablet ORAL SCH ×2 (09:00→21:03)
[2019-09-03] MEDS: levETIRAcetam 500mg/5ml Liquid NG SCH (09:00)
[2019-09-03] MEDS: Topiramate 100mg tab NG SCH (09:00)
[2019-09-03] MEDS: OXcarbazepine 150mg tab NG SCH (09:00)
[2019-09-03] MEDS: Valproic Acid 250mg/5ml Liquid NG SCH ×3 (09:00→19:17)
--- NOTE | 2019-09-03 11:20 | Pre-Procedure Note/Attestation ---
Pre-Procedure Note/Attestation Complete Prior to Procedure Planned Procedure: not applicable Procedure Narrative: egd/peg Indications for Procedure Pre-Operative Diagnosis: dysphagia Attestation I attest that I discussed the nature of the procedure; its benefits; risks and complications; and alternatives (and the risks and benefits of such alternatives ), prior to the procedure, with the patient (or the patient's legal union contract representative). I attest that, if there was a reasonable possibility of needing a blood transfusion, the patient (or the patient's legal union contract representative) was given the [facility] standardized written summary, pursuant to the [place] Blood Safety Act ([place] Health and Safety Code # 1645, as amended). I attest that I re-evaluated the patient just prior to the surgery and that there has been no change in the patient's H&P, except as documented below: Emanuel Trujillo MD Sep 03, 2019 11:20
--- NOTE | 2019-09-03 11:35 | Infectious Diseases Prog Note ---
Assessment/Plan Assessment/Plan Assessment: Sepsis vs SIRS Aspiration PNA Probable UTI -09/01 CXR: No acute process -08/31 Influenza sc neg -08/30 Bcx NTD -08/28 sp cx normal resp mayela CXR: Developing right basilar patchy atelectasis or infiltrate. -08/26 u/a wbc 60-80, nit neg, leuk +3; ucx >100k P. mirabilis (isabel S) -08/21 Bcx neg x4 Intermittent low grade fevers; SP Leukocytosis, SP Intractable seizures Dm2 HTN COPD psychiatric disease CKD traumatic brain injury s/p craniotomy 3 yrs ago hx of dysphagia s/p PEG; sp removal PEG seizure disorder hx of chronic resp failure s/p trach/vent- now decanulated Plan: -Dc empiric Zosyn #6/5 and monitor off abx -08/29 SP Flagyl #2 -f/u cx -Monitor CBC/CMP, temperatures -f/u sp cx -aspiration precautions -GI, pulm f/u discussed with RN Thank you for this consultation. Will continue to follow along with you. Subjective Allergies: Coded Allergies: No Known Allergies (Unverified , 02/02/17) Subjective afebrile no leukocytosis Objective Vital Signs Last 24 Hour Vital Signs Date Time Temp Pulse Resp B/P (MAP) Pulse Ox O2 Delivery O2 Flow Rate FiO2 09/03/19 09:00 Room Air 09/03/19 08:00 97.8 85 19 120/62 (81) 97 09/03/19 04:00 98.7 88 18 107/78 (88) 97 09/03/19 00:14 98.9 90 18 111/62 (78) 97 09/02/19 21:00 Room Air 09/02/19 20:16 99 Nasal Cannula 2.0 28 09/02/19 20:16 87 18 99 Nasal Cannula 2.0 28 09/02/19 20:00 97.9 92 18 99/59 (72) 99 09/02/19 16:00 97.3 91 18 103/63 (76) 99 09/02/19 12:00 98.0 85 18 99/64 (76) 100 Height (Feet): 5 Height (Inches): 3.00 Weight (Pounds): 131 Objective General Appearance: no apparent distress Head: normocephalic, atraumatic, other - Helmet Respiratory: chest non-tender, lungs clear, normal breath sounds ++ trach Cardiovascular: no edema, no murmurs Gastrointestinal: normal bowel sounds, non tender, soft, + peg tube site Microbiology Date/Time Source Procedure Growth Status 08/31/19 23:00 Nasal Nares - Final Complete 08/31/19 23:00 Nasal Nares - Final Complete 09/02/19 05:40 Straight Cath Urine Culture - Preliminary Gram Positive Cocci Resulted Laboratory Tests Test 09/03/19 06:03 White Blood Count 6.2 K/UL (4.8-10.8) Red Blood Count 4.15 M/UL (4.20-5.40) L Hemoglobin 13.8 G/DL (12.0-16.0) Hematocrit 39.1 % (37.0-47.0) Mean Corpuscular Volume 94 FL (80-99) Mean Corpuscular Hemoglobin 33.1 PG (27.0-31.0) H Mean Corpuscular Hemoglobin Concent 35.2 G/DL (32.0-36.0) Red Cell Distribution Width 12.1 % (11.6-14.8) Platelet Count 326 K/UL (150-450) Mean Platelet Volume 6.6 FL (6.5-10.1) Neutrophils (%) (Auto) 54.8 % (45.0-75.0) Lymphocytes (%) (Auto) 28.1 % (20.0-45.0) Monocytes (%) (Auto) 10.5 % (1.0-10.0) H Eosinophils (%) (Auto) 5.8 % (0.0-3.0) H Basophils (%) (Auto) 0.8 % (0.0-2.0) Sodium Level 141 MMOL/L (136-145) Potassium Level 3.7 MMOL/L (3.5-5.1) Chloride Level 108 MMOL/L (98-107) H Carbon Dioxide Level 20 MMOL/L (21-32) L Anion Gap 14 mmol/L (5-15) Blood Urea Nitrogen 9 mg/dL (7-18) Creatinine 0.7 MG/DL (0.55-1.30) Estimat Glomerular Filtration Rate > 60 mL/min (>60) Glucose Level 101 MG/DL (74-106) Calcium Level 8.8 MG/DL (8.5-10.1) Current Medications Medications (Trade) Dose Ordered Sig/Laurita Route PRN Reason Start Time Stop Time Status Last Admin Dose Admin Acetaminophen (Tylenol) 650 mg Q4H PRN NG Mild Pain/Temp > 100.5 09/01/19 13:00 09/21/19 20:59 Albuterol/ Ipratropium (Albuterol/ Ipratropium) 3 ml Q4H PRN HHN Shortness of Breath 09/01/19 12:36 09/06/19 12:35 Dextrose/Sodium Chloride 1,000 ml @ 100 mls/hr Q10H IV 09/01/19 12:30 09/23/19 11:59 09/03/19 04:10 Heparin Sodium (Porcine) (Heparin 5000 units/ml) 5,000 units EVERY 12 HOURS SUBQ 09/01/19 21:00 09/27/19 20:59 09/02/19 21:38 Lacosamide (Vimpat) 100 mg Q12HR ORAL 09/01/19 21:00 09/22/19 08:59 09/02/19 21:45 Lansoprazole (Prevacid) 30 mg Q12HR NG 09/01/19 21:00 09/21/19 22:59 09/02/19 21:45 Levetiracetam (Keppra) 1,500 mg Q12HR NG 09/01/19 21:00 10/01/19 08:59 09/02/19 21:46 Oxcarbazepine (Trileptal) 600 mg EVERY 12 HOURS NG 09/01/19 21:00 09/26/19 08:59 09/02/19 21:45 Piperacillin Sod/ Tazobactam Sod 3.375 gm/Sodium Chloride 110 ml @ 27.5 mls/hr Q8H IVPB 09/01/19 16:00 09/04/19 07:59 09/03/19 08:23 Quetiapine Fumarate (SEROqueL) 25 mg Q12HR NG 09/01/19 21:00 09/22/19 13:59 09/02/19 21:45 Topiramate (Topamax) 200 mg EVERY 12 HOURS NG 09/01/19 21:00 09/21/19 21:59 09/02/19 21:45 Valproic Acid (Depakene) 500 mg THREE TIMES A DAY NG 09/01/19 13:00 09/21/19 08:59 09/02/19 17:33 Stephania Pastrana M.D. Sep 03, 2019 11:35
--- NOTE | 2019-09-03 11:45 | Endoscopy Procedure Note ---
Endoscopy Procedure Note General Indication for Procedure: dysphagia Procedures Performed: EGD, PEG Operative Findings/Diagnosis: same Specimen: none Pt Tolerated Procedure Well: Yes Estimated Blood Loss: none Anesthesia Anesthesiologist: onel Anesthesia: MAC Inserted Devices Implant(s) used?: No GI Core Measures 50 yrs or older w/o bx or poly: Not Applicable 10yrs. F/U recommended: Not Applicable Emanuel Trujillo MD Sep 03, 2019 11:45
[2019-09-03] MEDS ORDERED: NS 500ML IVPB ONE (11:50)
[2019-09-03] MEDS ORDERED: Propofol 200mg/20ml IV ONE (12:00)
--- NOTE | 2019-09-03 12:19 | Anethesia Preoperative Eval ---
Anesthesia Pre-op PMH/ROS General Date of Evaluation: Sep 03, 2019 Time of Evaluation: 11:40 Anesthesiologist: Laureen ASA Score: ASA 4 Mallampati Score Class I : Soft palate, uvula, fauces, pillars visible Class II: Soft palate, uvula, fauces visible Class III: Soft palate, base of uvula visible Class IV: Only hard plate visible Mallampati Classification: Class III Surgeon: Ronnie Allergies: Coded Allergies: No Known Allergies (Unverified , 02/02/17) Patient NPO?: Yes Anesthesia Pre-op Phys. Exam Physician Exam Last Vital Signs Date Time Temp Pulse Resp B/P (MAP) Pulse Ox O2 Delivery O2 Flow Rate FiO2 09/03/19 09:00 Room Air 09/03/19 08:00 97.8 85 19 120/62 (81) 97 09/02/19 20:16 2.0 28 Constitutional: NAD Neurologic: other - unable to obtaine Cardiovascular: RRR Respiratory: CTA Gastrointestinal: S/NT/ND Airway Exam Mallampati Score: Class III MO: limited Neck: stiff ROM: limited Teeth: missing Dentures: no upper, no lower Anesthesia Pre-op A/P Labs Hematology Test 09/03/19 06:03 White Blood Count 6.2 K/UL (4.8-10.8) Red Blood Count 4.15 M/UL (4.20-5.40) L Hemoglobin 13.8 G/DL (12.0-16.0) Hematocrit 39.1 % (37.0-47.0) Mean Corpuscular Volume 94 FL (80-99) Mean Corpuscular Hemoglobin 33.1 PG (27.0-31.0) H Mean Corpuscular Hemoglobin Concent 35.2 G/DL (32.0-36.0) Red Cell Distribution Width 12.1 % (11.6-14.8) Platelet Count 326 K/UL (150-450) Mean Platelet Volume 6.6 FL (6.5-10.1) Neutrophils (%) (Auto) 54.8 % (45.0-75.0) Lymphocytes (%) (Auto) 28.1 % (20.0-45.0) Monocytes (%) (Auto) 10.5 % (1.0-10.0) H Eosinophils (%) (Auto) 5.8 % (0.0-3.0) H Basophils (%) (Auto) 0.8 % (0.0-2.0) Chemistry Test 09/03/19 06:03 Sodium Level 141 MMOL/L (136-145) Potassium Level 3.7 MMOL/L (3.5-5.1) Chloride Level 108 MMOL/L (98-107) H Carbon Dioxide Level 20 MMOL/L (21-32) L Anion Gap 14 mmol/L (5-15) Blood Urea Nitrogen 9 mg/dL (7-18) Creatinine 0.7 MG/DL (0.55-1.30) Estimat Glomerular Filtration Rate > 60 mL/min (>60) Glucose Level 101 MG/DL (74-106) Calcium Level 8.8 MG/DL (8.5-10.1) Risk Assessment & Plan Assessment: ASA 4 Plan: MAC Status Change Before Surgery: Juaquin Hendrix MD Sep 03, 2019 12:19
--- NOTE | 2019-09-03 12:49 | Anethesia Preoperative Eval ---
Anesthesia Pre-op PMH/ROS General Date of Evaluation: Sep 03, 2019 Time of Evaluation: 11:10 Anesthesiologist: Laureen ASA Score: ASA 4 Mallampati Score Class I : Soft palate, uvula, fauces, pillars visible Class II: Soft palate, uvula, fauces visible Class III: Soft palate, base of uvula visible Class IV: Only hard plate visible Mallampati Classification: Class III Surgeon: Ronnie Diagnosis: Dysphagia Surgical Procedure: EGD PEG placement Anesthesia History: none Family History: no anesthesia problems Allergies: Coded Allergies: No Known Allergies (Unverified , 02/02/17) Medications: see eMAR Patient NPO?: Yes Past Medical History Cardiovascular: Denies: HTN, CAD, [place], valve dz, arrhythmia, other Pulmonary: Denies: asthma, COPD, TESSA, other Gastrointestinal/Genitourinary: Reports: GERD, other - dysphagia; Denies: CRI, ESRD Neurologic/Psychiatric: Reports: dementia, other - posttraumatic brain injury seizers; Denies: CVA, depression/anxiety, TIA Endocrine: Reports: hypothyroidism; Denies: DM, steroids, other HEENT: Denies: cataract (L), cataract (R), glaucoma, [place] (L), [place] (R), other Hematology/Immune: Denies: anemia, DVT, bleeding disorder, other Musculoskeletal/Integumentary: Denies: OA, RA, DJD, DDD, edema, other PMH Narrative: as above PSxH Narrative: Craniotomy, PEG Trach Anesthesia Pre-op Phys. Exam Physician Exam Last Vital Signs Date Time Temp Pulse Resp B/P (MAP) Pulse Ox O2 Delivery O2 Flow Rate FiO2 09/03/19 12:35 98.0 88 17 97/60 98 Room Air 09/03/19 12:20 3 09/02/19 20:16 28 Constitutional: NAD Neurologic: other - unable to obtaine Cardiovascular: RRR, no M/R/G Respiratory: CTA Gastrointestinal: S/NT/ND Airway Exam Mallampati Score: Class III MO: limited Neck: stiff ROM: limited Teeth: missing Dentures: no upper, no lower Anesthesia Pre-op A/P Labs Hematology Test 09/03/19 06:03 White Blood Count 6.2 K/UL (4.8-10.8) Red Blood Count 4.15 M/UL (4.20-5.40) L Hemoglobin 13.8 G/DL (12.0-16.0) Hematocrit 39.1 % (37.0-47.0) Mean Corpuscular Volume 94 FL (80-99) Mean Corpuscular Hemoglobin 33.1 PG (27.0-31.0) H Mean Corpuscular Hemoglobin Concent 35.2 G/DL (32.0-36.0) Red Cell Distribution Width 12.1 % (11.6-14.8) Platelet Count 326 K/UL (150-450) Mean Platelet Volume 6.6 FL (6.5-10.1) Neutrophils (%) (Auto) 54.8 % (45.0-75.0) Lymphocytes (%) (Auto) 28.1 % (20.0-45.0) Monocytes (%) (Auto) 10.5 % (1.0-10.0) H Eosinophils (%) (Auto) 5.8 % (0.0-3.0) H Basophils (%) (Auto) 0.8 % (0.0-2.0) Chemistry Test 09/03/19 06:03 Sodium Level 141 MMOL/L (136-145) Potassium Level 3.7 MMOL/L (3.5-5.1) Chloride Level 108 MMOL/L (98-107) H Carbon Dioxide Level 20 MMOL/L (21-32) L Anion Gap 14 mmol/L (5-15) Blood Urea Nitrogen 9 mg/dL (7-18) Creatinine 0.7 MG/DL (0.55-1.30) Estimat Glomerular Filtration Rate > 60 mL/min (>60) Glucose Level 101 MG/DL (74-106) Calcium Level 8.8 MG/DL (8.5-10.1) Risk Assessment & Plan Assessment: ASA 4 Plan: MAC Pre-Antibiotics Drug: Ancef 1gr Given Within 1 Hr of Incision: Yes Time Given: 12:10 Juaquin Garduno MD Sep 03, 2019 12:49
--- NOTE | 2019-09-03 12:51 | Immediate Post-Op Evaluation ---
Immediate Post-Op Evalulation Immediate Post-Op Evalulation Procedure: EGD PEG tube placement Date of Evaluation: Sep 03, 2019 Time of Evaluation: 12:50 IV Fluids: 300 Blood Products: none Estimated Blood Loss: none Urinary Output: none Blood Pressure Systolic: 116 Blood Pressure Diastolic: 72 Pulse Rate: 68 Respiratory Rate: 20 O2 Sat by Pulse Oximetry: 99 Temperature (Fahrenheit): 97.6 Pain Score (1-10): 1 Nausea: No Vomiting: No Complications none Patient Status: reacts, patent, none Hydration Status: adequate Juaquin Garduno MD Sep 03, 2019 12:51
--- NOTE | 2019-09-03 12:52 | 48 Hour Post Anesthesia Eval ---
Post Anesthesia Evaluation Procedure: EGD PEG tube placement Date of Evaluation: Sep 03, 2019 Time of Evaluation: 12:51 Blood Pressure Systolic: 121 0: 74 Pulse Rate: 68 Respiratory Rate: 20 Temperature (Fahrenheit): 97.6 O2 Sat by Pulse Oximetry: 98 Airway: patent Nausea: No Vomiting: No Pain Intensity: 2 Hydration Status: adequate Cardiopulmonary Status: stable Mental Status/LOC: patient returned to baseline Follow-up Care/Observations: n/a Post-Anesthesia Complications: none Follow-up care needed: N/A Juaquin Garduno MD Sep 03, 2019 12:52
--- NOTE | 2019-09-03 13:06 | Pulmonology Progress Note ---
Assessment/Plan Problems: (1) Nosocomial pneumonia (2) At high risk for aspiration (3) Uncontrolled seizures (4) Organic brain syndrome (chronic) (5) History of craniotomy Assessment/Plan more awake, PEG done wbc lower, afebrile check sputum iv abx f/u wbc aspiration precaution Subjective ROS Limited/Unobtainable: No Constitutional: Reports: no symptoms HEENT: Repors: no symptoms Allergies: Coded Allergies: No Known Allergies (Unverified , 02/02/17) Objective Last 24 Hour Vital Signs Date Time Temp Pulse Resp B/P (MAP) Pulse Ox O2 Delivery O2 Flow Rate FiO2 09/03/19 12:52 68 20 98 09/03/19 12:51 68 20 99 09/03/19 12:50 83 16 102/68 98 Room Air 09/03/19 12:35 98.0 88 17 97/60 98 Room Air 09/03/19 12:20 79 13 118/79 99 Nasal Cannula 3 09/03/19 12:15 80 14 116/64 99 Nasal Cannula 3 09/03/19 12:09 98.3 91 15 142/40 100 Nasal Cannula 3 09/03/19 09:00 Room Air 09/03/19 08:00 97.8 85 19 120/62 (81) 97 09/03/19 04:00 98.7 88 18 107/78 (88) 97 09/03/19 00:14 98.9 90 18 111/62 (78) 97 09/02/19 21:00 Room Air 09/02/19 20:16 99 Nasal Cannula 2.0 28 09/02/19 20:16 87 18 99 Nasal Cannula 2.0 28 09/02/19 20:00 97.9 92 18 99/59 (72) 99 09/02/19 16:00 97.3 91 18 103/63 (76) 99 Intake and Output 09/02/19 09/03/19 19:00 07:00 Intake Total 782.5 ml 1275.0 ml Output Total 750 ml 650 ml Balance 32.5 ml 625.0 ml Intake Free Water 120 ml IV Total 782.5 ml 955.0 ml Tube Feeding 200 ml Output Urine Total 750 ml 650 ml # Voids 1 # Bowel Movements 1 2 General Appearance: WD/WN HEENT: normocephalic, atraumatic Respiratory/Chest: chest wall non-tender, lungs clear Cardiovascular: normal peripheral pulses, regular rhythm Abdomen: normal bowel sounds, soft, non tender Genitourinary: normal external genitalia Extremities: no clubbing Skin: no rash Microbiology Date/Time Source Procedure Growth Status 08/31/19 23:00 Nasal Nares - Final Complete 08/31/19 23:00 Nasal Nares - Final Complete 09/02/19 05:40 Straight Cath Urine Culture - Preliminary Gram Positive Cocci Resulted Laboratory Tests 09/03/19 06:03: White Blood Count 6.2, Red Blood Count 4.15L, Hemoglobin 13.8, Hematocrit 39.1, Mean Corpuscular Volume 94, Mean Corpuscular Hemoglobin 33.1H, Mean Corpuscular Hemoglobin Concent 35.2, Red Cell Distribution Width 12.1, Platelet Count 326, Mean Platelet Volume 6.6, Neutrophils (%) (Auto) 54.8, Lymphocytes (%) (Auto) 28.1, Monocytes (%) (Auto) 10.5H, Eosinophils (%) (Auto) 5.8H, Basophils (%) ( Auto) 0.8, Sodium Level 141, Potassium Level 3.7, Chloride Level 108H, Carbon Dioxide Level 20L, Anion Gap 14, Blood Urea Nitrogen 9, Creatinine 0.7, Estimat Glomerular Filtration Rate > 60, Glucose Level 101, Calcium Level 8.8 Current Medications Medications (Trade) Dose Ordered Sig/Laurita Route PRN Reason Start Time Stop Time Status Last Admin Dose Admin Acetaminophen (Tylenol) 650 mg Q4H PRN NG Mild Pain/Temp > 100.5 09/01/19 13:00 09/21/19 20:59 Albuterol/ Ipratropium (Albuterol/ Ipratropium) 3 ml Q4H PRN HHN Shortness of Breath 09/01/19 12:36 09/06/19 12:35 Dextrose/Sodium Chloride 1,000 ml @ 100 mls/hr Q10H IV 09/01/19 12:30 09/23/19 11:59 09/03/19 04:10 Heparin Sodium (Porcine) (Heparin 5000 units/ml) 5,000 units EVERY 12 HOURS SUBQ 09/01/19 21:00 09/27/19 20:59 09/02/19 21:38 Lacosamide (Vimpat) 100 mg Q12HR ORAL 09/01/19 21:00 09/22/19 08:59 09/02/19 21:45 Lansoprazole (Prevacid) 30 mg Q12HR NG 09/01/19 21:00 09/21/19 22:59 09/02/19 21:45 Levetiracetam (Keppra) 1,500 mg Q12HR NG 09/01/19 21:00 10/01/19 08:59 09/02/19 21:46 Oxcarbazepine (Trileptal) 600 mg EVERY 12 HOURS NG 09/01/19 21:00 09/26/19 08:59 09/02/19 21:45 Quetiapine Fumarate (SEROqueL) 25 mg Q12HR NG 09/01/19 21:00 09/22/19 13:59 09/02/19 21:45 Topiramate (Topamax) 200 mg EVERY 12 HOURS NG 09/01/19 21:00 09/21/19 21:59 09/02/19 21:45 Valproic Acid (Depakene) 500 mg THREE TIMES A DAY NG 09/01/19 13:00 09/21/19 08:59 09/02/19 17:33 Juancarlos Thurman MD Sep 03, 2019 13:05
[2019-09-03] MEDS ORDERED: fentaNYL 100 mcg/2 mL IV ONE (13:52)
[2019-09-03] MEDS ORDERED: D5NS 1000ml IV ONE (14:22)
--- NOTE | 2019-09-03 14:58 | NUR ---
INSURANCE REVIEW FAXED TO # [phone] FAX# [phone] REVIEWS/CLINICALS
--- NOTE | 2019-09-03 15:35 | NUR ---
CASE MANAGEMENT:AREVIEW SI;S/P PEG PLACEMENT TODAY 98.3 88 13 97/60 99% 3L NC IS;IVF D5NS BOLUS IVF D5NS @ 100 ML/HR MED SURG STATUS DCP;[facility]
--- NOTE | 2019-09-03 18:30 | Procedure Note ---
DATE OF PROCEDURE: 09/03/2019 SURGEON: Emanuel Trujillo M.D. PROCEDURE: Upper endoscopy with PEG placement. ANESTHESIA: Per Dr. Garduno. INSTRUMENT: Olympus adult flexible upper endoscope. INDICATIONS: Dysphagia. REASON FOR PROCEDURE: The procedure, risks, benefits, and possible consequences, including hemorrhage, aspiration, perforation and infection, and alternative treatments, were explained to the patient/legal guardian by Dr. Emanuel Trujillo and the patient/legal guardian understood and accepted these risks. PROCEDURE IN DETAIL: After informed consent was obtained and the patient was adequately sedated, Olympus upper endoscope was advanced from mouth into the second portion of the duodenum and retroflexion was performed in the stomach. The patient had evidence of diffuse gastritis. Then under endoscopic guidance under sterile condition, a 20-Uzbek pull type of G-tube was successfully placed in the epigastric area. The distance from the tip of the tube to skin was about 2 cm in size. The patient tolerated procedure very well without any complications. SUMMARY OF FINDINGS: Status post successful PEG placement. RECOMMENDATIONS: 1. Abdominal binder. 2. Elevate the head of the bed at all times. 3. G-tube flush. 4. G-tube care. 5. Start tube feeding later today. 6. The patient currently on antibiotics, we will continue. I want to thank, Dr. Kennedy Shepherd, for this kind referral. Emanuel Trujillo M.D. DR: Alannah JOB#: [id number] CC: Kennedy Shepherd M.D.; Fax#: [phone]
--- NOTE | 2019-09-03 19:00 | NUR ---
NURSE NOTES: G-tube feedings restarted,as ordered,G-tube site dressing changed..Abdominal binder in place.HOB elevated.
--- NOTE | 2019-09-03 19:51 | NUR ---
HAND-OFF: Report given to Zak DAVID.
--- NOTE | 2019-09-03 19:55 | NUR ---
NURSE NOTES: Pt. received from JOANN Peña. Pt. AAOx1, on room air, no indications of pain and no respiratory distress. Pt. on G-tube feeding, tolerating well; currently 10cc/hr. IV access right foot 22g, asymptomatic, intact, and patent; D5NS at 100cc. Bed is low and locked, head of bed elevated, side rails x2 up and padded, bed alarm active, and call light is in reach. Will continue to monitor.
[2019-09-03] MEDS: levETIRAcetam 500mg/5ml Liquid GT SCH (21:02)
[2019-09-03] MEDS: Topiramate 100mg tab GT SCH (21:03)
[2019-09-03] MEDS: OXcarbazepine 150mg tab GT SCH (21:04)
[2019-09-04] VITALS (7 sets, daily range): BP systolic 92–114; BP diastolic 55–81
--- NOTE | 2019-09-04 01:00 | NUR ---
NURSE NOTES: Advanced pt.'s feeding 10cc, now continuous feeding at 20cc/hr. Pt. tolerating well, no residuals. Aspiration precautions in place, head of bed elevated. Will continue to monitor.
--- NOTE | 2019-09-04 06:15 | NUR ---
NURSE NOTES: Pt. provided pericare, linens changed. Gtube residuals 5cc, head of bed elevated. Will continue to monitor.
--- NOTE | 2019-09-04 07:23 | NUR ---
HAND-OFF: Report given to JOANN Peña.
--- NOTE | 2019-09-04 07:49 | NUR ---
NURSE NOTES: Received call from Jacinta in microbiology. Patient is positive for VRE urine. RN was made aware.
--- NOTE | 2019-09-04 08:00 | NUR ---
NURSE NOTES: Patient alert to name able to answer at times questions.respirations unlabored.IV fluids infusing as ordered.G-tube feedings as ordered.patient tolerating no residual noted at this time.HOB is elvated.Patient has on bilateral soft wrist restraints.Skin care and ROM will be provided. Bed alarm is on
--- NOTE | 2019-09-04 09:30 | Progress Note ---
DATE: 09/03/2019 SUBJECTIVE: The patient is awake . PHYSICAL EXAMINATION: VITAL SIGNS: Blood pressure 118/67, pulse is 96, respirations are 18, temperature 99.2. HEENT: Eyes were normal. ENT, mucous membranes were moist and intact. NECK: Supple with no JVD without lymph nodes. LUNGS: Clear. HEART: Normal sounds with regular beats. There is no tachycardia at rest. ABDOMEN: Soft and nontender with normal bowel sounds. Gastrostomy site is clean. EXTREMITIES: Warm without cyanosis, clubbing, or edema. LABORATORY AND DIAGNOSTIC DATA: Hemoglobin is 13.8, hematocrit 39.9, MCV of 94, WBC of 6.2, and platelets 326,000. Her BUN and creatinine are 9 and 0.7 respectively. Her sodium is 141, potassium 3.7, chloride 108, CO2 is 20. Urine culture grew Gram-positive cocci 30,000 to 40,000 colony-forming unit. IMPRESSION: The patient underwent upper GI endoscopy and percutaneous gastrostomy. Procedure was uneventful. The patient tolerated the procedure well. The patient is now being fed every 4 hours; however, the patient tolerated . She should be discharged back to the extended care facility. Kennedy Shepherd M.D. DR: SATURNINO JOB#: [id number] CC:
[2019-09-04] MEDS: Valproic Acid 250mg/5ml Liquid NG SCH ×3 (09:32→18:56)
[2019-09-04] MEDS: levETIRAcetam 500mg/5ml Liquid GT SCH ×2 (09:33→21:16)
[2019-09-04] MEDS: OXcarbazepine 150mg tab GT SCH ×2 (09:34→21:16)
[2019-09-04] MEDS: Topiramate 100mg tab GT SCH ×2 (09:34→21:01)
[2019-09-04] MEDS: Lacosamide 50mg tablet ORAL SCH ×2 (09:35→21:01)
[2019-09-04] MEDS: Heparin 5000 units/ml inj SUBQ SCH ×2 (09:36→21:18)
[2019-09-04] MEDS: D5NS 1,000 ML IV SCH ×2 (09:42→21:01)
--- NOTE | 2019-09-04 10:06 | Hematology/Onc Progress Note ---
Assessment/Plan Assessment/Plan Assessment and Recs: # Coagulopathy is likely related to either contaminant / heparin from line v from other source, meds noted now rapidly corrected --> given vit K at this time and ffp, will improve patient's ptt/inr --> inr is 2.6, ptt 150 --> have judy Rn to first check coags from different line --> inr trend: 2.6-->0.9 # Leukocytosis is likely due to pna RLL --> currently improved --> on abx, has been started by pcp --> smear has been reviewed --> wbc trend: 8.6-->6.5 --> abx: zosyn --> 08/29 cxr negative # FTT - dysphagia s/p peg --> since dislodged, requires replacement --> vit k and ffp required --> peg to be replaced by Dr. Trujillo # Uncontrolled seizures --> started on meds, keppra/vimpat --> no recent seizures # SNF resident # Dvt ppx heparin sq Appreciate consultation and judy RN Subjective Allergies: Coded Allergies: No Known Allergies (Unverified , 02/02/17) Subjective 08/29: sdu, restless, restraints, no acute distress 08/31: no acute events, remains on restraints, no leukocytosis 09/01: labs noted, no bleeding, no major changes, swallow eval per gi 09/02: remains confused, nonverbal for gi procedure per Ronnie 09/04: s/p gt, urine positive for vre, no acute distress, dc planning Objective Objective Current Medications Medications (Trade) Dose Ordered Sig/Laurita Route PRN Reason Start Time Stop Time Status Last Admin Dose Admin Acetaminophen (Tylenol) 650 mg Q4H PRN NG Mild Pain/Temp > 100.5 09/01/19 13:00 09/21/19 20:59 Albuterol/ Ipratropium (Albuterol/ Ipratropium) 3 ml Q4H PRN HHN Shortness of Breath 09/01/19 12:36 09/06/19 12:35 Dextrose/Sodium Chloride 1,000 ml @ 100 mls/hr Q10H IV 09/01/19 12:30 09/23/19 11:59 09/04/19 09:42 Heparin Sodium (Porcine) (Heparin 5000 units/ml) 5,000 units EVERY 12 HOURS SUBQ 09/01/19 21:00 09/27/19 20:59 09/04/19 09:36 Lacosamide (Vimpat) 100 mg Q12HR ORAL 09/01/19 21:00 09/22/19 08:59 09/04/19 09:35 Lansoprazole (Prevacid) 30 mg Q12HR GT 09/03/19 21:00 09/21/19 22:59 09/04/19 09:33 Levetiracetam (Keppra) 1,500 mg Q12HR GT 09/03/19 21:00 10/01/19 08:59 09/04/19 09:33 Oxcarbazepine (Trileptal) 600 mg EVERY 12 HOURS GT 09/03/19 21:00 09/26/19 08:59 09/04/19 09:34 Quetiapine Fumarate (SEROqueL) 25 mg Q12HR GT 09/03/19 21:00 09/22/19 13:59 09/04/19 09:33 Topiramate (Topamax) 200 mg EVERY 12 HOURS GT 09/03/19 21:00 09/21/19 21:59 09/04/19 09:34 Valproic Acid (Depakene) 500 mg THREE TIMES A DAY NG 09/01/19 13:00 09/21/19 08:59 09/04/19 09:32 Last 24 Hour Vital Signs Date Time Temp Pulse Resp B/P (MAP) Pulse Ox O2 Delivery O2 Flow Rate FiO2 09/04/19 07:42 98 Room Air 21 09/04/19 04:00 98.6 90 20 104/61 (75) 98 09/04/19 00:00 98.9 96 20 109/64 (79) 98 09/03/19 21:00 Room Air 09/03/19 20:42 99 Room Air 21 09/03/19 20:29 79 18 97 Room Air 21 09/03/19 20:00 98.5 100 20 111/68 (82) 98 09/03/19 16:00 99.2 96 18 118/67 (84) 96 09/03/19 12:52 68 20 98 09/03/19 12:51 68 20 99 09/03/19 12:50 83 16 102/68 98 Room Air 09/03/19 12:35 98.0 88 17 97/60 98 Room Air 09/03/19 12:20 79 13 118/79 99 Nasal Cannula 3 09/03/19 12:15 80 14 116/64 99 Nasal Cannula 3 09/03/19 12:09 98.3 91 15 142/40 100 Nasal Cannula 3 09/03/19 09:00 Room Air 09/03/19 08:18 84 18 96 Room Air 21 09/03/19 08:17 99 Room Air 21 09/03/19 08:00 97.8 85 19 120/62 (81) 97 09/03/19 04:00 98.7 88 18 107/78 (88) 97 09/03/19 00:14 98.9 90 18 111/62 (78) 97 09/02/19 21:00 Room Air 09/02/19 20:16 99 Nasal Cannula 2.0 28 09/02/19 20:16 87 18 99 Nasal Cannula 2.0 28 09/02/19 20:00 97.9 92 18 99/59 (72) 99 09/02/19 16:00 97.3 91 18 103/63 (76) 99 09/02/19 12:00 98.0 85 18 99/64 (76) 100 Intake and Output 09/03/19 09/04/19 19:00 07:00 Intake Total 1400 ml 600 ml Output Total 0 ml 200 ml Balance 1400 ml 400 ml IV Total 1400 ml 600 ml Output Urine Total 200 ml Estimated Blood Loss 0 ml # Voids 4 2 # Bowel Movements 1 Labs Test 09/03/19 06:03 White Blood Count 6.2 K/UL (4.8-10.8) Red Blood Count 4.15 M/UL (4.20-5.40) Hemoglobin 13.8 G/DL (12.0-16.0) Hematocrit 39.1 % (37.0-47.0) Mean Corpuscular Volume 94 FL (80-99) Mean Corpuscular Hemoglobin 33.1 PG (27.0-31.0) Mean Corpuscular Hemoglobin Concent 35.2 G/DL (32.0-36.0) Red Cell Distribution Width 12.1 % (11.6-14.8) Platelet Count 326 K/UL (150-450) Mean Platelet Volume 6.6 FL (6.5-10.1) Neutrophils (%) (Auto) 54.8 % (45.0-75.0) Lymphocytes (%) (Auto) 28.1 % (20.0-45.0) Monocytes (%) (Auto) 10.5 % (1.0-10.0) Eosinophils (%) (Auto) 5.8 % (0.0-3.0) Basophils (%) (Auto) 0.8 % (0.0-2.0) Sodium Level 141 MMOL/L (136-145) Potassium Level 3.7 MMOL/L (3.5-5.1) Chloride Level 108 MMOL/L (98-107) Carbon Dioxide Level 20 MMOL/L (21-32) Anion Gap 14 mmol/L (5-15) Blood Urea Nitrogen 9 mg/dL (7-18) Creatinine 0.7 MG/DL (0.55-1.30) Estimat Glomerular Filtration Rate > 60 mL/min (>60) Glucose Level 101 MG/DL (74-106) Calcium Level 8.8 MG/DL (8.5-10.1) Height (Feet): 5 Height (Inches): 3.00 Weight (Pounds): 127 Objective Physical Exam General Appearance: no apparent distress, GCS 15 Head: normocephalic, atraumatic, other - Helmet Respiratory: chest non-tender, lungs clear, normal breath sounds ++ trach Cardiovascular: no edema, tachycardia Gastrointestinal: normal bowel sounds, non tender, soft, + peg tube site Musculoskeletal: back normal, normal range of motion, non-tender Neurologic: alert, motor strength/tone normal, sensory intact, responsive Psychiatric: mood/affect normal Skin: other - See RN skin exam Vlad Jaimes MD Sep 04, 2019 10:06
--- NOTE | 2019-09-04 10:55 | GI Progress Note ---
Assessment/Plan Problems: (1) G tube feedings ICD Codes: Z93.1 - Gastrostomy status SNOMED: 986549223, 514570632, 379814573 (2) Dysphagia ICD Codes: R13.10 - Dysphagia, unspecified SNOMED: 76321489, 312621244 (3) Dilantin level too low ICD Codes: R78.89 - Finding of other specified substances, not normally found in blood SNOMED: 672904361 (4) Seizure secondary to subtherapeutic anticonvulsant medication ICD Codes: R56.9 - Unspecified convulsions; Z79.899 - Other intermediate (current ) drug therapy SNOMED: 67072327 Status: stable Status Narrative Discussed with Dr. Trujillo. Assessment/Plan SUMMARY OF FINDINGS: Status post successful PEG placement. RECOMMENDATIONS: 1. Abdominal binder. 2. Elevate the head of the bed at all times. 3. G-tube flush. 4. G-tube care. 5. Start tube feeding later today. 6. The patient currently on antibiotics, we will continue. dc planning per primary The patient was seen and examined at bedside and all new and available data was reviewed in the patients chart. I agree with the above findings, impression and plan. (Patient seen earlier today. Signature stamp does not reflect patient encounter time.). - Emaneul Trujillo MD Subjective Subjective limited Objective Last 24 Hour Vital Signs Date Time Temp Pulse Resp B/P (MAP) Pulse Ox O2 Delivery O2 Flow Rate FiO2 09/04/19 09:00 Room Air 09/04/19 08:00 98.2 90 20 100/63 (75) 94 09/04/19 07:42 98 Room Air 21 09/04/19 04:00 98.6 90 20 104/61 (75) 98 09/04/19 00:00 98.9 96 20 109/64 (79) 98 09/03/19 21:00 Room Air 09/03/19 20:42 99 Room Air 21 09/03/19 20:29 79 18 97 Room Air 21 09/03/19 20:00 98.5 100 20 111/68 (82) 98 09/03/19 16:00 99.2 96 18 118/67 (84) 96 09/03/19 12:52 68 20 98 09/03/19 12:51 68 20 99 09/03/19 12:50 83 16 102/68 98 Room Air 09/03/19 12:35 98.0 88 17 97/60 98 Room Air 09/03/19 12:20 79 13 118/79 99 Nasal Cannula 3 09/03/19 12:15 80 14 116/64 99 Nasal Cannula 3 09/03/19 12:09 98.3 91 15 142/40 100 Nasal Cannula 3 Intake and Output 09/03/19 09/04/19 19:00 07:00 Intake Total 1400 ml 600 ml Output Total 0 ml 200 ml Balance 1400 ml 400 ml IV Total 1400 ml 600 ml Output Urine Total 200 ml Estimated Blood Loss 0 ml # Voids 4 2 # Bowel Movements 1 Height (Feet): 5 Height (Inches): 3.00 Weight (Pounds): 127 General Appearance: no apparent distress Cardiovascular: normal rate Respiratory/Chest: normal breath sounds, no respiratory distress Abdominal Exam: normal bowel sounds, non tender, soft, GT site Extremities: non-tender Cecy Wen [employer] Sep 04, 2019 10:55
--- NOTE | 2019-09-04 11:01 | Infectious Diseases Prog Note ---
Assessment/Plan Assessment/Plan Assessment: Sepsis vs SIRS Aspiration PNA, sp rx Probable UTI, sp rx -09/01 CXR: No acute process -08/31 Influenza sc neg -08/30 Bcx NTD -08/28 sp cx normal resp mayela CXR: Developing right basilar patchy atelectasis or infiltrate. -08/26 u/a wbc 60-80, nit neg, leuk +3; ucx >100k P. mirabilis (isabel S) -08/21 Bcx neg x4 Intermittent low grade fevers; SP Leukocytosis, SP Intractable seizures Dm2 HTN COPD psychiatric disease CKD traumatic brain injury s/p craniotomy 3 yrs ago hx of dysphagia s/p PEG; sp removal PEG seizure disorder hx of chronic resp failure s/p trach/vent- now decanulated Plan: -Continue to monitor off abx -09/03 SP Zosyn #6 -08/29 SP Flagyl #2 -f/u cx -Monitor CBC/CMP, temperatures -f/u sp cx -aspiration precautions -GI, pulm f/u discussed with RN Thank you for this consultation. Will continue to follow along with you. Subjective Allergies: Coded Allergies: No Known Allergies (Unverified , 02/02/17) Subjective afebrile no leukocytosis at RA Objective Vital Signs Last 24 Hour Vital Signs Date Time Temp Pulse Resp B/P (MAP) Pulse Ox O2 Delivery O2 Flow Rate FiO2 09/04/19 09:00 Room Air 09/04/19 08:00 98.2 90 20 100/63 (75) 94 09/04/19 07:42 98 Room Air 21 09/04/19 04:00 98.6 90 20 104/61 (75) 98 09/04/19 00:00 98.9 96 20 109/64 (79) 98 09/03/19 21:00 Room Air 09/03/19 20:42 99 Room Air 21 09/03/19 20:29 79 18 97 Room Air 21 09/03/19 20:00 98.5 100 20 111/68 (82) 98 09/03/19 16:00 99.2 96 18 118/67 (84) 96 09/03/19 12:52 68 20 98 09/03/19 12:51 68 20 99 09/03/19 12:50 83 16 102/68 98 Room Air 09/03/19 12:35 98.0 88 17 97/60 98 Room Air 09/03/19 12:20 79 13 118/79 99 Nasal Cannula 3 09/03/19 12:15 80 14 116/64 99 Nasal Cannula 3 09/03/19 12:09 98.3 91 15 142/40 100 Nasal Cannula 3 Height (Feet): 5 Height (Inches): 3.00 Weight (Pounds): 127 Objective General Appearance: no apparent distress Head: normocephalic, atraumatic, other - Helmet Respiratory: chest non-tender, lungs clear, normal breath sounds ++ trach Cardiovascular: no edema, no murmurs Gastrointestinal: normal bowel sounds, non tender, soft, + peg tube site Microbiology Date/Time Source Procedure Growth Status 09/02/19 05:40 Straight Cath Urine Culture - Final Enterococcus Faecium - Vre Complete Current Medications Medications (Trade) Dose Ordered Sig/Laurita Route PRN Reason Start Time Stop Time Status Last Admin Dose Admin Acetaminophen (Tylenol) 650 mg Q4H PRN NG Mild Pain/Temp > 100.5 09/01/19 13:00 09/21/19 20:59 Albuterol/ Ipratropium (Albuterol/ Ipratropium) 3 ml Q4H PRN HHN Shortness of Breath 09/01/19 12:36 09/06/19 12:35 Dextrose/Sodium Chloride 1,000 ml @ 100 mls/hr Q10H IV 09/01/19 12:30 09/23/19 11:59 09/04/19 09:42 Heparin Sodium (Porcine) (Heparin 5000 units/ml) 5,000 units EVERY 12 HOURS SUBQ 09/01/19 21:00 09/27/19 20:59 09/04/19 09:36 Lacosamide (Vimpat) 100 mg Q12HR ORAL 09/01/19 21:00 09/22/19 08:59 09/04/19 09:35 Lansoprazole (Prevacid) 30 mg Q12HR GT 09/03/19 21:00 09/21/19 22:59 09/04/19 09:33 Levetiracetam (Keppra) 1,500 mg Q12HR GT 09/03/19 21:00 10/01/19 08:59 09/04/19 09:33 Oxcarbazepine (Trileptal) 600 mg EVERY 12 HOURS GT 09/03/19 21:00 09/26/19 08:59 09/04/19 09:34 Quetiapine Fumarate (SEROqueL) 25 mg Q12HR GT 09/03/19 21:00 09/22/19 13:59 09/04/19 09:33 Topiramate (Topamax) 200 mg EVERY 12 HOURS GT 09/03/19 21:00 09/21/19 21:59 09/04/19 09:34 Valproic Acid (Depakene) 500 mg THREE TIMES A DAY NG 09/01/19 13:00 09/21/19 08:59 09/04/19 09:32 Stephania Pastrana M.D. Sep 04, 2019 11:01
--- NOTE | 2019-09-04 13:10 | Pulmonology Progress Note ---
Assessment/Plan Problems: (1) Nosocomial pneumonia (2) At high risk for aspiration (3) Uncontrolled seizures (4) Organic brain syndrome (chronic) (5) History of craniotomy Assessment/Plan more awake, PEG done, tolerating diet wbc lower, afebrile aspiration precaution Subjective ROS Limited/Unobtainable: No Constitutional: Reports: no symptoms HEENT: Repors: no symptoms Respiratory: Reports: no symptoms Allergies: Coded Allergies: No Known Allergies (Unverified , 02/02/17) Objective Last 24 Hour Vital Signs Date Time Temp Pulse Resp B/P (MAP) Pulse Ox O2 Delivery O2 Flow Rate FiO2 09/04/19 09:00 Room Air 09/04/19 08:00 98.2 90 20 100/63 (75) 94 09/04/19 07:42 98 Room Air 21 09/04/19 04:00 98.6 90 20 104/61 (75) 98 09/04/19 00:00 98.9 96 20 109/64 (79) 98 09/03/19 21:00 Room Air 09/03/19 20:42 99 Room Air 21 09/03/19 20:29 79 18 97 Room Air 21 09/03/19 20:00 98.5 100 20 111/68 (82) 98 09/03/19 16:00 99.2 96 18 118/67 (84) 96 Intake and Output 09/03/19 09/04/19 19:00 07:00 Intake Total 1400 ml 600 ml Output Total 0 ml 200 ml Balance 1400 ml 400 ml IV Total 1400 ml 600 ml Output Urine Total 200 ml Estimated Blood Loss 0 ml # Voids 4 2 # Bowel Movements 1 General Appearance: WD/WN HEENT: normocephalic Respiratory/Chest: lungs clear, normal breath sounds Cardiovascular: normal peripheral pulses, normal rate, no JVD Abdomen: soft, non tender Extremities: no cyanosis Skin: no rash Microbiology Date/Time Source Procedure Growth Status 09/02/19 05:40 Straight Cath Urine Culture - Final Enterococcus Faecium - Vre Complete Current Medications Medications (Trade) Dose Ordered Sig/Laurita Route PRN Reason Start Time Stop Time Status Last Admin Dose Admin Acetaminophen (Tylenol) 650 mg Q4H PRN NG Mild Pain/Temp > 100.5 09/01/19 13:00 09/21/19 20:59 Albuterol/ Ipratropium (Albuterol/ Ipratropium) 3 ml Q4H PRN HHN Shortness of Breath 09/01/19 12:36 09/06/19 12:35 Dextrose/Sodium Chloride 1,000 ml @ 100 mls/hr Q10H IV 09/01/19 12:30 09/23/19 11:59 09/04/19 09:42 Heparin Sodium (Porcine) (Heparin 5000 units/ml) 5,000 units EVERY 12 HOURS SUBQ 09/01/19 21:00 09/27/19 20:59 09/04/19 09:36 Lacosamide (Vimpat) 100 mg Q12HR ORAL 09/01/19 21:00 09/22/19 08:59 09/04/19 09:35 Lansoprazole (Prevacid) 30 mg Q12HR GT 09/03/19 21:00 09/21/19 22:59 09/04/19 09:33 Levetiracetam (Keppra) 1,500 mg Q12HR GT 09/03/19 21:00 10/01/19 08:59 09/04/19 09:33 Oxcarbazepine (Trileptal) 600 mg EVERY 12 HOURS GT 09/03/19 21:00 09/26/19 08:59 09/04/19 09:34 Quetiapine Fumarate (SEROqueL) 25 mg Q12HR GT 09/03/19 21:00 09/22/19 13:59 09/04/19 09:33 Topiramate (Topamax) 200 mg EVERY 12 HOURS GT 09/03/19 21:00 09/21/19 21:59 09/04/19 09:34 Valproic Acid (Depakene) 500 mg THREE TIMES A DAY NG 09/01/19 13:00 09/21/19 08:59 09/04/19 09:32 Juancarlos Thurman MD Sep 04, 2019 13:10
--- NOTE | 2019-09-04 14:51 | NUR ---
RD ASSESSMENT & RECOMMENDATIONS SEE CARE ACTIVITY FOR COMPLETE ASSESSMENT DAILY ESTIMATED NEEDS: Needs based on General/ 56kg 25-30 kcals/kg 5409-2483 total kcals 1-1.2 g protein/kg 56-67 g total protein 25-30 mL/kg 1876-8269 total fluid mLs NUTRITION DIAGNOSIS: Swallowing difficulty R/T dysphagia, h/o trach + GT as evidenced by NETWORK CONTROL OPERATOR recommends nonoral feeds at this time, now s/p PEG placement, on GT feeds. CURRENT TF:Osm 1.2 @ 50ml/hr x 24 hrs PO DIET RECOMMENDATIONS: When safe for oral diet -> Regular/ texture per NETWORK CONTROL OPERATOR ENTERAL NUTRITION RECOMMENDATIONS: Osmolite 1.2 @ 50ml/hr x 24 hrs to provide 1200ml, 1440kcal, 66g prot, 984ml free water * Cont to advance slowly to goal of 50ml/hr x 24 hrs. * Without IVF, water flush of 120ml q 6 hrs ADDITIONAL RECOMMENDATIONS: * Calibrated bedscale wt * Monitor lytes closely w/ TF, replete as needed * Monitor BGs w/ TF, rec to DC D5 IVF once TF @ goal. * Monitor NETWORK CONTROL OPERATOR eval, ability for PO diet. .
--- NOTE | 2019-09-04 15:49 | NUR ---
ST NOTES: SWALLOW STATUS: THE PATIENT HAD HER PEG PLACED YESTERDAY. SHE IS NOT ALERT NOW. SHE IS SLEEPING WITH HER TONGUE SLIGHTLY OUT OF HER MOUTH. PER THE RNDA, SHE WAS TALKING WITH HER FAMILY AND FOLLOWING SOME COMMANDS IN [place]. WILL TRY TO COMPLETE THE MODIFIED BARIUM SWALLOW STUDY ON HER AN IP OR OP IF SHE IS DISCHARGED. UNABLE TO COMPLETE TOMORROW DUE TO SCHEDULE CONFLICTS WITH RADIOLOGY. NEW STAFF (JOANN ROBERSON) EDUCATED/TRAINED IN POSTED PRECAUTIONS. PLAN: CONTINUE WITH ORAL CARE AND ASPIRATION PRECAUTIONS WHEN PEG FEEDINGS ARE RUNNING. MOD BARIUM SWALLOW STUDY IP OR OP IF DC
[2019-09-04 15:56] LABS: APPEARANCE,URINE SLIGHTLY CLOUDY; BILIRUBIN, URINE NEGATIVE (NEGATIVE); COLOR,URINE PALE YELLOW; GLUCOSE, URINE (UA) NEGATIVE (NEGATIVE); KETONES,URINE NEGATIVE (NEGATIVE); LEUKOCYTE ESTERASE ,URINE NEGATIVE (NEGATIVE); NITRITE,URINE NEGATIVE (NEGATIVE); PH,URINE 8 (4.5-8.0); PROTEIN,URINE NEGATIVE (NEGATIVE); UROBILINOGEN,URINE NORMAL MG/DL (0.0-1.0)
--- NOTE | 2019-09-04 15:56 | NUR ---
DISCHARGE SWALLOW/SPEECH THERAPY SUMMMARY: PATIENT TO BE D/C TODAY. SEEN FOR DYSPHAGIA, SEE SWALLOW EVALUATION REPORT AND RECOMMENDATIONS. THE PATIENT HAD HER PEG PLACED YESTERDAY. SHE IS NOT ALERT NOW. SHE IS SLEEPING WITH HER TONGUE SLIGHTLY OUT OF HER MOUTH. PER THE RNDA, SHE WAS TALKING WITH HER FAMILY AND FOLLOWING SOME COMMANDS IN CHINESE. WILL TRY TO COMPLETE THE MODIFIED BARIUM SWALLOW STUDY ON HER AN IP OR OP IF SHE IS DISCHARGED. UNABLE TO COMPLETE TOMORROW DUE TO SCHEDULE CONFLICTS WITH RADIOLOGY. NEW STAFF (JOANN ROBERSON) EDUCATED/TRAINED IN POSTED PRECAUTIONS. PLAN: F/UP WITH SHUTTLE CAR OPERATOR AT [facility] FOR SKILLED DYSPHAGIA MANAGEMENT AND TX CONTINUE WITH ORAL CARE AND ASPIRATION PRECAUTIONS WHEN PEG FEEDINGS ARE RUNNING. MOD BARIUM SWALLOW STUDY OUTPATIENT TO FURTHER ASSESS SWALLOW, DETERMINE SILENT ASP RISK AND ATTEMPT TRIAL TX
--- NOTE | 2019-09-04 16:23 | NUR ---
INSURANCE REVIEW FAXED TO # [phone] FAX# [phone] REVIEWS/CLINICALS
--- NOTE | 2019-09-04 16:26 | NUR ---
CASE MANAGEMENT:REVIEW SI;NOSOCOMIAL PNA. UNCONTROLLED SEIZURES. S/P DAY #1 PEG PLACEMENT. 98.9 96 20 98/63 94% ON RA IS;KEPPRA GT Q12 HRS TRILEPTAL GT GT Q12 HRS TOPAMAX GT Q12 HRS VIMPAT GT Q12 HRS DEPAKENE GT TID DUO NEB HHN Q4HRS PRN IVF D5NS @ 100 ML/HR MED SURG STATUS DCP;FROM [facility]
--- NOTE | 2019-09-04 17:14 | NUR ---
NURSE NOTES: Left message for DR Pastrana regarding UA result, waiting for response.
--- NOTE | 2019-09-04 18:09 | NUR ---
NURSE NOTES: Left messages with MD Pastrana. No return calls. Awaiting call back, discharge held until MD Pastrana can review UA results.
--- NOTE | 2019-09-04 18:30 | NUR ---
NURSE NOTES: Patient tolerating G-tube feeding at goal rate 50cc/hr.Bed alarm is on.Bilateral wrist restraints with ROM and skin care.
--- NOTE | 2019-09-04 18:42 | NUR ---
NURSE NOTES: MD Pastrana called and agve order for VRE colonized. Continue with discharge. lean manager director made aware. Will attempt to discharge tomorrow.
--- NOTE | 2019-09-04 19:15 | NUR ---
HAND-OFF: Report given to marty Crespo fall wrist protocol.
--- NOTE | 2019-09-04 19:20 | NUR ---
NURSE NOTES: Pt. received from JOANN Peña. Pt. nonverbal, on room air, no indications of pain and no signs of respiratory distress. IV access right foot 22g, asymptomatic, intact, and patent; D5NS at 100cc. Gtube at 50cc, head of bed is elevated, pt. tolerating well. Bilateral soft wrist restraints applied, sensation and movement intact, pulses palpable. Bed is low and locked, side rails x3 up and padded, bed alarm active, and call light is in reach. Will continue to monitor.
--- NOTE | 2019-09-05 01:41 | NUR ---
NURSE NOTES: Pt. sleeping in bed. Breathing is even and unlabored, no indications of pain. Gtube feeding running continuously, head of bed elevated and aspiration precautions in place. Will continue to monitor.
--- NOTE | 2019-09-05 02:54 | NUR ---
NURSE NOTES: PEG dressing changed. Feeding changed, 5cc residuals. Pericare provided. Will continue to monitor.
[2019-09-05 04:00] VITALS: BP 100/70
[2019-09-05] MEDS: D5NS 1,000 ML IV SCH (06:07)
--- NOTE | 2019-09-05 07:23 | NUR ---
HAND-OFF: Report given to JOANN Vogel.
--- NOTE | 2019-09-05 07:30 | NUR ---
NURSE NOTES: Received report from JOANN Crespo. Patient A&Ox1. On room air, no signs of distress or labored breathing. IV intact, patent, and infusing IV fluids. GT infusing feeding. Bilateral soft wrist restraints on. Side rails up x3. Will continue with plan of care.
[2019-09-05 08:00] VITALS: BP 130/80
--- NOTE | 2019-09-05 08:23 | NUR ---
NURSE NOTES: Left message for case management director Mary Ellen regarding patient's discharge. Charge nurse aware.
[2019-09-05] MEDS: levETIRAcetam 500mg/5ml Liquid GT SCH (10:12)
[2019-09-05] MEDS: OXcarbazepine 150mg tab GT SCH (10:13)
[2019-09-05] MEDS: Valproic Acid 250mg/5ml Liquid NG SCH (10:13)
[2019-09-05] MEDS: Topiramate 100mg tab GT SCH (10:14)
[2019-09-05] MEDS: Lacosamide 50mg tablet ORAL SCH (10:14)
[2019-09-05] MEDS: Heparin 5000 units/ml inj SUBQ SCH (10:16)
--- NOTE | 2019-09-05 11:00 | GI Progress Note ---
Assessment/Plan Problems: (1) G tube feedings ICD Codes: Z93.1 - Gastrostomy status SNOMED: 791337551, 584461734, 281615157 (2) Dysphagia ICD Codes: R13.10 - Dysphagia, unspecified SNOMED: 58703041, 984745227 (3) Dilantin level too low ICD Codes: R78.89 - Finding of other specified substances, not normally found in blood SNOMED: 447007337 (4) Seizure secondary to subtherapeutic anticonvulsant medication ICD Codes: R56.9 - Unspecified convulsions; Z79.899 - Other correction (current ) drug therapy SNOMED: 18673233 Status: stable Status Narrative Discussed with Dr. Trujillo. Assessment/Plan SUMMARY OF FINDINGS: Status post successful PEG placement. RECOMMENDATIONS: 1. Abdominal binder. 2. Elevate the head of the bed at all times. 3. G-tube flush. 4. G-tube care. 5. Start tube feeding later today. 6. The patient currently on antibiotics, we will continue. dc planning per primary The patient was seen and examined at bedside and all new and available data was reviewed in the patients chart. I agree with the above findings, impression and plan. (Patient seen earlier today. Signature stamp does not reflect patient encounter time.). - Emanuel Trujillo MD Subjective Subjective limited Objective Last 24 Hour Vital Signs Date Time Temp Pulse Resp B/P (MAP) Pulse Ox O2 Delivery O2 Flow Rate FiO2 09/05/19 04:00 98.3 96 21 100/70 (80) 99 09/04/19 23:51 97.9 103 21 114/81 (92) 97 09/04/19 21:00 Room Air 09/04/19 20:08 96 Room Air 21 09/04/19 20:07 75 20 96 Room Air 21 09/04/19 20:00 98.6 96 20 92/64 (73) 96 09/04/19 16:46 98.1 87 20 95/55 (68) 98 09/04/19 12:00 98.0 86 20 98/63 (75) 96 Intake and Output 09/04/19 09/05/19 19:00 07:00 Intake Total 1810 ml 610 ml Output Total 850 ml 750 ml Balance 960 ml -140 ml Intake Free Water 90 ml 60 ml IV Total 1200 ml 500 ml Tube Feeding 520 ml 50 ml Output Urine Total 850 ml 750 ml # Voids 3 4 # Bowel Movements 1 Laboratory Tests Test 09/04/19 15:00 Urine Color Pale yellow Urine Appearance Slightly cloudy Urine pH 8 (4.5-8.0) Urine Specific Lohn 1.015 (1.005-1.035) Urine Protein Negative (NEGATIVE) Urine Glucose (UA) Negative (NEGATIVE) Urine Ketones Negative (NEGATIVE) Urine Blood Negative (NEGATIVE) Urine Nitrite Negative (NEGATIVE) Urine Bilirubin Negative (NEGATIVE) Urine Urobilinogen Normal MG/DL (0.0-1.0) Urine Leukocyte Esterase Negative (NEGATIVE) Urine RBC 0 /HPF (0 - 2) Urine WBC 0-2 /HPF (0 - 2) Urine Squamous Epithelial Cells Moderate /LPF (NONE/OCC) H Urine Amorphous Sediment Many /LPF (NONE) H Urine Bacteria Few /HPF (NONE) Height (Feet): 5 Height (Inches): 3.00 Weight (Pounds): 126 General Appearance: WD/WN, no apparent distress, alert Cardiovascular: normal rate Respiratory/Chest: normal breath sounds, no respiratory distress Abdominal Exam: normal bowel sounds, non tender, soft, GT site Extremities: non-tender Cecy Wen NP Sep 05, 2019 11:00
--- NOTE | 2019-09-05 11:24 | NUR ---
CASE MANAGEMENT:DISCHARGE PLAN PATIENT REFERRED BACK TO [facility] P: [phone] F: [phone] PATIENT ACCEPTED TO RETURN PER CLAIRE IN ADMISSIONS TO 1-A USP Addendum: 09/05/19 at 1136 by TOMMY MENDOZA LVN [facility]N [facility] AMBULANCE TRANSPORTATION SCHEDULED WITH [facility] WITH ETA @ 1230 PM
[2019-09-05 12:00] VITALS: BP 94/59
--- NOTE | 2019-09-05 12:24 | Infectious Diseases Prog Note ---
Assessment/Plan Assessment/Plan Assessment: Sepsis vs SIRS Aspiration PNA, sp rx Probable UTI, sp rx -09/02 ucx 30-40k VRE (Colonizer); 09/04 u/a neg -09/01 CXR: No acute process -08/31 Influenza sc neg -08/30 Bcx Neg -08/28 sp cx normal resp mayela CXR: Developing right basilar patchy atelectasis or infiltrate. -08/26 u/a wbc 60-80, nit neg, leuk +3; ucx >100k P. mirabilis (isabel S) -08/21 Bcx neg x4 Intermittent low grade fevers; SP Leukocytosis, SP Intractable seizures Dm2 HTN COPD psychiatric disease CKD traumatic brain injury s/p craniotomy 3 yrs ago hx of dysphagia s/p PEG; sp removal PEG seizure disorder hx of chronic resp failure s/p trach/vent- now decanulated Plan: -Continue to monitor off abx -no need to treat VRE in urine as it is a colonizer -09/03 SP Zosyn #6 -08/29 SP Flagyl #2 -f/u cx -Monitor CBC/CMP, temperatures -f/u sp cx -aspiration precautions -GI, pulm f/u discussed with RN Thank you for this consultation. Will continue to follow along with you. Subjective Allergies: Coded Allergies: No Known Allergies (Unverified , 02/02/17) Subjective afebrile no leukocytosis at RA discharge planning Objective Vital Signs Last 24 Hour Vital Signs Date Time Temp Pulse Resp B/P (MAP) Pulse Ox O2 Delivery O2 Flow Rate FiO2 09/05/19 09:00 Room Air 09/05/19 08:00 98.6 68 18 130/80 (97) 99 09/05/19 04:00 98.3 96 21 100/70 (80) 99 09/04/19 23:51 97.9 103 21 114/81 (92) 97 09/04/19 21:00 Room Air 09/04/19 20:08 96 Room Air 21 09/04/19 20:07 75 20 96 Room Air 21 09/04/19 20:00 98.6 96 20 92/64 (73) 96 09/04/19 16:46 98.1 87 20 95/55 (68) 98 Height (Feet): 5 Height (Inches): 3.00 Weight (Pounds): 126 Objective General Appearance: no apparent distress Respiratory: chest non-tender, lungs clear, normal breath sounds ++ trach Cardiovascular: no edema, no murmurs Gastrointestinal: normal bowel sounds, non tender, soft, + peg tube site Laboratory Tests Test 09/04/19 15:00 Urine Color Pale yellow Urine Appearance Slightly cloudy Urine pH 8 (4.5-8.0) Urine Specific [place] 1.015 (1.005-1.035) Urine Protein Negative (NEGATIVE) Urine Glucose (UA) Negative (NEGATIVE) Urine Ketones Negative (NEGATIVE) Urine Blood Negative (NEGATIVE) Urine Nitrite Negative (NEGATIVE) Urine Bilirubin Negative (NEGATIVE) Urine Urobilinogen Normal MG/DL (0.0-1.0) Urine Leukocyte Esterase Negative (NEGATIVE) Urine RBC 0 /HPF (0 - 2) Urine WBC 0-2 /HPF (0 - 2) Urine Squamous Epithelial Cells Moderate /LPF (NONE/OCC) H Urine Amorphous Sediment Many /LPF (NONE) H Urine Bacteria Few /HPF (NONE) Current Medications Medications (Trade) Dose Ordered Sig/Laurita Route PRN Reason Start Time Stop Time Status Last Admin Dose Admin Acetaminophen (Tylenol) 650 mg Q4H PRN NG Mild Pain/Temp > 100.5 09/01/19 13:00 09/21/19 20:59 Albuterol/ Ipratropium (Albuterol/ Ipratropium) 3 ml Q4H PRN HHN Shortness of Breath 09/01/19 12:36 09/06/19 12:35 Dextrose/Sodium Chloride 1,000 ml @ 100 mls/hr Q10H IV 09/01/19 12:30 09/23/19 11:59 09/05/19 06:07 Heparin Sodium (Porcine) (Heparin 5000 units/ml) 5,000 units EVERY 12 HOURS SUBQ 09/01/19 21:00 09/27/19 20:59 09/05/19 10:16 Lacosamide (Vimpat) 100 mg Q12HR ORAL 09/01/19 21:00 09/22/19 08:59 09/05/19 10:14 Lansoprazole (Prevacid) 30 mg Q12HR GT 09/03/19 21:00 09/21/19 22:59 09/05/19 10:13 Levetiracetam (Keppra) 1,500 mg Q12HR GT 09/03/19 21:00 10/01/19 08:59 09/05/19 10:12 Oxcarbazepine (Trileptal) 600 mg EVERY 12 HOURS GT 09/03/19 21:00 09/26/19 08:59 09/05/19 10:13 Quetiapine Fumarate (SEROqueL) 25 mg Q12HR GT 09/03/19 21:00 09/22/19 13:59 09/05/19 10:13 Topiramate (Topamax) 200 mg EVERY 12 HOURS GT 09/03/19 21:00 09/21/19 21:59 09/05/19 10:14 Valproic Acid (Depakene) 500 mg THREE TIMES A DAY NG 09/01/19 13:00 09/21/19 08:59 09/05/19 10:13 Stephania Pastrana M.D. Sep 05, 2019 12:24
--- NOTE | 2019-09-05 12:36 | NUR ---
DISCHARGE SWALLOW/SPEECH THERAPY SUMMMARY: PATIENT CLEARED FOR ST INTERVENTION BY RN APURVA. PATIENT APPEARS TO BE TOLERATING CURRENT NON/ORAL FEEDING MANAGEMENT S/P PEG PLACEMENT. DISCHARGE PENDING RE: RETURN TO REFERRING FACILITY/SNF. GOAL MET FOR STAFF TRAINING/RETURN DEMONSTRATION RE ORAL CARE D/C FROM SKILLED [facility] SERV[facility]
[2019-09-05] MEDS ORDERED: D5 1/2NS 1000ml IV ONE (13:59)
--- NOTE | 2019-09-05 14:00 | NUR ---
NURSE NOTES: Patient discharged to [facility] via [facility] [address]. Gave report to water quality technician Franco Varma and Naldo Jhaveri. Gave report to JOANN Shearer supervisor post wave at [facility].
--- NOTE | 2019-09-05 16:41 | Hematology/Onc Progress Note ---
Assessment/Plan Assessment/Plan Assessment and Recs: # Coagulopathy is likely related to either contaminant / heparin from line v from other source, meds noted now rapidly corrected --> given vit K at this time and ffp, will improve patient's ptt/inr --> inr is 2.6, ptt 150 --> have judy Rn to first check coags from different line --> inr trend: 2.6-->0.9 # Leukocytosis is likely due to pna RLL --> currently improved --> on abx, has been started by pcp --> smear has been reviewed --> wbc trend: 8.6-->6.5 --> abx: zosyn --> 08/29 cxr negative # FTT - dysphagia s/p peg --> since dislodged, requires replacement --> vit k and ffp required --> peg to be replaced by Dr. Trujillo # Uncontrolled seizures --> started on meds, keppra/vimpat --> no recent seizures # SNF resident # Dvt ppx heparin sq Appreciate consultation and judy RN Subjective Constitutional: Denies: no symptoms, chills, fever, malaise, weakness, other Cardiovascular: Denies: no symptoms, chest pain, edema, irregular heart rate, lightheadedness, palpitations, syncope, other Respiratory: Denies: no symptoms, cough, shortness of breath, SOB with excertion, SOB at rest, sputum, wheezing, other Gastrointestinal/Abdominal: Denies: no symptoms, abdomen distended, abdominal pain, black stools, tarry stools, blood in stool, constipated, diarrhea, difficulty swallowing, nausea, poor appetite, poor fluid intake, rectal bleeding , vomiting, other Genitourinary: Denies: no symptoms, burning, discharge, frequency, flank pain, hematuria, incontinence, pain, urgency, other Neurologic/Psychiatric: Denies: no symptoms, anxiety, depressed, emotional problems, headache, numbness, paresthesia, pre-existing deficit, seizure, tingling, tremors, weakness, other Endocrine: Denies: no symptoms, excessive sweating, flushing, intolerance to cold, intolerance to heat, increased hunger, increased thirst, increased urine, unexplained weight gain, unexplained weight loss, other Allergies: Coded Allergies: No Known Allergies (Unverified , 02/02/17) Subjective 2/14: sdu, restless, restraints, no acute distress 08/31: no acute events, remains on restraints, no leukocytosis 09/01: labs noted, no bleeding, no major changes, swallow eval per gi 09/02: remains confused, nonverbal for gi procedure per Vosodeyai 09/04: s/p gt, urine positive for vre, no acute distress, dc planning 09/05: for [facility] dc, no events, labs noted, no bleeding Objective Objective Last 24 Hour Vital Signs Date Time Temp Pulse Resp B/P (MAP) Pulse Ox O2 Delivery O2 Flow Rate FiO2 09/05/19 12:00 98.5 91 18 94/59 (71) 98 09/05/19 09:00 Room Air 09/05/19 08:00 98.6 68 18 130/80 (97) 99 09/05/19 04:00 98.3 96 21 100/70 (80) 99 09/04/19 23:51 97.9 103 21 114/81 (92) 97 09/04/19 21:00 Room Air 09/04/19 20:08 96 Room Air 21 09/04/19 20:07 75 20 96 Room Air 21 09/04/19 20:00 98.6 96 20 92/64 (73) 96 09/04/19 16:46 98.1 87 20 95/55 (68) 98 09/04/19 12:00 98.0 86 20 98/63 (75) 96 09/04/19 09:00 Room Air 09/04/19 08:00 98.2 90 20 100/63 (75) 94 09/04/19 07:42 98 Room Air 21 09/04/19 04:00 98.6 90 20 104/61 (75) 98 09/04/19 00:00 98.9 96 20 109/64 (79) 98 09/03/19 21:00 Room Air 09/03/19 20:42 99 Room Air 21 09/03/19 20:29 79 18 97 Room Air 21 09/03/19 20:00 98.5 100 20 111/68 (82) 98 Intake and Output 09/04/19 09/05/19 19:00 07:00 Intake Total 1810 ml 610 ml Output Total 850 ml 750 ml Balance 960 ml -140 ml Intake Free Water 90 ml 60 ml IV Total 1200 ml 500 ml Tube Feeding 520 ml 50 ml Output Urine Total 850 ml 750 ml # Voids 3 4 # Bowel Movements 1 Labs Test 09/03/19 06:03 09/04/19 15:00 White Blood Count 6.2 K/UL (4.8-10.8) Red Blood Count 4.15 M/UL (4.20-5.40) Hemoglobin 13.8 G/DL (12.0-16.0) Hematocrit 39.1 % (37.0-47.0) Mean Corpuscular Volume 94 FL (80-99) Mean Corpuscular Hemoglobin 33.1 PG (27.0-31.0) Mean Corpuscular Hemoglobin Concent 35.2 G/DL (32.0-36.0) Red Cell Distribution Width 12.1 % (11.6-14.8) Platelet Count 326 K/UL (150-450) Mean Platelet Volume 6.6 FL (6.5-10.1) Neutrophils (%) (Auto) 54.8 % (45.0-75.0) Lymphocytes (%) (Auto) 28.1 % (20.0-45.0) Monocytes (%) (Auto) 10.5 % (1.0-10.0) Eosinophils (%) (Auto) 5.8 % (0.0-3.0) Basophils (%) (Auto) 0.8 % (0.0-2.0) Sodium Level 141 MMOL/L (136-145) Potassium Level 3.7 MMOL/L (3.5-5.1) Chloride Level 108 MMOL/L (98-107) Carbon Dioxide Level 20 MMOL/L (21-32) Anion Gap 14 mmol/L (5-15) Blood Urea Nitrogen 9 mg/dL (7-18) Creatinine 0.7 MG/DL (0.55-1.30) Estimat Glomerular Filtration Rate > 60 mL/min (>60) Glucose Level 101 MG/DL (74-106) Calcium Level 8.8 MG/DL (8.5-10.1) Urine Color Pale yellow Urine Appearance Slightly cloudy Urine pH 8 (4.5-8.0) Urine Specific [place] 1.015 (1.005-1.035) Urine Protein Negative (NEGATIVE) Urine Glucose (UA) Negative (NEGATIVE) Urine Ketones Negative (NEGATIVE) Urine Blood Negative (NEGATIVE) Urine Nitrite Negative (NEGATIVE) Urine Bilirubin Negative (NEGATIVE) Urine Urobilinogen Normal MG/DL (0.0-1.0) Urine Leukocyte Esterase Negative (NEGATIVE) Urine RBC 0 /HPF (0 - 2) Urine WBC 0-2 /HPF (0 - 2) Urine Squamous Epithelial Cells Moderate /LPF (NONE/OCC) Urine Amorphous Sediment Many /LPF (NONE) Urine Bacteria Few /HPF (NONE) Height (Feet): 5 Height (Inches): 3.00 Weight (Pounds): 126 Objective Physical Exam General Appearance: no apparent distress, GCS 15 Head: normocephalic, atraumatic, other - Helmet Respiratory: chest non-tender, lungs clear, normal breath sounds ++ trach Cardiovascular: no edema, tachycardia Gastrointestinal: normal bowel sounds, non tender, soft, + peg tube site Musculoskeletal: back normal, normal range of motion, non-tender Neurologic: alert, motor strength/tone normal, sensory intact, responsive Psychiatric: mood/affect normal Skin: other - See RN skin exam Vlad Jaimes MD Sep 05, 2019 16:41
--- NOTE | 2019-09-07 19:27 | Discharge Summary ---
Discharge Summary Discharge Summary _ DATE OF ADMISSION: 08/21/2019 DATE OF DISCHARGE: 09/05/2019 DISCHARGED BY: Dr. Kennedy Shepherd CONSULTANTS: Dr. Yohannes Thurman BRIEF HOSPITAL COURSE: The patient is a 39-year-old female who was discharged several weeks ago after admission for multiple seizures. She was in stable condition without any seizure on anticonvulsant medication until the day of admission. On the day of admission, she developed tonic-clonic seizure and fell on the floor. While on the floor she had multiple short-lived seizures of 20 to 30 seconds by a few minutes each 1. She was then transferred to [facility]. She has medical history of traumatic brain injury 3 years ago after which she had craniotomy, tracheostomy and gastrostomy. Patient was in subacute unit and was successfully weaned off ventilator and later on was decannulated and finally gastrostomy tube was removed. Upon evaluation at the ED, blood work showed WBC elevated to 13. Hemoglobin and hematocrit were stable. Electrolytes were normal. Lactic acid was elevated to 2.8. Troponin was negative. Urinalysis was essentially unremarkable. Chest x-ray did not show any acute disease. She was admitted for uncontrollable seizures. She was initially admitted to [facility]. She was resumed on anticonvulsant therapy. She then developed seizures. She was transferred to ICU. Anticonvulsant therapy was optimized. She did not have any recurrence of seizures. Patient failed swallow evaluation. NG tube was inserted. She was started on tube feedings. GI was consulted. Patient high risk for aspiration. Patient was planned for EGD placement. PEG was canceled due to hypercoagulation. INR was elevated to 2.6. PTT 150. Hematology is consulted. Patient was given vitamin K. Chest x-ray showed right lower lobe infiltrate. Per merchandise presentation manager recommendation, hold off on PEG needed placement until improvement in lung infiltrate. ID specialist was consulted. Patient was having low-grade fever. She was given Zosyn for aspiration pneumonia. Urine culture showed growth of pansensitive Proteus. Blood culture did not isolate any growth. Flagyl discontinued. Influenza screen negative. INR normalized. Mental status improved however still failed swallow evaluation. Repeat urine culture showed growth of VRE (colonizer). Repeat urinalysis was negative. On 09/03/2019, she underwent EGD with PEG tube placement. She tolerated procedure well. She was tolerating tube feeding. She completed antibiotic treatment. She was eventually discharged back to [facility]. FINAL DIAGNOSES: Sepsis versus SIRS Aspiration pneumonia Seizure disorder with seizure exacerbation Probable UTI Coagulopathy, resolved Dysphagia status post PEG placement Hypokalemia Type 2 diabetes Hypertension COPD CKD Traumatic brain injury status post craniotomy 3 years ago SNF resident DISPOSITION: DC back to [facility] DISCHARGE MEDICATIONS: Refer to Discharge Medication List. I have been assigned to complete a discharge summary on this account, I was not involved with the patient's management.--ANITA Peter Jacqueline Robles NP Sep 07, 2019 19:27
== END 2019-09-05 14:00 | DRG 53 ==
LOC: EDBD 11:37 → EMR 13:00 → 2E 16:36 → EDBEDREQ 17:27 → 2E 23:39 → ICU 08-22 21:48 → 2W 08-24 11:25 → 2E 08-25 20:05 → 4E 08-27 22:12 → 2W 08-28 00:43 → 4E 09-01 13:05
PROC: 0DH63UZ Insertion of Feeding Device into Stomach, Percutaneous Approach (ICD-10-PCS; principal; 2019-09-03 11:53)
DX: G40.802 Other epilepsy, not intractable, without status epilepticus (principal); R13.10 Dysphagia, unspecified; T42.76XA Underdosing of unspecified antiepileptic and sedative-hypnotic drugs, initial encounter; Z91.138 Patient's unintentional underdosing of medication regimen for other reason; I12.9 Hypertensive chronic kidney disease with stage 1 through stage 4 chronic kidney disease, or unspecified chronic kidney disease; E11.22 Type 2 diabetes mellitus with diabetic chronic kidney disease; N18.9 Chronic kidney disease, unspecified; K29.70 Gastritis, unspecified, without bleeding; J44.9 Chronic obstructive pulmonary disease, unspecified; J69.0 Pneumonitis due to inhalation of food and vomit; A41.9 Sepsis, unspecified organism; R62.7 Adult failure to thrive; Z68.22 Body mass index [BMI] 22.0-22.9, adult; D68.9 Coagulation defect, unspecified; F09 Unspecified mental disorder due to known physiological condition; N39.0 Urinary tract infection, site not specified; E87.6 Hypokalemia
CPT/HCPCS: 36415; 36600; 71045; 74018; 80048; 80053; 80164; 80185; 80299; 81001; 81003; 82248; 82550; 82553; 82803; 82962; 83036; 83605; 83735; 83789; 83880; 84100; 84439; 84443; 84484; 85007; 85025; 85610; 85651; 85730; 86140; 86710; 86850; 86900; 86901; 87040; 87070; 87081; 87086; 87181; 87205; 93005; 93306; 94003; 94150; 94640; 94664; 96361; 96374; 99285; J7030; J7620; J8499